=== PATIENT | female | born 1985 | race Caucasian/White ===

== ENCOUNTER 2016-07-12 15:51 | Emergency (ER) | payer OTHER ==
[~2016-07-12 15:51] MED LIST: CELE20TA PO; CLON1TAB PO; COMMODE 3-IN-11 MIS; DOCU1CAP39 PO; FOLI1TAB4 PO; GABA600T PO; GETGO ROLLING W1 MI1; HYDR-3583 PO; LEVO50TA4 PO; LISI-515 PO; PANT20 PO; THERTAB15 PO; VITA100T PO; VITA100T2 PO; WHEEMIS3
[2016-07-12 15:54] VITALS: BP 125/92; PULSE 112; RESP 12; TEMP 97.6; O2SAT 100
[2016-08-11] MEDS ORDERED: NUVAMIS VAGINAL (10:12)
[2016-08-11] MEDS ORDERED: HYDR-3583 PO (10:22)
[2016-10-02] MEDS ORDERED: CLON1TAB PO (06:47)
[2016-10-25] MEDS ORDERED: HYDR-3583 PO (15:23)
[2016-11-10] MEDS ORDERED: HYDR-3583 PO (11:13)
[2016-11-10] MEDS ORDERED: NUVAMIS VAGINAL (11:19)
[2016-11-15] MEDS ORDERED: PANT20 PO (12:11)
== END 2016-07-12 16:37 | disposition left against medical advice (07) ==
LOC: NED 15:51
DX: R68.89 Other general symptoms and signs (principal)
CPT/HCPCS: 99281

== ENCOUNTER 2017-04-16 15:19 | Inpatient (IN) | payer OTHER ==
[~2017-04-16] VITALS: Ht 162.6 cm; Wt 58.0 kg
[~2017-04-16 15:19] MED LIST changes: -COMMODE 3-IN-11 MIS; -FOLI1TAB4 PO; +FOLI1TAB6 PO; -GETGO ROLLING W1 MI1; -LISI-515 PO; +LISI10TA3 PO; +NUVAMIS VAGINAL; -WHEEMIS3
[2017-04-16] MEDS ORDERED: IOHEXOL 350 MG/ML 10 ML VIAL (for RAD DIAG) IVCONTRAST ONE (15:20)
[2017-04-16 15:21] VITALS: BP 127/92; PULSE 113; RESP 16; TEMP 98.9; O2SAT 100
[2017-04-16] MEDS ORDERED: B-12100T PO (16:04)
[2017-04-16] MEDS ORDERED: VITA100T54 PO (16:04)
[2017-04-16 16:19] LABS: AUTOMATED NEUTROPHIL # 4.1 TH/MM3 (1.8-7.7); BASOPHIL % 0.2 % (0.0-2.0); EOSINOPHIL % 0.7 % (0.0-4.0); HEMATOCRIT 36.6 % (35.0-46.0); HEMO FLAGS DIFF FINAL; LYMPH % 17.1 % (9.0-44.0); MEAN CELL VOLUME 115.1 FL (80.0-100.0); MEAN CORPUSCULAR HEMOGLOBIN 39.4 PG (27.0-34.0); MEAN CORPUSCULAR HGB CONC 34.3 % (32.0-36.0); MONO % 15.7 % (0.0-8.0); NEUT % 66.3 % (16.0-70.0); PLATELET COUNT 189 TH/MM3 (150-450); RED BLOOD COUNT 3.18 MIL/MM3 (4.00-5.30); RED CELL DISTRIBUTION WIDTH 14.3 % (11.6-17.2); WHITE BLOOD COUNT 6.1 TH/MM3 (4.0-11.0)
[2017-04-16 16:27] LABS: APTT (PATIENT) 30.6 SEC (24.3-30.1); INTERNATIONAL NORMALIZED RATIO 1.3 RATIO
--- NOTE | 2017-04-16 16:56 | PD ---
HPI Chief Complaint: Abnormal Results Time Seen by Provider: 16:03 Travel History International Travel<30 days: No Contact w/Intl Traveler<30days: No Traveled to known affect area: No History of Present Illness HPI Patient is a 32-year-old female presenting to the emergency department for evaluation of jaundice. 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 Her mother is at bedside and states that she noticed the discoloration her eyes over a week ago. Patient did not want to go to the doctor or Hospital initially. Patient states that for the last week her abdomen has become more distended and bloated feeling, she 's had increasing edema in her lower extremities. She does report head mva reactor operator stools, early feeling of fullness and mild nausea. She also reports shortness of breath that started today. Patient states that she had a liver mass with negative biopsies and reports a history of fatty liver disease. She denies any daily alcohol use. She states that she drinks occasionally. She denies any binge drinking or history of hepatitis. 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) Anxiety: Yes Depression: Yes Heart Rhythm Problems: No Cancer: No Cardiovascular Problems: No High Cholesterol: No Chemotherapy: No Chest Pain: No Congestive Heart Failure: No COPD: No Cerebrovascular Accident: No Diabetes: No Endocrine: No Gastrointestinal Disorders: Yes GERD: Yes Genitourinary: No Headaches: Yes (occasional headaches) Hiatal Hernia: No Hypertension: Yes Immune Disorder: No Kidney Stones: No Musculoskeletal: No Neurologic: Yes Reproductive: No Respiratory: No Migraines: No Radiation Therapy: No Renal Failure: No Seizures: No Sickle Cell Disease: No Sleep Apnea: No Thyroid Disease: Yes Ulcer: No Tetanus Vaccination: < 5 Years Influenza Vaccination: No ?: Not LMP: 04/02/17 Past Surgical History Abdominal Surgery: No AICD: No Arteriovenous Shunt: No Cardiac Surgery: No Ear Surgery: No Endocrine Surgery: No Eye Surgery: No Genitourinary Surgery: No Gynecologic Surgery: No Insulin Pump: No Joint Replacement: No Oral Surgery: No Pacemaker: No Thoracic Surgery: No Tonsillectomy: Yes Social History Alcohol Use: Yes (OCCAS) Tobacco Use: No Substance Use: No Allergies-Medications (Allergen,Severity, Reaction): Uncoded Allergies: QT prolonging drugs (Allergy, Severe, 04/16/17) 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 and needs to avoid these drugs for the near future Reported Meds & Prescriptions Reported Meds & Active Scripts Active Folic Acid 1 Mg Tablet 1 Mg PO DAILY Nuvaring Vaginal Insert (Etonogestrel-Ethinyl Estradiol Vaginal Insert) 0.120- 0.015 Mg/24 Hr Vagring 1 Applic VAGINAL DIRECTED Hydrocodone-Acetaminophen 10-325 mg Tab 1 Tab PO Q4H PRN Clonazepam 1 Mg Tab 1 Mg PO BID Celexa (Citalopram Hydrobromide) 20 Mg Tab 20 Mg PO DAILY Gabapentin 600 Mg Tab 1,200 Mg PO TID Thera/Beta-Carotene (Multiple Vitamin) 1 Tab Tab 1 Tab PO DAILY Levothyroxine (Levothyroxine Sodium) 50 Mcg Tab 50 Mcg PO DAILY Reported B-12 (Cyanocobalamin) 100 Mcg Tab 100 Mcg PO DAILY Vitamin B-1 (Thiamine HCl) 100 Mg Tab 100 Mg PO DAILY Review of Systems Except as stated in HPI: all other systems reviewed are Neg General / Constitutional: No: Fever, Chills Eyes: Positive: Other (yellowing) HENT: No: Headaches Cardiovascular: No: Chest Pain or Discomfort Respiratory: Positive: Shortness of Breath Gastrointestinal: Positive: Nausea, Abdominal Pain, Changes in Bowel Habits Musculoskeletal: Positive: Edema, No: Myalgias Skin: Positive Change in Pigmentation Neurologic: No: Weakness, Dizziness, Syncope Physical Exam Narrative GENERAL: Well-developed, well-nourished, alert female. Resting comfortably in no acute distress. SKIN: Warm and dry. Jaundiced HEAD: Atraumatic. Normocephalic. EYES: Pupils equal and round. Moderate scleral icterus. No injection or drainage. ENT: No nasal bleeding or discharge. Mucous membranes pink and moist. NECK: Trachea midline. No JVD. CARDIOVASCULAR: Tachycardic. RESPIRATORY: No accessory muscle use. Clear to auscultation. Breath sounds equal bilaterally. GASTROINTESTINAL: Abdomen firm, mildly tender diffusely, distended. Hepatic and splenic margins not palpable. Positive bowel sounds MUSCULOSKELETAL: Extremities without clubbing, cyanosis, or edema. No obvious deformities. NEUROLOGICAL: Awake and alert. No obvious cranial nerve deficits. Motor grossly within normal limits. Five out of 5 muscle strength in the arms and legs. Normal speech. PSYCHIATRIC: Appropriate mood and affect; insight and judgment normal. Data Data Last Documented VS Vital Signs Date Time Temp Pulse Resp B/P (MAP) Pulse Ox O2 Delivery O2 Flow Rate FiO2 04/16/17 19:41 95 16 100/73 (82) 99 Room Air 04/16/17 15:21 98.9 Orders Orders Complete Blood Count With Diff (04/16/17 15:42) Comprehensive Metabolic Panel (04/16/17 15:42) Prothrombin Time / Inr (Pt) (04/16/17 15:42) Act Partial Throm Time (Ptt) (04/16/17 15:42) Urinalysis - C+S If Indicated (04/16/17 15:42) Electrocardiogram (04/16/17 15:42) Ammonia (04/16/17 15:42) Direct Bilirubin (04/16/17 15:42) Chest, Pa & Lat (04/16/17 ) Ct Abd/Pel W Iv Contrast(Rout) (04/16/17 ) Ed Urine Pregnancytest Poc (04/16/17 16:14) Lipase (04/16/17 17:40) Iohexol 350 Inj (Omnipaque 350 Inj) (04/16/17 15:20) Us Abdomen Gallbladder (04/16/17 ) Admit Order (Ed Use Only) (04/16/17 20:52) Labs Laboratory Tests Test 04/16/17 16:10 04/16/17 19:00 White Blood Count 6.1 TH/MM3 Red Blood Count 3.18 MIL/MM3 Hemoglobin 12.6 GM/DL Hematocrit 36.6 % Mean Corpuscular Volume 115.1 FL Mean Corpuscular Hemoglobin 39.4 PG Mean Corpuscular Hemoglobin Concent 34.3 % Red Cell Distribution Width 14.3 % Platelet Count 189 TH/MM3 Mean Platelet Volume 7.5 FL Neutrophils (%) (Auto) 66.3 % Lymphocytes (%) (Auto) 17.1 % Monocytes (%) (Auto) 15.7 % Eosinophils (%) (Auto) 0.7 % Basophils (%) (Auto) 0.2 % Neutrophils # (Auto) 4.1 TH/MM3 Lymphocytes # (Auto) 1.0 TH/MM3 Monocytes # (Auto) 1.0 TH/MM3 Eosinophils # (Auto) 0.0 TH/MM3 Basophils # (Auto) 0.0 TH/MM3 CBC Comment DIFF FINAL Differential Comment Prothrombin Time 15.0 SEC Prothromb Time International Ratio 1.3 RATIO Activated Partial Thromboplast Time 30.6 SEC Blood Urea Nitrogen 4 MG/DL Creatinine 0.52 MG/DL Random Glucose 120 MG/DL Total Protein 5.3 GM/DL Albumin 2.1 GM/DL Calcium Level 8.4 MG/DL Alkaline Phosphatase 490 U/L Aspartate Amino Transf (AST/SGOT) 108 U/L Alanine Aminotransferase (ALT/SGPT) 34 U/L Total Bilirubin 24.5 MG/DL Direct Bilirubin 20.4 MG/DL Sodium Level 136 MEQ/L Potassium Level 3.1 MEQ/L Chloride Level 102 MEQ/L Carbon Dioxide Level 23.5 MEQ/L Anion Gap 11 MEQ/L Estimat Glomerular Filtration Rate 135 ML/MIN Ammonia 13 MCMOL/L Lipase 41 U/L Urine Color DARK-BROWN Urine Turbidity HAZY Urine pH 7.0 Urine Specific [place] GREATER THAN 1.050 Urine Protein 30 mg/dL Urine Glucose (UA) NEG mg/dL Urine Ketones NEG mg/dL Urine Occult Blood NEG Urine Nitrite NEG Urine Bilirubin LARGE Urine Urobilinogen 4.0 MG/DL Urine Leukocyte Esterase SMALL Urine RBC 5 /hpf Urine WBC 3 /hpf Urine Squamous Epithelial Cells 7 /hpf Urine Amorphous Sediment RARE Urine Bacteria OCC /hpf Urine Mucus FEW /lpf Microscopic Urinalysis Comment CULT NOT INDICATED MDM Medical Decision Making Medical Screen Exam Complete: Yes Emergency Medical Condition: Yes Medical Record Reviewed: Yes Interpretation(s) Last Impressions Gall Bladder Ultrasound 04/16/17 0000 Signed Impressions: Service Date/Time: Sunday, April 16, 2017 19:17 - CONCLUSION: 1. Hepatic steatosis and hepatomegaly. 2. Cholelithiasis with mild thickening of the gallbladder wall. This can be correlated with any clinical signs of cholecystitis. 3. Mildly dilated common bile duct. Felix Briones MD Chest X-Ray 04/16/17 0000 Signed Impressions: Service Date/Time: Sunday, April 16, 2017 16:42 - CONCLUSION: No acute disease. Francisco Javier Lopez MD FACR Abdomen/Pelvis CT 04/16/17 0000 Signed Impressions: Service Date/Time: Sunday, April 16, 2017 17:25 - CONCLUSION: 1. Hepatomegaly with hepatic steatosis and areas of focal fatty sparing. There is mild ascites seen in the peroneal cavity. 2. Gallstone with a thickened gallbladder wall. This is nonspecific. Thickening of the gallbladder wall can be seen with hepatic disease. Cholecystitis cannot be excluded. Significant fluid around gallbladder is not seen on the CT examination. 3. Mild splenomegaly. This is nonspecific. It may be from the hepatic disease. Felix Briones MD Laboratory Tests Test 04/16/17 16:10 04/16/17 19:00 White Blood Count 6.1 TH/MM3 Red Blood Count 3.18 MIL/MM3 Hemoglobin 12.6 GM/DL Hematocrit 36.6 % Mean Corpuscular Volume 115.1 FL Mean Corpuscular Hemoglobin 39.4 PG Mean Corpuscular Hemoglobin Concent 34.3 % Red Cell Distribution Width 14.3 % Platelet Count 189 TH/MM3 Mean Platelet Volume 7.5 FL Neutrophils (%) (Auto) 66.3 % Lymphocytes (%) (Auto) 17.1 % Monocytes (%) (Auto) 15.7 % Eosinophils (%) (Auto) 0.7 % Basophils (%) (Auto) 0.2 % Neutrophils # (Auto) 4.1 TH/MM3 Lymphocytes # (Auto) 1.0 TH/MM3 Monocytes # (Auto) 1.0 TH/MM3 Eosinophils # (Auto) 0.0 TH/MM3 Basophils # (Auto) 0.0 TH/MM3 CBC Comment DIFF FINAL Differential Comment Prothrombin Time 15.0 SEC Prothromb Time International Ratio 1.3 RATIO Activated Partial Thromboplast Time 30.6 SEC Blood Urea Nitrogen 4 MG/DL Creatinine 0.52 MG/DL Random Glucose 120 MG/DL Total Protein 5.3 GM/DL Albumin 2.1 GM/DL Calcium Level 8.4 MG/DL Alkaline Phosphatase 490 U/L Aspartate Amino Transf (AST/SGOT) 108 U/L Alanine Aminotransferase (ALT/SGPT) 34 U/L Total Bilirubin 24.5 MG/DL Direct Bilirubin 20.4 MG/DL Sodium Level 136 MEQ/L Potassium Level 3.1 MEQ/L Chloride Level 102 MEQ/L Carbon Dioxide Level 23.5 MEQ/L Anion Gap 11 MEQ/L Estimat Glomerular Filtration Rate 135 ML/MIN Ammonia 13 MCMOL/L Lipase 41 U/L Urine Color DARK-BROWN Urine Turbidity HAZY Urine pH 7.0 Urine Specific [place] GREATER THAN 1.050 Urine Protein 30 mg/dL Urine Glucose (UA) NEG mg/dL Urine Ketones NEG mg/dL Urine Occult Blood NEG Urine Nitrite NEG Urine Bilirubin LARGE Urine Urobilinogen 4.0 MG/DL Urine Leukocyte Esterase SMALL Urine RBC 5 /hpf Urine WBC 3 /hpf Urine Squamous Epithelial Cells 7 /hpf Urine Amorphous Sediment RARE Urine Bacteria OCC /hpf Urine Mucus FEW /lpf Microscopic Urinalysis Comment CULT NOT INDICATED Vital Signs Date Time Temp Pulse Resp B/P (MAP) Pulse Ox O2 Delivery O2 Flow Rate FiO2 04/16/17 15:55 110 18 97 Room Air 04/16/17 15:21 98.9 113 16 127/92 (104) 100 Differential Diagnosis Cholecystitis versus pancreatitis versus cirrhosis versus acute hepatitis versus Narrative Course Patient is a 32-year-old female presenting for evaluation of jaundice. She reports diffuse abdominal distention. Patient was mildly tachycardic on arrival , she is resting comfortably. Imaging ordered and pending. CBC with no acute findings Chemistry with elevated total bilirubin at 24.5, direct bilirubin at 20.4, alkaline phosphorus 490, lipase is 41, potassium 3.1. Oral replacement ordered. Urinalysis noted specific gravity, large bilirubin, 4.0 urobilinogen. Elevated PT and APTT CT scan of the abdomen and pelvis which was read by radiology shows hepatomegaly with hepatic steatosis and areas of focal fatty sparring. Mild ascites in the peritoneal cavity. There is gallstones with a thickened gallbladder wall, this can be seen with hepatic disease, cholecystitis cannot be excluded. Is no significant fluid around the gallbladder. Mild splenomegaly , which also may be from hepatic disease. Chest x-ray shows no acute disease Ultrasound of the gallbladder which was also read by the radiologist shows again hepatic state ptosis and hepatomegaly. Cholelithiasis with mild thickening of the gallbladder wall. This can be correlated with clinical signs of cholecystitis. There is a mildly dilated common bile duct. Due to the acute onset of jaundice as well as possible cholecystitis. Patient will be admitted for possible MRCP. Discussed with residents who accepted admission. Admit orders placed. Patient has been resting comfortably, she is agreeable to plan. Diagnosis Primary Impression: Jaundice Additional Impressions: Abnormal liver enzymes Abnormal gallbladder ultrasound Admitting Information Admitting Physician Requests: Admit Condition: Stable Ratna Torrez Apr 16, 2017 16:56
--- NOTE | 2017-04-16 16:56 | RADRPT ---
EXAM DATE/TIME: 04/16/2017 16:42 [facility] COMPARISON: No previous studies available for comparison. INDICATIONS : Short of breath, pain from abdomen to toes, no chest pain MEDICAL HISTORY : guillain barre disease SURGICAL HISTORY : None. ENCOUNTER: Initial ACUITY: 1 day PAIN SCORE: 10/10 LOCATION: Bilateral chest FINDINGS: PA and lateral views of the chest demonstrate the lungs to be symmetrically aerated without evidence of mass, infiltrate or effusion. The cardiomediastinal contours are unremarkable. Osseous structure s are intact. CONCLUSION: No acute disease. Francisco Javier Lopez MD FACR on April 16, 2017 at 16:54 Board Certified Radiologist. This report was verified electronically.
[2017-04-16 17:02] LABS: ALKALINE PHOSPHATASE 490 U/L (45-117); ALT (GPT) 34 U/L (10-53); ANION GAP 11 MEQ/L (5-15); AST (GOT) 108 U/L (15-37); BICARBONATE 23.5 MEQ/L (21.0-32.0); BLOOD UREA NITROGEN 4 MG/DL (7-18); CHLORIDE 102 MEQ/L (98-107); GLOMERULAR FILTRATION RATE 135 ML/MIN (>89); POTASSIUM 3.1 MEQ/L (3.5-5.1); SODIUM (NA) 136 MEQ/L (136-145); TOTAL BILIRUBIN ADULT 24.5 MG/DL (0.2-1.0)
[2017-04-16 17:54] VITALS: BP 110/75; PULSE 97; RESP 20; O2SAT 99
--- NOTE | 2017-04-16 18:28 | RADRPT ---
EXAM DATE/TIME: 04/16/2017 17:25 [facility] COMPARISON: CT ABDOMEN & PELVIS W CONTRAST, May 01, 2016, 14:43. INDICATIONS : Recent history of guillian barre,jundice,leg weakness. IV CONTRAST: 75 cc Omnipaque 350 (iohexol) IV ORAL CONTRAST: No oral contrast ingested. RADIATION DOSE: 6.78 CTDIvol (mGy) MEDICAL HISTORY : Guillian barre SURGICAL HISTORY : None. ENCOUNTER: Initial ACUITY: 3 weeks PAIN SCALE: 9/10 LOCATION: [facility] TECHNIQUE: Volumetric scanning of the abdomen and pelvis was performed. Using automated exposure control and ad justment of the mA and/or kV according to patient size, radiation dose was kept as low as reasonably achievable to obtain optimal diagnostic quality images. DICOM format image data is available electro nically for review and comparison. FINDINGS: LOWER LUNGS: The visualized lower lungs are clear. There is a minimal left pleural effusion. LIVER: There is hepatic steatosis with areas of focal fatty sparing. There are potential masslike area seen at the left lateral aspect of the lateral segment of the left lobe liver measuring 2.7 cm and in the posterior segment at the right lobe liver measuring 2.2 cm. These likely represent areas of focal fat ty sparing. They were present previously. They're unchanged from prior exam. The liver does appear en larged. There is a peripheral calcified gallstones in the gallbladder. Gallbladder wall is thickened. There is mild ascites seen around the inferior posterior right lateral aspect of the liver. Mild asc ites is also seen in the pelvis. SPLEEN: The spleen is mildly enlarged. No focal splenic lesion is seen. PANCREAS: Within normal limits. KIDNEYS: Normal in size and shape. There is no mass, stone or hydronephrosis. ADRENAL GLANDS: Within normal limits. VASCULAR: There is no aortic aneurysm. BOWEL/MESENTERY: The stomach, small bowel, and colon demonstrate no acute abnormality. There is no free intraperitone al air or fluid. ABDOMINAL WALL: Within normal limits. RETROPERITONEUM: There is no lymphadenopathy. BLADDER: No wall thickening or mass. REPRODUCTIVE: No pelvic masses are seen. There is a ringlike structure in the vagina. INGUINAL: There is no lymphadenopathy or hernia. MUSCULOSKELETAL: Within normal limits for patient age. CONCLUSION: 1. Hepatomegaly with hepatic steatosis and areas of focal fatty sparing. There is mild ascites seen i n the peroneal cavity. 2. Gallstone with a thickened gallbladder wall. This is nonspecific. Thickening of the gallbladder wa ll can be seen with hepatic disease. Cholecystitis cannot be excluded. Significant fluid around gallb ladder is not seen on the CT examination. 3. Mild splenomegaly. This is nonspecific. It may be from the hepatic disease. Felix Briones MD on April 16, 2017 at 18:19 Board Certified Radiologist. This report was verified electronically.
[2017-04-16 19:41] VITALS: BP 100/73; PULSE 95; RESP 16; O2SAT 99
[2017-04-16 20:09] LABS: BACTERIA, URINE OCC /hpf; BLOOD, URINE NEG (NEG); COMMENT (UR) CULT NOT INDICATED; CULTURE IF INDICATED CULT NOT INDICATED; GLUCOSE,URINE NEG (NEG); KETONE, URINE NEG (NEG); MUCUS URINE FEW /lpf (OCC); NITRITE,URINE NEG (NEG); SQUAMOUS EPITHELIAL CELL URINE 7 /hpf (0-5)
[2017-04-16 20:14] LABS: URINE COLOR DARK-BROWN (YELLW/STRAW)
--- NOTE | 2017-04-16 20:21 | RADRPT ---
EXAM DATE/TIME: 04/16/2017 19:17 [facility] COMPARISON: No previous studies available for comparison. INDICATIONS : Right upper quadrant pain. MEDICAL HISTORY : Gastroesophageal reflux disease. Liver disease. Depression. SURGICAL HISTORY : Tonsillectomy. ENCOUNTER: Initial ACUITY: 4-6 days PAIN SCORE: 5/10 LOCATION: Right upper quadrant MEASUREMENTS: LIVER: 23.3 cm length COMMON DUCT: 8 mm RIGHT KIDNEY: 9.7 x 4.0 x 3.6 cm FINDINGS: LIVER: The liver is enlarged and echogenic without focal lesion or ductal dilatation. COMMON DUCT: Common bile duct is mildly dilated at 8 mm. GALLBLADDER: Gallstones are seen the gallbladder. Gallbladder wall is thickened at 4 mm. The technologist reports a negative sonographic Bhardwaj's sign. PANCREAS: The visualized portions are within normal limits. RIGHT KIDNEY: No evidence of hydronephrosis, stone, or mass. CONCLUSION: 1. Hepatic steatosis and hepatomegaly. 2. Cholelithiasis with mild thickening of the gallbladder wall. This can be correlated with any clini sky signs of cholecystitis. 3. Mildly dilated common bile duct. Felix Briones MD on April 16, 2017 at 20:17 Board Certified Radiologist. This report was verified electronically.
[2017-04-16] MEDS ORDERED: POTASSIUM CHLORIDE 10 MEQ CONTROLLED RELEASE TAB PO ONE (21:00)
--- NOTE | 2017-04-16 21:32 | HHI.HP ---
[facility] Service Family Medicine Primary Care Physician Se Shannon , R3 MD Helen Admission Diagnosis JAUNDICE, R/O CHOLECYSTITIS Diagnoses: Chief Complaint: weakness International Travel<30 Days: No Contact w/Intl Traveler<30days: No History of Present Illness Patient is a 32 year old female with history of hepatic steatosis, cirrhosis, hypothyroidism, Guillain-Knight, hypertension who presents for weakness and jaundice. 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 She states that she started having pain in her feet about 2 weeks ago that was shooting up to her hips. She is having continued leg pain and weakness , however no pain while sitting down. She denies any numbness/tingling in her legs, however does note some on the bottom of her feet. 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 She was treated with IVIG. She sees neurologist Dr. Baig, saw her this last summer. Denies any symptoms since last episode. Denies any bladder/bowel incontinence. No upper extremity weakness. She states she didn't really notice her skin turning yellow, until her mother mentioned it. Started about a week ago. Also started having pain in her abdomen as well. Her urine is very dark. No fever/chills. No recent travel. Had a alcoholic drink 2 nights ago. Averages a mixed drink per week. States her stools are light green. No blood in her stools. No diarrhea. Does have a lot of back pain when she bends over. Endorses abdominal fullness and early satiety, which is been going on for 3 weeks. No specific right upper quadrant pain. Endorses overall malaise. Denies any history of jaundice previously. Does not see a GI doctor regularly. Denies any sick contacts. Denies any history of hepatitis. No, she has a history of hepatomegaly and liver masses, which have had negative biopsies. They did show steatohepatitis and cirrhosis. Review of Systems ROS Limitations: Poor Historian Constitutional: COMPLAINS OF: Change in appetite, DENIES: Fever, Weight gain, Weight loss, Chills, Night Sweats Eyes: DENIES: Vision loss Ears, nose, mouth, throat: DENIES: Hearing loss, Throat pain, Running Nose Respiratory: DENIES: Cough, Shortness of breath Cardiovascular: DENIES: Chest pain, Palpitations, Syncope Gastrointestinal: COMPLAINS OF: Abdominal pain, DENIES: Black stools, Bloody stools, Constipation, Diarrhea, Nausea, Vomiting Genitourinary: DENIES: Urgency, Dysuria Musculoskeletal: COMPLAINS OF: Muscle aches, Stiffness, Back pain Integumentary: DENIES: Abnormal pigmentation, Rash Hematologic/lymphatic: DENIES: Bruising, Lymphadenopathy Neurologic: DENIES: Headache, Paresthesias Psychiatric: DENIES: Confusion, Mood changes Past Family Social History Past Medical History Cirrhosis Hepatic steatosis B12 deficiency Guillian-Bairre Hypothyroidism Depression Anxiety HTN Past Surgical History Tonsilectomy Leep [place] Teeth extraction Reported Medications Reported Meds & Active Scripts Active Folic Acid 1 Mg Tablet 1 Mg PO DAILY Nuvaring Vaginal Insert (Etonogestrel-Ethinyl Estradiol Vaginal Insert) 0.120- 0.015 Mg/24 Hr Vagring 1 Applic VAGINAL DIRECTED Hydrocodone-Acetaminophen 10-325 mg Tab 1 Tab PO Q4H PRN Clonazepam 1 Mg Tab 1 Mg PO BID PRN Celexa (Citalopram Hydrobromide) 20 Mg Tab 20 Mg PO DAILY Gabapentin 600 Mg Tab 1,200 Mg PO BID Thera/Beta-Carotene (Multiple Vitamin) 1 Tab Tab 1 Tab PO DAILY Levothyroxine (Levothyroxine Sodium) 50 Mcg Tab 50 Mcg PO DAILY Reported B-12 (Cyanocobalamin) 100 Mcg Tab 100 Mcg PO DAILY Vitamin B-1 (Thiamine HCl) 100 Mg Tab 100 Mg PO DAILY Allergies: Uncoded Allergies: QT prolonging drugs (Allergy, Severe, 04/16/17) she has QT prolongation because of her Guillan Rav[place] and needs to avoid these drugs for the near future Active Ordered Medications Active Medications Iohexol (Omnipaque 350 Inj) 75 ml STK-MED ONCE IVCONTRAST Last administered on 04/16/17t 15:20; Admin Dose 75 ML; Start 04/16/17 at 15:20; Stop 04/16/17 at 18:08; Status DC Potassium Chloride (KCl) 60 meq ONCE ONCE PO; Start 04/16/17 at 21:00; Stop 04/16/17 at 21:01; Status DC Family History Skin cancer, prostate, History of abnormal cervical finding, HTN, Social History Lives with mother at home Alcohol: 1-2 drinks/week Tobacco: not currently; quit 5 years ago Illicit drug use: denies Physical Exam Vital Signs Vital Signs Date Time Temp Pulse Resp B/P (MAP) Pulse Ox O2 Delivery O2 Flow Rate FiO2 04/16/17 19:41 95 16 100/73 (82) 99 Room Air 04/16/17 17:54 97 20 110/75 (87) 99 Room Air 04/16/17 15:55 110 18 97 Room Air 04/16/17 15:21 98.9 113 16 127/92 (104) 100 Physical Exam GENERAL: This is a well-nourished, well-developed patient, in no apparent distress. SKIN: Cool and dry. Jaundiced. HEAD: Atraumatic. Normocephalic. EYES: Pupils equal round and reactive. Extraocular motions intact. Scleral icterus present. ENT: Throat without erythema, tonsillar hypertrophy or exudate. Uvula midline. Airway patent. NECK: Trachea midline. No JVD or lymphadenopathy. Supple, nontender. CARDIOVASCULAR: Regular rate and rhythm without murmurs, gallops, or rubs. RESPIRATORY: Clear to auscultation. Breath sounds equal bilaterally. No wheezes , rales, or rhonchi. GASTROINTESTINAL: Abdomen soft, mildly tender to palpation diffusely. Mildly distended. Hepatic margin palpable. Positive bowel sounds. Negative Bhardwaj's signs. No rebound tenderness. MUSCULOSKELETAL: Extremities without clubbing, cyanosis. 1+ edema bilaterally lower extremities. Tender to palpation. NEUROLOGICAL: Awake and alert. Cranial nerves II through XII intact. No focal neuro deficits. Patient with decreased strength in lower extremities bilaterally. Decreased sensation in lower extremities bilaterally. Normal speech. Laboratory Laboratory Tests Test 04/16/17 16:10 04/16/17 19:00 White Blood Count 6.1 Red Blood Count 3.18 Hemoglobin 12.6 Hematocrit 36.6 Mean Corpuscular Volume 115.1 Mean Corpuscular Hemoglobin 39.4 Mean Corpuscular Hemoglobin Concent 34.3 Red Cell Distribution Width 14.3 Platelet Count 189 Mean Platelet Volume 7.5 Neutrophils (%) (Auto) 66.3 Lymphocytes (%) (Auto) 17.1 Monocytes (%) (Auto) 15.7 Eosinophils (%) (Auto) 0.7 Basophils (%) (Auto) 0.2 Neutrophils # (Auto) 4.1 Lymphocytes # (Auto) 1.0 Monocytes # (Auto) 1.0 Eosinophils # (Auto) 0.0 Basophils # (Auto) 0.0 CBC Comment DIFF FINAL Differential Comment Prothrombin Time 15.0 Prothromb Time International Ratio 1.3 Activated Partial Thromboplast Time 30.6 Blood Urea Nitrogen 4 Creatinine 0.52 Random Glucose 120 Total Protein 5.3 Albumin 2.1 Calcium Level 8.4 Alkaline Phosphatase 490 Aspartate Amino Transf (AST/SGOT) 108 Alanine Aminotransferase (ALT/SGPT) 34 Total Bilirubin 24.5 Direct Bilirubin 20.4 Sodium Level 136 Potassium Level 3.1 Chloride Level 102 Carbon Dioxide Level 23.5 Anion Gap 11 Estimat Glomerular Filtration Rate 135 Ammonia 13 Lipase 41 Urine Color DARK-BROWN Urine Turbidity HAZY Urine pH 7.0 Urine Specific [place] GREATER THAN 1.050 Urine Protein 30 Urine Glucose (UA) NEG Urine Ketones NEG Urine Occult Blood NEG Urine Nitrite NEG Urine Bilirubin LARGE Urine Urobilinogen 4.0 Urine Leukocyte Esterase SMALL Urine RBC 5 Urine WBC 3 Urine Squamous Epithelial Cells 7 Urine Amorphous Sediment RARE Urine Bacteria OCC Urine Mucus FEW Microscopic Urinalysis Comment CULT NOT INDICATED Result Diagram: 04/16/17 1610 04/16/17 1610 Imaging Last Impressions Gall Bladder Ultrasound 04/16/17 0000 Signed Impressions: Service Date/Time: Sunday, April 16, 2017 19:17 - CONCLUSION: 1. Hepatic steatosis and hepatomegaly. 2. Cholelithiasis with mild thickening of the gallbladder wall. This can be correlated with any clinical signs of cholecystitis. 3. Mildly dilated common bile duct. Felix Brioens MD Chest X-Ray 04/16/17 0000 Signed Impressions: Service Date/Time: Sunday, April 16, 2017 16:42 - CONCLUSION: No acute disease. Francisco Javier Lopez MD FACR Abdomen/Pelvis CT 04/16/17 0000 Signed Impressions: Service Date/Time: Sunday, April 16, 2017 17:25 - CONCLUSION: 1. Hepatomegaly with hepatic steatosis and areas of focal fatty sparing. There is mild ascites seen in the peroneal cavity. 2. Gallstone with a thickened gallbladder wall. This is nonspecific. Thickening of the gallbladder wall can be seen with hepatic disease. Cholecystitis cannot be excluded. Significant fluid around gallbladder is not seen on the CT examination. 3. Mild splenomegaly. This is nonspecific. It may be from the hepatic disease. MD Reji Xavier VTE Risk Assessment Caprini VTE Risk Assessment: No/Low Risk (score <= 1) Caprini Risk Assessment Model Point Value = 1 Point Value = 2 Point Value = 3 Point Value = 5 Age 41-60 Minor surgery BMI > 25 kg/m2 Swollen legs Varicose veins or History of unexplained or recurrent spontaneous Oral contraceptives or hormone replacement Sepsis (< 1 month) Serious lung disease, including pneumonia (< 1 month) Abnormal pulmonary function Acute myocardial infarction Congestive heart failure (< 1 month) History of inflammatory bowel disease Medical patient at bed rest Age 61-74 Arthroscopic surgery Major open surgery (> 45 min) Laparoscopic surgery (> 45 min) Malignancy Confined to bed (> 72 hours) Immobilizing plaster cast Central venous access Age >= 75 History of VTE Family history of VTE Factor V Leiden Prothrombin [id number] Lupus anticoagulant Anticardiolipin antibodies Elevated serum homocysteine Heparin-induced thrombocytopenia Other congenital or acquired thrombophilia Stroke (< 1 month) Elective arthroplasty Hip, pelvis, or leg fracture Acute spinal cord injury (< 1 month) Prophylaxis Regimen Total Risk Factor Score Risk Level Prophylaxis Regimen 0-1 Low Early ambulation 2 Moderate Order ONE of the following: *Sequential Compression Device (SCD) *Heparin 5000 units SQ BID 3-4 Higher Order ONE of the following medications: *Heparin 5000 units SQ TID *Enoxaparin/Lovenox 40 mg SQ daily (WT < 150 kg, CrCl > 30 mL/min) *Enoxaparin/Lovenox 30 mg SQ daily (WT < 150 kg, CrCl > 10-29 mL/min) *Enoxaparin/Lovenox 30 mg SQ BID (WT < 150 kg, CrCl > 30 mL/min) AND/OR *Sequential Compression Device (SCD) 5 or more Highest Order ONE of the following medications: *Heparin 5000 units SQ TID (Preferred with Epidurals) *Enoxaparin/Lovenox 40 mg SQ daily (WT < 150 kg, CrCl > 30 mL/min) *Enoxaparin/Lovenox 30 mg SQ daily (WT < 150 kg, CrCl > 10-29 mL/min) *Enoxaparin/Lovenox 30 mg SQ BID (WT < 150 kg, CrCl > 30 mL/min) AND *Sequential Compression Device (SCD) Assessment and Plan Assessment and Plan 32-year-old female with history of Guillain-Knight, hepatic steatosis, cirrhosis, hypothyroidism, hypertension presents with lower extremity pain and weakness along with jaundice. We'll admit for workup of neurological symptoms as well as GI symptoms. Code Status Full Discussed Condition With Dr. Torrez Problem List: (1) Jaundice ICD Codes: R17 - Unspecified jaundice Status: Acute Plan: Patient presents with jaundiced clinically, as well as abdominal pain. DDx cirrhosis, hepatitis, cholecystitis, cholangitis, hepatic steatosis, liver malignancy, primary biliary cholangitis Patient with significant history of hepatic steatosis and cirrhosis. History of liver masses biopsied in the past, which were negative for malignancy. Abdomen/pelvis CT: hepatomegaly with hepatic steatosis. Mild ascites. Gallstones with a thickened gallbladder wall. Mild splenomegaly. Gallbladder ultrasound: hepatic steatosis and hepatomegaly. Cholelithiasis with thickening of the gallbladder wall. This can be correlated with any clinical signs of cholecystitis. Mildly dilated common bile duct. Patient with elevated total bilirubin 24.5. Direct bilirubin 20.4. ST 108, ALC 34. Alkaline phosphatase 490. Lipase not elevated. Urine shows large bilirubin. PT elevated to 15 and PTT slightly elevated. No signs of infection, WBC wnl. Vitals stable, afebrile -Consult GI-appreciate recs -CLD -May benefit from MRCP -Trend CMP and bili -Hepatitis profile -AFP (2) History of Guillain-Ravena syndrome ICD Codes: Z86.69 - Personal history of other diseases of the nervous system and sense organs Status: Acute Plan: Patient diagnosed last year with Guillain-Knight syndrome. Now presenting with similar symptoms. No focal neuro deficit, but patient with lower extremity weakness and changes in sensation. DDx: CIDP, relapsing GB syndrome, B12 deficiency -Neuro checks -Continue home [place] for pain -B12, history of deficiency -Continue to monitor, may benefit from neurology referral (3) Hypoactive thyroid ICD Codes: E03.9 - Hypoactive thyroid Status: Acute Plan: Continue home synthroid Check TSH (4) Anxiety and depression ICD Codes: F41.9 - Anxiety disorder, unspecified; F32.9 - Major depressive disorder, single episode, unspecified Status: Chronic Plan: Continue home Celexa (5) FEN Status: Acute Plan: Fluids: tolerating PO Electrolytes: wnl, continue to monitor Nutrition: regular diet DVT ppx: SCDs Physician Certification 2 Midnight Certification Type: Admission for Inpatient Services Order for Inpatient Services The services are ordered in accordance with Medicare regulations or non- Medicare payer requirements, as applicable. In the case of services not specified as inpatient-only, they are appropriately provided as inpatient services in accordance with the 2-midnight benchmark. Estimated LOS (days): 3 days is the estimated time the patient will need to remain in the hospital, assuming treatment plan goals are met and no additional complications. Post-Hospital Plan: Home Problem Qualifiers (1) Hypoactive thyroid: Qualified Codes: E03.9 - Hypothyroidism, unspecified Shailesh Cole MD, R2 Apr 16, 2017 21:32
[2017-04-16] MEDS ORDERED: SODIUM CHLORIDE 0.9% FLUSH 10 ML FLUSH IV FLUSH PRN (22:15)
[2017-04-16] MEDS ORDERED: ETHINYL ESTRADIOL OTHER PRN (22:15)
[2017-04-16] MEDS ORDERED: ETONOGESTREL OTHER PRN (22:15)
[2017-04-16] MEDS ORDERED: ONDANSETRON HCL 4 MG/2 ML VIAL IV PUSH PRN (22:15)
[2017-04-16] MEDS ORDERED: GABA600T PO (22:16)
[2017-04-16 23:49] VITALS: BP 117/79
[2017-04-17 00:02] LABS: TOTAL BILIRUBIN ADULT 23.9 MG/DL (0.2-1.0)
[2017-04-17] MEDS: ACETAMINOPHEN/HYDROcodone 325 MG/10 MG TAB PO PRN ×4 (00:05→20:16)
[2017-04-17] MEDS: LEVOTHYROXINE SODIUM 50 MCG TAB PO SCH (06:34)
[2017-04-17] MEDS: THIAMINE HCL 100 MG TAB PO SCH (07:46)
[2017-04-17] MEDS: MULTIVITAMIN TAB PO SCH (07:46)
[2017-04-17] MEDS: FOLIC ACID 1 MG TAB PO SCH (07:46)
[2017-04-17] MEDS: CITALOPRAM HYDROBROMIDE 20 MG TAB PO SCH (07:46)
[2017-04-17] MEDS: SODIUM CHLORIDE 0.9% FLUSH 10 ML FLUSH IV FLUSH SCH ×2 (07:46→20:17)
[2017-04-17 08:00] VITALS: BP 106/76; PULSE 89; RESP 16; TEMP 97.7; O2SAT 98
[2017-04-17 08:36] LABS: AUTOMATED NEUTROPHIL # 3.2 TH/MM3 (1.8-7.7); BASOPHIL % 0.7 % (0.0-2.0); EOSINOPHIL # 0.1 TH/MM3 (0-0.4); EOSINOPHIL % 1.9 % (0.0-4.0); HEMATOCRIT 32.4 % (35.0-46.0); HEMO FLAGS DIFF FINAL; LYMPHOCYTE # 1.5 TH/MM3 (1.0-4.8); MEAN CELL VOLUME 113.4 FL (80.0-100.0); MEAN CORPUSCULAR HGB CONC 34.4 % (32.0-36.0); MONO % 14.2 % (0.0-8.0); NEUT % 57.2 % (16.0-70.0); PLATELET COUNT 173 TH/MM3 (150-450); RED BLOOD COUNT 2.86 MIL/MM3 (4.00-5.30); RED CELL DISTRIBUTION WIDTH 14.2 % (11.6-17.2); WHITE BLOOD COUNT 5.6 TH/MM3 (4.0-11.0)
[2017-04-17] MEDS: clonazePAM 1 MG TAB PO PRN ×2 (08:43→23:13)
[2017-04-17] MEDS: CYANOCOBALAMIN 100 MCG TAB PO SCH (08:43)
[2017-04-17 09:03] LABS: ALT (GPT) 25 U/L (10-53)
[2017-04-17 09:20] LABS: ANION GAP 12 MEQ/L (5-15); AST (GOT) 82 U/L (15-37); BLOOD UREA NITROGEN 4 MG/DL (7-18); CHLORIDE 104 MEQ/L (98-107); GLOMERULAR FILTRATION RATE 213 ML/MIN (>89); POTASSIUM 3.5 MEQ/L (3.5-5.1); SODIUM (NA) 139 MEQ/L (136-145)
[2017-04-17 09:31] LABS: ALKALINE PHOSPHATASE 399 U/L (45-117); TOTAL BILIRUBIN ADULT 22.2 MG/DL (0.2-1.0)
[2017-04-17] MEDS: PIPERACIL-TAZO 3.375 GM PREMIX 50 ML IV SCH ×3 (09:50→20:07)
--- NOTE | 2017-04-17 10:17 | HHI.FPPN ---
Subjective Remarks Ms. Contreras was afebrile with stable vital signs overnight. Ms. Contreras's history of illness was reviewed with Dr. Ruiz and myself; she reports approximately one month of pain in her feet and weakness in her lower extremities which has extended proximally to her thighs/hips. Patient has fallen twice in the last month; this is not normal for her. Patient reiterated concern for possible recurrence of Guillain-Knight syndrome returning. Patient reiterates noticing yellowish hue to skin and eyes 1.5 weeks ago, but states that she has had early satiety and abdominal fullness as well as darker than usual urine for the past month; patient feels that her urine is currently lightening. No recent fevers. Patient reports normal respirations. Patient reports white bowel movements. Patient does not report recent sick contacts or vaccinations. Patient clarified her history of alcohol intake; patient had a large intake of elzbieta and tequila approximately 1 year ago but since then has only been drinking approximately 1 cocktail glass of tequila weekly. Patient reports seeing Dr. Ocampo for Guillain-Knight syndrome as outpatient but that she has plans to establish with a new neurologist. (Isac Ramos MD, R3) Objective Vitals Vital Signs Date Time Temp Pulse Resp B/P (MAP) Pulse Ox O2 Delivery O2 Flow Rate FiO2 04/16/17 23:49 92 16 117/79 (92) 100 04/16/17 19:41 95 16 100/73 (82) 99 Room Air 04/16/17 17:54 97 20 110/75 (87) 99 Room Air 04/16/17 15:55 110 18 97 Room Air 04/16/17 15:21 98.9 113 16 127/92 (104) 100 (Isac Ramos MD, R3) Result Diagram: 04/17/17 0738 04/17/17 0738 Imaging Last Impressions Gall Bladder Ultrasound 04/16/17 0000 Signed Impressions: Service Date/Time: Sunday, April 16, 2017 19:17 - CONCLUSION: 1. Hepatic steatosis and hepatomegaly. 2. Cholelithiasis with mild thickening of the gallbladder wall. This can be correlated with any clinical signs of cholecystitis. 3. Mildly dilated common bile duct. Felix Briones MD Chest X-Ray 04/16/17 0000 Signed Impressions: Service Date/Time: Sunday, April 16, 2017 16:42 - CONCLUSION: No acute disease. Francisco Javier Lopez MD FACR Abdomen/Pelvis CT 04/16/17 0000 Signed Impressions: Service Date/Time: Sunday, April 16, 2017 17:25 - CONCLUSION: 1. Hepatomegaly with hepatic steatosis and areas of focal fatty sparing. There is mild ascites seen in the peroneal cavity. 2. Gallstone with a thickened gallbladder wall. This is nonspecific. Thickening of the gallbladder wall can be seen with hepatic disease. Cholecystitis cannot be excluded. Significant fluid around gallbladder is not seen on the CT examination. 3. Mild splenomegaly. This is nonspecific. It may be from the hepatic disease. Felix Briones MD Objective Remarks GENERAL: This is a well-nourished, well-developed patient, in no apparent distress. SKIN: Cool and dry. Jaundiced. HEAD: Cushingoid facies EYES: Extraocular motions grossly intact. Scleral icterus present. CARDIOVASCULAR: Regular rate and rhythm without murmurs. Normal peripheral perfusion RESPIRATORY: Clear to auscultation. Breath sounds equal bilaterally. No wheezes to auscultation GASTROINTESTINAL: Abdomen soft, no tenderness appreciated. Bhardwaj's negative. Liver edge difficult to palpate due to abdominal tensing/musculature, but not obvious guarding. Abdomen enlarged relative to what would be expected for BMI; suggestive of weight loss vs ascites vs mild distension. MUSCULOSKELETAL/NEUROLOGICAL: Awake and alert. Cranial nerves grossly intact. Significantly decreased strength with flexion/dorsiflexion of feet, flexion at knee, and flexion at hip. Pain to light palpation of feet and distal LE's bilaterally. DTR's of knees were not elicited bilaterally 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, hepatic steatosis, cirrhosis, hypothyroidism, hypertension presents with lower extremity pain and weakness along with jaundice: (Isac Ramos MD, R3) Attending Attestation Medical rounds were conducted with Dr Paige Ramos this morning, EMR reviewed, Patient interviewed and examined with resident, Agree to contents of this note, See Orders (Vazquez Ruiz MD) Problem List: (1) Hyperbilirubinemia ICD Codes: E80.6 - Other disorders of bilirubin metabolism Status: Acute Plan: 04/17: Mild improvement in cholestasis suggested on labs: TBILI 23.9 -> 22.2, ALKP 490 -> 399 -GI consulted -CLD -Will start empiric Zosyn due to patient having imaging suggestive of cholecystitis -Will trend CMP - Hepatitis profile and AFP pending Impression: Patient presents with jaundiced clinically,with postprandial abdominal fullness. PMH of hepatic steatosis and cirrhosis. History of liver masses biopsied in the past, which were negative for malignancy. Abdomen/pelvis CT: hepatomegaly with hepatic steatosis. Mild ascites. Gallstones with a thickened gallbladder wall. Mild splenomegaly. Gallbladder ultrasound: hepatic steatosis and hepatomegaly. Cholelithiasis with thickening of the gallbladder wall. This can be correlated with any clinical signs of cholecystitis. Mildly dilated common bile duct. Labs on admission: Total bilirubin 24.5. Direct bilirubin 20.4. ST 108, ALC 34. Alkaline phosphatase 490. Lipase not elevated. Urine shows large bilirubin. PT elevated to 15 and PTT slightly elevated. No signs of infection, WBC wnl. Vitals stable, afebrile (2) History of Guillain-[place] syndrome ICD Codes: Z86.69 - Personal history of other diseases of the nervous system and sense organs Status: Acute Plan: -Will consult Neurology for assistance in management Impression: Patient diagnosed last year with Guillain-Knight syndrome now presenting with similar symptoms. Exam with bilateral muscular weakness, patellar DTR suppression, increased pain (3) Hypoactive thyroid ICD Codes: E03.9 - Hypoactive thyroid Status: Acute Plan: Continue home synthroid Check TSH (4) Anxiety and depression ICD Codes: F41.9 - Anxiety disorder, unspecified; F32.9 - Major depressive disorder, single episode, unspecified Status: Chronic Plan: Continue home Celexa (5) FEN Status: Acute Plan: Fluids: tolerating PO Electrolytes: wnl, continue to monitor Nutrition: regular diet DVT ppx: SCDs (Isac Ramos MD, R3) Problem Qualifiers (1) Hypoactive thyroid: Qualified Codes: E03.9 - Hypothyroidism, unspecified Isac Ramos MD, R3 Apr 17, 2017 10:17 Vazquez Ruiz MD Apr 20, 2017 13:50
[2017-04-17 12:00] VITALS: BP 99/70; PULSE 85; RESP 16; TEMP 97.4; O2SAT 95
--- NOTE | 2017-04-17 14:23 | EKG ---
Date Performed: 04/16/2017 Time Performed: 16:16:59 PTAGE: 32 years EKG: Sinus rhythm POSSIBLE LEFT ATRIAL ENLARGEMENT POSSIBLE ANTERIOR MYOCARDIAL INFARCTION ABNORMAL ECG PREVIOUS TRACING : 05/05/2016 12.11 Compared to prior tracing no significant change DOCTOR: Omar Townsend Interpretating Date/Time 04/17/2017 14:17:08
--- NOTE | 2017-04-17 15:48 | PD.CONS ---
History of Present Illness Service Neurology Consult Requested By medical Primary Care Physician Almas Mark MD History of Present Illness 32 year old female admitted for fatigue, weakness x >1 week. 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 mri brain/t/ lspine was normal. csf showed elevated protein in the 60's with nml wbc. she then went to rehab. she felt better after ivig. has felt an ascending weakness and some b/b incontinence. no dyspnea, no dysphagia. no ptosis, no diplopia. no hx of antecedent infection that she is aware of. Review of Systems as above and admit hp Past Family Social History Past Medical History Cirrhosis Hepatic steatosis B12 deficiency Guillian-Bairre Hypothyroidism Depression Anxiety HTN Past Surgical History Tonsilectomy Leep [place] Teeth extraction Reported Medications Reported Meds & Active Scripts Active Folic Acid 1 Mg Tablet 1 Mg PO DAILY Nuvaring Vaginal Insert (Etonogestrel-Ethinyl Estradiol Vaginal Insert) 0.120- 0.015 Mg/24 Hr Vagring 1 Applic VAGINAL DIRECTED Hydrocodone-Acetaminophen 10-325 mg Tab 1 Tab PO Q4H PRN Clonazepam 1 Mg Tab 1 Mg PO BID PRN Celexa (Citalopram Hydrobromide) 20 Mg Tab 20 Mg PO DAILY Gabapentin 600 Mg Tab 1,200 Mg PO BID Thera/Beta-Carotene (Multiple Vitamin) 1 Tab Tab 1 Tab PO DAILY Levothyroxine (Levothyroxine Sodium) 50 Mcg Tab 50 Mcg PO DAILY Reported B-12 (Cyanocobalamin) 100 Mcg Tab 100 Mcg PO DAILY Vitamin B-1 (Thiamine HCl) 100 Mg Tab 100 Mg PO DAILY Allergies: Uncoded Allergies: QT prolonging drugs (Allergy, Severe, 04/16/17) she has QT prolongation because of her Guillan [place] and needs to avoid these drugs for the near future Family History Skin cancer, prostate, HTN, Social History Lives with mother at home Alcohol: 1-2 drinks/week Tobacco: not currently; quit 5 years ago Illicit drug use: denies Review of Systems All other ROS: ROS reviewed as documented in chart Past Family Social History Allergies: Uncoded Allergies: QT prolonging drugs (Allergy, Severe, 04/16/17) she has QT prolongation because of her Guillan [place] and needs to avoid these drugs for the near future Active Ordered Medications Current Medications Medications (Trade) Dose Ordered Sig/Ulices Route Start Time Stop Time Status Last Admin (NS Flush) 2 ml UNSCH PRN IV FLUSH 04/16/17 22:15 (NS Flush) 2 ml BID IV FLUSH 04/17/17 09:00 04/17/17 07:46 (Zofran Inj) 4 mg Q6H PRN IV PUSH 04/16/17 22:15 (CeleXA) 20 mg DAILY PO 04/17/17 09:00 04/17/17 07:46 (Vitamin B12) 100 mcg DAILY PO 04/17/17 09:00 04/17/17 08:43 (Folate) 1 mg DAILY PO 04/17/17 09:00 04/17/17 07:46 ([place] 10-325 Mg) 1 tab Q4H PRN PO 04/16/17 22:15 04/17/17 15:29 (Synthroid) 50 mcg DAILY@0600 PO 04/17/17 06:00 04/17/17 06:34 (Vitamin B1) 100 mg DAILY PO 04/17/17 09:00 04/17/17 07:46 Patient Own Medication PT OWN MED: (Etonogestrel-Ethinyl... UNSCH X1 PRN OTHER 04/16/17 22:15 05/07/17 22:14 Future Hold (Theragran) 1 tab DAILY PO 04/17/17 09:00 04/17/17 07:46 (KlonoPIN) 1 mg Q12HR PRN PO 04/16/17 22:30 04/17/17 08:43 Piperacillin Sod/ Tazobactam Sod 50 ml @ 100 mls/hr Q6H IV 04/17/17 09:00 04/17/17 15:08 Exam I&O / VS 04/17/17 04/17/17 04/18/17 15:00 23:00 07:00 Intake Total 50 ml Balance 50 ml Intake IV Total 50 ml Vital Signs Date Time Temp Pulse Resp B/P (MAP) Pulse Ox O2 Delivery O2 Flow Rate FiO2 04/16/17 23:49 92 16 117/79 (92) 100 04/16/17 19:41 95 16 100/73 (82) 99 Room Air 04/16/17 17:54 97 20 110/75 (87) 99 Room Air 11/13/17 15:55 110 18 97 Room Air General: Alert and Oriented Eye: EOMI Respiratory: Lungs CTA, Non-labored respirations, Symmetrical expansion Cardiology: Normal rate, Normal peripheral perfusion, Regular Rhythm Musculoskeletal: ROM, Other Neurologic: Alert, Oriented, CN II-XII intact Psychiatric: Cooperative, Appropriate mood & affect Exam Comments ox 3, anxious, eomi, vff, ou 3-2mm, face sym, ue 5-/5, paraparesis 2-3/5 with limited foot movement; significant pain with passive rom of either ankle. msr 2+ , no apparent clonus, planter flexor. light touch reduced, pin/proprio normal Review/Management Diagnosis/Plan: (1) History of Guillain-[place] syndrome ICD Codes: Z86.69 - Personal history of other diseases of the nervous system and sense organs Status: Acute Plan: possible gbs relapse. may be associated with liver dz has preserved reflexes which is atypical for gbs. myelopathy another possibility but imaging negative before rpr/ramone/lyme/hiv negative in the past recs she would like to rertry ivig x 5 days. s/b d/w pt including but not limited to meningitis/renal failure/dvt/headache, etc.. emg/ncv with rehab md neuroaxis imaging p.t. may need inpt rehab again (2) Anxiety and depression ICD Codes: F41.9 - Anxiety disorder, unspecified; F32.9 - Major depressive disorder, single episode, unspecified Status: Chronic (3) HYPOTHYROIDISM, UNSPECIFIED ICD Codes: E03.9 - HYPOTHYROIDISM, UNSPECIFIED Status: Chronic (4) Elevated LFTs ICD Codes: R94.5 - Abnormal results of liver function studies Status: Chronic Edd Hdz MD Apr 17, 2017 15:48
[2017-04-17 15:50] VITALS: BP 102/63; PULSE 85; RESP 16; TEMP 97.5; O2SAT 98
[2017-04-17] MEDS ORDERED: LORazepam 2 MG/ML VIAL IV PUSH ONE (17:45)
[2017-04-17] MEDS ORDERED: IMMUNE GLOBULIN IV SCH (18:00)
[2017-04-17] MEDS ORDERED: EPINEPHrine HCL (1:1000) 1 MG/ML VIAL OTHER PRN (18:00)
[2017-04-17] MEDS: SODIUM CHLORID 0.9% 500 ML INJ 500 ML IV SCH (18:55)
[2017-04-17 20:00] VITALS: BP_SYST 97; BP_SYST 98; BP_DIAS 68; PULSE 86; RESP 17; TEMP 96.8; O2SAT 96
[2017-04-17] MEDS: DEXTROSE 5% IN WATE 500 ML INJ 500 ML OTHER SCH (20:35)
[2017-04-17] MEDS: IMMUNE GLOBULIN IV SCH (20:43)
[2017-04-18] VITALS: BP 99/65; PULSE 87; RESP 18; TEMP 96.2; O2SAT 98
[2017-04-18] MEDS: PIPERACIL-TAZO 3.375 GM PREMIX 50 ML IV SCH ×4 (02:51→21:16)
[2017-04-18] MEDS: ACETAMINOPHEN/HYDROcodone 325 MG/10 MG TAB PO PRN ×4 (02:56→21:13)
[2017-04-18 04:00] VITALS: BP 96/59; PULSE 104; RESP 18; TEMP 98.7; O2SAT 95
[2017-04-18] MEDS: LEVOTHYROXINE SODIUM 50 MCG TAB PO SCH (05:30)
[2017-04-18 08:00] VITALS: BP 105/64; PULSE 103; RESP 16; TEMP 98.4; O2SAT 95
[2017-04-18 08:08] LABS: AUTOMATED NEUTROPHIL # 4.2 TH/MM3 (1.8-7.7); BASOPHIL % 0.6 % (0.0-2.0); EOSINOPHIL # 0.1 TH/MM3 (0-0.4); EOSINOPHIL % 0.9 % (0.0-4.0); HEMATOCRIT 33.6 % (35.0-46.0); HEMO FLAGS DIFF FINAL; LYMPH % 13.8 % (9.0-44.0); LYMPHOCYTE # 0.8 TH/MM3 (1.0-4.8); MEAN CELL VOLUME 115.2 FL (80.0-100.0); MEAN CORPUSCULAR HEMOGLOBIN 39.2 PG (27.0-34.0); MONO % 14.5 % (0.0-8.0); NEUT % 70.2 % (16.0-70.0); PLATELET COUNT 167 TH/MM3 (150-450); RED BLOOD COUNT 2.92 MIL/MM3 (4.00-5.30); RED CELL DISTRIBUTION WIDTH 14.4 % (11.6-17.2)
[2017-04-18 08:40] LABS: BICARBONATE 19.9 MEQ/L (21.0-32.0); INDIRECT BILIRUBIN 5.1 MG/DL (0.0-0.8); POTASSIUM 3.5 MEQ/L (3.5-5.1); TOTAL BILIRUBIN ADULT 23.3 MG/DL (0.2-1.0)
[2017-04-18] MEDS: FOLIC ACID 1 MG TAB PO SCH (09:06)
[2017-04-18] MEDS: MULTIVITAMIN TAB PO SCH (09:06)
[2017-04-18] MEDS: CYANOCOBALAMIN 100 MCG TAB PO SCH (09:06)
[2017-04-18] MEDS: THIAMINE HCL 100 MG TAB PO SCH (09:06)
[2017-04-18] MEDS: CITALOPRAM HYDROBROMIDE 20 MG TAB PO SCH (09:06)
[2017-04-18] MEDS: SODIUM CHLORIDE 0.9% FLUSH 10 ML FLUSH IV FLUSH SCH ×2 (09:07→21:13)
[2017-04-18] MEDS: clonazePAM 1 MG TAB PO PRN ×2 (09:10→23:29)
[2017-04-18] MEDS: DEXTROSE 5% IN WATE 500 ML INJ 500 ML OTHER SCH (10:36)
--- NOTE | 2017-04-18 11:24 | HHI.FPPN ---
Subjective Remarks Mrs. Contreras was afebrile with tachycardia to ~103 BPM overnight. Patient reports continued bilateral lower extremity weakness and pain despite starting IVIG yesterday. Patient reports hunger; she does not report changes in sensation of abdominal fullness. No shortness of breath, urinary problems, or bowel concerns reported. Patient requests restarting her Gabapentin for lower extremity pain. (Isac Ramos MD, R3) Objective Vitals Vital Signs Date Time Temp Pulse Resp B/P (MAP) Pulse Ox O2 Delivery O2 Flow Rate FiO2 04/18/17 08:00 98.4 103 16 105/64 (78) 95 04/18/17 04:00 98.7 104 18 96/59 (71) 95 04/18/17 00:00 96.2 87 18 99/65 (76) 98 04/17/17 20:43 87 19 100/60 04/17/17 20:00 96.8 86 17 97/68 (78) 96 98/68 (78) 04/17/17 15:50 97.5 85 16 102/63 (76) 98 04/17/17 12:00 97.4 85 16 99/70 (80) 95 I/O 04/17/17 04/17/17 04/17/17 04/18/17 04/18/17 04/18/17 07:00 15:00 23:00 07:00 15:00 23:00 Intake Total 50 ml 1320 ml 301 ml Balance 50 ml 1320 ml 301 ml Intake Oral 720 ml IV Total 50 ml 600 ml 301 ml # Voids 0 3 3 # Bowel Movements 0 (Isac Ramos MD, R3) Result Diagram: 04/18/17 0701 04/18/17 0701 Imaging Last Impressions Gall Bladder Ultrasound 04/16/17 0000 Signed Impressions: Service Date/Time: Sunday, April 16, 2017 19:17 - CONCLUSION: 1. Hepatic steatosis and hepatomegaly. 2. Cholelithiasis with mild thickening of the gallbladder wall. This can be correlated with any clinical signs of cholecystitis. 3. Mildly dilated common bile duct. Felix Briones MD Chest X-Ray 04/16/17 0000 Signed Impressions: Service Date/Time: Sunday, April 16, 2017 16:42 - CONCLUSION: No acute disease. Francisco Javier Lopez MD FACR Abdomen/Pelvis CT 04/16/17 0000 Signed Impressions: Service Date/Time: Sunday, April 16, 2017 17:25 - CONCLUSION: 1. Hepatomegaly with hepatic steatosis and areas of focal fatty sparing. There is mild ascites seen in the peroneal cavity. 2. Gallstone with a thickened gallbladder wall. This is nonspecific. Thickening of the gallbladder wall can be seen with hepatic disease. Cholecystitis cannot be excluded. Significant fluid around gallbladder is not seen on the CT examination. 3. Mild splenomegaly. This is nonspecific. It may be from the hepatic disease. Felix Briones MD Objective Remarks GENERAL: This is a well-nourished, well-developed patient, in no apparent distress. SKIN: Jaundiced. HEAD: Possible cushingoid facies EYES: Extraocular motions grossly intact. Scleral icterus present. CARDIOVASCULAR: Regular rate and rhythm without murmurs. Normal peripheral perfusion RESPIRATORY: Clear to auscultation. Breath sounds equal bilaterally. No wheezes to auscultation GASTROINTESTINAL: Abdomen soft, no tenderness appreciated. No appreciated pain to palpation; not obviously guarding. Abdomen enlarged relative to what would be expected for BMI; suggestive of weight loss vs ascites vs mild distension. MUSCULOSKELETAL/NEUROLOGICAL: Awake and alert. Cranial nerves grossly intact. Significantly decreased strength with flexion/dorsiflexion of feet and flexion at hip. Pain to light palpation of feet and distal LE's bilaterally. 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, hepatic steatosis, cirrhosis, hypothyroidism, hypertension presents with lower extremity pain and weakness along with jaundice: (Isac Ramos MD, R3) Attending Attestation EMR reviewed Patients hospital course discussed in detail with Dr Ramos Patient seen and examined Agree with contents of this note See Orders (Vazquez Ruiz MD) Problem List: (1) Hyperbilirubinemia ICD Codes: E80.6 - Other disorders of bilirubin metabolism Status: Acute Plan: 04/17: Mild improvement in cholestasis suggested on labs: TBILI 23.9 -> 22.2, ALKP 490 -> 399 04/18: Persistent TBILI and ALKP elevations -GI consulted -CLD -Continue empiric Zosyn due to patient having imaging suggestive of cholecystitis -Will trend CMP Impression: Patient presents with jaundiced clinically,with postprandial abdominal fullness. PMH of hepatic steatosis and cirrhosis. History of liver masses biopsied in the past, which were negative for malignancy. Abdomen/pelvis CT: hepatomegaly with hepatic steatosis. Mild ascites. Gallstones with a thickened gallbladder wall. Mild splenomegaly. Gallbladder ultrasound: hepatic steatosis and hepatomegaly. Cholelithiasis with thickening of the gallbladder wall. This can be correlated with any clinical signs of cholecystitis. Mildly dilated common bile duct. Labs on admission: Total bilirubin 24.5. Direct bilirubin 20.4. ST 108, ALC 34. Alkaline phosphatase 490. Lipase not elevated. Urine shows large bilirubin. PT elevated to 15 and PTT slightly elevated. Hepatitis panel wnl; AFP wnl No signs of infection, WBC wnl. Vitals stable, afebrile (2) History of Guillain-[place] syndrome ICD Codes: Z86.69 - Personal history of other diseases of the nervous system and sense organs Status: Acute Plan: -Neurology consulted for assistance in management -Evaluation for possible GBS relapse vs liver disease. 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 Exam with bilateral muscular weakness, patellar DTR suppression, increased pain. Previously patient with negative RPR, RAJAT, Lyme, HIV B12 >2000 (3) Hypoactive thyroid ICD Codes: E03.9 - Hypoactive thyroid Status: Acute Plan: Impression: On chronic Synthroid for hypothyroidism Repeat TSH 5.45 -Continue home Synthroid 50 ug daily -Due to TSH >5, could consider 25ug dosage increase but could also defer due to possible transient elevation from acute illness; will discuss options with patient to decide on benefits/risks of dosage increase prior to discharge (4) Anxiety and depression ICD Codes: F41.9 - Anxiety disorder, unspecified; F32.9 - Major depressive disorder, single episode, unspecified Status: Chronic Plan: Continue home Celexa (5) FEN Status: Acute Plan: Fluids: Clear liquid diet Electrolytes: wnl, continue to monitor Nutrition: regular diet DVT ppx: SCDs (Isac Ramos MD, R3) Problem Qualifiers (1) Hypoactive thyroid: Qualified Codes: E03.9 - Hypothyroidism, unspecified Isac Ramos MD, R3 Apr 18, 2017 11:23 Vazquez Ruiz MD Apr 20, 2017 14:00
[2017-04-18 12:00] VITALS: BP 90/59; PULSE 97; RESP 16; TEMP 97.7; O2SAT 98
--- NOTE | 2017-04-18 12:02 | PD.CONS ---
HPI History of Present Illness This is a 32 year old female patient with a history of Guillian [place] over a year ago (S/P IVIG) who presented to the emergency room for evaluation of jaundice. She is a poor historian. She was treated for Guillain [place] about a year ago in April with IVIG. Since that time, she has not regained her full strength and has to use a walker to get around. A few weeks ago, she started having pain in her lower extremities with worsening weakness. She states that the pain was consistent with the weakness and discomfort she had with her prior episode of Guillain barre. 2 weeks ago, her mother noted that her sclera were yellow and she went to her PCP, where she was told to use eye drops. She states that she did not have any labs drawn. She has since had worsening abdominal bloating, nausea without vomiting, early satiety and some epigastric discomfort/pressure with food intake or movement, increasing abdominal distention, and generalized malaise. She denies fevers, but had some chills last night. She reports that she previously was a heavy drinker, but cut back significantly after a prior hospitalization for liver issues. She does continue to drink, but is very vague with the quantity. She does report that she had 2-3 alcoholic drinks Sunday night and states that she probably has these a few times a week. However, she becomes a little agitated when she is asked about her alcohol consumption. She denies any Tylenol use. She does take hydrocodone, but states she only takes this as prescribed- usually once or twice per day. She denies taking any OTC meds other than Pepcid for frequent heartburn. On admission she was noted to have a total bilirubin of 24.5, direct bilirubin 20.4, AST 108, ALT 34, alkaline phosphatase 490. Gallbladder ultrasound (04/16/17)---> hepatic steatosis and have hepatomegaly, cholelithiasis with mild thickening of the gallbladder wall. This can be correlated with any clinical signs of cholecystitis, mildly dilated common bile duct at 8mm. CT scan abdomen and pelvis with IV contrast (04/16/17) hepatomegaly with hepatic steatosis and areas of focal fatty sparing. There is mild ascites seen in the peroneal cavity. A constant with a thickened gallbladder wall. This is nonspecific. Thickening of the gallbladder wall can be seen with hepatic disease. Cholecystitis cannot be excluded. Significant fluid around gallbladder is not seen on the CT examination. Mild splenomegaly. This is nonspecific. It may be from the hepatic disease. She was evaluated in October for elevated LFTs and liver masses. At that time, she was drinking heavilty. Tumor markers at that time in October of 2015 were AFP 11.9, CEA 1.3, Ca 15-3 35.1, Ca19-9 9.4, Ca 125 18.0. She underwent liver workup Hepatitis profile negatie, RAJAT neg, AMA < 20.0, ASMA neg, Ceruloplasmin 18, Alpha 1 antitrypsin 118. Iron saturation was elevated at 91.9%. Hfe C282Y not detected , one copy of the H63D mutation was identified. Rpt Ferritin 2364, Iron saturation 70.2%. She also underwent liver biopsy (10/04/15) revealed benign liver tissue with marked steatosis. She then had a repeat liver biopsy (10/07/15) ----> revealed liver liver tissue with marked steatohepatitis and cirrhosis. She was then evaluated again in May of 2016 for elevated LFTs and liver masses and was noted to have 3 hypervascular mass lesions in the liver. It was thought that her elevated LFTs was most likely related to a combination of steatohepatitis and alcoholic hepatitis. (Araceli Lee) PFSH Past Medical History Liver Cirrhosis Steatohepatitis Alcoholic hepatitis B12 deficiency Guillain-[place] Hypothyroidism Depression Anxiety HTN Liver masses, thought to be fatty in nature Past Surgical History Tonsillectomy LEEP [place] teeth extraction Liver biopsy (Araceli Lee) Uncoded Allergies: QT prolonging drugs (Allergy, Severe, 04/16/17) she has QT prolongation because of her Guillan [place] and needs to avoid these drugs for the near future Medications Allergies Uncoded Allergies Type Severity Reaction Last Updated Verified QT prolonging drugs Allergy Severe 04/16/17 Active Scripts Medications Dose Route/Sig Max Daily Dose Days Date Category Gabapentin 600 Mg Tab 1,200 Mg PO BID 04/16/17 Rx B-12 (Cyanocobalamin) 100 Mcg Tab 100 Mcg PO DAILY 04/16/17 Reported Vitamin B-1 (Thiamine HCl) 100 Mg Tab 100 Mg PO DAILY 04/16/17 Reported Folic Acid 1 Mg Tablet 1 Mg PO DAILY 03/06/17 Rx Nuvaring Vaginal Insert (Etonogestrel-Ethinyl Estradiol Vaginal Insert) 0.120-0.015 Mg/24 Hr Vagring 1 Applic VAGINAL DIRECTED 03/06/17 Rx Hydrocodone-Acetaminophen 10-325 mg Tab 1 Tab PO Q4H PRN 03/06/17 Rx Clonazepam 1 Mg Tab 1 Mg PO BID 12/07/16 Rx Celexa (Citalopram Hydrobromide) 20 Mg Tab 20 Mg PO DAILY 06/23/16 Rx Thera/Beta-Carotene (Multiple Vitamin) 1 Tab Tab 1 Tab PO DAILY 06/07/16 Rx Levothyroxine (Levothyroxine Sodium) 50 Mcg Tab 50 Mcg PO DAILY 06/07/16 Rx Family History No family hx of liver disease MGF had prostate cancer MGM had multiple blood clots Social History Smokes 1/2 PPD Alcohol use unclear. Used to drink heavily. Had 2-3 drinks Sunday and reports that she drinks a few times a month. (Araceli Lee) Review of Systems Constitutional: COMPLAINS OF: Fatigue, Chills, Change in appetite, DENIES: Fever Respiratory: DENIES: Cough Cardiovascular: DENIES: Chest pain Gastrointestinal: COMPLAINS OF: Abdominal pain, Nausea, Anorexia, Swelling of Abdomen, Heartburn, DENIES: Black stools, Bloody stools, Constipation, Diarrhea , Vomiting Musculoskeletal: COMPLAINS OF: Joint pain, Muscle aches Neurologic: COMPLAINS OF: Headache Psychiatric: DENIES: Confusion (Araceli Lee) GI Exam Vitals I&O Vital Signs Date Time Temp Pulse Resp B/P (MAP) Pulse Ox O2 Delivery O2 Flow Rate FiO2 04/18/17 08:00 98.4 103 16 105/64 (78) 95 04/18/17 04:00 98.7 104 18 96/59 (71) 95 04/18/17 00:00 96.2 87 18 99/65 (76) 98 04/17/17 20:43 87 19 100/60 04/17/17 20:00 96.8 86 17 97/68 (78) 96 98/68 (78) 04/17/17 15:50 97.5 85 16 102/63 (76) 98 04/17/17 12:00 97.4 85 16 99/70 (80) 95 I/O 1104/17/17 04/17/17 04/18/17 04/18/17 04/18/17 07:00 15:00 23:00 07:00 15:00 23:00 Intake Total 50 ml 1320 ml 301 ml Balance 50 ml 1320 ml 301 ml Intake Oral 720 ml IV Total 50 ml 600 ml 301 ml # Voids 0 3 3 # Bowel Movements 0 Imaging Last Impressions Gall Bladder Ultrasound 04/16/17 0000 Signed Impressions: Service Date/Time: Sunday, April 16, 2017 19:17 - CONCLUSION: 1. Hepatic steatosis and hepatomegaly. 2. Cholelithiasis with mild thickening of the gallbladder wall. This can be correlated with any clinical signs of cholecystitis. 3. Mildly dilated common bile duct. Felix Briones MD Chest X-Ray 04/16/17 0000 Signed Impressions: Service Date/Time: Sunday, April 16, 2017 16:42 - CONCLUSION: No acute disease. Francisco Javier Lopez MD FACR Abdomen/Pelvis CT 04/16/17 0000 Signed Impressions: Service Date/Time: Sunday, April 16, 2017 17:25 - CONCLUSION: 1. Hepatomegaly with hepatic steatosis and areas of focal fatty sparing. There is mild ascites seen in the peroneal cavity. 2. Gallstone with a thickened gallbladder wall. This is nonspecific. Thickening of the gallbladder wall can be seen with hepatic disease. Cholecystitis cannot be excluded. Significant fluid around gallbladder is not seen on the CT examination. 3. Mild splenomegaly. This is nonspecific. It may be from the hepatic disease. Felix Briones MD Laboratory Test 04/18/17 07:01 White Blood Count 6.0 TH/MM3 Red Blood Count 2.92 MIL/MM3 Hemoglobin 11.5 GM/DL Hematocrit 33.6 % Mean Corpuscular Volume 115.2 FL Mean Corpuscular Hemoglobin 39.2 PG Mean Corpuscular Hemoglobin Concent 34.0 % Red Cell Distribution Width 14.4 % Platelet Count 167 TH/MM3 Mean Platelet Volume 8.3 FL Neutrophils (%) (Auto) 70.2 % Lymphocytes (%) (Auto) 13.8 % Monocytes (%) (Auto) 14.5 % Eosinophils (%) (Auto) 0.9 % Basophils (%) (Auto) 0.6 % Neutrophils # (Auto) 4.2 TH/MM3 Lymphocytes # (Auto) 0.8 TH/MM3 Monocytes # (Auto) 0.9 TH/MM3 Eosinophils # (Auto) 0.1 TH/MM3 Basophils # (Auto) 0.0 TH/MM3 CBC Comment DIFF FINAL Differential Comment Blood Urea Nitrogen 5 MG/DL Creatinine 0.46 MG/DL Random Glucose 75 MG/DL Total Protein 5.1 GM/DL Albumin 1.9 GM/DL Calcium Level 8.0 MG/DL Alkaline Phosphatase 396 U/L Aspartate Amino Transf (AST/SGOT) 99 U/L Alanine Aminotransferase (ALT/SGPT) 26 U/L Total Bilirubin 23.3 MG/DL Direct Bilirubin 18.2 MG/DL Sodium Level 140 MEQ/L Potassium Level 3.5 MEQ/L Chloride Level 106 MEQ/L Carbon Dioxide Level 19.9 MEQ/L Anion Gap 14 MEQ/L Estimat Glomerular Filtration Rate 156 ML/MIN Indirect Bilirubin 5.1 MG/DL Physical Examination HEENT: Normocephalic; atraumatic; + jaundice. CHEST: CTA CARDIAC: Mildly tachycardic, regular ABDOMEN: Soft, mildly distended with ascites, mild epigastric tenderness, no significant RUQ tenderness; hepatosplenomegaly; bowel sounds are present in all four quadrants. EXTREMITIES: BLE edema. SKIN: + jaundice. 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 (Araceli Lee) Assessment and Plan Plan ASSESSMENT: - Elevated LFTs, Jaundice in patient with liver cirrhosis, steatohepatitis, and ongoing ETOH use. Pt with extensive workup in past for elevated LFTs October/May of 2016. Previous Liver workup Hepatitis profile negative, RAJAT neg, AMA < 20.0, ASMA neg, Ceruloplasmin 18, Alpha 1 antitrypsin 118. Iron saturation was elevated at 91.9%. 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 Rpt Ferritin 2364, Iron saturation 70.2%. She also underwent liver biopsy (10/04/15) revealed benign liver tissue with marked steatosis. She then had a repeat liver biopsy (10/07/15)----> revealed liver liver tissue with marked steatohepatitis and cirrhosis. Gallbladder ultrasound (04/16/17)---> hepatic steatosis and have hepatomegaly , cholelithiasis with mild thickening of the gallbladder wall. This can be correlated with any clinical signs of cholecystitis, mildly dilated common bile duct at 8mm. CT scan abdomen and pelvis with IV contrast (04/16/17) hepatomegaly with hepatic steatosis and areas of focal fatty sparing. There is mild ascites seen in the peroneal cavity. A constant with a thickened gallbladder wall. This is nonspecific. Thickening of the gallbladder wall can be seen with hepatic disease. Cholecystitis cannot be excluded. Significant fluid around gallbladder is not seen on the CT examination. Mild splenomegaly. This is nonspecific. T. Bili 23.3, Direct 18.2, Indirect 5.1, AST 99, ALT 26, Alk Phosph 396. DF 37.100. Labs are consistent with alcoholic hepatitis and suspect that she is drinking more than she is admitting. LFT derangement most likely combination of alcoholic hepatitis and steatohepatitis. Will get MRCP. Start pentoxifylline. - Nausea, GERD, Early Satiety. Add PPI - Anemia, macrocytic. Hx B12 Deficiency, B12 > 2,000. - Coagulopathy. PT 15.0, INR 1.3. - BLE pain, progressively worsening weakness, possible Guillain Mesho[place]. Pt was treated for Guillain [place]ho[place] in April of 2016. States she still has not regained her strength and uses walker, but has been having worsening weakness/BLE pain for 2 weeks. Neurology following, MRI pending. Started IVIG last night. - Elevated TSH with hypothyroidism, anxiety, depression, per attending. PLAN: - Clear liquids - MRCP to rule out any obstructive process - Add PPI - Add Pentoxifylline - Tylenol level - CBC, CMP, PT/INR in am - Supportive care - Further recommendations to follow after seen and examined by Dr. Cruz (Araceli Lee) Physician Comments Patient seen and examined Agree with above Continue with current supportive care Monitor labs Poor prognosis overall Considering prednisolone if infection is ruled out (Frandy Cruz MD) Araceli Lee Apr 18, 2017 12:02 Frandy Cruz MD Apr 18, 2017 21:38
[2017-04-18] MEDS ORDERED: GADODIAMIDE PF 287 MG/ML 5 ML VIAL (for RAD MRI) IV PUSH ONE (12:06)
[2017-04-18] MEDS: GABAPENTIN 300 MG CAP PO SCH ×2 (12:31→16:29)
--- NOTE | 2017-04-18 12:36 | RADRPT ---
EXAM DATE/TIME: 04/18/2017 10:32 [facility] COMPARISON: MRI BRAIN W & W/O CONTRAST, May 01, 2016, 19:25. MRI CERVICAL SPINE W/O CONTRAST, May 04, 2016, 15:31. INDICATIONS : Weakness. CONTRAST: 12 cc Omniscan (gadodiamide) IV MEDICAL HISTORY : Hypertension. SURGICAL HISTORY : Tonsillectomy. ENCOUNTER: Initial ACUITY: 3 day PAIN SCORE: 0/10 LOCATION: head TECHNIQUE: Multiplanar, multisequence MRI of the brain was performed both prior to and following the administrat ion of paramagnetic contrast. FINDINGS: CEREBRUM: The ventricles are normal for age. No evidence of midline shift, mass lesion, hemorrhage or acute in farction. No extraaxial fluid collections are seen. The pituitary gland and suprasellar cistern are normal in configuration. WHITE MATTER: No significant signal abnormalities are seen in the white matter. POSTERIOR FOSSA: The cerebellum and brainstem are intact. The 4th ventricle is midline. The cerebellopontine angle is unremarkable. The cerebellar tonsils are normal in position. DIFFUSION IMAGING: No focal areas of restricted diffusion are seen. No evidence of acute infarction. EXTRACRANIAL: The visualized portions of the orbits and paranasal sinuses are unremarkable. POST-CONTRAST: No abnormal areas of parenchymal or dural enhancement. No evidence of blood-brain barrier breakdown. CONCLUSION: 1. No acute intracranial abnormality. Artemio Lopez MD on April 18, 2017 at 12:32 Board Certified Radiologist. This report was verified electronically.
[2017-04-18] MEDS: PENTOXIFYLLINE 400 MG CONTROLLED RELEASE TAB PO SCH ×2 (14:00→21:12)
--- NOTE | 2017-04-18 14:24 | RADRPT ---
EXAM DATE/TIME: 04/18/2017 10:32 [facility] COMPARISON: No previous studies available for comparison. INDICATIONS : Numbness bilateral extremities. CONTRAST: 12 cc Omniscan (gadodiamide) IV MEDICAL HISTORY : Hypertension. SURGICAL HISTORY : Tonsillectomy. ENCOUNTER: Initial ACUITY: 2 day PAIN SCORE: 0/10 LOCATION: c-spine. TECHNIQUE: Multiplanar, multisequence MRI examination of the cervical spine was performed. FINDINGS: VERTEBRAE: Normal vertebral body height. Homogeneous marrow signal. ALIGNMENT: No evidence of subluxation. CORD: Normal configuration and signal. POST FOSSA: The cerebellar tonsils are normal in position. POST-CONTRAST: No abnormal areas of enhancement are seen. C2-C3: The thecal sac has a normal configuration. There is no evidence of disc herniation or spinal canal stenosis. The neural foramina are patent bilaterally. C3-C4: The thecal sac has a normal configuration. There is no evidence of disc herniation or spinal canal s tenosis. The neural foramina are patent bilaterally. C4-C5: The thecal sac has a normal configuration. There is no evidence of disc herniation or spinal canal s tenosis. The neural foramina are patent bilaterally. C5-C6: The thecal sac has a normal configuration. There is no evidence of disc herniation or spinal canal s tenosis. The neural foramina are patent bilaterally. C6-C7: The thecal sac has a normal configuration. There is no evidence of disc herniation or spinal canal s tenosis. The neural foramina are patent bilaterally. C7-T1: The thecal sac has a normal configuration. There is no evidence of disc herniation or spinal canal s tenosis. The neural foramina are patent bilaterally. CONCLUSION: Normal examination. Osman Mathis Jr., MD on April 18, 2017 at 14:21 Board Certified Radiologist. This report was verified electronically.
--- NOTE | 2017-04-18 14:25 | RADRPT ---
EXAM DATE/TIME: 04/18/2017 10:32 [facility] COMPARISON: No previous studies available for comparison. INDICATIONS : Bilateral numbness in extremities. CONTRAST: 12 cc Omniscan (gadodiamide) IV MEDICAL HISTORY : Hypertension. SURGICAL HISTORY : Tonsillectomy. ENCOUNTER: Initial ACUITY: 3 day PAIN SCORE: 0/10 LOCATION: t-spine. TECHNIQUE: Multiplanar multisequence MRI of the thoracic spine was performed. FINDINGS: VERTEBRA: Normal vertebral body height. Homogeneous marrow signal. ALIGNMENT: Normal. CORD: Normal position and configuration. POST CONTRAST: No abnormal areas of contrast enhancement seen. T1-T2: Normal. T2-T3: The thecal sac has a normal diameter. No evidence of disc bulge or protrusion. T3-T4: The thecal sac has a normal diameter. No evidence of disc bulge or protrusion. T4-T5: The thecal sac has a normal diameter. No evidence of disc bulge or protrusion. T5-T6: The thecal sac has a normal diameter. No evidence of disc bulge or protrusion. T6-T7: The thecal sac has a normal diameter. No evidence of disc bulge or protrusion. T7-T8: The thecal sac has a normal diameter. No evidence of disc bulge or protrusion. T8-T9: The thecal sac has a normal diameter. No evidence of disc bulge or protrusion. T9-T10: The thecal sac has a normal diameter. No evidence of disc bulge or protrusion. T10-T11: The thecal sac has a normal diameter. No evidence of disc bulge or protrusion. T11-T12: The thecal sac has a normal diameter. No evidence of disc bulge or protrusion. T12-L1: The thecal sac has a normal diameter. No evidence of disc bulge or protrusion. CONCLUSION: Normal examination. Osman Mathis Jr., MD on April 18, 2017 at 14:22 Board Certified Radiologist. This report was verified electronically.
[2017-04-18 16:00] VITALS: BP 108/59; PULSE 93; RESP 17; TEMP 97.9; O2SAT 99
[2017-04-18] MEDS: PANTOPRAZOLE SODIUM 40 MG VIAL IV PUSH SCH (16:30)
[2017-04-18] MEDS: SODIUM CHLORID 0.9% 500 ML INJ 500 ML IV SCH (17:00)
[2017-04-18 20:00] VITALS: BP 103/78; PULSE 89; PULSE 99; RESP 18; TEMP 97.7; O2SAT 98
[2017-04-18] MEDS: IMMUNE GLOBULIN IV SCH (22:02)
[2017-04-19] VITALS (7 sets, daily range): BP systolic 92–104; BP diastolic 63–69; PULSE 84–98; RESP 17–18; TEMP 96.8–97.9; O2SAT 95–99
[2017-04-19] MEDS: PIPERACIL-TAZO 3.375 GM PREMIX 50 ML IV SCH ×4 (02:31→20:58)
[2017-04-19] MEDS: LEVOTHYROXINE SODIUM 50 MCG TAB PO SCH (05:22)
[2017-04-19] MEDS: PENTOXIFYLLINE 400 MG CONTROLLED RELEASE TAB PO SCH ×3 (05:22→20:57)
[2017-04-19] MEDS: ACETAMINOPHEN/HYDROcodone 325 MG/10 MG TAB PO PRN ×4 (05:24→21:00)
[2017-04-19 08:46] LABS: BASOPHIL % 0.4 % (0.0-2.0); EOSINOPHIL # 0.1 TH/MM3 (0-0.4); EOSINOPHIL % 1.6 % (0.0-4.0); HEMO FLAGS DIFF FINAL; LYMPH % 20.7 % (9.0-44.0); MEAN CELL VOLUME 114.8 FL (80.0-100.0); MEAN CORPUSCULAR HEMOGLOBIN 38.7 PG (27.0-34.0); MEAN CORPUSCULAR HGB CONC 33.7 % (32.0-36.0); MONO % 14.4 % (0.0-8.0); NEUT % 62.9 % (16.0-70.0); PLATELET COUNT 154 TH/MM3 (150-450); RED BLOOD COUNT 2.79 MIL/MM3 (4.00-5.30); RED CELL DISTRIBUTION WIDTH 14.4 % (11.6-17.2); WHITE BLOOD COUNT 4.8 TH/MM3 (4.0-11.0)
[2017-04-19 08:58] LABS: INTERNATIONAL NORMALIZED RATIO 1.5 RATIO; PROTHROMBIN TIME - PATIENT 16.7 SEC (9.8-11.6)
[2017-04-19 09:28] LABS: CHLORIDE 105 MEQ/L (98-107); SODIUM (NA) 137 MEQ/L (136-145)
[2017-04-19 10:08] LABS: POTASSIUM 3.3 MEQ/L (3.5-5.1)
[2017-04-19 10:09] LABS: ALKALINE PHOSPHATASE 318 U/L (45-117); ALT (GPT) 23 U/L (10-53); ANION GAP 14 MEQ/L (5-15); AST (GOT) 103 U/L (15-37); BICARBONATE 18.1 MEQ/L (21.0-32.0); BLOOD UREA NITROGEN 2 MG/DL (7-18); GLOMERULAR FILTRATION RATE 156 ML/MIN (>89); TOTAL BILIRUBIN ADULT 20.8 MG/DL (0.2-1.0)
--- NOTE | 2017-04-19 10:35 | HHI.GIFU ---
Subjective Remarks On way to MRCP. Pt c/o not feeling any better- nausea, but hungry and states she wants to eat. Continues to have weakness/pain in BLE- states no improvement. (Araceli Lee) Objective Vitals I&O Vital Signs Date Time Temp Pulse Resp B/P (MAP) Pulse Ox O2 Delivery O2 Flow Rate FiO2 04/19/17 08:00 97.3 91 17 99/63 (75) 99 04/19/17 06:24 20 04/19/17 04:00 97.9 84 18 96/66 (76) 97 04/19/17 00:00 97.1 98 18 100/67 (78) 95 04/18/17 22:02 88 20 108/76 04/18/17 20:00 89 04/18/17 20:00 97.7 99 18 103/78 (86) 98 04/18/17 16:00 97.9 93 17 108/59 (75) 99 04/18/17 12:00 97.7 97 16 90/59 (69) 98 I/O 04/18/17 04/18/17 04/18/17 04/19/17 04/19/17 04/19/17 07:00 15:00 23:00 07:00 15:00 23:00 Intake Total 301 ml 290 ml 510 ml Balance 301 ml 290 ml 510 ml Intake Oral 240 ml 320 ml IV Total 301 ml 50 ml 190 ml # Voids 3 4 3 # Bowel Movements 0 0 Laboratory Laboratory Tests Test 04/19/17 06:43 White Blood Count 4.8 Red Blood Count 2.79 Hemoglobin 10.8 Hematocrit 32.0 Mean Corpuscular Volume 114.8 Mean Corpuscular Hemoglobin 38.7 Mean Corpuscular Hemoglobin Concent 33.7 Red Cell Distribution Width 14.4 Platelet Count 154 Mean Platelet Volume 8.2 Neutrophils (%) (Auto) 62.9 Lymphocytes (%) (Auto) 20.7 Monocytes (%) (Auto) 14.4 Eosinophils (%) (Auto) 1.6 Basophils (%) (Auto) 0.4 Neutrophils # (Auto) 3.0 Lymphocytes # (Auto) 1.0 Monocytes # (Auto) 0.7 Eosinophils # (Auto) 0.1 Basophils # (Auto) 0.0 CBC Comment DIFF FINAL Differential Comment Prothrombin Time 16.7 Prothromb Time International Ratio 1.5 Blood Urea Nitrogen 2 Creatinine 0.46 Random Glucose 68 Total Protein 5.2 Albumin 1.7 Calcium Level 7.9 Alkaline Phosphatase 318 Aspartate Amino Transf (AST/SGOT) 103 Alanine Aminotransferase (ALT/SGPT) 23 Total Bilirubin 20.8 Sodium Level 137 Potassium Level 3.3 Chloride Level 105 Carbon Dioxide Level 18.1 Anion Gap 14 Estimat Glomerular Filtration Rate 156 Imaging Last Impressions Thoracic Spine MRI 04/18/17 0000 Signed Impressions: Service Date/Time: Tuesday, April 18, 2017 10:32 - CONCLUSION: Normal examination. Osman Mathis Jr., MD Cervical Spine MRI 04/18/17 0000 Signed Impressions: Service Date/Time: Tuesday, April 18, 2017 10:32 - CONCLUSION: Normal examination. Osman Mathis Jr., MD Brain MRI 04/18/17 0000 Signed Impressions: Service Date/Time: Tuesday, April 18, 2017 10:32 - CONCLUSION: 1. No acute intracranial abnormality. Artemio Lopez MD Gall Bladder Ultrasound 04/16/17 0000 Signed Impressions: Service Date/Time: Sunday, April 16, 2017 19:17 - CONCLUSION: 1. Hepatic steatosis and hepatomegaly. 2. Cholelithiasis with mild thickening of the gallbladder wall. This can be correlated with any clinical signs of cholecystitis. 3. Mildly dilated common bile duct. Felix Briones MD Chest X-Ray 04/16/17 0000 Signed Impressions: Service Date/Time: Sunday, April 16, 2017 16:42 - CONCLUSION: No acute disease. Francisco Javier Lopez MD FACR Abdomen/Pelvis CT 04/16/17 0000 Signed Impressions: Service Date/Time: Sunday, April 16, 2017 17:25 - CONCLUSION: 1. Hepatomegaly with hepatic steatosis and areas of focal fatty sparing. There is mild ascites seen in the peroneal cavity. 2. Gallstone with a thickened gallbladder wall. This is nonspecific. Thickening of the gallbladder wall can be seen with hepatic disease. Cholecystitis cannot be excluded. Significant fluid around gallbladder is not seen on the CT examination. 3. Mild splenomegaly. This is nonspecific. It may be from the hepatic disease. Felix Briones MD Physical Exam HEENT: Normocephalic; atraumatic; + jaundice. CHEST: Resp. even/unlabored. CTA, diminished CARDIAC: RRR ABDOMEN: Soft, mildly distended with ascites, mild diffuse tenderness; hepatosplenomegaly; bowel sounds are present in all four quadrants. EXTREMITIES: BLE edema. SKIN: + jaundice. TRANSPORTATION DESIGN ENGINEER: No focal deficits; Lethargic and oriented times three. (Araceli Lee) Assessment and Plan Plan ASSESSMENT: - Elevated LFTs, Jaundice in patient with liver cirrhosis, steatohepatitis, and ongoing ETOH use. Pt with extensive workup in past for elevated LFTs 2015. Previous Liver workup Hepatitis profile negative, RAJAT neg, AMA < 20.0, ASMA neg, Ceruloplasmin 18, Alpha 1 antitrypsin 118. Iron saturation was elevated at 91.9%. 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 Rpt Ferritin 2364, Iron saturation 70.2%. She also underwent liver biopsy (10/04/15) revealed benign liver tissue with marked steatosis. She then had a repeat liver biopsy (10/07/15)----> revealed liver liver tissue with marked steatohepatitis and cirrhosis. Gallbladder ultrasound (04/16/17)---> hepatic steatosis and have hepatomegaly , cholelithiasis with mild thickening of the gallbladder wall. This can be correlated with any clinical signs of cholecystitis, mildly dilated common bile duct at 8mm. CT scan abdomen and pelvis with IV contrast (04/16/17) hepatomegaly with hepatic steatosis and areas of focal fatty sparing. There is mild ascites seen in the peroneal cavity. A constant with a thickened gallbladder wall. This is nonspecific. Thickening of the gallbladder wall can be seen with hepatic disease. Cholecystitis cannot be excluded. Significant fluid around gallbladder is not seen on the CT examination. Mild splenomegaly. DF 37.100. Labs are consistent with alcoholic hepatitis and suspect that she is drinking more than she is admitting. LFT derangement most likely combination of alcoholic hepatitis and steatohepatitis. MRCP pending. T. Bili 20.8, 103, 23, 318. On pentoxifylline, will add prednisone (D/W attending). - Nausea, GERD, Early Satiety. PPI - Anemia, macrocytic. Hx B12 Deficiency, B12 > 2,000. HH stable. - Coagulopathy. PT 16.7, INR 1.5. 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 States she still has not regained her strength and uses walker, but has been having worsening weakness/BLE pain for 2 weeks. Neurology following, On IVIG - Elevated TSH with hypothyroidism, anxiety, depression, per attending. PLAN: - 2 gram Sodium Diet - Await results MRCP to rule out any obstructive process - PPI - Pentoxifylline - Add Prednisone 40mg po daily - Monitor CBC, CMP, PT/INR in am - Supportive care - Further recommendations to follow after seen and examined by Dr. Cruz (Araceli Lee) Physician Comments Patient seen and examined Agree with above Continue with current supportive care Monitor labs (Frandy Cruz MD) Araceli Lee Apr 19, 2017 10:35 Frandy Cruz MD Apr 19, 2017 23:53
[2017-04-19] MEDS: CITALOPRAM HYDROBROMIDE 20 MG TAB PO SCH (11:08)
[2017-04-19] MEDS: predniSONE 20 MG TAB PO SCH ×3 (11:08→12:51)
[2017-04-19] MEDS: MULTIVITAMIN TAB PO SCH (11:08)
[2017-04-19] MEDS: GABAPENTIN 300 MG CAP PO SCH ×3 (11:09→18:00)
[2017-04-19] MEDS: FOLIC ACID 1 MG TAB PO SCH (11:09)
[2017-04-19] MEDS: CYANOCOBALAMIN 100 MCG TAB PO SCH (11:09)
[2017-04-19] MEDS: THIAMINE HCL 100 MG TAB PO SCH (11:09)
--- NOTE | 2017-04-19 11:21 | RADRPT ---
EXAM DATE/TIME: 04/19/2017 09:45 [facility] COMPARISON: No previous studies available for comparison. INDICATIONS : Jaundice. MEDICAL HISTORY : Hypertension. SURGICAL HISTORY : Tonsillectomy. [place] teeth removed. ENCOUNTER: Subsequent ACUITY: 3 day PAIN SCORE: 0/10 LOCATION: abdomen. TECHNIQUE: Multiplanar, multisequence magnetic resonance imaging of the abdomen was performed. High-resolution 3D dataset was utilized to reconstruct maximum-intensity projection (MIP) images. FINDINGS: INTRAHEPATIC BILE DUCTS: Within normal limits. No significant anatomical variant is present. EXTRAHEPATIC BILE DUCTS: The common bile duct measures 6.4 mm per No stone or filling defect is identified. GALLBLADDER: 1.6 cm stone in the gallbladder no. There is small amount of pericholecystic fluid. LIVER: Liver is enlarged measuring almost 25 cm in greatest SI dimension. Small amount of ascites around the hepatic convexity. Signal intensity is heterogeneous, especially on the T2 fat-sat haste images ming acteristic of scattered hepatic fatty infiltration. Focal area of increased T2 signal intensity in th e left hepatic lobe measured 1.1 cm probably a cyst. There is a somewhat ill-defined area measuring 1 .7 cm which is increased in T2 and decreased T1 signal intensity in the right hepatic lobe which may represent hemangioma. PANCREAS: The main pancreatic duct is normal in size. There is no significant anatomical variant. Signal inte nsity is within normal limits. No mass is visualized on this non-contrast exam. OTHER: The remaining visualized structures demonstrate no acute abnormality on this non-contrast exam. CONCLUSION: 1. Hepatomegaly with scattered fatty infiltration. 2. Probable 1 cm cyst in the left hepatic lobe with a possible hemangioma in the right hepatic lobe. Ultrasound was post contrasted multiphase MR of the liver could be performed for further evaluation o f these 2 lesions. 3. Small amount of ascites around the hepatic convexity and adjacent to the gallbladder. 4. 1.6 cm gallstone in the gallbladder neck. 5. No choledocholithiasis. CBD is upper limits of normal. Marcus Rios MD on April 19, 2017 at 10:57 Board Certified Radiologist. This report was verified electronically.
--- NOTE | 2017-04-19 12:30 | HHI.FPPN ---
Subjective Remarks Mrs. Contreras was afebrile with stable VS overnight. Patient reports that she is doing well overall; she has continued abdominal bloating. Patient also has continued weakness and pain in lower extremities. Patient reports some concern about taking steroids but that she is ultimately agreeable. (Isac Ramos MD, R3) Objective Vitals Vital Signs Date Time Temp Pulse Resp B/P (MAP) Pulse Ox O2 Delivery O2 Flow Rate FiO2 04/19/17 08:00 97.3 91 17 99/63 (75) 99 04/19/17 06:24 20 04/19/17 04:00 97.9 84 18 96/66 (76) 97 04/19/17 00:00 97.1 98 18 100/67 (78) 95 04/18/17 22:02 88 20 108/76 04/18/17 20:00 89 04/18/17 20:00 97.7 99 18 103/78 (86) 98 04/18/17 16:00 97.9 93 17 108/59 (75) 99 I/O 04/18/17 04/18/17 04/18/17 04/19/17 04/19/17 04/19/17 07:00 15:00 23:00 07:00 15:00 23:00 Intake Total 301 ml 290 ml 510 ml Balance 301 ml 290 ml 510 ml Intake Oral 240 ml 320 ml IV Total 301 ml 50 ml 190 ml # Voids 3 4 3 # Bowel Movements 0 0 (Isac Ramos MD, R3) Result Diagram: 04/19/17 0643 04/19/17 0643 Imaging Last Impressions Cholangiopancreatography MRI 04/19/17 0000 Signed Impressions: Service Date/Time: April 09:45 - CONCLUSION: 1. Hepatomegaly with scattered fatty infiltration. 2. Probable 1 cm cyst in the left hepatic lobe with a possible hemangioma in the right hepatic lobe. Ultrasound was post contrasted multiphase MR of the liver could be performed for further evaluation of these 2 lesions. 3. Small amount of ascites around the hepatic convexity and adjacent to the gallbladder. 4. 1.6 cm gallstone in the gallbladder neck. 5. No choledocholithiasis. CBD is upper limits of normal. Marcus Rios MD Thoracic Spine MRI 04/18/17 0000 Signed Impressions: Service Date/Time: Tuesday, April 18, 2017 10:32 - CONCLUSION: Normal examination. Osman Mathis Jr., MD Cervical Spine MRI 04/18/17 0000 Signed Impressions: Service Date/Time: Tuesday, April 18, 2017 10:32 - CONCLUSION: Normal examination. Osman Mathis Jr., MD Brain MRI 04/18/17 0000 Signed Impressions: Service Date/Time: Tuesday, April 18, 2017 10:32 - CONCLUSION: 1. No acute intracranial abnormality. Artemio Lopez MD Gall Bladder Ultrasound 04/16/17 0000 Signed Impressions: Service Date/Time: Sunday, April 16, 2017 19:17 - CONCLUSION: 1. Hepatic steatosis and hepatomegaly. 2. Cholelithiasis with mild thickening of the gallbladder wall. This can be correlated with any clinical signs of cholecystitis. 3. Mildly dilated common bile duct. Felix Briones MD Chest X-Ray 04/16/17 0000 Signed Impressions: Service Date/Time: Sunday, April 16, 2017 16:42 - CONCLUSION: No acute disease. Francisco Javier Lopez MD FACR Abdomen/Pelvis CT 04/16/17 0000 Signed Impressions: Service Date/Time: Sunday, April 16, 2017 17:25 - CONCLUSION: 1. Hepatomegaly with hepatic steatosis and areas of focal fatty sparing. There is mild ascites seen in the peroneal cavity. 2. Gallstone with a thickened gallbladder wall. This is nonspecific. Thickening of the gallbladder wall can be seen with hepatic disease. Cholecystitis cannot be excluded. Significant fluid around gallbladder is not seen on the CT examination. 3. Mild splenomegaly. This is nonspecific. It may be from the hepatic disease. Felix Briones MD Objective Remarks GENERAL: This is a well-nourished, well-developed patient, in no apparent distress. SKIN: Jaundiced. HEAD: Possible cushingoid facies EYES: Extraocular motions grossly intact. Scleral icterus present. CARDIOVASCULAR: Regular rate and rhythm without murmurs. Normal peripheral perfusion RESPIRATORY: Clear to auscultation. Breath sounds equal bilaterally. No wheezes to auscultation GASTROINTESTINAL: Abdomen soft, no tenderness appreciated. No appreciated pain to palpation; not obviously guarding. Abdomen enlarged relative to what would be expected for BMI; suggestive of weight loss vs ascites vs mild distension. MUSCULOSKELETAL/NEUROLOGICAL: Awake and alert. Cranial nerves grossly intact. Significantly decreased strength with flexion/dorsiflexion of feet and flexion at hip. Pain to light palpation of feet and distal LE's bilaterally. 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 Case reviewed and discussed with the resident team( DR Ramos). Agree with plan of care as discussed with me and documented in the resident note. (Vazquez Ruiz MD) Problem List: (1) Hyperbilirubinemia ICD Codes: E80.6 - Other disorders of bilirubin metabolism Status: Acute Plan: 04/17: Mild improvement in cholestasis suggested on labs: TBILI 23.9 -> 22.2, ALKP 490 -> 399 04/18: Persistent TBILI and ALKP elevations 04/19: Decreasing TBILI ( 20.8 <- 23.3 (04/18)) and ALKP (318 <- 396 (04/18)) -GI consulted -Continue treatment for presumed alcoholic hepatitis -Start Prednisone 40mg daily -Continue Pentoxifylline -Continue 2 gm sodium diet -Will trend CMP Impression: Patient presents with jaundiced clinically,with postprandial abdominal fullness. PMH of hepatic steatosis and cirrhosis. History of liver masses biopsied in the past, which were negative for malignancy. Abdomen/pelvis CT: hepatomegaly with hepatic steatosis. Mild ascites. Gallstones with a thickened gallbladder wall. Mild splenomegaly. Gallbladder ultrasound: hepatic steatosis and hepatomegaly. Cholelithiasis with thickening of the gallbladder wall. This can be correlated with any clinical signs of cholecystitis. Mildly dilated common bile duct. MRCP- Hepatomegaly with fatty infiltration, probable 1cm cyst in L hepatic lobe with possible hemangioma in R hepatic lobe. Small ascites around hepatic convexity/adjacent to gallbladder. 1.6cm gallstone in gallbladder neck. No choledocholithiasis; CBD near upper limits of normal Labs on admission: Total bilirubin 24.5. Direct bilirubin 20.4. ST 108, ALC 34. Alkaline phosphatase 490. Lipase not elevated. Urine shows large bilirubin. PT elevated to 15 and PTT slightly elevated. Hepatitis panel wnl; AFP wnl No signs of infection, WBC wnl. Vitals stable, afebrile (2) History of Guillain-[place] syndrome ICD Codes: Z86.69 - Personal history of other diseases of the nervous system and sense organs Status: Acute Plan: -Neurology consulted for assistance in management -Evaluation for possible GBS relapse vs liver disease. 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 Exam with bilateral muscular weakness, patellar DTR suppression, increased pain. Previously patient with negative RPR, RAJAT, Lyme, HIV B12 >2000 MRI Brain, C spine, T spine wnl (3) Hypoactive thyroid ICD Codes: E03.9 - Hypoactive thyroid Status: Acute Plan: Impression: On chronic Synthroid for hypothyroidism Repeat TSH 5.45 -Continue home Synthroid 50 ug daily -Due to TSH >5, could consider 25ug dosage increase but could also defer due to possible transient elevation from acute illness; will discuss options with patient to decide on benefits/risks of dosage increase prior to discharge (4) Anxiety and depression ICD Codes: F41.9 - Anxiety disorder, unspecified; F32.9 - Major depressive disorder, single episode, unspecified Status: Chronic Plan: Continue home Celexa (5) FEN Status: Acute Plan: Fluids: Regular diet with 2 gm sodium restriction Electrolytes: wnl, continue to monitor Nutrition: regular diet DVT ppx: SCDs; will start Enoxaparin 40mg daily (Isac Ramos MD, R3) Problem Qualifiers (1) Hypoactive thyroid: Qualified Codes: E03.9 - Hypothyroidism, unspecified Isac Ramos MD, R3 Apr 19, 2017 12:30 Vazquez Ruiz MD Apr 20, 2017 14:09
[2017-04-19] MEDS ORDERED: POTASSIUM CHLORIDE 10 MEQ CONTROLLED RELEASE TAB PO ONE (12:45)
[2017-04-19] MEDS: clonazePAM 1 MG TAB PO PRN (12:51)
[2017-04-19] MEDS: PANTOPRAZOLE SODIUM 40 MG VIAL IV PUSH SCH (12:52)
[2017-04-19] MEDS: SODIUM CHLORIDE 0.9% FLUSH 10 ML FLUSH IV FLUSH SCH ×2 (12:53→20:58)
[2017-04-19] MEDS: SODIUM CHLORID 0.9% 500 ML INJ 500 ML IV SCH (15:34)
[2017-04-19] MEDS: IMMUNE GLOBULIN IV SCH (18:24)
[2017-04-20] VITALS (8 sets, daily range): BP systolic 96–107; BP diastolic 64–78; PULSE 80–95; RESP 16–20; TEMP 96.3–97.3; O2SAT 96–98
[2017-04-20] MEDS: LEVOTHYROXINE SODIUM 50 MCG TAB PO SCH (05:34)
[2017-04-20] MEDS: ACETAMINOPHEN/HYDROcodone 325 MG/10 MG TAB PO PRN ×3 (05:35→18:01)
[2017-04-20] MEDS: PENTOXIFYLLINE 400 MG CONTROLLED RELEASE TAB PO SCH ×3 (05:35→20:31)
--- NOTE | 2017-04-20 07:51 | HHI.PR ---
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 may be associated with liver dz has preserved reflexes which is atypical for gbs. myelopathy another possibility but imaging negative before rpr/ramone/lyme/hiv negative in the past recs complete 5 days of ivig has not been seen by rehab md yet; reconsult probable 3rd spacing with albumin 1.7 p.t. may need inpt rehab again (2) Anxiety and depression ICD Codes: F41.9 - Anxiety disorder, unspecified; F32.9 - Major depressive disorder, single episode, unspecified Status: Chronic (3) HYPOTHYROIDISM, UNSPECIFIED ICD Codes: E03.9 - HYPOTHYROIDISM, UNSPECIFIED Status: Chronic (4) Elevated LFTs ICD Codes: R94.5 - Abnormal results of liver function studies Status: Chronic Subjective Subjective Comments No acute events reported legs stronger but edematous; were this way before ivig she states No headache No chest pain No dyspnea Active Medications Current Medications Medications (Trade) Dose Ordered Sig/Ulices Route Start Time Stop Time Status Last Admin (NS Flush) 2 ml UNSCH PRN IV FLUSH 04/16/17 22:15 (NS Flush) 2 ml BID IV FLUSH 04/17/17 09:00 04/19/17 20:58 (Zofran Inj) 4 mg Q6H PRN IV PUSH 04/16/17 22:15 (CeleXA) 20 mg DAILY PO 04/17/17 09:00 04/19/17 11:08 (Vitamin B12) 100 mcg DAILY PO 04/17/17 09:00 04/19/17 11:09 (Folate) 1 mg DAILY PO 04/17/17 09:00 04/19/17 11:09 (Poteet 10-325 Mg) 1 tab Q4H PRN PO 04/16/17 22:15 04/20/17 05:35 (Synthroid) 50 mcg DAILY@0600 PO 04/17/17 06:00 04/20/17 05:34 (Vitamin B1) 100 mg DAILY PO 04/17/17 09:00 04/19/17 11:09 Patient Own Medication PT OWN MED: (Etonogestrel-Ethinyl... UNSCH X1 PRN OTHER 04/16/17 22:15 05/07/17 22:14 Future Hold (Theragran) 1 tab DAILY PO 04/17/17 09:00 04/19/17 11:08 (KlonoPIN) 1 mg Q12HR PRN PO 04/16/17 22:30 04/19/17 12:51 Sodium Chloride 500 ml @ 500 mls/hr Q24H IV 04/17/17 17:00 04/21/17 17:59 04/19/17 15:34 Dextrose 500 ml @ 30 mls/hr [id number] OTHER 04/17/17 17:56 04/21/17 05:15 04/17/17 20:35 (Adrenalin (1:1000) Inj) 0.3 mg Q10M PRN OTHER 04/17/17 18:00 04/23/17 17:59 Immune Globulin 25 gm/Syringe / Bag 250 ml @ 17.4 mls/hr Q24H IV 04/17/17 18:00 04/22/17 08:23 04/19/17 18:24 (Protonix Inj) 40 mg Q24H IV PUSH 04/18/17 13:00 04/19/17 12:52 (TRENtal SR) 400 mg Q8HR PO 04/18/17 14:00 04/20/17 05:35 (Deltasone) 40 mg DAILY PO 04/19/17 09:00 04/19/17 12:51 (Neurontin) 1,200 mg TID PO 04/19/17 13:00 04/19/17 15:32 (Lovenox Inj) 40 mg Q24H SQ 04/20/17 08:00 Allergies Allergies Uncoded Allergies QT prolonging drugs ( Allergy, Severe, 04/16/17) Review of Systems All other ROS: ROS reviewed as documented in chart Exam I&O / VS Vital Signs Date Time Temp Pulse Resp B/P (MAP) Pulse Ox O2 Delivery O2 Flow Rate FiO2 04/20/17 04:00 96.9 95 18 97/67 (77) 96 04/20/17 00:00 96.8 86 18 96/64 (75) 96 04/19/17 23:09 84 04/19/17 20:00 97.7 85 18 92/67 (75) 96 04/19/17 18:24 87 18 104/65 04/19/17 16:00 96.8 87 18 104/69 (81) 95 04/19/17 12:00 97.1 92 18 95/67 (76) 99 04/19/17 08:00 97.3 91 17 99/63 (75) 99 General: Alert and Oriented Eye: EOMI Respiratory: Lungs CTA, Non-labored respirations, Symmetrical expansion Cardiology: Normal rate, Normal peripheral perfusion, Regular Rhythm Musculoskeletal: ROM, Other Neurologic: Alert, Oriented, CN II-XII intact Psychiatric: Cooperative, Appropriate mood & affect Exam Comments ox 3,eomi, vff, ou 3-2mm, face sym, ue 5-/5, paraparesis 3-4-/5 with better foot movement; msr 2+, no apparent clonus, planter flexor. light touch reduced , pin normal, corey le and rt ue edema Edd Hdz MD Apr 20, 2017 07:51
[2017-04-20 09:09] LABS: INTERNATIONAL NORMALIZED RATIO 1.5 RATIO; PROTHROMBIN TIME - PATIENT 16.9 SEC (9.8-11.6)
[2017-04-20 09:13] LABS: AUTOMATED NEUTROPHIL # 4.2 TH/MM3 (1.8-7.7); BASOPHIL % 0.2 % (0.0-2.0); HEMATOCRIT 31.1 % (35.0-46.0); HEMO FLAGS DIFF FINAL; LYMPH % 16.1 % (9.0-44.0); LYMPHOCYTE # 0.9 TH/MM3 (1.0-4.8); MEAN CELL VOLUME 113.8 FL (80.0-100.0); MEAN CORPUSCULAR HEMOGLOBIN 39.4 PG (27.0-34.0); MEAN CORPUSCULAR HGB CONC 34.6 % (32.0-36.0); NEUT % 71.7 % (16.0-70.0); PLATELET COUNT 171 TH/MM3 (150-450); RED BLOOD COUNT 2.74 MIL/MM3 (4.00-5.30); RED CELL DISTRIBUTION WIDTH 14.1 % (11.6-17.2); WHITE BLOOD COUNT 5.8 TH/MM3 (4.0-11.0)
[2017-04-20 09:22] LABS: ALT (GPT) 23 U/L (10-53); ANION GAP 11 MEQ/L (5-15); AST (GOT) 70 U/L (15-37); BICARBONATE 20.1 MEQ/L (21.0-32.0); BLOOD UREA NITROGEN 5 MG/DL (7-18); CHLORIDE 106 MEQ/L (98-107); POTASSIUM 3.5 MEQ/L (3.5-5.1); SODIUM (NA) 137 MEQ/L (136-145)
[2017-04-20] MEDS: GABAPENTIN 300 MG CAP PO SCH ×3 (09:29→18:00)
[2017-04-20] MEDS: THIAMINE HCL 100 MG TAB PO SCH (09:29)
[2017-04-20] MEDS: CITALOPRAM HYDROBROMIDE 20 MG TAB PO SCH (09:29)
[2017-04-20] MEDS: CYANOCOBALAMIN 100 MCG TAB PO SCH (09:29)
[2017-04-20] MEDS: FOLIC ACID 1 MG TAB PO SCH (09:30)
[2017-04-20] MEDS: clonazePAM 1 MG TAB PO PRN (09:30)
[2017-04-20] MEDS: MULTIVITAMIN TAB PO SCH (09:30)
[2017-04-20] MEDS: predniSONE 20 MG TAB PO SCH (09:30)
[2017-04-20] MEDS: ENOXAPARIN SODIUM 40 MG/0.4 ML SYRINGE SQ SCH (09:31)
[2017-04-20] MEDS: SODIUM CHLORIDE 0.9% FLUSH 10 ML FLUSH IV FLUSH SCH ×2 (09:31→20:33)
[2017-04-20 09:33] LABS: ALKALINE PHOSPHATASE 311 U/L (45-117); GLOMERULAR FILTRATION RATE 141 ML/MIN (>89)
--- NOTE | 2017-04-20 10:01 | HHI.GIFU ---
Subjective Remarks Pt resting in bed comfortably. She has been on low sodium diet and clinically is tolerating diet. Does report early satiety. She denies nausea, vomiting, abdominal pain. Had a BM today, reports it was loose but this is normal for her. Denies blood in stool or black, tarry stool. Complaining of continued leg swelling and thinks her continued weakness is partially due to the heaviness of her legs. (Araceli Lee) Objective Vitals I&O Vital Signs Date Time Temp Pulse Resp B/P (MAP) Pulse Ox O2 Delivery O2 Flow Rate FiO2 04/20/17 04:00 96.9 95 18 97/67 (77) 96 04/20/17 00:00 96.8 86 18 96/64 (75) 96 04/19/17 23:09 84 04/19/17 20:00 97.7 85 18 92/67 (75) 96 04/19/17 18:24 87 18 104/65 04/19/17 16:00 96.8 87 18 104/69 (81) 95 04/19/17 12:00 97.1 92 18 95/67 (76) 99 I/O 04/19/17 04/19/17 04/19/17 04/20/17 04/20/17 04/20/17 07:00 15:00 23:00 07:00 15:00 23:00 Intake Total 510 ml 50 ml 770 ml 780 ml Balance 510 ml 50 ml 770 ml 780 ml Intake Oral 320 ml 720 ml 480 ml IV Total 190 ml 50 ml 50 ml 300 ml # Voids 3 4 2 # Bowel Movements 0 0 Laboratory Laboratory Tests Test 04/20/17 07:20 White Blood Count 5.8 Red Blood Count 2.74 Hemoglobin 10.8 Hematocrit 31.1 Mean Corpuscular Volume 113.8 Mean Corpuscular Hemoglobin 39.4 Mean Corpuscular Hemoglobin Concent 34.6 Red Cell Distribution Width 14.1 Platelet Count 171 Mean Platelet Volume 8.1 Neutrophils (%) (Auto) 71.7 Lymphocytes (%) (Auto) 16.1 Monocytes (%) (Auto) 12.0 Eosinophils (%) (Auto) 0.0 Basophils (%) (Auto) 0.2 Neutrophils # (Auto) 4.2 Lymphocytes # (Auto) 0.9 Monocytes # (Auto) 0.7 Eosinophils # (Auto) 0.0 Basophils # (Auto) 0.0 CBC Comment DIFF FINAL Differential Comment Prothrombin Time 16.9 Prothromb Time International Ratio 1.5 Blood Urea Nitrogen 5 Creatinine 0.50 Random Glucose 104 Total Protein 6.3 Albumin 1.7 Calcium Level 7.9 Alkaline Phosphatase 311 Aspartate Amino Transf (AST/SGOT) 70 Alanine Aminotransferase (ALT/SGPT) 23 Total Bilirubin 19.0 Sodium Level 137 Potassium Level 3.5 Chloride Level 106 Carbon Dioxide Level 20.1 Anion Gap 11 Estimat Glomerular Filtration Rate 141 Imaging Last Impressions Cholangiopancreatography MRI 04/19/17 0000 Signed Impressions: Service Date/Time: April 09:45 - CONCLUSION: 1. Hepatomegaly with scattered fatty infiltration. 2. Probable 1 cm cyst in the left hepatic lobe with a possible hemangioma in the right hepatic lobe. Ultrasound was post contrasted multiphase MR of the liver could be performed for further evaluation of these 2 lesions. 3. Small amount of ascites around the hepatic convexity and adjacent to the gallbladder. 4. 1.6 cm gallstone in the gallbladder neck. 5. No choledocholithiasis. CBD is upper limits of normal. Marcus Rios MD Thoracic Spine MRI 04/18/17 0000 Signed Impressions: Service Date/Time: Tuesday, April 18, 2017 10:32 - CONCLUSION: Normal examination. Osman Mathis Jr., MD Cervical Spine MRI 04/18/17 0000 Signed Impressions: Service Date/Time: Tuesday, April 18, 2017 10:32 - CONCLUSION: Normal examination. Osman Mathis Jr., MD Brain MRI 04/18/17 0000 Signed Impressions: Service Date/Time: Tuesday, April 18, 2017 10:32 - CONCLUSION: 1. No acute intracranial abnormality. Artemio oLpez MD Gall Bladder Ultrasound 04/16/17 0000 Signed Impressions: Service Date/Time: Sunday, April 16, 2017 19:17 - CONCLUSION: 1. Hepatic steatosis and hepatomegaly. 2. Cholelithiasis with mild thickening of the gallbladder wall. This can be correlated with any clinical signs of cholecystitis. 3. Mildly dilated common bile duct. Felix Briones MD Chest X-Ray 04/16/17 0000 Signed Impressions: Service Date/Time: Sunday, April 16, 2017 16:42 - CONCLUSION: No acute disease. Francisco Javier Lopez MD FACR Abdomen/Pelvis CT 04/16/17 0000 Signed Impressions: Service Date/Time: Sunday, April 16, 2017 17:25 - CONCLUSION: 1. Hepatomegaly with hepatic steatosis and areas of focal fatty sparing. There is mild ascites seen in the peroneal cavity. 2. Gallstone with a thickened gallbladder wall. This is nonspecific. Thickening of the gallbladder wall can be seen with hepatic disease. Cholecystitis cannot be excluded. Significant fluid around gallbladder is not seen on the CT examination. 3. Mild splenomegaly. This is nonspecific. It may be from the hepatic disease. Felix Briones MD Physical Exam HEENT: Normocephalic; atraumatic; + jaundice with some improvement. CHEST: Resp. even/unlabored. CTA, diminished CARDIAC: RRR ABDOMEN: Soft, mildly distended with ascites, nontender; hepatosplenomegaly; bowel sounds are present in all four quadrants. EXTREMITIES: BLE edema. SKIN: + jaundice, some improvement. PONDMAN: No focal deficits; Lethargic and oriented times three. (Araceli LeeP) Assessment and Plan Plan ASSESSMENT: - Elevated LFTs, Jaundice in patient with liver cirrhosis, steatohepatitis, and ongoing ETOH use. Pt with extensive workup in past for elevated LFTs October/May of 2016. Previous Liver workup Hepatitis profile negative, RAJAT neg, AMA < 20.0, ASMA neg, Ceruloplasmin 18, Alpha 1 antitrypsin 118. Iron saturation was elevated at 91.9%. 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 Rpt Ferritin 2364, Iron saturation 70.2%. She also underwent liver biopsy (10/04/15) revealed benign liver tissue with marked steatosis. She then had a repeat liver biopsy (10/07/15)----> revealed liver liver tissue with marked steatohepatitis and cirrhosis. Gallbladder ultrasound (04/16/17)---> hepatic steatosis and have hepatomegaly , cholelithiasis with mild thickening of the gallbladder wall. This can be correlated with any clinical signs of cholecystitis, mildly dilated common bile duct at 8mm. CT scan abdomen and pelvis with IV contrast (04/16/17) hepatomegaly with hepatic steatosis and areas of focal fatty sparing. There is mild ascites seen in the peroneal cavity. A constant with a thickened gallbladder wall. This is nonspecific. Thickening of the gallbladder wall can be seen with hepatic disease. Cholecystitis cannot be excluded. Significant fluid around gallbladder is not seen on the CT examination. Mild splenomegaly. DF 37.100. Labs are consistent with alcoholic hepatitis and suspect that she is drinking more than she is admitting. LFT derangement most likely combination of alcoholic hepatitis and steatohepatitis. MRCP (04/19/17) --> Hepatomegaly with scattered fatty infiltration. Probable 1 cm cyst in the left hepatic lobe with a possible hemangioma in the right hepatic lobe. US was post contrasted multi-phase MR of the liver could be performed for further evaluation of these 2 lesions. Small amount of ascites around the hepatic convexity and adjacent to the gallbladder. 1.6 cm gallstone in the gallbladder neck. No choledocholithiasis. CBD is upper limits of normal. Pts labs are improving since being started on steroids yesterday, currently T. Bili 19.0. AST-70 ALT- 23 Alk phos 311. On pentoxifylline, Prednisone added yesterday. Clinically pt seems to be improving, she denies nausea, vomiting, abdominal pain. Tolerating low fat diet. Jaundice still very apparent, but improving. - Nausea, GERD, Early Satiety. PPI - Anemia, macrocytic. Hx B12 Deficiency, B12 > 2,000. HH stable. .8.1 - Coagulopathy. PT 16.9, INR 1.5. - BLE pain, progressively worsening weakness, possible Guillain [place]. Pt was treated for Guillain [place] in April of 2016. States she still has not regained her strength and uses walker, but has been having worsening weakness/BLE pain for 2 weeks. Neurology following, Today will be her fourth treatment of IVIG. She has noticed some improvement , she thinks some continued weakness may be due to heaviness of her legs from increased swelling. - Elevated TSH with hypothyroidism, anxiety, depression, per attending. PLAN: - 2 gram Sodium Diet - Continue PPI - Continue Pentoxifylline - Continue Prednisone 40mg po daily - Advised pt to avoid any alcohol - Monitor CBC, CMP, PT/INR in am - Supportive care - Further recommendations to follow after results of above - Pt seen and examined by Dr. Cruz and myself and this note is written on his behalf (Araceli Lee) Physician Comments Patient seen and examined Agree with above Continue with current supportive care Monitor labs (Frandy Cruz MD) Araceli Lee Apr 20, 2017 10:01 Frandy Cruz MD Apr 20, 2017 22:22
[2017-04-20] MEDS: PANTOPRAZOLE SODIUM 40 MG VIAL IV PUSH SCH (13:42)
[2017-04-20] MEDS: SODIUM CHLORID 0.9% 500 ML INJ 500 ML IV SCH (16:33)
--- NOTE | 2017-04-20 17:19 | HHI.FPPN ---
Subjective Remarks Mrs. Contreras was afebrile with stable vital signs overnight; patient reports some frustration with her diet having sodium restriction restarted. Patient does not report shortness of breath, chest pain, abnormal urination, or abnormal bowel movements. Patient reports continued lower extremity weakness and pain; she attributes some of her weakness to LE edema. Objective Vitals Vital Signs Date Time Temp Pulse Resp B/P (MAP) Pulse Ox O2 Delivery O2 Flow Rate FiO2 04/20/17 16:00 97.3 80 16 107/78 (88) 98 04/20/17 15:27 90 04/20/17 12:00 96.3 87 16 103/69 (80) 97 04/20/17 08:00 96.9 88 16 97/66 (76) 97 04/20/17 04:00 96.9 95 18 97/67 (77) 96 04/20/17 00:00 96.8 86 18 96/64 (75) 96 04/19/17 23:09 84 04/19/17 20:00 97.7 85 18 92/67 (75) 96 04/19/17 18:24 87 18 104/65 I/O 04/19/17 04/19/17 04/19/17 04/20/17 04/20/17 04/20/17 07:00 15:00 23:00 07:00 15:00 23:00 Intake Total 510 ml 50 ml 770 ml 780 ml Balance 510 ml 50 ml 770 ml 780 ml Intake Oral 320 ml 720 ml 480 ml IV Total 190 ml 50 ml 50 ml 300 ml # Voids 3 4 2 # Bowel Movements 0 0 Result Diagram: 04/20/17 0720 04/20/17 0720 Imaging Last Impressions Cholangiopancreatography MRI 04/19/17 0000 Signed Impressions: Service Date/Time: April 09:45 - CONCLUSION: 1. Hepatomegaly with scattered fatty infiltration. 2. Probable 1 cm cyst in the left hepatic lobe with a possible hemangioma in the right hepatic lobe. Ultrasound was post contrasted multiphase MR of the liver could be performed for further evaluation of these 2 lesions. 3. Small amount of ascites around the hepatic convexity and adjacent to the gallbladder. 4. 1.6 cm gallstone in the gallbladder neck. 5. No choledocholithiasis. CBD is upper limits of normal. Marcus Rios MD Thoracic Spine MRI 04/18/17 0000 Signed Impressions: Service Date/Time: Tuesday, April 18, 2017 10:32 - CONCLUSION: Normal examination. Osman Mathis Jr., MD Cervical Spine MRI 04/18/17 0000 Signed Impressions: Service Date/Time: Tuesday, April 18, 2017 10:32 - CONCLUSION: Normal examination. Osman Mathis Jr., MD Brain MRI 04/18/17 0000 Signed Impressions: Service Date/Time: Tuesday, April 18, 2017 10:32 - CONCLUSION: 1. No acute intracranial abnormality. Artemio Lopez MD Gall Bladder Ultrasound 04/16/17 0000 Signed Impressions: Service Date/Time: Sunday, April 16, 2017 19:17 - CONCLUSION: 1. Hepatic steatosis and hepatomegaly. 2. Cholelithiasis with mild thickening of the gallbladder wall. This can be correlated with any clinical signs of cholecystitis. 3. Mildly dilated common bile duct. Felix Briones MD Chest X-Ray 04/16/17 0000 Signed Impressions: Service Date/Time: Sunday, April 16, 2017 16:42 - CONCLUSION: No acute disease. Francisco Javier Lopez MD FACR Abdomen/Pelvis CT 04/16/17 0000 Signed Impressions: Service Date/Time: Sunday, April 16, 2017 17:25 - CONCLUSION: 1. Hepatomegaly with hepatic steatosis and areas of focal fatty sparing. There is mild ascites seen in the peroneal cavity. 2. Gallstone with a thickened gallbladder wall. This is nonspecific. Thickening of the gallbladder wall can be seen with hepatic disease. Cholecystitis cannot be excluded. Significant fluid around gallbladder is not seen on the CT examination. 3. Mild splenomegaly. This is nonspecific. It may be from the hepatic disease. Felix Briones MD Objective Remarks GENERAL: This is a well-nourished, well-developed patient, in no apparent distress. SKIN: Jaundiced. HEAD: Possible cushingoid facies EYES: Extraocular motions grossly intact. Scleral icterus present. CARDIOVASCULAR: Regular rate and rhythm without murmurs. Normal peripheral perfusion RESPIRATORY: Clear to auscultation. Breath sounds equal bilaterally. No wheezes to auscultation GASTROINTESTINAL: Abdomen soft, no tenderness appreciated. No appreciated pain to palpation; not obviously guarding. Abdomen enlarged relative to what would be expected for BMI; suggestive of weight loss vs ascites vs mild distension. MUSCULOSKELETAL/NEUROLOGICAL: Awake and alert. Cranial nerves grossly intact. Significantly decreased strength with flexion/dorsiflexion of feet and flexion at hip. Pain to light palpation of feet and distal LE's bilaterally. Significant bilateral LE pitting edema A/P Assessment and Plan 32-year-old female with history of Guillain-[place], hepatic steatosis, cirrhosis, hypothyroidism, hypertension presents with lower extremity pain and weakness along with jaundice: Problem List: (1) Hyperbilirubinemia ICD Codes: E80.6 - Other disorders of bilirubin metabolism Status: Acute Plan: 04/17: Mild improvement in cholestasis suggested on labs: TBILI 23.9 -> 22.2, ALKP 490 -> 399 04/18: Persistent TBILI and ALKP elevations 04/19: Decreasing TBILI ( 20.8 <- 23.3 (04/18)) and ALKP (318 <- 396 (04/18)) 04/20: TBILI 19, ALK P 311 -GI consulted -Continue treatment for presumed alcoholic hepatitis -Start Prednisone 40mg daily -Continue Pentoxifylline -Continue 2 gm sodium diet -Will trend CMP Impression: Patient presents with jaundiced clinically,with postprandial abdominal fullness. PMH of hepatic steatosis and cirrhosis. History of liver masses biopsied in the past, which were negative for malignancy. Abdomen/pelvis CT: hepatomegaly with hepatic steatosis. Mild ascites. Gallstones with a thickened gallbladder wall. Mild splenomegaly. Gallbladder ultrasound: hepatic steatosis and hepatomegaly. Cholelithiasis with thickening of the gallbladder wall. This can be correlated with any clinical signs of cholecystitis. Mildly dilated common bile duct. MRCP- Hepatomegaly with fatty infiltration, probable 1cm cyst in L hepatic lobe with possible hemangioma in R hepatic lobe. Small ascites around hepatic convexity/adjacent to gallbladder. 1.6cm gallstone in gallbladder neck. No choledocholithiasis; CBD near upper limits of normal Labs on admission: Total bilirubin 24.5. Direct bilirubin 20.4. ST 108, ALC 34. Alkaline phosphatase 490. Lipase not elevated. Urine shows large bilirubin. PT elevated to 15 and PTT slightly elevated. Hepatitis panel wnl; AFP wnl No signs of infection, WBC wnl. Vitals stable, afebrile (2) History of Guillain-[place] syndrome ICD Codes: Z86.69 - Personal history of other diseases of the nervous system and sense organs Status: Acute Plan: -Neurology consulted for assistance in management -Evaluation for possible GBS relapse vs liver disease. Preserved reflexes atypical -Continue IVIG x5 days -Consult rehabilitative medicine for EMG/NCV -PT consult Impression: Patient diagnosed last year with Guillain-[place] syndrome now presenting with similar symptoms. Exam with bilateral muscular weakness, patellar DTR suppression, increased pain. Previously patient with negative RPR, RAJAT, Lyme, HIV B12 >2000 MRI Brain, C spine, T spine wnl (3) Hypoactive thyroid ICD Codes: E03.9 - Hypoactive thyroid Status: Acute Plan: Impression: On chronic Synthroid for hypothyroidism Repeat TSH 5.45 -Continue home Synthroid 50 ug daily -Due to TSH >5, could consider 25ug dosage increase but could also defer due to possible transient elevation from acute illness; will discuss options with patient to decide on benefits/risks of dosage increase prior to discharge (4) Anxiety and depression ICD Codes: F41.9 - Anxiety disorder, unspecified; F32.9 - Major depressive disorder, single episode, unspecified Status: Chronic Plan: Continue home Celexa (5) FEN Status: Acute Plan: Fluids: Regular diet with 2 gm sodium restriction Electrolytes: wnl, continue to monitor Nutrition: regular diet DVT ppx: SCDs; will start Enoxaparin 40mg daily Problem Qualifiers (1) Hypoactive thyroid: Qualified Codes: E03.9 - Hypothyroidism, unspecified Isac Ramos MD, R3 Apr 20, 2017 17:19
[2017-04-20] MEDS: IMMUNE GLOBULIN IV SCH (17:59)
[2017-04-21] VITALS: BP 98/74; PULSE 76; RESP 20; TEMP 96.9; O2SAT 98
[2017-04-21] MEDS: ACETAMINOPHEN/HYDROcodone 325 MG/10 MG TAB PO PRN ×5 (01:03→22:43)
[2017-04-21 04:00] VITALS: BP 95/68; PULSE 82; RESP 20; TEMP 97.2; O2SAT 97
[2017-04-21] MEDS: PENTOXIFYLLINE 400 MG CONTROLLED RELEASE TAB PO SCH ×3 (05:07→20:50)
[2017-04-21] MEDS: LEVOTHYROXINE SODIUM 50 MCG TAB PO SCH (05:07)
[2017-04-21 06:56] LABS: AUTOMATED NEUTROPHIL # 3.2 TH/MM3 (1.8-7.7); BASOPHIL % 0.3 % (0.0-2.0); EOSINOPHIL % 0.1 % (0.0-4.0); HEMATOCRIT 32.1 % (35.0-46.0); HEMO FLAGS DIFF FINAL; LYMPH % 25.5 % (9.0-44.0); LYMPHOCYTE # 1.3 TH/MM3 (1.0-4.8); MEAN CELL VOLUME 114.4 FL (80.0-100.0); MEAN CORPUSCULAR HEMOGLOBIN 38.6 PG (27.0-34.0); MEAN CORPUSCULAR HGB CONC 33.7 % (32.0-36.0); MONO % 11.5 % (0.0-8.0); NEUT % 62.6 % (16.0-70.0); PLATELET COUNT 174 TH/MM3 (150-450); RED BLOOD COUNT 2.81 MIL/MM3 (4.00-5.30); RED CELL DISTRIBUTION WIDTH 14.5 % (11.6-17.2); WHITE BLOOD COUNT 5.2 TH/MM3 (4.0-11.0)
[2017-04-21 07:15] LABS: INTERNATIONAL NORMALIZED RATIO 1.3 RATIO; PROTHROMBIN TIME - PATIENT 14.1 SEC (9.8-11.6)
[2017-04-21 07:33] LABS: ALT (GPT) 24 U/L (10-53); ANION GAP 8 MEQ/L (5-15); AST (GOT) 58 U/L (15-37); BICARBONATE 25.2 MEQ/L (21.0-32.0); BLOOD UREA NITROGEN 7 MG/DL (7-18); CHLORIDE 106 MEQ/L (98-107); GLOMERULAR FILTRATION RATE 117 ML/MIN (>89); POTASSIUM 3.5 MEQ/L (3.5-5.1); SODIUM (NA) 139 MEQ/L (136-145)
[2017-04-21 07:35] LABS: ALKALINE PHOSPHATASE 296 U/L (45-117); TOTAL BILIRUBIN ADULT 17.4 MG/DL (0.2-1.0)
[2017-04-21 08:00] VITALS: BP 99/64; PULSE 115; PULSE 88; RESP 17; TEMP 96; O2SAT 97
[2017-04-21] MEDS: GABAPENTIN 300 MG CAP PO SCH ×3 (09:55→17:11)
[2017-04-21] MEDS: CYANOCOBALAMIN 100 MCG TAB PO SCH (09:55)
[2017-04-21] MEDS: ENOXAPARIN SODIUM 40 MG/0.4 ML SYRINGE SQ SCH (09:55)
[2017-04-21] MEDS: clonazePAM 1 MG TAB PO PRN (09:55)
[2017-04-21] MEDS: CITALOPRAM HYDROBROMIDE 20 MG TAB PO SCH (09:56)
[2017-04-21] MEDS: MULTIVITAMIN TAB PO SCH (09:57)
[2017-04-21] MEDS: FOLIC ACID 1 MG TAB PO SCH (09:57)
[2017-04-21] MEDS: THIAMINE HCL 100 MG TAB PO SCH (09:57)
[2017-04-21] MEDS: SODIUM CHLORIDE 0.9% FLUSH 10 ML FLUSH IV FLUSH SCH ×2 (09:58→20:51)
--- NOTE | 2017-04-21 11:41 | HHI.FPPN ---
Subjective Remarks Mrs. Contreras was afebrile with stable vital signs overnight. Per EMR, 4 voids and 1 BM overnight. Patient reports continued frustration with lower extremity swelling and restricted diet. Patient has some improvement in moving legs and decreased lower extremity pain. No chest pain, shortness of breath, or urinary symptoms. Patient reports agreement with alcohol cessation on discharge. Objective Vitals Vital Signs Date Time Temp Pulse Resp B/P (MAP) Pulse Ox O2 Delivery O2 Flow Rate FiO2 04/21/17 08:00 96.0 88 17 99/64 (76) 97 04/21/17 04:00 97.2 82 20 95/68 (77) 97 04/21/17 00:00 96.9 76 20 98/74 (82) 98 04/20/17 22:32 82 04/20/17 20:59 96.5 85 20 98/74 (82) 97 04/20/17 17:59 80 16 04/20/17 16:00 97.3 80 16 107/78 (88) 98 04/20/17 15:27 90 04/20/17 12:00 96.3 87 16 103/69 (80) 97 I/O 04/20/17 04/20/17 04/20/17 04/21/17 04/21/17 04/21/17 07:00 15:00 23:00 07:00 15:00 23:00 Intake Total 780 ml 1120 ml 250 ml Balance 780 ml 1120 ml 250 ml Intake Oral 480 ml 620 ml IV Total 300 ml 500 ml 250 ml # Voids 2 3 1 # Bowel Movements 0 1 Result Diagram: 04/21/17 0630 04/21/17 0630 Imaging Last Impressions Cholangiopancreatography MRI 04/19/17 0000 Signed Impressions: Service Date/Time: April 09:45 - CONCLUSION: 1. Hepatomegaly with scattered fatty infiltration. 2. Probable 1 cm cyst in the left hepatic lobe with a possible hemangioma in the right hepatic lobe. Ultrasound was post contrasted multiphase MR of the liver could be performed for further evaluation of these 2 lesions. 3. Small amount of ascites around the hepatic convexity and adjacent to the gallbladder. 4. 1.6 cm gallstone in the gallbladder neck. 5. No choledocholithiasis. CBD is upper limits of normal. Marcus Rios MD Thoracic Spine MRI 04/18/17 0000 Signed Impressions: Service Date/Time: Tuesday, April 18, 2017 10:32 - CONCLUSION: Normal examination. Osman Mathis Jr., MD Cervical Spine MRI 04/18/17 0000 Signed Impressions: Service Date/Time: Tuesday, April 18, 2017 10:32 - CONCLUSION: Normal examination. Osman Mathis Jr., MD Brain MRI 04/18/17 0000 Signed Impressions: Service Date/Time: Tuesday, April 18, 2017 10:32 - CONCLUSION: 1. No acute intracranial abnormality. Artemio Lopez MD Gall Bladder Ultrasound 04/16/17 0000 Signed Impressions: Service Date/Time: Sunday, April 16, 2017 19:17 - CONCLUSION: 1. Hepatic steatosis and hepatomegaly. 2. Cholelithiasis with mild thickening of the gallbladder wall. This can be correlated with any clinical signs of cholecystitis. 3. Mildly dilated common bile duct. Feilx Briones MD Chest X-Ray 04/16/17 0000 Signed Impressions: Service Date/Time: Sunday, April 16, 2017 16:42 - CONCLUSION: No acute disease. Francisco Javier Lopez MD FACR Abdomen/Pelvis CT 04/16/17 0000 Signed Impressions: Service Date/Time: Sunday, April 16, 2017 17:25 - CONCLUSION: 1. Hepatomegaly with hepatic steatosis and areas of focal fatty sparing. There is mild ascites seen in the peroneal cavity. 2. Gallstone with a thickened gallbladder wall. This is nonspecific. Thickening of the gallbladder wall can be seen with hepatic disease. Cholecystitis cannot be excluded. Significant fluid around gallbladder is not seen on the CT examination. 3. Mild splenomegaly. This is nonspecific. It may be from the hepatic disease. Felix Briones MD Objective Remarks GENERAL: This is a well-nourished, well-developed patient, in no apparent distress. SKIN: Jaundiced. EYES: Extraocular motions grossly intact. Scleral icterus present. CARDIOVASCULAR: Regular rate and rhythm without murmurs. Normal peripheral perfusion RESPIRATORY: Clear to auscultation. Breath sounds equal bilaterally. No wheezes to auscultation GASTROINTESTINAL: Abdomen soft, no tenderness appreciated. No appreciated pain to palpation. Abdomen enlarged relative to what would be expected for BMI; no obvious ascites NEUROLOGICAL: Awake and alert. Cranial nerves grossly intact. Sensation intact but heightened pain to palpation. Decreased strength in bilateral lower extremities; seemingly improved from last exam MUSCULOSKELETAL: Pain to palpation of feet and distal LE's bilaterally, but decreased relative to prior exam. Significant bilateral LE pitting edema A/P Assessment and Plan 32-year-old female with history of Guillain-Knight, hepatic steatosis, cirrhosis, hypothyroidism, hypertension presents with lower extremity pain and weakness along with jaundice: Problem List: (1) Hyperbilirubinemia ICD Codes: E80.6 - Other disorders of bilirubin metabolism Status: Acute Plan: 04/21: TBILI 17.4; ALK P296. Decreasing AST from 108 on admission to 56 today -GI consulted -Continue treatment for presumed alcoholic hepatitis -Continue Prednisone 40mg daily -Continue Pentoxifylline -Continue 2 gm sodium diet -Will trend CMP Impression: Patient presents with jaundiced clinically,with postprandial abdominal fullness. PMH of hepatic steatosis and cirrhosis. History of liver masses biopsied in the past, which were negative for malignancy. Abdomen/pelvis CT: hepatomegaly with hepatic steatosis. Mild ascites. Gallstones with a thickened gallbladder wall. Mild splenomegaly. Gallbladder ultrasound: hepatic steatosis and hepatomegaly. Cholelithiasis with thickening of the gallbladder wall. This can be correlated with any clinical signs of cholecystitis. Mildly dilated common bile duct. MRCP- Hepatomegaly with fatty infiltration, probable 1cm cyst in L hepatic lobe with possible hemangioma in R hepatic lobe. Small ascites around hepatic convexity/adjacent to gallbladder. 1.6cm gallstone in gallbladder neck. No choledocholithiasis; CBD near upper limits of normal Labs on admission: Total bilirubin 24.5. Direct bilirubin 20.4. ST 108, ALC 34. Alkaline phosphatase 490. Lipase not elevated. Urine shows large bilirubin. PT elevated to 15 and PTT slightly elevated. Hepatitis panel wnl; AFP wnl No signs of infection, WBC wnl. 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 Exam with bilateral muscular weakness, increased pain. Per neurology, possible GBS relapse vs liver disease associated. Previously patient with negative RPR, RAJAT, Lyme, HIV B12 >2000 MRI Brain, C spine, T spine wnl (3) Swelling of lower extremity ICD Codes: M79.89 - Other specified soft tissue disorders Status: Acute Plan: -Continue treatment for suspected alcoholic liver disease -Will plan for compression stockings on discharge -Will check lipid profile -Continue sodium restriction Impression: Bilateral pitting edema; go calf asymmetry. Albumin 1.7. Cr wnl. Mild proteinuria (30+ on admission UA) (4) Hypoactive thyroid ICD Codes: E03.9 - Hypoactive thyroid Status: Acute Plan: Impression: On chronic Synthroid for hypothyroidism Repeat TSH 5.45 -Continue home Synthroid 50 ug daily -Due to TSH >5, could consider 25ug dosage increase but could also defer due to possible transient elevation from acute illness; will discuss options with patient to decide on benefits/risks of dosage increase prior to discharge (5) Anxiety and depression ICD Codes: F41.9 - Anxiety disorder, unspecified; F32.9 - Major depressive disorder, single episode, unspecified Status: Chronic Plan: Continue home Celexa (6) FEN Status: Acute Plan: Fluids: Regular diet with 2 gm sodium restriction Electrolytes: wnl, continue to monitor Nutrition: regular diet DVT ppx: SCDs; will start Enoxaparin 40mg daily Problem Qualifiers (1) Hypoactive thyroid: Qualified Codes: E03.9 - Hypothyroidism, unspecified Isac Ramos MD, R3 Apr 21, 2017 11:41
[2017-04-21 12:00] VITALS: BP 104/70; PULSE 86; RESP 17; TEMP 95.4; O2SAT 95
[2017-04-21] MEDS: PANTOPRAZOLE SODIUM 40 MG VIAL IV PUSH SCH (13:33)
--- NOTE | 2017-04-21 14:15 | HHI.GIFU ---
Subjective Remarks Pt resting in bed. c/o lower extremity edema no better. No abd pain. (Elza Patterson) Objective Vitals I&O Vital Signs Date Time Temp Pulse Resp B/P (MAP) Pulse Ox O2 Delivery O2 Flow Rate FiO2 04/21/17 12:00 95.4 86 17 104/70 (81) 95 04/21/17 08:00 96.0 88 17 99/64 (76) 97 04/21/17 04:00 97.2 82 20 95/68 (77) 97 04/21/17 00:00 96.9 76 20 98/74 (82) 98 04/20/17 22:32 82 04/20/17 20:59 96.5 85 20 98/74 (82) 97 04/20/17 17:59 80 16 04/20/17 16:00 97.3 80 16 107/78 (88) 98 04/20/17 15:27 90 I/O 04/20/17 04/20/17 04/20/17 04/21/17 04/21/17 04/21/17 07:00 15:00 23:00 07:00 15:00 23:00 Intake Total 780 ml 1120 ml 250 ml Balance 780 ml 1120 ml 250 ml Intake Oral 480 ml 620 ml IV Total 300 ml 500 ml 250 ml # Voids 2 3 1 # Bowel Movements 0 1 Laboratory Laboratory Tests Test 04/21/17 06:30 White Blood Count 5.2 Red Blood Count 2.81 Hemoglobin 10.8 Hematocrit 32.1 Mean Corpuscular Volume 114.4 Mean Corpuscular Hemoglobin 38.6 Mean Corpuscular Hemoglobin Concent 33.7 Red Cell Distribution Width 14.5 Platelet Count 174 Mean Platelet Volume 7.7 Neutrophils (%) (Auto) 62.6 Lymphocytes (%) (Auto) 25.5 Monocytes (%) (Auto) 11.5 Eosinophils (%) (Auto) 0.1 Basophils (%) (Auto) 0.3 Neutrophils # (Auto) 3.2 Lymphocytes # (Auto) 1.3 Monocytes # (Auto) 0.6 Eosinophils # (Auto) 0.0 Basophils # (Auto) 0.0 CBC Comment DIFF FINAL Differential Comment Prothrombin Time 14.1 Prothromb Time International Ratio 1.3 Blood Urea Nitrogen 7 Creatinine 0.59 Random Glucose 102 Total Protein 6.7 Albumin 1.7 Calcium Level 7.9 Alkaline Phosphatase 296 Aspartate Amino Transf (AST/SGOT) 58 Alanine Aminotransferase (ALT/SGPT) 24 Total Bilirubin 17.4 Sodium Level 139 Potassium Level 3.5 Chloride Level 106 Carbon Dioxide Level 25.2 Anion Gap 8 Estimat Glomerular Filtration Rate 117 Imaging Last Impressions Cholangiopancreatography MRI 04/19/17 0000 Signed Impressions: Service Date/Time: April 09:45 - CONCLUSION: 1. Hepatomegaly with scattered fatty infiltration. 2. Probable 1 cm cyst in the left hepatic lobe with a possible hemangioma in the right hepatic lobe. Ultrasound was post contrasted multiphase MR of the liver could be performed for further evaluation of these 2 lesions. 3. Small amount of ascites around the hepatic convexity and adjacent to the gallbladder. 4. 1.6 cm gallstone in the gallbladder neck. 5. No choledocholithiasis. CBD is upper limits of normal. Marcus Rios MD Thoracic Spine MRI 04/18/17 0000 Signed Impressions: Service Date/Time: Tuesday, April 18, 2017 10:32 - CONCLUSION: Normal examination. Osman Mathis Jr., MD Cervical Spine MRI 04/18/17 0000 Signed Impressions: Service Date/Time: Tuesday, April 18, 2017 10:32 - CONCLUSION: Normal examination. Osman Mathis Jr., MD Brain MRI 04/18/17 0000 Signed Impressions: Service Date/Time: Tuesday, April 18, 2017 10:32 - CONCLUSION: 1. No acute intracranial abnormality. Artemio Lopez MD Gall Bladder Ultrasound 04/16/17 0000 Signed Impressions: Service Date/Time: Sunday, April 16, 2017 19:17 - CONCLUSION: 1. Hepatic steatosis and hepatomegaly. 2. Cholelithiasis with mild thickening of the gallbladder wall. This can be correlated with any clinical signs of cholecystitis. 3. Mildly dilated common bile duct. Felix Briones MD Chest X-Ray 04/16/17 0000 Signed Impressions: Service Date/Time: Sunday, April 16, 2017 16:42 - CONCLUSION: No acute disease. Francisco Javier Lopez MD FACR Abdomen/Pelvis CT 04/16/17 0000 Signed Impressions: Service Date/Time: Sunday, April 16, 2017 17:25 - CONCLUSION: 1. Hepatomegaly with hepatic steatosis and areas of focal fatty sparing. There is mild ascites seen in the peroneal cavity. 2. Gallstone with a thickened gallbladder wall. This is nonspecific. Thickening of the gallbladder wall can be seen with hepatic disease. Cholecystitis cannot be excluded. Significant fluid around gallbladder is not seen on the CT examination. 3. Mild splenomegaly. This is nonspecific. It may be from the hepatic disease. Felix Briones MD Physical Exam HEENT: Normocephalic; atraumatic; + jaundice CHEST: Resp. even/unlabored. CTA, diminished CARDIAC: RRR ABDOMEN: Soft, mildly distended, nontender; hepatomegaly; bowel sounds are present in all four quadrants. EXTREMITIES: BLE edema. SKIN: + jaundice EMERGENCY DOCTOR: No focal deficits; mild lethargy. oriented. (Elza PattersonP) Assessment and Plan Plan ASSESSMENT: - Elevated LFTs, Jaundice in patient with liver cirrhosis, steatohepatitis, and ongoing ETOH use. Pt with extensive workup in past for elevated LFTs October/May of 2016. Previous Liver workup Hepatitis profile negative, RAJAT neg, AMA < 20.0, ASMA neg, Ceruloplasmin 18, Alpha 1 antitrypsin 118. Iron saturation was elevated at 91.9%. 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 Rpt Ferritin 2364, Iron saturation 70.2%. She also underwent liver biopsy (10/04/15) revealed benign liver tissue with marked steatosis. She then had a repeat liver biopsy (10/07/15)----> revealed liver liver tissue with marked steatohepatitis and cirrhosis. Gallbladder ultrasound (04/16/17)---> hepatic steatosis and have hepatomegaly , cholelithiasis with mild thickening of the gallbladder wall. This can be correlated with any clinical signs of cholecystitis, mildly dilated common bile duct at 8mm. CT scan abdomen and pelvis with IV contrast (04/16/17) hepatomegaly with hepatic steatosis and areas of focal fatty sparing. There is mild ascites seen in the peroneal cavity. A constant with a thickened gallbladder wall. This is nonspecific. Thickening of the gallbladder wall can be seen with hepatic disease. Cholecystitis cannot be excluded. Significant fluid around gallbladder is not seen on the CT examination. Mild splenomegaly. DF 37.100. Labs are consistent with alcoholic hepatitis and suspect that she is drinking more than she is admitting. LFT derangement most likely combination of alcoholic hepatitis and steatohepatitis. MRCP (04/19/17) --> Hepatomegaly with scattered fatty infiltration. Probable 1 cm cyst in the left hepatic lobe with a possible hemangioma in the right hepatic lobe. US was post contrasted multi-phase MR of the liver could be performed for further evaluation of these 2 lesions. Small amount of ascites around the hepatic convexity and adjacent to the gallbladder. 1.6 cm gallstone in the gallbladder neck. No choledocholithiasis. CBD is upper limits of normal. Pts labs are improving since being started on steroids yesterday, currently T. Bili 19.0. AST-70 ALT- 23 Alk phos 311. On pentoxifylline, Prednisone. Clinically pt seems to be improving, she denies nausea, vomiting, abdominal pain. Tolerating low fat diet. Jaundice still very apparent, but improving. - Nausea, GERD, Early Satiety. PPI - Anemia, macrocytic. Hx B12 Deficiency, B12 > 2,000. HH stable. - Coagulopathy. PT 14.1, INR 1.3 - BLE pain, progressively worsening weakness, possible Guillain [place]. Pt was treated for Guillain [place] in April of 2016. States she still has not regained her strength and uses walker, but has been having worsening weakness/BLE pain for 2 weeks. Neurology following, Today will be her 5th (?last) treatment of IVIG. - Elevated TSH with hypothyroidism, anxiety, depression, per attending. 04/21/17 persistent lower extremity edema. LFTs trending down. HH stable. PLAN: - 2 gram Na diet - Continue PPI - Continue Pentoxifylline - Continue Prednisone 40mg po daily - pt will need ETOH cessation - monitor labs - Supportive care - Pt seen and examined by Dr. Cruz and myself and this note is written on his behalf (Elza Patterson) Physician Comments Patient seen and examined Agree with above Continue with current supportive care Monitor labs (Frandy Cruz MD) Elza Patterson Apr 21, 2017 14:15 Frandy Cruz MD Apr 21, 2017 23:31
[2017-04-21 16:00] VITALS: BP 102/69; PULSE 87; RESP 16; TEMP 96.2; O2SAT 95
[2017-04-21] MEDS: SODIUM CHLORID 0.9% 500 ML INJ 500 ML IV SCH (17:00)
[2017-04-21] MEDS: IMMUNE GLOBULIN IV SCH (18:30)
[2017-04-21 20:00] VITALS: BP 100/70; PULSE 83; PULSE 88; RESP 20; TEMP 96.3; O2SAT 96
[2017-04-22] VITALS: BP 115/80; PULSE 69; RESP 20; TEMP 99.2; O2SAT 93
[2017-04-22 04:00] VITALS: BP 111/71; PULSE 92; RESP 20; TEMP 96.4; O2SAT 96
[2017-04-22] MEDS: PENTOXIFYLLINE 400 MG CONTROLLED RELEASE TAB PO SCH ×3 (05:18→20:27)
[2017-04-22] MEDS: ACETAMINOPHEN/HYDROcodone 325 MG/10 MG TAB PO PRN ×2 (05:18→09:11)
[2017-04-22] MEDS: LEVOTHYROXINE SODIUM 50 MCG TAB PO SCH (05:19)
[2017-04-22 07:01] LABS: AUTOMATED NEUTROPHIL # 1.9 TH/MM3 (1.8-7.7); BASOPHIL % 0.8 % (0.0-2.0); EOSINOPHIL % 0.8 % (0.0-4.0); HEMATOCRIT 31.6 % (35.0-46.0); HEMO FLAGS DIFF FINAL; LYMPH % 30.5 % (9.0-44.0); LYMPHOCYTE # 1.1 TH/MM3 (1.0-4.8); MEAN CELL VOLUME 115.7 FL (80.0-100.0); MEAN CORPUSCULAR HEMOGLOBIN 38.9 PG (27.0-34.0); MEAN CORPUSCULAR HGB CONC 33.6 % (32.0-36.0); MONO % 15.8 % (0.0-8.0); NEUT % 52.1 % (16.0-70.0); PLATELET COUNT 147 TH/MM3 (150-450); RED BLOOD COUNT 2.73 MIL/MM3 (4.00-5.30); RED CELL DISTRIBUTION WIDTH 14.2 % (11.6-17.2); WHITE BLOOD COUNT 3.6 TH/MM3 (4.0-11.0)
[2017-04-22 07:25] LABS: ALKALINE PHOSPHATASE 264 U/L (45-117); ALT (GPT) 20 U/L (10-53); ANION GAP 9 MEQ/L (5-15); AST (GOT) 76 U/L (15-37); BICARBONATE 21.2 MEQ/L (21.0-32.0); BLOOD UREA NITROGEN 9 MG/DL (7-18); CHLORIDE 108 MEQ/L (98-107); GLOMERULAR FILTRATION RATE 119 ML/MIN (>89); HDL CHOLESTEROL 9.1 MG/DL (40.0-60.0); POTASSIUM 3.3 MEQ/L (3.5-5.1); SODIUM (NA) 138 MEQ/L (136-145); TOTAL BILIRUBIN ADULT 14.4 MG/DL (0.2-1.0)
[2017-04-22 08:00] VITALS: BP 102/72; PULSE 89; RESP 19; TEMP 96; O2SAT 96
[2017-04-22] MEDS: predniSONE 20 MG TAB PO SCH (08:54)
[2017-04-22] MEDS: CITALOPRAM HYDROBROMIDE 20 MG TAB PO SCH (08:54)
[2017-04-22] MEDS: MULTIVITAMIN TAB PO SCH (08:54)
[2017-04-22] MEDS: THIAMINE HCL 100 MG TAB PO SCH (08:54)
[2017-04-22] MEDS: GABAPENTIN 300 MG CAP PO SCH ×3 (08:54→17:42)
[2017-04-22] MEDS: CYANOCOBALAMIN 100 MCG TAB PO SCH (08:54)
[2017-04-22] MEDS: ENOXAPARIN SODIUM 40 MG/0.4 ML SYRINGE SQ SCH (08:54)
[2017-04-22] MEDS: FOLIC ACID 1 MG TAB PO SCH (08:54)
[2017-04-22] MEDS ORDERED: POTASSIUM CHLORIDE 20 MEQ CONTROLLED RELEASE TAB PO ONE (11:15)
[2017-04-22] MEDS: clonazePAM 1 MG TAB PO PRN (11:25)
[2017-04-22] MEDS: PANTOPRAZOLE SOD 40 MG DELAYED RELEASE TAB PO SCH (11:28)
[2017-04-22 12:00] VITALS: BP 112/83; PULSE 81; RESP 19; TEMP 97.2; O2SAT 97
--- NOTE | 2017-04-22 12:07 | HHI.FPPN ---
Subjective Remarks Mrs. Contreras was afebrile with stable vital signs overnight. 3 voids and 4 BM overnight. Patient reports having continued frustration regarding lower extremity swelling. Patient does not report abdominal pain at this time. Patient reports that she is breathing well. Patient has been able to ambulate to the bathroom. Patient reports frustration regarding low sodium diet. (Isac Ramos MD, R3) Objective Vitals Vital Signs Date Time Temp Pulse Resp B/P (MAP) Pulse Ox O2 Delivery O2 Flow Rate FiO2 04/22/17 08:00 96.0 89 19 102/72 (82) 96 04/22/17 06:21 82 21 112/70 04/22/17 04:00 96.4 92 20 111/71 (84) 96 04/22/17 00:00 99.2 69 20 115/80 (92) 93 04/22/17 00:00 20 04/21/17 20:00 88 04/21/17 20:00 96.3 83 20 100/70 (80) 96 04/21/17 18:30 77 17 141/77 04/21/17 16:00 96.2 87 16 102/69 (80) 95 I/O 04/21/17 04/21/17 04/21/17 04/22/17 04/22/17 04/22/17 07:00 15:00 23:00 07:00 15:00 23:00 Intake Total 250 ml 1000 ml 250 ml Balance 250 ml 1000 ml 250 ml Intake Oral 500 ml IV Total 250 ml 500 ml 250 ml # Voids 1 4 # Bowel Movements 3 (Isac Ramos MD, R3) Result Diagram: 04/22/17 0450 04/22/17 0450 Imaging Last Impressions Cholangiopancreatography MRI 04/19/17 0000 Signed Impressions: Service Date/Time: April 09:45 - CONCLUSION: 1. Hepatomegaly with scattered fatty infiltration. 2. Probable 1 cm cyst in the left hepatic lobe with a possible hemangioma in the right hepatic lobe. Ultrasound was post contrasted multiphase MR of the liver could be performed for further evaluation of these 2 lesions. 3. Small amount of ascites around the hepatic convexity and adjacent to the gallbladder. 4. 1.6 cm gallstone in the gallbladder neck. 5. No choledocholithiasis. CBD is upper limits of normal. Marcus Rios MD Thoracic Spine MRI 04/18/17 0000 Signed Impressions: Service Date/Time: Tuesday, April 18, 2017 10:32 - CONCLUSION: Normal examination. Osman Mathis Jr., MD Cervical Spine MRI 04/18/17 0000 Signed Impressions: Service Date/Time: Tuesday, April 18, 2017 10:32 - CONCLUSION: Normal examination. Osman Mathis Jr., MD Brain MRI 04/18/17 Signed Impressions: Service Date/Time: Tuesday, April 18, 2017 10:32 - CONCLUSION: 1. No acute intracranial abnormality. Artemio Lopez MD Gall Bladder Ultrasound 04/16/17 Signed Impressions: Service Date/Time: Sunday, April 16, 2017 19:17 - CONCLUSION: 1. Hepatic steatosis and hepatomegaly. 2. Cholelithiasis with mild thickening of the gallbladder wall. This can be correlated with any clinical signs of cholecystitis. 3. Mildly dilated common bile duct. Felix Briones MD Chest X-Ray 04/16/17 Signed Impressions: Service Date/Time: Sunday, April 16, 2017 16:42 - CONCLUSION: No acute disease. Francisco Javier Lopez MD FACR Abdomen/Pelvis CT 04/16/17 Signed Impressions: Service Date/Time: Sunday, April 16, 2017 17:25 - CONCLUSION: 1. Hepatomegaly with hepatic steatosis and areas of focal fatty sparing. There is mild ascites seen in the peroneal cavity. 2. Gallstone with a thickened gallbladder wall. This is nonspecific. Thickening of the gallbladder wall can be seen with hepatic disease. Cholecystitis cannot be excluded. Significant fluid around gallbladder is not seen on the CT examination. 3. Mild splenomegaly. This is nonspecific. It may be from the hepatic disease. Felix Briones MD Objective Remarks GENERAL: This is a well-nourished, well-developed patient, in no apparent distress. SKIN: Jaundiced; mild improvement EYES: Extraocular motions grossly intact. Scleral icterus present. CARDIOVASCULAR: Regular rate and rhythm without murmurs. Normal peripheral perfusion RESPIRATORY: Clear to auscultation. Breath sounds equal bilaterally. No wheezes to auscultation GASTROINTESTINAL: Abdomen soft, no tenderness appreciated. No appreciated pain to palpation. Abdomen enlarged relative to what would be expected for BMI. Hepatomegaly present; liver appears somewhat more firm than expected NEUROLOGICAL: Awake and alert. Cranial nerves grossly intact. Sensation intact in lower extremities grossly. Decreased strength in bilateral lower extremities at hip flexion; stable relative to last exam MUSCULOSKELETAL: Pain to palpation of distal LE's bilaterally, but decreased relative to prior exam. 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 Cota (Isac Ramos MD, R3) Attending Attestation Medical rounds were conducted with Dr. Ramos this morning. EMR reviewed. Patient interviewed and examined with resident, orders and disposition discussed. Agree to content of this note, Shala Cota M.D. (Shala Cota MD) Problem List: (1) Hyperbilirubinemia ICD Codes: E80.6 - Other disorders of bilirubin metabolism Status: Acute Plan: 04/22: TBILI 14.4 <- 17.4 (04/21). ALKP 264 <- 296. AST increased to 76 < - 58 (04/21) -GI consulted -Continue treatment for presumed alcoholic hepatitis -Continue Prednisone 40mg daily -Continue Pentoxifylline -Continue 2 gm sodium diet -Will trend CMP Impression: Patient presents with jaundiced clinically,with postprandial abdominal fullness. PMH of hepatic steatosis and cirrhosis. History of liver masses biopsied in the past, which were negative for malignancy. Abdomen/pelvis CT: hepatomegaly with hepatic steatosis. Mild ascites. Gallstones with a thickened gallbladder wall. Mild splenomegaly. Gallbladder ultrasound: hepatic steatosis and hepatomegaly. Cholelithiasis with thickening of the gallbladder wall. This can be correlated with any clinical signs of cholecystitis. Mildly dilated common bile duct. MRCP- Hepatomegaly with fatty infiltration, probable 1cm cyst in L hepatic lobe with possible hemangioma in R hepatic lobe. Small ascites around hepatic convexity/adjacent to gallbladder. 1.6cm gallstone in gallbladder neck. No choledocholithiasis; CBD near upper limits of normal Labs on admission (04/16): Total bilirubin 24.5. Direct bilirubin 20.4. ST 108, ALC 34. Alkaline phosphatase 490. Lipase not elevated. Urine shows large bilirubin. PT elevated to 15 and PTT slightly elevated. Hepatitis panel wnl; AFP wnl No signs of infection, WBC wnl. 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 Exam with bilateral muscular weakness, increased pain. Per neurology, possible GBS relapse vs liver disease associated. Previously patient with negative RPR, RAJAT, Lyme, HIV B12 >2000 Folate >20 MRI Brain, C spine, T spine wnl (3) Swelling of lower extremity ICD Codes: M79.89 - Other specified soft tissue disorders Status: Acute Plan: -Continue treatment for suspected alcoholic liver disease -Will plan for compression stockings on discharge -Continue sodium restriction Impression: Bilateral pitting edema; go calf asymmetry. Albumin 1.7. Cr wnl. Mild proteinuria (30+ on admission UA). Lipid profile- TG 456, Total cholesterol 178, HDL 9.1 (4) Hypoactive thyroid ICD Codes: E03.9 - Hypoactive thyroid Status: Acute Plan: Impression: On chronic Synthroid for hypothyroidism Repeat TSH 5.45 -Continue home Synthroid 50 ug daily -Due to TSH >5, could consider 25ug dosage increase but could also defer due to possible transient elevation from acute illness; will discuss options with patient to decide on benefits/risks of dosage increase prior to discharge (5) Anxiety and depression ICD Codes: F41.9 - Anxiety disorder, unspecified; F32.9 - Major depressive disorder, single episode, unspecified Status: Chronic Plan: Continue home Celexa (6) Hypophosphatemia ICD Codes: E83.39 - Other disorders of phosphorus metabolism Status: Acute Plan: Impression: Phosphate 1.1 -Will start Potassium phosphate 500mg BID (7) DVT Prophylaxis Status: Acute Plan: SCDs Will reduce Enoxaparin to 30mg daily (8) FEN Status: Acute Plan: Fluids: Regular diet with 2 gm sodium restriction Electrolytes: wnl, continue to monitor Nutrition: regular diet (Isac Ramos MD, R3) Problem Qualifiers (1) Hypoactive thyroid: Qualified Codes: E03.9 - Hypothyroidism, unspecified Isac Ramos MD, R3 Apr 22, 2017 12:07 Shala Cota MD Apr 22, 2017 12:40
--- NOTE | 2017-04-22 15:04 | HHI.GIFU ---
Subjective Remarks Patient is resting in bed, inquiring about going home, her main issue is legs edema, doing good as far as GI symptoms, no abd pain, no nausea, no vomiting, no melena or hematochezia, she is having some loose stools (Felipe Mustafa) Objective Vitals I&O Vital Signs Date Time Temp Pulse Resp B/P (MAP) Pulse Ox O2 Delivery O2 Flow Rate FiO2 04/22/17 12:00 97.2 81 19 112/83 (93) 97 04/22/17 08:00 96.0 89 19 102/72 (82) 96 04/22/17 06:21 82 21 112/70 04/22/17 04:00 96.4 92 20 111/71 (84) 96 04/22/17 00:00 99.2 69 20 115/80 (92) 93 04/22/17 00:00 20 04/21/17 20:00 88 04/21/17 20:00 96.3 83 20 100/70 (80) 96 04/21/17 18:30 77 17 141/77 04/21/17 16:00 96.2 87 16 102/69 (80) 95 I/O 04/21/17 04/21/17 04/21/17 04/22/17 04/22/17 04/22/17 07:00 15:00 23:00 07:00 15:00 23:00 Intake Total 250 ml 1000 ml 250 ml Balance 250 ml 1000 ml 250 ml Intake Oral 500 ml IV Total 250 ml 500 ml 250 ml # Voids 1 4 # Bowel Movements 3 Laboratory Laboratory Tests Test 04/22/17 04:50 White Blood Count 3.6 Red Blood Count 2.73 Hemoglobin 10.6 Hematocrit 31.6 Mean Corpuscular Volume 115.7 Mean Corpuscular Hemoglobin 38.9 Mean Corpuscular Hemoglobin Concent 33.6 Red Cell Distribution Width 14.2 Platelet Count 147 Mean Platelet Volume 8.2 Neutrophils (%) (Auto) 52.1 Lymphocytes (%) (Auto) 30.5 Monocytes (%) (Auto) 15.8 Eosinophils (%) (Auto) 0.8 Basophils (%) (Auto) 0.8 Neutrophils # (Auto) 1.9 Lymphocytes # (Auto) 1.1 Monocytes # (Auto) 0.6 Eosinophils # (Auto) 0.0 Basophils # (Auto) 0.0 CBC Comment DIFF FINAL Differential Comment Blood Urea Nitrogen 9 Creatinine 0.58 Random Glucose 88 Total Protein 6.7 Albumin 1.6 Calcium Level 7.7 Alkaline Phosphatase 264 Aspartate Amino Transf (AST/SGOT) 76 Alanine Aminotransferase (ALT/SGPT) 20 Total Bilirubin 14.4 Sodium Level 138 Potassium Level 3.3 Chloride Level 108 Carbon Dioxide Level 21.2 Anion Gap 9 Estimat Glomerular Filtration Rate 119 Phosphorus Level 1.1 Magnesium Level 2.0 Triglycerides Level 456 Cholesterol Level 178 LDL Cholesterol HDL Cholesterol 9.1 Cholesterol/HDL Ratio 19.56 Folate GREATER THAN 20.0 Imaging Last Impressions Cholangiopancreatography MRI 04/19/17 0000 Signed Impressions: Service Date/Time: April 09:45 - CONCLUSION: 1. Hepatomegaly with scattered fatty infiltration. 2. Probable 1 cm cyst in the left hepatic lobe with a possible hemangioma in the right hepatic lobe. Ultrasound was post contrasted multiphase MR of the liver could be performed for further evaluation of these 2 lesions. 3. Small amount of ascites around the hepatic convexity and adjacent to the gallbladder. 4. 1.6 cm gallstone in the gallbladder neck. 5. No choledocholithiasis. CBD is upper limits of normal. Marcus Rios MD Thoracic Spine MRI 04/18/17 0000 Signed Impressions: Service Date/Time: Tuesday, April 18, 2017 10:32 - CONCLUSION: Normal examination. Osman Mathis Jr., MD Cervical Spine MRI 04/18/17 0000 Signed Impressions: Service Date/Time: Tuesday, April 18, 2017 10:32 - CONCLUSION: Normal examination. Osman Mathis Jr., MD Brain MRI 04/18/17 0000 Signed Impressions: Service Date/Time: Tuesday, April 18, 2017 10:32 - CONCLUSION: 1. No acute intracranial abnormality. Artemio Lopez MD Gall Bladder Ultrasound 04/16/17 0000 Signed Impressions: Service Date/Time: Sunday, April 16, 2017 19:17 - CONCLUSION: 1. Hepatic steatosis and hepatomegaly. 2. Cholelithiasis with mild thickening of the gallbladder wall. This can be correlated with any clinical signs of cholecystitis. 3. Mildly dilated common bile duct. Felix Briones MD Chest X-Ray 04/16/17 0000 Signed Impressions: Service Date/Time: Sunday, April 16, 2017 16:42 - CONCLUSION: No acute disease. Francisco Javier Lopez MD FACR Abdomen/Pelvis CT 04/16/17 0000 Signed Impressions: Service Date/Time: Sunday, April 16, 2017 17:25 - CONCLUSION: 1. Hepatomegaly with hepatic steatosis and areas of focal fatty sparing. There is mild ascites seen in the peroneal cavity. 2. Gallstone with a thickened gallbladder wall. This is nonspecific. Thickening of the gallbladder wall can be seen with hepatic disease. Cholecystitis cannot be excluded. Significant fluid around gallbladder is not seen on the CT examination. 3. Mild splenomegaly. This is nonspecific. It may be from the hepatic disease. Felix Briones MD Physical Exam HEENT: Normocephalic; atraumatic; + jaundice CHEST: Resp. even/unlabored. CTA, diminished CARDIAC: RRR ABDOMEN: Soft, mildly distended, nontender; hepatomegaly; bowel sounds are present in all four quadrants. EXTREMITIES: BLE edema. SKIN: + jaundice HEARING STENOGRAPHER: No focal deficits; mild lethargy. oriented. (Ramsey,Felipe [facility]) Assessment and Plan Plan ASSESSMENT: - Elevated LFTs, Jaundice in patient with liver cirrhosis, steatohepatitis, and ongoing ETOH use. Pt with extensive workup in past for elevated LFTs October/May of 2016. Previous Liver workup Hepatitis profile negative, RAJAT neg, AMA < 20.0, ASMA neg, Ceruloplasmin 18, Alpha 1 antitrypsin 118. Iron saturation was elevated at 91.9%. 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 Rpt Ferritin 2364, Iron saturation 70.2%. She also underwent liver biopsy (10/04/15) revealed benign liver tissue with marked steatosis. She then had a repeat liver biopsy (10/07/15)----> revealed liver liver tissue with marked steatohepatitis and cirrhosis. Gallbladder ultrasound (04/16/17)---> hepatic steatosis and have hepatomegaly , cholelithiasis with mild thickening of the gallbladder wall. This can be correlated with any clinical signs of cholecystitis, mildly dilated common bile duct at 8mm. CT scan abdomen and pelvis with IV contrast (04/16/17) hepatomegaly with hepatic steatosis and areas of focal fatty sparing. There is mild ascites seen in the peroneal cavity. A constant with a thickened gallbladder wall. This is nonspecific. Thickening of the gallbladder wall can be seen with hepatic disease. Cholecystitis cannot be excluded. Significant fluid around gallbladder is not seen on the CT examination. Mild splenomegaly. DF 37.100. Labs are consistent with alcoholic hepatitis and suspect that she is drinking more than she is admitting. LFT derangement most likely combination of alcoholic hepatitis and steatohepatitis. MRCP (04/19/17) --> Hepatomegaly with scattered fatty infiltration. Probable 1 cm cyst in the left hepatic lobe with a possible hemangioma in the right hepatic lobe. US was post contrasted multi-phase MR of the liver could be performed for further evaluation of these 2 lesions. Small amount of ascites around the hepatic convexity and adjacent to the gallbladder. 1.6 cm gallstone in the gallbladder neck. No choledocholithiasis. CBD is upper limits of normal. Pts labs are improving since being started on steroids yesterday, currently T. Bili 19.0. AST-70 ALT- 23 Alk phos 311. On pentoxifylline, Prednisone. Clinically pt seems to be improving, she denies nausea, vomiting, abdominal pain. Tolerating low fat diet. Jaundice still very apparent, but improving. - Nausea, GERD, Early Satiety. PPI - Anemia, macrocytic. Hx B12 Deficiency, B12 > 2,000. HH stable. - Coagulopathy. PT 14.1, INR 1.3 - BLE pain, progressively worsening weakness, possible Guillain [place]. Pt was treated for Guillain [place] in April of 2016. States she still has not regained her strength and uses walker, but has been having worsening weakness/BLE pain for 2 weeks. Neurology following, Today will be her 5th (?last) treatment of IVIG. - Elevated TSH with hypothyroidism, anxiety, depression, per attending. 04/21/17 persistent lower extremity edema. LFTs trending down. HH stable. 04/22/17 still with lower extremity edema. HH stable, bili berman trending down , rest of LFTs stable PLAN: - 2 gram Na diet - Continue PPI - Continue Pentoxifylline - Continue Prednisone 40mg po daily - pt will need ETOH cessation, this was reinforced with patient - monitor labs - Supportive care - Pt seen and examined by Dr. Cruz and myself and this note is written on his behalf (Felipe Mustafa) Physician Comments Patient seen and examined Agree with above Continue with current supportive care Monitor labs Acute alcoholic hepatitis seems to be resolving Need to emphasize nutrition at this point patient needs to be on a low-salt diet with protein sources such as fish chicken and beans Patient to follow up with GI post discharge Okay for discharge from a GI standpoint Patient needs to be on a slow tapering prednisone over the next 3 weeks (Frandy Cruz MD) Felipe Mustafa Apr 22, 2017 15:04 Frandy Cruz MD Apr 22, 2017 16:48
[2017-04-22 16:00] VITALS: BP 119/86; PULSE 84; RESP 18; TEMP 96.9; O2SAT 97
[2017-04-22] MEDS: SODIUM CHLORIDE 0.9% FLUSH 10 ML FLUSH IV FLUSH SCH ×2 (17:43→20:27)
[2017-04-22 20:00] VITALS: BP 112/78; PULSE 83; RESP 18; TEMP 97.6; O2SAT 96
[2017-04-22] MEDS: POTASSIUM PHOSPHATE MONOBASIC 500 MG TAB PO SCH (20:27)
[2017-04-23] MEDS: LEVOTHYROXINE SODIUM 50 MCG TAB PO SCH (05:53)
[2017-04-23] MEDS: PENTOXIFYLLINE 400 MG CONTROLLED RELEASE TAB PO SCH ×3 (05:53→21:33)
[2017-04-23 07:10] LABS: AUTOMATED NEUTROPHIL # 2.1 TH/MM3 (1.8-7.7); BASOPHIL % 0.5 % (0.0-2.0); EOSINOPHIL % 0.1 % (0.0-4.0); HEMATOCRIT 34.8 % (35.0-46.0); HEMO FLAGS DIFF FINAL; LYMPH % 32.4 % (9.0-44.0); LYMPHOCYTE # 1.3 TH/MM3 (1.0-4.8); MEAN CELL VOLUME 115.3 FL (80.0-100.0); MEAN CORPUSCULAR HEMOGLOBIN 39.1 PG (27.0-34.0); MEAN CORPUSCULAR HGB CONC 33.9 % (32.0-36.0); MONO % 13.6 % (0.0-8.0); NEUT % 53.4 % (16.0-70.0); PLATELET COUNT 150 TH/MM3 (150-450); RED BLOOD COUNT 3.02 MIL/MM3 (4.00-5.30); RED CELL DISTRIBUTION WIDTH 14.4 % (11.6-17.2); WHITE BLOOD COUNT 3.9 TH/MM3 (4.0-11.0)
[2017-04-23 07:33] LABS: ALT (GPT) 24 U/L (10-53); ANION GAP 7 MEQ/L (5-15); AST (GOT) 89 U/L (15-37); BICARBONATE 23.6 MEQ/L (21.0-32.0); CHLORIDE 107 MEQ/L (98-107); GLOMERULAR FILTRATION RATE 124 ML/MIN (>89); POTASSIUM 3.9 MEQ/L (3.5-5.1); SODIUM (NA) 138 MEQ/L (136-145)
[2017-04-23 07:35] LABS: ALKALINE PHOSPHATASE 295 U/L (45-117); TOTAL BILIRUBIN ADULT 15.6 MG/DL (0.2-1.0)
[2017-04-23 07:38] LABS: BLOOD UREA NITROGEN 9 MG/DL (7-18)
[2017-04-23 08:00] VITALS: BP 116/83; PULSE 79; RESP 17; TEMP 97.6; O2SAT 99
[2017-04-23] MEDS: ENOXAPARIN SODIUM 30 MG/0.3 ML SYRINGE SQ SCH (08:07)
[2017-04-23] MEDS: POTASSIUM PHOSPHATE MONOBASIC 500 MG TAB PO SCH ×2 (08:07→20:14)
[2017-04-23] MEDS: PANTOPRAZOLE SOD 40 MG DELAYED RELEASE TAB PO SCH (08:07)
[2017-04-23] MEDS: MULTIVITAMIN TAB PO SCH (08:07)
[2017-04-23] MEDS: clonazePAM 1 MG TAB PO PRN (08:08)
[2017-04-23] MEDS: GABAPENTIN 300 MG CAP PO SCH ×3 (08:08→17:34)
[2017-04-23] MEDS: THIAMINE HCL 100 MG TAB PO SCH (08:08)
[2017-04-23] MEDS: predniSONE 20 MG TAB PO SCH (08:08)
[2017-04-23] MEDS: CITALOPRAM HYDROBROMIDE 20 MG TAB PO SCH (08:08)
[2017-04-23] MEDS: FOLIC ACID 1 MG TAB PO SCH (08:08)
[2017-04-23] MEDS: SODIUM CHLORIDE 0.9% FLUSH 10 ML FLUSH IV FLUSH SCH ×2 (08:14→20:14)
--- NOTE | 2017-04-23 09:02 | HHI.FF ---
Face to Face Verification Diagnosis: (1) History of Guillain-[place] syndrome Physical Therapy Order: Evaluate and Treat, Improve ambulation, Strength and gait training I have seen patient Kallie Contreras on 04/23/17. My clinical findings support the need for the requested home health care services because: Ltd mobility - disease progression I certify that my clinical findings support that this patient is homebound because: Unsteady gait/balance Isac Ramos MD, R3 Apr 23, 2017 09:02
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
--- NOTE | 2017-04-23 10:44 | HHI.GIFU ---
Subjective Remarks Resting in bed. States she is feeling better, but having significant swelling in lower extremities and states it is hard to move because her legs are heavy. Tolerating diet. No n/v. (Araceli Lee) Objective Vitals I&O Vital Signs Date Time Temp Pulse Resp B/P (MAP) Pulse Ox O2 Delivery O2 Flow Rate FiO2 04/23/17 08:00 97.6 79 17 116/83 (94) 99 04/22/17 20:00 97.6 83 18 112/78 (89) 96 04/22/17 16:00 96.9 84 18 119/86 (97) 97 04/22/17 12:00 97.2 81 19 112/83 (93) 97 I/O 04/22/17 04/22/17 04/22/17 04/23/17 04/23/17 04/23/17 06:59 14:59 22:59 06:59 14:59 22:59 Intake Total 250 ml 480 ml 240 ml Balance 250 ml 480 ml 240 ml Intake Oral 480 ml 240 ml IV Total 250 ml # Voids 5 # Bowel Movements 3 Laboratory Laboratory Tests Test 04/23/17 06:45 04/23/17 06:47 White Blood Count 3.9 Red Blood Count 3.02 Hemoglobin 11.8 Hematocrit 34.8 Mean Corpuscular Volume 115.3 Mean Corpuscular Hemoglobin 39.1 Mean Corpuscular Hemoglobin Concent 33.9 Red Cell Distribution Width 14.4 Platelet Count 150 Mean Platelet Volume 8.6 Neutrophils (%) (Auto) 53.4 Lymphocytes (%) (Auto) 32.4 Monocytes (%) (Auto) 13.6 Eosinophils (%) (Auto) 0.1 Basophils (%) (Auto) 0.5 Neutrophils # (Auto) 2.1 Lymphocytes # (Auto) 1.3 Monocytes # (Auto) 0.5 Eosinophils # (Auto) 0.0 Basophils # (Auto) 0.0 CBC Comment DIFF FINAL Differential Comment Blood Urea Nitrogen 9 Creatinine 0.56 Random Glucose 99 Total Protein 7.0 Albumin 1.9 Calcium Level 7.9 Alkaline Phosphatase 295 Aspartate Amino Transf (AST/SGOT) 89 Alanine Aminotransferase (ALT/SGPT) 24 Total Bilirubin 15.6 Sodium Level 138 Potassium Level 3.9 Chloride Level 107 Carbon Dioxide Level 23.6 Anion Gap 7 Estimat Glomerular Filtration Rate 124 Imaging Last Impressions Cholangiopancreatography MRI 04/19/17 0000 Signed Impressions: Service Date/Time: April 09:45 - CONCLUSION: 1. Hepatomegaly with scattered fatty infiltration. 2. Probable 1 cm cyst in the left hepatic lobe with a possible hemangioma in the right hepatic lobe. Ultrasound was post contrasted multiphase MR of the liver could be performed for further evaluation of these 2 lesions. 3. Small amount of ascites around the hepatic convexity and adjacent to the gallbladder. 4. 1.6 cm gallstone in the gallbladder neck. 5. No choledocholithiasis. CBD is upper limits of normal. Marcus Rios MD Thoracic Spine MRI 04/18/17 0000 Signed Impressions: Service Date/Time: Tuesday, April 18, 2017 10:32 - CONCLUSION: Normal examination. Osman Mathis Jr., MD Cervical Spine MRI 04/18/17 0000 Signed Impressions: Service Date/Time: Tuesday, April 18, 2017 10:32 - CONCLUSION: Normal examination. Osman Mathis Jr., MD Brain MRI 04/18/17 0000 Signed Impressions: Service Date/Time: Tuesday, April 18, 2017 10:32 - CONCLUSION: 1. No acute intracranial abnormality. Artemio Lopez MD Gall Bladder Ultrasound 04/16/17 0000 Signed Impressions: Service Date/Time: Sunday, April 16, 2017 19:17 - CONCLUSION: 1. Hepatic steatosis and hepatomegaly. 2. Cholelithiasis with mild thickening of the gallbladder wall. This can be correlated with any clinical signs of cholecystitis. 3. Mildly dilated common bile duct. Felix Briones MD Chest X-Ray 04/16/17 0000 Signed Impressions: Service Date/Time: Sunday, April 16, 2017 16:42 - CONCLUSION: No acute disease. Francisco Javier Lopez MD FACR Abdomen/Pelvis CT 04/16/17 0000 Signed Impressions: Service Date/Time: Sunday, April 16, 2017 17:25 - CONCLUSION: 1. Hepatomegaly with hepatic steatosis and areas of focal fatty sparing. There is mild ascites seen in the peroneal cavity. 2. Gallstone with a thickened gallbladder wall. This is nonspecific. Thickening of the gallbladder wall can be seen with hepatic disease. Cholecystitis cannot be excluded. Significant fluid around gallbladder is not seen on the CT examination. 3. Mild splenomegaly. This is nonspecific. It may be from the hepatic disease. Felix Briones MD Physical Exam HEENT: Normocephalic; atraumatic; + jaundice (improved) CHEST: Resp. even/unlabored. clear with bases diminished CARDIAC: RRR ABDOMEN: Soft, mildly distended, nontender; hepatomegaly; bowel sounds are present in all four quadrants. EXTREMITIES: BLE edema. 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 (Araceli Lee) Assessment and Plan Plan ASSESSMENT: - Elevated LFTs, Jaundice in patient with liver cirrhosis, steatohepatitis, and ongoing ETOH use. Pt with extensive workup in past for elevated LFTs October/May of 2016. Previous Liver workup Hepatitis profile negative, RAJAT neg, AMA < 20.0, ASMA neg, Ceruloplasmin 18, Alpha 1 antitrypsin 118. Iron saturation was elevated at 91.9%. 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 Rpt Ferritin 2364, Iron saturation 70.2%. She also underwent liver biopsy (10/04/15) revealed benign liver tissue with marked steatosis. She then had a repeat liver biopsy (10/07/15)----> revealed liver liver tissue with marked steatohepatitis and cirrhosis. Gallbladder ultrasound (04/16/17)---> hepatic steatosis and have hepatomegaly , cholelithiasis with mild thickening of the gallbladder wall. This can be correlated with any clinical signs of cholecystitis, mildly dilated common bile duct at 8mm. CT scan abdomen and pelvis with IV contrast (04/16/17) hepatomegaly with hepatic steatosis and areas of focal fatty sparing. There is mild ascites seen in the peroneal cavity. A constant with a thickened gallbladder wall. This is nonspecific. Thickening of the gallbladder wall can be seen with hepatic disease. Cholecystitis cannot be excluded. Significant fluid around gallbladder is not seen on the CT examination. Mild splenomegaly. DF 37.100. Labs are consistent with alcoholic hepatitis and suspect that she is drinking more than she is admitting. LFT derangement most likely combination of alcoholic hepatitis and steatohepatitis. MRCP (04/19/17) --> Hepatomegaly with scattered fatty infiltration. Probable 1 cm cyst in the left hepatic lobe with a possible hemangioma in the right hepatic lobe. US was post contrasted multi-phase MR of the liver could be performed for further evaluation of these 2 lesions. Small amount of ascites around the hepatic convexity and adjacent to the gallbladder. prednisone. Tolerating low fat diet. Jaundice improving. T. Bili 15.6, AST 89, ALT 24, Alk Phosph 295. - Nausea, GERD, Early Satiety. PPI - Anemia, macrocytic. Hx B12 Deficiency, B12 > 2,000. HH stable. - Coagulopathy. Stable. - BLE pain, progressively worsening weakness, possible Guillain [place]. Pt was treated for Guillain [place] in April of 2016. States she still has not regained her strength and uses walker, but has been having worsening weakness/BLE pain for 2 weeks. Neurology following, Today will be her 5th (?last) treatment of IVIG. - Elevated TSH with hypothyroidism, anxiety, depression, per attending. PLAN: - 2 gram Na diet - Continue PPI - Continue Pentoxifylline - Continue Prednisone 40mg po daily - Lasix 20mg po daily - Spironolactone 25mg po daily - BMP in am - ETOH cessation - Supportive care - Pt seen and examined by Dr. Cabral and myself and this note is written on his behalf (Araceli Lee) Physician Comments Seen and examined with ida DUNLAP in progress for cirrhosis. Continue diuretics. (Galen Cabral MD) Araceli Lee Apr 23, 2017 10:44 Galen Cabral MD Apr 23, 2017 16:03
[2017-04-23] MEDS: FUROSEMIDE 20 MG TAB PO SCH (11:54)
[2017-04-23] MEDS: SPIRONOLACTONE 25 MG TAB PO SCH (11:54)
[2017-04-23 12:00] VITALS: BP 110/78; PULSE 78; RESP 17; TEMP 98.2; O2SAT 99
[2017-04-23 16:00] VITALS: BP 114/79; PULSE 65; RESP 17; TEMP 98.2; O2SAT 99
[2017-04-23 20:00] VITALS: BP 127/83; PULSE 65; RESP 19; TEMP 96.7; O2SAT 100
[2017-04-24] VITALS: BP 102/73; PULSE 71; RESP 18; TEMP 96.9; O2SAT 99
[2017-04-24] MEDS: LEVOTHYROXINE SODIUM 50 MCG TAB PO SCH (05:22)
[2017-04-24] MEDS: PENTOXIFYLLINE 400 MG CONTROLLED RELEASE TAB PO SCH ×2 (05:22→13:42)
[2017-04-24 05:58] LABS: AUTOMATED NEUTROPHIL # 2.3 TH/MM3 (1.8-7.7); BASOPHIL % 0.4 % (0.0-2.0); EOSINOPHIL % 0.2 % (0.0-4.0); HEMATOCRIT 31.4 % (35.0-46.0); HEMO FLAGS DIFF FINAL; LYMPH % 36.2 % (9.0-44.0); LYMPHOCYTE # 1.6 TH/MM3 (1.0-4.8); MEAN CELL VOLUME 112.8 FL (80.0-100.0); MEAN CORPUSCULAR HEMOGLOBIN 39.1 PG (27.0-34.0); MEAN CORPUSCULAR HGB CONC 34.7 % (32.0-36.0); MONO % 11.8 % (0.0-8.0); NEUT % 51.4 % (16.0-70.0); PLATELET COUNT 171 TH/MM3 (150-450); RED BLOOD COUNT 2.79 MIL/MM3 (4.00-5.30); RED CELL DISTRIBUTION WIDTH 14.3 % (11.6-17.2); WHITE BLOOD COUNT 4.4 TH/MM3 (4.0-11.0)
[2017-04-24 06:23] LABS: ALKALINE PHOSPHATASE 249 U/L (45-117); ALT (GPT) 23 U/L (10-53); ANION GAP 10 MEQ/L (5-15); AST (GOT) 90 U/L (15-37); BICARBONATE 24.1 MEQ/L (21.0-32.0); BLOOD UREA NITROGEN 11 MG/DL (7-18); CHLORIDE 105 MEQ/L (98-107); GLOMERULAR FILTRATION RATE 124 ML/MIN (>89); POTASSIUM 3.3 MEQ/L (3.5-5.1); SODIUM (NA) 139 MEQ/L (136-145)
[2017-04-24 06:26] LABS: TOTAL BILIRUBIN ADULT 12.9 MG/DL (0.2-1.0)
[2017-04-24 08:00] VITALS: BP 114/79; PULSE 72; RESP 16; TEMP 96.6; O2SAT 100
[2017-04-24] MEDS: ENOXAPARIN SODIUM 30 MG/0.3 ML SYRINGE SQ SCH (09:38)
[2017-04-24] MEDS: GABAPENTIN 300 MG CAP PO SCH ×2 (09:39→13:00)
[2017-04-24] MEDS: MULTIVITAMIN TAB PO SCH (09:39)
[2017-04-24] MEDS: POTASSIUM PHOSPHATE MONOBASIC 500 MG TAB PO SCH (09:39)
[2017-04-24] MEDS: THIAMINE HCL 100 MG TAB PO SCH (09:40)
[2017-04-24] MEDS: PANTOPRAZOLE SOD 40 MG DELAYED RELEASE TAB PO SCH (09:40)
[2017-04-24] MEDS: predniSONE 20 MG TAB PO SCH (09:40)
[2017-04-24] MEDS: FOLIC ACID 1 MG TAB PO SCH (09:40)
[2017-04-24] MEDS: CITALOPRAM HYDROBROMIDE 20 MG TAB PO SCH (09:40)
[2017-04-24] MEDS: SPIRONOLACTONE 25 MG TAB PO SCH (09:41)
[2017-04-24] MEDS: FUROSEMIDE 20 MG TAB PO SCH (09:41)
[2017-04-24] MEDS ORDERED: POTASSIUM CHLORIDE 20 MEQ CONTROLLED RELEASE TAB PO ONE (11:00)
--- NOTE | 2017-04-24 11:00 | HHI.FPPN ---
Subjective Remarks Mrs. Contreras was afebrile with stable vital signs overnight. [Patient had 19 voids overnight after starting diuresis per EMR; 2 BM overnight.] Patient reports poor sleep overnight due to her pain but states that she is doing well overall. Patient does not report any concerns such as shortness of breath, chest pain, or abdominal pain. Patient reports agreement in seeking outpatient PT, Neurology, and Gastroenterology follow-up; she will also pursue outpatient rehabilitative medicine and pain management. (Isac Ramos MD, R3) Objective Vitals Vital Signs Date Time Temp Pulse Resp B/P (MAP) Pulse Ox O2 Delivery O2 Flow Rate FiO2 04/24/17 08:00 96.6 72 16 114/79 (91) 100 04/24/17 00:00 96.9 71 18 102/73 (83) 99 04/23/17 20:00 96.7 65 19 127/83 (98) 100 04/23/17 16:00 98.2 65 17 114/79 (91) 99 04/23/17 12:00 98.2 78 17 110/78 (89) 99 I/O 04/23/17 04/23/17 04/23/17 04/24/17 04/24/17 04/24/17 07:00 15:00 23:00 07:00 15:00 23:00 Intake Total 240 ml 720 ml 240 ml Balance 240 ml 720 ml 240 ml Intake Oral 240 ml 720 ml 240 ml # Voids 13 6 # Bowel Movements 2 (Isac Ramos MD, R3) Result Diagram: 04/24/1741904/24/17 042 Imaging Last Impressions Cholangiopancreatography MRI 04/19/17 0000 Signed Impressions: Service Date/Time: April 09:45 - CONCLUSION: 1. Hepatomegaly with scattered fatty infiltration. 2. Probable 1 cm cyst in the left hepatic lobe with a possible hemangioma in the right hepatic lobe. Ultrasound was post contrasted multiphase MR of the liver could be performed for further evaluation of these 2 lesions. 3. Small amount of ascites around the hepatic convexity and adjacent to the gallbladder. 4. 1.6 cm gallstone in the gallbladder neck. 5. No choledocholithiasis. CBD is upper limits of normal. Marcus Rios MD Thoracic Spine MRI 04/18/17 0000 Signed Impressions: Service Date/Time: Tuesday, April 18, 2017 10:32 - CONCLUSION: Normal examination. Osman Mathis Jr., MD Cervical Spine MRI 04/18/17 0000 Signed Impressions: Service Date/Time: Tuesday, April 18, 2017 10:32 - CONCLUSION: Normal examination. Osman Mathis Jr., MD Brain MRI 04/18/17 0000 Signed Impressions: Service Date/Time: Tuesday, April 18, 2017 10:32 - CONCLUSION: 1. No acute intracranial abnormality. Artemio Lopez MD Gall Bladder Ultrasound 04/16/17 0000 Signed Impressions: Service Date/Time: Sunday, April 16, 2017 19:17 - CONCLUSION: 1. Hepatic steatosis and hepatomegaly. 2. Cholelithiasis with mild thickening of the gallbladder wall. This can be correlated with any clinical signs of cholecystitis. 3. Mildly dilated common bile duct. Felix Briones MD Chest X-Ray 04/16/17 0000 Signed Impressions: Service Date/Time: Sunday, April 16, 2017 16:42 - CONCLUSION: No acute disease. Francisco Javier Lopez MD FACR Abdomen/Pelvis CT 04/16/17 0000 Signed Impressions: Service Date/Time: Sunday, April 16, 2017 17:25 - CONCLUSION: 1. Hepatomegaly with hepatic steatosis and areas of focal fatty sparing. There is mild ascites seen in the peroneal cavity. 2. Gallstone with a thickened gallbladder wall. This is nonspecific. Thickening of the gallbladder wall can be seen with hepatic disease. Cholecystitis cannot be excluded. Significant fluid around gallbladder is not seen on the CT examination. 3. Mild splenomegaly. This is nonspecific. It may be from the hepatic disease. Felix Briones MD Objective Remarks GENERAL: no apparent distress. SKIN: Jaundiced EYES: Extraocular motions grossly intact. Scleral icterus present. CARDIOVASCULAR: Regular rate and rhythm without murmurs. Normal peripheral perfusion RESPIRATORY: Clear to auscultation; no wheezes to auscultation. Normal rate GASTROINTESTINAL: Abdomen nontender. Abdomen enlarged relative to what would be expected for BMI. Hepatomegaly present NEUROLOGICAL: Awake and alert. Cranial nerves grossly intact. Sensation grossly intact in lower extremities. MUSCULOSKELETAL: Pain to palpation of distal LE's bilaterally. 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 Cota Discharge Planning Anticipate discharge home 04/24 with home health (Isac Ramos MD, R3) Attending Attestation Patient seen and examined. Case reviewed and discussed with Dr Ramos. Agree with plan of care as discussed with me and documented in the resident note. (Shala Cota MD) Problem List: (1) Hyperbilirubinemia ICD Codes: E80.6 - Other disorders of bilirubin metabolism Status: Acute Plan: 04/24: TBILI 12.9 <- 15.6 (04/23) <- 14.4 (04/22) <- 17.4 (04/21). ALKP 264 <- 296. AST increased to 89 <- 76 (04/22) -GI consulted -Continue treatment for presumed alcoholic hepatitis -Continue Prednisone - will plan to taper over 3 weeks at discharge per GI recommendation -Continue Pentoxifylline -Will treat for total of 4 weeks -Continue 2 gm sodium diet -Continue Spironolactone 25mg daily and Lasix 20mg daily to aid with lower extremity edema -Will start KCl 10 mg daily with Lasix diuresis and recheck metabolic panel in several days -Will repeat CMP as outpatient Impression: Patient presents with jaundiced clinically,with postprandial abdominal fullness. PMH of hepatic steatosis and cirrhosis. History of liver masses biopsied in the past, which were negative for malignancy. Abdomen/pelvis CT: hepatomegaly with hepatic steatosis. Mild ascites. Gallstones with a thickened gallbladder wall. Mild splenomegaly. Gallbladder ultrasound: hepatic steatosis and hepatomegaly. Cholelithiasis with thickening of the gallbladder wall. This can be correlated with any clinical signs of cholecystitis. Mildly dilated common bile duct. MRCP- Hepatomegaly with fatty infiltration, probable 1cm cyst in L hepatic lobe with possible hemangioma in R hepatic lobe. Small ascites around hepatic convexity/adjacent to gallbladder. 1.6cm gallstone in gallbladder neck. No choledocholithiasis; CBD near upper limits of normal Labs on admission (04/16): Total bilirubin 24.5. Direct bilirubin 20.4. ST 108, ALC 34. Alkaline phosphatase 490. Lipase not elevated. Urine shows large bilirubin. PT elevated to 15 and PTT slightly elevated. Hepatitis panel wnl; AFP wnl No signs of infection, WBC wnl. 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 Exam with bilateral muscular weakness, increased pain. Per neurology, possible GBS relapse vs liver disease associated. Previously patient with negative RPR, RAJAT, Lyme, HIV B12 >2000 Folate >20 MRI Brain, C spine, T spine wnl (3) Swelling of lower extremity ICD Codes: M79.89 - Other specified soft tissue disorders Status: Acute Plan: -Continue treatment for suspected alcoholic liver disease -Continue sodium restriction -Diuresis per GI -Continue Spironolactone 25mg at discharge -Continue Lasix 20mg daily at discharge -Will start 10mEq daily KCl -Will check outpatient metabolic profile Impression: Bilateral pitting edema; go calf asymmetry. Albumin 1.7. Cr wnl. Mild proteinuria (30+ on admission UA). Lipid profile- TG 456, Total cholesterol 178, HDL 9.1 (4) Hypoactive thyroid ICD Codes: E03.9 - Hypoactive thyroid Status: Acute Plan: Impression: On chronic Synthroid for hypothyroidism Repeat TSH 5.45 -Continue home Synthroid 50 ug daily -Due to TSH >5, could consider 25ug dosage increase but could also defer due to possible transient elevation from acute illness -Will plan to order f/u TSH at discharge so PCP can determine if additional TSH needed (5) Anxiety and depression ICD Codes: F41.9 - Anxiety disorder, unspecified; F32.9 - Major depressive disorder, single episode, unspecified Status: Chronic Plan: Continue home Celexa (6) Hypophosphatemia ICD Codes: E83.39 - Other disorders of phosphorus metabolism Status: Acute Plan: Impression: Phosphate 1.1 -Continue Potassium phosphate 500mg BID (7) DVT Prophylaxis Status: Acute Plan: SCDs Continue Enoxaparin to 30mg daily (8) FEN Status: Acute Plan: Fluids: Regular diet with 2 gm sodium restriction Electrolytes: wnl, continue to monitor Nutrition: regular diet (Isac Ramos MD, R3) Problem Qualifiers (1) Hypoactive thyroid: Qualified Codes: E03.9 - Hypothyroidism, unspecified Isac Ramos MD, R3 Apr 24, 2017 11:00 Shala Cota MD Apr 24, 2017 17:07
[2017-04-24] MEDS ORDERED: POTA10CA PO (11:09)
[2017-04-24] MEDS ORDERED: PENT400T PO (11:09)
[2017-04-24] MEDS ORDERED: NEUR300C PO (11:09)
[2017-04-24] MEDS ORDERED: SPIR25 PO (11:09)
[2017-04-24] MEDS ORDERED: K-PHTAB PO ×2 (11:09→14:56)
[2017-04-24] MEDS ORDERED: PANT40TA3 PO (11:09)
[2017-04-24] MEDS ORDERED: FURO20TA PO (11:09)
[2017-04-24] MEDS ORDERED: PRED20 PO (11:16)
[2017-04-24] MEDS ORDERED: PRED5TAB PO (11:16)
[2017-04-24] MEDS ORDERED: PRED10 PO (11:16)
[2017-04-24 12:00] VITALS: BP 105/70; PULSE 76; RESP 16; TEMP 97.2; O2SAT 96
--- NOTE | 2017-04-24 13:18 | HHI.GIFU ---
Subjective Remarks Pt resting in bed comfortably. Does not some nausea today. Denies vomiting, abdominal pain. Good appetite, had scrambled eggs and half an albanian muffin for breakfast. Notes improvement in abdominal swelling after starting the diuretics, reports urinating multiple times yesterday but has not urinated as frequently today. Complaining of continued leg swelling and heaviness. (Prudence Kovacs) Objective Vitals I&O Vital Signs Date Time Temp Pulse Resp B/P (MAP) Pulse Ox O2 Delivery O2 Flow Rate FiO2 04/24/17 12:00 97.2 76 16 105/70 (82) 96 04/24/17 08:00 96.6 72 16 114/79 (91) 100 04/24/17 00:00 96.9 71 18 102/73 (83) 99 04/23/17 20:00 96.7 65 19 127/83 (98) 100 04/23/17 16:00 98.2 65 17 114/79 (91) 99 I/O 04/23/17 04/23/17 04/23/17 04/24/17 04/24/17 04/24/17 07:00 15:00 23:00 07:00 15:00 23:00 Intake Total 240 ml 720 ml 240 ml Balance 240 ml 720 ml 240 ml Intake Oral 240 ml 720 ml 240 ml # Voids 13 6 # Bowel Movements 2 Laboratory Laboratory Tests Test 04/24/17 04:20 White Blood Count 4.4 Red Blood Count 2.79 Hemoglobin 10.9 Hematocrit 31.4 Mean Corpuscular Volume 112.8 Mean Corpuscular Hemoglobin 39.1 Mean Corpuscular Hemoglobin Concent 34.7 Red Cell Distribution Width 14.3 Platelet Count 171 Mean Platelet Volume 8.6 Neutrophils (%) (Auto) 51.4 Lymphocytes (%) (Auto) 36.2 Monocytes (%) (Auto) 11.8 Eosinophils (%) (Auto) 0.2 Basophils (%) (Auto) 0.4 Neutrophils # (Auto) 2.3 Lymphocytes # (Auto) 1.6 Monocytes # (Auto) 0.5 Eosinophils # (Auto) 0.0 Basophils # (Auto) 0.0 CBC Comment DIFF FINAL Differential Comment Blood Urea Nitrogen 11 Creatinine 0.56 Random Glucose 103 Total Protein 6.5 Albumin 1.7 Calcium Level 8.0 Alkaline Phosphatase 249 Aspartate Amino Transf (AST/SGOT) 90 Alanine Aminotransferase (ALT/SGPT) 23 Total Bilirubin 12.9 Sodium Level 139 Potassium Level 3.3 Chloride Level 105 Carbon Dioxide Level 24.1 Anion Gap 10 Estimat Glomerular Filtration Rate 124 Imaging Last Impressions Cholangiopancreatography MRI 04/19/17 0000 Signed Impressions: Service Date/Time: April 09:45 - CONCLUSION: 1. Hepatomegaly with scattered fatty infiltration. 2. Probable 1 cm cyst in the left hepatic lobe with a possible hemangioma in the right hepatic lobe. Ultrasound was post contrasted multiphase MR of the liver could be performed for further evaluation of these 2 lesions. 3. Small amount of ascites around the hepatic convexity and adjacent to the gallbladder. 4. 1.6 cm gallstone in the gallbladder neck. 5. No choledocholithiasis. CBD is upper limits of normal. Marcus Rios MD Thoracic Spine MRI 04/18/17 0000 Signed Impressions: Service Date/Time: Tuesday, April 18, 2017 10:32 - CONCLUSION: Normal examination. Osman Mathis Jr., MD Cervical Spine MRI 04/18/17 0000 Signed Impressions: Service Date/Time: Tuesday, April 18, 2017 10:32 - CONCLUSION: Normal examination. Osman Mathis Jr., MD Brain MRI 04/18/17 0000 Signed Impressions: Service Date/Time: Tuesday, April 18, 2017 10:32 - CONCLUSION: 1. No acute intracranial abnormality. Artemio Lopez MD Gall Bladder Ultrasound 04/16/17 0000 Signed Impressions: Service Date/Time: Sunday, April 16, 2017 19:17 - CONCLUSION: 1. Hepatic steatosis and hepatomegaly. 2. Cholelithiasis with mild thickening of the gallbladder wall. This can be correlated with any clinical signs of cholecystitis. 3. Mildly dilated common bile duct. Felix Briones MD Chest X-Ray 04/16/17 0000 Signed Impressions: Service Date/Time: Sunday, April 16, 2017 16:42 - CONCLUSION: No acute disease. Francisco Javier Lopez MD FACR Abdomen/Pelvis CT 04/16/17 0000 Signed Impressions: Service Date/Time: Sunday, April 16, 2017 17:25 - CONCLUSION: 1. Hepatomegaly with hepatic steatosis and areas of focal fatty sparing. There is mild ascites seen in the peroneal cavity. 2. Gallstone with a thickened gallbladder wall. This is nonspecific. Thickening of the gallbladder wall can be seen with hepatic disease. Cholecystitis cannot be excluded. Significant fluid around gallbladder is not seen on the CT examination. 3. Mild splenomegaly. This is nonspecific. It may be from the hepatic disease. Felix Briones MD Physical Exam HEENT: Normocephalic; atraumatic; + jaundice (improved) CHEST: Resp. even/unlabored. clear with bases diminished CARDIAC: RRR ABDOMEN: Soft, mildly distended, nontender; hepatomegaly; bowel sounds are present in all four quadrants. EXTREMITIES: BLE edema. SKIN: + jaundice PAROLE AGENT: Alert and oriented. (Prudence Kovacs) Assessment and Plan Plan ASSESSMENT: - Elevated LFTs, Jaundice in patient with liver cirrhosis, steatohepatitis, and ongoing ETOH use. Pt with extensive workup in past for elevated LFTs October/May of 2016. Previous Liver workup Hepatitis profile negative, RAJAT neg, AMA < 20.0, ASMA neg, Ceruloplasmin 18, Alpha 1 antitrypsin 118. Iron saturation was elevated at 91.9%. 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 Rpt Ferritin 2364, Iron saturation 70.2%. She also underwent liver biopsy (10/04/15) revealed benign liver tissue with marked steatosis. She then had a repeat liver biopsy (10/07/15)----> revealed liver liver tissue with marked steatohepatitis and cirrhosis. Gallbladder ultrasound (04/16/17)---> hepatic steatosis and have hepatomegaly , cholelithiasis with mild thickening of the gallbladder wall. This can be correlated with any clinical signs of cholecystitis, mildly dilated common bile duct at 8mm. CT scan abdomen and pelvis with IV contrast (04/16/17) hepatomegaly with hepatic steatosis and areas of focal fatty sparing. There is mild ascites seen in the peroneal cavity. A constant with a thickened gallbladder wall. This is nonspecific. Thickening of the gallbladder wall can be seen with hepatic disease. Cholecystitis cannot be excluded. Significant fluid around gallbladder is not seen on the CT examination. Mild splenomegaly. DF 37.100. Labs are consistent with alcoholic hepatitis and suspect that she is drinking more than she is admitting. LFT derangement most likely combination of alcoholic hepatitis and steatohepatitis. MRCP (04/19/17) --> Hepatomegaly with scattered fatty infiltration. Probable 1 cm cyst in the left hepatic lobe with a possible hemangioma in the right hepatic lobe. US was post contrasted multi-phase MR of the liver could be performed for further evaluation of these 2 lesions. Small amount of ascites around the hepatic convexity and adjacent to the gallbladder. prednisone. Tolerating low fat diet. Jaundice improving. T. Bili 12.9, AST 90, ALT 23, Alk Phosph 249. - Ascites- Pt started on Furosemide and Spironolactone yesterday, she reports improvement in abdominal swelling, continued leg swelling and heaviness in her legs - Nausea, GERD, Early Satiety. PPI - Anemia, macrocytic. Hx B12 Deficiency, B12 > 2,000. HH stable. - Coagulopathy. Stable. - BLE pain, progressively worsening weakness, possible Guillain [place]. Pt was treated for Guillain [place] in April of 2016. States she still has not regained her strength and uses walker, but has been having worsening weakness/BLE pain for 2 weeks. Neurology following, She has finished the IVIG treatment. She reports the plan after dc is for her to follow up outpt at [facility] - Elevated TSH with hypothyroidism, anxiety, depression, per attending. PLAN: - 2 gram Na diet - Continue PPI - Continue Pentoxifylline - Continue Prednisone 40mg po daily - Continue Lasix 20mg po daily - Continue Spironolactone 25mg po daily - ETOH cessation - Supportive care - Follow up with GI in office in 1-2 weeks - Pt seen and examined by Dr. Cabral and myself and this note is written on his behalf (Prudence Kovacs) Physician Comments Seen and examined with GERMÁN, no active bleeding reported. Slow progress with liver cirrhosis. Being transferred to Rehab facility. Gi will sign off, outpatient fu with Gi recommended. Thankyou (Galen Cabral MD) Prudence Kovacs Apr 24, 2017 13:18 Galen Cabral MD Apr 24, 2017 15:59
[2017-04-25] MEDS ORDERED: FURO20TA PO (17:17)
[2017-04-25] MEDS ORDERED: NEUR300C PO (17:17)
[2017-04-25] MEDS ORDERED: CLON1TAB PO (17:17)
[2017-04-25] MEDS ORDERED: SPIR25 PO (17:17)
[2017-04-25] MEDS ORDERED: THERTAB15 PO (17:17)
[2017-04-25] MEDS ORDERED: VITA100T54 PO (17:17)
[2017-04-25] MEDS ORDERED: PANT40TA3 PO (17:17)
[2017-04-25] MEDS ORDERED: PENT400T PO (17:17)
[2017-04-25] MEDS ORDERED: FOLI1TAB6 PO (17:17)
[2017-04-25] MEDS ORDERED: PRED5TAB PO (17:17)
[2017-04-25] MEDS ORDERED: B-12100T PO (17:17)
[2017-04-25] MEDS ORDERED: POTA10CA PO (17:17)
[2017-04-25] MEDS ORDERED: LEVO50TA4 PO (17:17)
[2017-04-25] MEDS ORDERED: CELE20TA PO (17:17)
[2017-04-25] MEDS ORDERED: HYDR-3583 PO (17:18)
[2017-04-25] MEDS ORDERED: NUVAMIS VAGINAL (17:18)
[2017-04-25] MEDS ORDERED: PRED20 PO (17:18)
[2017-04-25] MEDS ORDERED: K-PHTAB PO (17:18)
[2017-04-25] MEDS ORDERED: PRED10 PO (17:18)
[2017-04-25] MEDS ORDERED: GABA600T PO (17:18)
== END 2017-04-24 16:03 | disposition home or self-care (01) | DRG 433 ==
LOC: NEPE 15:19 → NEDA 20:54 → N07B 23:27
PROVIDERS: ADMIT Family Medicine; ATTEND Family Medicine
PROC: 30243S1 Transfusion of Nonautologous Globulin into Central Vein, Percutaneous Approach (ICD-10-PCS; principal; 2017-04-17)
DX: K70.11 Alcoholic hepatitis with ascites (principal); K80.10 Calculus of gallbladder with chronic cholecystitis without obstruction; K70.31 Alcoholic cirrhosis of liver with ascites; G61.0 Guillain-Barre syndrome; D68.9 Coagulation defect, unspecified; R16.1 Splenomegaly, not elsewhere classified; E83.39 Other disorders of phosphorus metabolism; R00.0 Tachycardia, unspecified; K21.9 Gastro-esophageal reflux disease without esophagitis; E03.9 Hypothyroidism, unspecified; F17.210 Nicotine dependence, cigarettes, uncomplicated; I10 Essential (primary) hypertension; F32.9 Major depressive disorder, single episode, unspecified; F41.9 Anxiety disorder, unspecified; M79.606 Pain in leg, unspecified; E53.8 Deficiency of other specified B group vitamins; R32 Unspecified urinary incontinence; G89.29 Other chronic pain; E80.7 Disorder of bilirubin metabolism, unspecified; D53.9 Nutritional anemia, unspecified; Z80.42 Family history of malignant neoplasm of prostate; M62.81 Muscle weakness (generalized); K76.89 Other specified diseases of liver; M79.89 Other specified soft tissue disorders; Z72.89 Other problems related to lifestyle
CPT/HCPCS: 70553; 71020; 72156; 72157; 74177; 74181; 76377; 76705; 80048; 80053; 80061; 80074; 80076; 81001; 82105; 82140; 82247; 82248; 82607; 82746; 83690; 83735; 84100; 84425; 84443; 84703; 85025; 85610; 85730; 93005; A9579; C9113; J1459; J1650; J2543; J7040; J7060; J7512; Q9967

== ENCOUNTER 2018-02-25 14:55 | Inpatient (IN) ==
[2018-02-25] MEDS ORDERED: Morphine Inj 4 MG/ML Vial IV.PUSH ONE (18:56)
--- NOTE | 2018-02-25 19:10 | ED ---
HPI General Chief Complaint: Abdominal Pain Stated Complaint: Right Abd pain Time Seen by Provider: 02/25/18 18:43 Source: patient, RN notes reviewed and old records reviewed Limitations: no limitations History of Present Illness HPI narrative: 32-year-old female presents to the emergency department for evaluation of abdominal pain, abdominal distention, jaundice. Patient states that she recently spent a month at her sister's house. She left there 2 weeks ago. She states that she drank heavily while she was there. She drank pretty much all day every day. Since returning home 2 weeks ago, she reports drinking alcohol 3 times. The last time was last night. Patient states that when she left her sister's house approximately 2 weeks ago, she noticed some yellowing of her eyes which has worsened since then. Patient was here April 2017 for jaundice, possible cholecystitis. She never had her gallbladder removed and was discharged. She has past medical history of hepatic steatosis, cirrhosis, hypothyroidism, Guillain-Knight, hypertension. Patient denies any chance of stating that she is not sexually active. Current pain is 9/10. Moderate severity. Patient also reports that 2 weeks ago, she tripped and fell , hitting her head. She reports positive loss of consciousness at that time. She also complains of headache since then as well as left-sided rib pain since the fall. MD complaint: abdominal pain Onset (ago): week(s) (2) Pain Consistency: constant Location: RUQ Severity: moderate Severity scale (1-10): 9 Quality: aching Radiation: other (diffuse) Relieving factors: nothing Exacerbating factors: nothing Related Data Home Medications Medication Instructions Recorded Confirmed clonazepam 1 mg PO BID 02/25/18 02/25/18 folic acid 20 mg PO DAILY 02/25/18 02/25/18 furosemide 20 mg PO DAILY 02/25/18 02/25/18 gabapentin 1,200 mg PO BID 02/25/18 02/25/18 levothyroxine 50 mcg PO DAILY 02/25/18 02/25/18 multivitamin with folic acid 1 tab PO DAILY 02/25/18 02/25/18 [Thera] thiamine HCl (vitamin B1) [Vitamin 100 mg PO DAILY 02/25/18 02/25/18 B-1] vitamin T83-edvrm acid 1 tab PO DAILY 02/25/18 02/25/18 Allergies Allergy/AdvReac Type Severity Reaction Status Date / Time QT prolonging drugs Allergy Severe Uncoded 04/16/17 16:01 Review of Systems ROS: all other systems reviewed are negative PMFSH Surgical History Surgical History History of liver biopsy (Acute) Hx of tonsillectomy (Acute) Social History Social History Substance History: No History of Abuse Second Hand Smoke Exposure: No Smoking Status: Never smoker How Often Do You Have a Drink Containing Alcohol: 2 to 4 times a month Recent Travel in [place] within the Last 8 Weeks: No Recent Out of Country Travel within the Last 8 Weeks: No Immunization History Tetanus Immunization: <5 Years Hx Influenza Vaccine This Season: No Exam Narrative Exam Narrative: GENERAL: Well-nourished, well-developed female patient, afebrile. Patient is jaundiced. SKIN: Focused skin assessment warm/dry. HEAD: Normocephalic. Atraumatic. EYES: No injection or drainage. NECK: Supple, trachea midline. No JVD or lymphadenopathy. CARDIOVASCULAR: Regular rate and rhythm without murmurs, gallops, or rubs. RESPIRATORY: Breath sounds equal bilaterally. No accessory muscle use. Lung sounds are clear to auscultation. GASTROINTESTINAL: Abdomen distended, diffuse tenderness to palpation. MUSCULOSKELETAL: No cyanosis, or edema. BACK: Nontender without obvious deformity. No CVA tenderness. Course Consultations Consultation #1: The patient's case including history, pertinent physical examination findings, and laboratory studies were discussed with the FP residents. It was agreed that the patient would be admitted to the family practice service. Time: 23:13 Initial Documented Vital Signs Temperature 97.7 F 02/25/18 15:00 Pulse Rate 100 H 02/25/18 15:00 Respiratory Rate 15 02/25/18 15:00 Blood Pressure 119/73 02/25/18 15:00 Pulse Oximetry 100 02/25/18 15:00 Last Documented Vital Signs Temperature 97.7 F 02/25/18 15:00 Pulse Rate 81 02/25/18 19:50 Respiratory Rate 16 02/25/18 19:50 Blood Pressure 125/67 02/25/18 19:50 Pulse Oximetry 98 02/25/18 19:50 Medical Decision Making DANN Attestation DANN supervised visit: Yes Attestation: I, Dr. Jordan, have reviewed the advance practice practitioner's documentation and am in agreement, met with the patient face to face, made the diagnosis, and the medical decision making was done by me. The patient was initially evaluated by Gabriella, the SOFTWARE SUPPORT SPECIALIST. Please see their complete history and physical. *My assessment and Findings: The patient presents with a reported history of recurrent jaundice over the last 2 weeks. The patient reports that she first developed jaundice in April 2017. She is unsure of the exact reason for the jaundice at that time. She reports that this began while she was in [place] visiting her sister and drinking alcohol heavily. She reports that she was drinking a half a pint of tequila daily. She reports that since returning back home she has been drinking less frequently. She reports that last night she drank 1 glass of wine and prior to that she drank 5 days ago. She denies any prior history of viral hepatitis. She denies taking cnbf-mph-buzymyk Tylenol or acetaminophen on a regular basis. The patient reports having associated generalized abdominal pain worse in the right upper quadrant of the abdomen. She also reports having abdominal distention. During the course of the patient's emergency department visit, the patient's history, examination, and differential diagnosis were reviewed with the patient. The patient was placed on a cardiac cath tech with oximetry and frequent blood pressure monitoring. The patient had IV access obtained and blood work sent for analysis. The patient was initially provided morphine for pain, Zofran for nausea The patient's laboratory studies were reviewed and remarkable for a white count of 10.9, hemoglobin 13.2, MCV is elevated at 108.9, Platelets are 184 with a monocytosis at 12.6, PT 13, INR 1.3, PTT 28.2. Chemistries remarkable for sodium of 133, potassium 2.1 which was supplemented, chloride 93, creatinine 1.38, GFR 44, glucose 112, total bilirubin is 43.9 with an AST of 103, alk phos 385 Radiology studies were reviewed and remarkable for Chest x-ray shows no acute cardiopulmonary disease. CT scan of the brain shows no acute abnormality, CT scan of the abdomen and pelvis reveals severe hepatomegaly similar in severity compared to prior study but with a lesser degree of steatosis than on prior examination. No intrahepatic ductal dilatation. 1.5 cm peripheral calcified gallstone. Common hepatic duct measures 9 mm and is more prominent than on prior exam. The patient's results were discussed with the patient, including the plan of care. I explained that further testing and/ or monitoring is indicated based on the patient's history, examination, and/ or laboratory findings. Therefore, I recommended admission for additional evaluation. The patient expressed understanding and was agreeable with this plan. The patient was admitted to the hospital in guarded condition and sent to a bed under the care of the FP resident's service. MDM Narrative Medical decision making narrative: 32-year-old female presents to the emergency department for evaluation of abdominal pain, abdominal distention, jaundice. She also reports a fall with head injury and left-sided rib pain. IV access obtained. CBC, CMP, lipase, ammonia level, alcohol level, PTT, PT/INR, UA, urine test ordered and pending. Chest x-ray is ordered and pending. CT the brain and CT abdomen/pelvis with IV contrast are ordered and pending. Patient is given morphine 4 mg IV, Zofran 4 mg IV for pain. CBC shows no acute abnormality. CMP shows hyponatremia 133, hypokalemia 2.1, creatinine 1.38, bilirubin is 43.9. Lipase is 168. Ammonia is 55. Alcohol level is less than 3. PTT is 28.2. PT/INR is 13.0/1.3. UA shows moderate bilirubin, 6WBC, few bacteria. UPT is negative. Chest x-ray shows the lungs are clear. CT of the brain shows No acute findings in the brain. CT of the abdomen/pelvis [-]. Medical Screen Exam Complete: Yes Emergency Medical Condition: Yes Differential Diagnosis Differential Diagnosis: cholecystitis vs. acute liver failure vs. electrolyte abnormality vs. pancreatitis vs. closed head injury vs. intracranial abnormality vs. rib contusion vs. rib fracture Medical Records Medical records reviewed: Yes I reviewed the patient's medical records. Lab Data Result diagrams: 02/25/18 18:59 02/25/18 18:59 POC Results POC Urine Results Negative Lab Results 02/25/18 02/25/18 02/25/18 Range/Units 18:59 18:59 18:59 WBC 10.9 (4.0-11.0) th/mm3 RBC 3.30 L (4.00-5.30) mil/mm3 Hgb 13.2 (11.6-15.3) gm/dL Hct 36.0 (35.0-46.0) % MCV 108.9 H (80.0-100.0) fL MCH 40.1 H (27.0-34.0) pg MCHC 36.8 H (32.0-36.0) % RDW 17.7 H (11.6-17.2) % Plt Count 184 (150-450) th/mm3 MPV 8.4 (7.0-11.0) fL Prelim Diff (Auto) Slide review pending Neut % (Auto) 69.5 (16.0-70.0) % Lymph % (Auto) 17.4 (9.0-44.0) % [place] % (Auto) 12.6 H (0.0-8.0) % Eos % (Auto) 0.4 (0.0-4.0) % Baso % (Auto) 0.1 (0.0-2.0) % Neut # (Auto) 7.5 (1.8-7.7) th/mm3 Lymph # (Auto) 1.9 (1.0-4.8) th/mm3 [place] # (Auto) 1.4 H (0.0-0.9) th/mm3 Eos # (Auto) 0.0 (0.0-0.4) th/mm3 Baso # (Auto) 0.0 (0.0-0.2) th/mm3 WBC Differential . Diff Scan Auto diff confirmed Differential Comment . Platelet Estimate Normal (Normal) Platelet Morphology Normal (Normal) PT 13.0 H (9.8-11.6) sec INR 1.3 Ratio APTT 28.2 (24.3-30.1) sec Sodium 133 L (136-145) meq/L Potassium 2.1 L* (3.5-5.1) meq/L Chloride 93 L (98-107) meq/L Carbon Dioxide 27.3 (21.0-32.0) meq/L Anion Gap 13 (5-15) meq/L BUN 12 (7-18) mg/dL Creatinine 1.38 H (0.50-1.00) mg/dL Estimated GFR 44 L (>89) mL/min Random Glucose 112 H (74-106) mg/dL Calcium 8.7 (8.5-10.1) mg/dL Total Bilirubin 43.9 H (0.2-1.0) mg/dL AST 103 H (15-37) U/L ALT 17 (10-53) U/L Alkaline Phosphatase 385 H (45-117) U/L Ammonia (11-32) mcmol/L Total Protein 6.4 (6.4-8.2) g/dL Albumin 2.5 L (3.4-5.0) g/dL Lipase 168 (73-393) U/L Urine Color (Yellw/Straw) Urine Clarity (Clear) Urine pH (5.0-8.5) Ur Specific [place] (1.002-1.035) Urine Protein (Neg-Trace) mg/dL Urine Glucose (UA) (Negative) mg/dL Urine Ketones (Negative) mg/dL Urine Occult Blood (Negative) Urine Nitrate (Negative) Urine Bilirubin (Negative) Urine Ictotest (Negative) Urine Urobilinogen (Less than 2) mg/dL Ur Leukocyte Esterase (Negative) Urine RBC (0-3) /hpf Urine WBC (0-5) /hpf Ur Squamous Epith Cells (0-5) /hpf Amorphous Sediment (None) /hpf Urine Bacteria (None) /hpf Urine Mucus (Occasional) /lpf Micro UA Comment Ur Microscopic Review Urine Culture Comments Serum Alcohol Less than 3 (0-5) mg/dL 02/25/18 02/25/18 Range/Units 18:59 19:13 WBC (4.0-11.0) th/mm3 RBC (4.00-5.30) mil/mm3 Hgb (11.6-15.3) gm/dL Hct (35.0-46.0) % MCV (80.0-100.0) fL MCH (27.0-34.0) pg MCHC (32.0-36.0) % RDW (11.6-17.2) % Plt Count (150-450) th/mm3 MPV (7.0-11.0) fL Prelim Diff (Auto) Neut % (Auto) (16.0-70.0) % Lymph % (Auto) (9.0-44.0) % [place] % (Auto) (0.0-8.0) % Eos % (Auto) (0.0-4.0) % Baso % (Auto) (0.0-2.0) % Neut # (Auto) (1.8-7.7) th/mm3 Lymph # (Auto) (1.0-4.8) th/mm3 [place] # (Auto) (0.0-0.9) th/mm3 Eos # (Auto) (0.0-0.4) th/mm3 Baso # (Auto) (0.0-0.2) th/mm3 WBC Differential Diff Scan Differential Comment Platelet Estimate (Normal) Platelet Morphology (Normal) PT (9.8-11.6) sec INR Ratio APTT (24.3-30.1) sec Sodium (136-145) meq/L Potassium (3.5-5.1) meq/L Chloride (98-107) meq/L Carbon Dioxide (21.0-32.0) meq/L Anion Gap (5-15) meq/L BUN (7-18) mg/dL Creatinine (0.50-1.00) mg/dL Estimated GFR (>89) mL/min Random Glucose (74-106) mg/dL Calcium (8.5-10.1) mg/dL Total Bilirubin (0.2-1.0) mg/dL AST (15-37) U/L ALT (10-53) U/L Alkaline Phosphatase (45-117) U/L Ammonia 55 H (11-32) mcmol/L Total Protein (6.4-8.2) g/dL Albumin (3.4-5.0) g/dL Lipase (73-393) U/L Urine Color Aysha (Yellw/Straw) Urine Clarity Hazy H (Clear) Urine pH 7.0 (5.0-8.5) Ur Specific [place] 1.008 (1.002-1.035) Urine Protein Negative (Neg-Trace) mg/dL Urine Glucose (UA) Negative (Negative) mg/dL Urine Ketones Negative (Negative) mg/dL Urine Occult Blood Negative (Negative) Urine Nitrate Negative (Negative) Urine Bilirubin Moderate H (Negative) Urine Ictotest Positive H (Negative) Urine Urobilinogen 4 or greater (Less than 2) mg/dL Ur Leukocyte Esterase Negative (Negative) Urine RBC Less than 1 (0-3) /hpf Urine WBC 6 H (0-5) /hpf Ur Squamous Epith Cells 4 (0-5) /hpf Amorphous Sediment Rare H (None) /hpf Urine Bacteria Few H (None) /hpf Urine Mucus Few H (Occasional) /lpf Micro UA Comment Culture not ind Ur Microscopic Review Not Reportable Urine Culture Comments Culture not ind Serum Alcohol (0-5) mg/dL Imaging Data Radiologist's impression: Abdomen/Pelvis CT 02/25/18 18:56 CONCLUSION: 1. Severe hepatomegaly, similar in severity, but with a lesser degree of steatosis than on prior examination. No intrahepatic ductal dilatation. 2. 1.7 cm peripherally calcified gallstone. Common hepatic duct measures 9 mm and is more prominent than on the prior examination. Chest X-Ray 02/25/18 18:56 CONCLUSION: The lungs are clear. Head CT 02/25/18 18:56 CONCLUSION: 1. No acute findings in the brain. . Discharge Plan Discharge Disposition Patient Disposition: 30 Still Patient Discharge Details Diagnosis: Jaundice, Gallstone Physicians Team ED Provider: Nenita Jordan ED Midlevel Provider: Gabriella Mccarthy Primary Care Provider: Se Cervantes Attending Provider: Di Beard Rxs /Orders / Referrals /Forms Prescriptions: No Action gabapentin 600 mg Tablet 1,200 mg PO BID RF: 0 clonazepam 1 mg Tablet 1 mg PO BID RF: 0 folic acid 20 mg Capsule 20 mg PO DAILY RF: 0 thiamine HCl (vitamin B1) [Vitamin B-1] 100 mg Tablet 100 mg PO DAILY RF: 0 furosemide 20 mg Tablet 20 mg PO DAILY RF: 0 vitamin H17-bdqrh acid 0.5-1 mg Tablet 1 tab PO DAILY RF: 0 levothyroxine 50 mcg Capsule 50 mcg PO DAILY RF: 0 multivitamin with folic acid [Thera] 400 mcg Tablet 1 tab PO DAILY RF: 0 Discharge Interventions Interventions: Vital Signs Last Done: 02/25/18 19:50 Status ED Status: With Doctor
--- NOTE | 2018-02-25 19:16 | XR ---
EXAM DATE: 02/25/2018 7:10 PM EDT AGE/SEX: 32 years / Female INDICATIONS: Left anterior chest pain, fell CLINICAL DATA: This is the patient's initial encounter. Patient reports that signs and symptoms have been present for 2 weeks and indicates a pain score of 5/10. MEDICAL/SURGICAL HISTORY: Hypertension. None. COMPARISON: [facility] – [place], CHEST PA & LAT, 04/16/2017. . FINDINGS: A single AP view of the chest demonstrates the lungs to be symmetrically aerated without evidence of mass, infiltrate or effusion. No evidence of pneumothorax. The cardiomediastinal contours are unrema rkable. Osseous structures are intact. CONCLUSION: The lungs are clear. Electronically signed by: Osman Levy MD 02/25/2018 7:15 PM EDT
[2018-02-25 19:27] LABS: Amorphous Sediment,Urine Rare /hpf; Bacteria,Urine Few /hpf; Bilirubin,Urine Moderate (Negative); Clarity,Urine Hazy (Clear); Color,Urine Amber (Yellw/Straw); Glucose,Urine (UA) Negative (Negative); Leukocyte Esterase,Urine Negative (Negative); Mucus,Urine Few /lpf (Occasional); Nitrite,Urine Negative (Negative); Specific Gravity,Urine 1.008 (1.002-1.035); Squamous Epithelial Cell,Urine 4 /hpf (0-5); Urobilinogen,Urine 4 or Greater mg/dL (Less than 2)
[2018-02-25 19:33] LABS: Ictotest,Urine Positive (Negative)
[2018-02-25 19:53] LABS: Baso % (Auto) 0.1 % (0.0-2.0); Eos % (Auto) 0.4 % (0.0-4.0); Hemoglobin 13.2 gm/dL (11.6-15.3); Lymph # (Auto) 1.9 th/mm3 (1.0-4.8); Lymph % (Auto) 17.4 % (9.0-44.0); Mean Corpuscular Hemoglobin 40.1 pg (27.0-34.0); Mean Corpuscular Volume 108.9 fL (80.0-100.0); Mean Platelet Volume 8.4 fL (7.0-11.0); Mono # (Auto) 1.4 th/mm3 (0.0-0.9); Mono % (Auto) 12.6 % (0.0-8.0); Neut # (Auto) 7.5 th/mm3 (1.8-7.7); Neut % (Auto) 69.5 % (16.0-70.0); Platelet Count 184 th/mm3 (150-450); Red Cell Distribution Width 17.7 % (11.6-17.2); White Blood Count 10.9 th/mm3 (4.0-11.0)
[2018-02-25 19:57] LABS: Mean Corpuscular HGB Conc 36.8 % (32.0-36.0)
[2018-02-25 20:02] LABS: Activated Partial Thrombo Time 28.2 sec (24.3-30.1); INR 1.3 Ratio
[2018-02-25 20:31] LABS: Alanine Aminotransferase 17 U/L (10-53); Albumin 2.5 g/dL (3.4-5.0); Alkaline Phosphatase 385 U/L (45-117); Anion Gap 13 meq/L (5-15); Aspartate Aminotransferase 103 U/L (15-37); Blood Urea Nitrogen 12 mg/dL (7-18); Calcium 8.7 mg/dL (8.5-10.1); Carbon Dioxide 27.3 meq/L (21.0-32.0); Chloride 93 meq/L (98-107); Glomerular Filtration Rate 44 mL/min (>89); Glucose,Random 112 mg/dL (74-106); Lipase 168 U/L (73-393); Sodium 133 meq/L (136-145)
[2018-02-25 20:37] LABS: Potassium 2.1 meq/L (3.5-5.1)
[2018-02-25 21:30] LABS: Total Protein 6.4 g/dL (6.4-8.2)
[2018-02-25] MEDS: Potassium Chlor 20 mEq Premix 20 MEQ/100 ML PIGGYBACK IV.SIG SCH ×2 (21:32→23:19)
[2018-02-25 21:39] LABS: Platelet Estimate Normal (Normal); Platelet Morphology Normal (Normal)
--- NOTE | 2018-02-25 22:18 | CT ---
EXAM DATE: 02/25/2018 10:13 PM EDT AGE/SEX: 32 years / Female INDICATIONS: Trauma. Fell hit forehead. CLINICAL DATA: This is the patient's initial encounter. Patient reports that signs and symptoms have been present for 1 day and indicates a pain score of 7/10. MEDICAL/SURGICAL HISTORY: None. None. RADIATION DOSE: 46.51 CTDI (mGy) [place] [facility] [place]18/2017. . TECHNIQUE: CT of the head without contrast. Using automated exposure control and adjustment of the mA and/or kV according to patient size, radiation dose was kept as low as reasonably achievable to ob tain optimal diagnostic quality images. DICOM format image data is available electronically for revi ew and comparison. FINDINGS: Cerebrum: The ventricles are normal for age. No evidence of midline shift, mass lesion, hemorrhage or acute infarction. No extraaxial fluid collections are seen. Posterior Fossa: The cerebellum and brainstem are intact. The 4th ventricle is midline. The cerebe llopontine angle is unremarkable. Extracranial: The visualized portion of the orbits is intact. Skull: The calvaria is intact. No evidence of skull fracture. CONCLUSION: 1. No acute findings in the brain. . Electronically signed by: Osman Levy MD 02/25/2018 10:17 PM EDT
--- NOTE | 2018-02-25 23:10 | CT ---
EXAM DATE: 02/25/2018 10:21 PM EDT AGE/SEX: 32 years / Female INDICATIONS: Right upper quadrant pain month. Jaundice this past 2 weeks. CLINICAL DATA: This is the patient's initial encounter. Patient reports that signs and symptoms have been present for 1 month and indicates a pain score of 8/10. MEDICAL/SURGICAL HISTORY: Cirrhosis. Hepatic steatosis None. ORAL CONTRAST: No oral contrast ingested. RADIATION DOSE: 9.68 CTDI (mGy) COMPARISON: [facility] [place]EL[place] W [place]AST, 04/16/2017. . TECHNIQUE: Multiple contiguous axial images were obtained through the abdomen and pelvis following b olus infusion of 90 ml Omnipaque 350 (iohexol) nonionic water-soluble contrast as a single exam dos e. No oral contrast ingested. Using automated exposure control and adjustment of the mA and/or kV ac cording to patient size, radiation dose was kept as low as reasonably achievable to obtain optimal di agnostic quality images. DICOM format image data is available electronically for review and comparis on. FINDINGS: Lower Lungs: The visualized lower lungs are clear. Liver: Hepatomegaly with craniocaudal dimension 25 cm, similar to prior. The quadrate lobe of the shaun er has a lesser density than the remainder of the liver suggesting focal fatty change. As a focal hyp odense lesion in the lateral segment left lobe measuring 1.2 cm. The appearance of the liver is signi ficantly different than prior examination of April 2017 which had demonstrated severe steatosis wi th focal areas of fatty sparing. There is no biliary ductal dilatation. A large peripherally calcifie d gallstone is present near the gallbladder neck measuring 1.7 cm. The common bile duct is dilated 9 mm. Spleen: Homogeneous density without enlargement. Pancreas: Unremarkable without mass or calcification. Kidneys: Normal in size and shape. No evidence of mass or hydronephrosis. Adrenal Glands: Unremarkable. Aorta: The aorta and proximal iliac vessels are grossly unremarkable without aneurysmal dilation. Bowel/Mesentery: No dilated loops of small or large bowel. No evidence of free fluid. Abdominal Wall: Intact. Retroperitoneum: No evidence of adenopathy in the retrocrural, para-aortic, or deep pelvic regions. Bladder: Contours are smooth. Reproductive Organs: No abnormal masses or calcifications seen. Inguinal: The inguinal region is unremarkable without evidence of adenopathy. Bony Structures: Unremarkable. CONCLUSION: 1. Severe hepatomegaly, similar in severity, but with a lesser degree of steatosis than on prior exa mination. No intrahepatic ductal dilatation. 2. 1.7 cm peripherally calcified gallstone. Common hepatic duct measures 9 mm and is more prominent than on the prior examination. Electronically signed by: Osman Levy MD 02/25/2018 11:09 PM EDT
[2018-02-25] MEDS ORDERED: LORazepam 1 MG Tablet PO PRN (23:37)
[2018-02-25] MEDS ORDERED: Haloperidol Inj 5 MG/ML Ampul IV.PUSH PRN (23:37)
--- NOTE | 2018-02-26 00:14 | P.HPFP ---
History of Present Illness Primary Care Physician: Se Cervantes MD <Kristopher Wooten - 02/26/18 18:43> Se Cervantes MD <Mandeep Byrd - 02/26/18 00:14> Chief Complaint: RUQ abdominal pain <SafiaMandeep jo - 02/26/18 00:14> History of Present Illness: The patient is a 32 year old female with h/o hepatic steatosis, per chart review cirrhosis, hypothyroidism, multiple episodes of Guillain-Lovelock syndrome, hypertension, anxiety and depression, B12 deficiency, and etoh abuse who presented to the ED with complaints of RUQ abdominal pain, abdominal distension, and jaundice. The patient reports she was at her sister's house visiting for the past month and a half and was drinking alcohol heavily. She reports drinking primarily Tequila but states she was drinking pretty much anything and everything. She arrived back to [facility] to live with her mother about two weeks ago and reports drinking less since getting back. She continued to drink intermittently. Reports her last drink was last night. She reports RUQ 8-9/10 abdominal pain, nonradiating, no significant alleviating or aggrevating factors. Denies abnormal bowel habits. Does endorse some constipation, stating she sometimes passes small, hard stools. Denies pale stools. Reports stools are usually brown, but sometimes green. Endorses one episode of emesis about two days ago appearing color of food. Denies hematemesis. No bilious vomiting. Denies abdominal pain worsening or improved with meals or with bowel movements. <ShoaibMandeep chin - 02/26/18 00:14> - Diagnosis (1) RUQ abdominal pain (2) Cirrhosis (3) ETOH abuse (4) Hypokalemia (5) Acute kidney injury (6) Hypothyroidism (7) Nutrition, metabolism, and development symptoms <Mandeep Byrd - 02/26/18 00:14> (1) Cirrhosis (2) Ascites (3) ETOH abuse (4) Hypokalemia (5) Acute kidney injury (6) Hypothyroidism (7) Nutrition, metabolism, and development symptoms <JeKristopher Kory - 02/26/18 18:43> Inpatient Certification: I certify that the inpatient services were ordered in accordance with Medicare regulations governing the order. This includes certification that hospital inpatient services are reasonable and necessary and in the case of services not specified as inpatient-only under 42 CFR 419.22(n), that they are appropriately provided as inpatient services in accordance to with the 2-midnight benchmark under 43 CFR 412.3(e) <Kristopher Wooten - 02/26/18 18:43> I certify that the inpatient services were ordered in accordance with Medicare regulations governing the order. This includes certification that hospital inpatient services are reasonable and necessary and in the case of services not specified as inpatient-only under 42 CFR 419.22(n), that they are appropriately provided as inpatient services in accordance to with the 2-midnight benchmark under 43 CFR 412.3(e) <Kinsey Byrdsh 02/26/18 00:14> Estimated Total Length of Stay (Days): 3 <RochelleMandeep 02/26/18 00:14> Plans for Post Hospital Care: Home <RochelleMandeep 02/26/18 00:14> Review of Systems Constitutional: Reports fatigue, Denies fever(s) <RochelleMandeep 01:03> Eyes: Denies blurry vision <RochelleMandeep 02/26/18 01:03> Cardiovascular: Denies chest pain, Denies lightheadedness, Denies shortness of breath <RochelleMandeep 02/26/18 01:03> Respiratory: Denies shortness of breath, Denies wheezing <RochelleMandeep 02/26/18 01:03> Gastrointestinal: Reports abdominal pain, Reports constipation, Denies black, tarry stools, Denies change in bowel habits <RochelleMandeep 02/26/18 01: 03> [facility] - History History Provided By: Patient <Kinsey Byrdsh 02/26/18 00:14> - Medical History Medical History: Medical History (Last Reviewed 02/25/18 @ 22:39 by Fariha Omer) 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[place] teeth extracted <Kristopher Wooten - 02/26/18 18:43> Medical History (Last Reviewed 02/25/18 @ 22:39 by Fariha Omer) 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[place] teeth extracted <Mandeep Byrd 02/26/18 00:14> - Surgical History Surgical History: Surgical History (Last Updated 02/25/18 @ 18:25 by Meli Lai) History of liver biopsy Hx of tonsillectomy <Kristopher Wooten - 02/26/18 18:43> Surgical History (Last Updated 02/25/18 @ 18:25 by Meli Lai) History of liver biopsy Hx of tonsillectomy <Mandeep Byrd 02/26/18 00:14> - Tobacco History Second Hand Smoke Exposure: No <Mandeep Byrd 02/26/18 00:14> Smoking Status: Never smoker <Mandeep Byrd 02/26/18 00:14> - Alcohol History How Often Do You Have a Drink Containing Alcohol: 2 to 4 times a month < Mandeep Byrd 02/26/18 00:14> - Substance Use History Substance History: No History of Abuse <Mandeep Byrd 02/26/18 00:14> - Travel History Recent Travel in the [facility] Within the Last 8 Weeks: No <Mandeep Byrd 00:14> Recent Travel Out of the Country Within the Last 8 Weeks: No <Mandeep Byrd 02/26/18 00:14> - Immunization History Tetanus Immunization: <5 Years <Mandeep Byrd 02/26/18 00:14> Hx Influenza Vaccine This Season: No <Mandeep Byrd 02/26/18 00:14> Medications and Allergies Allergies Allergy/AdvReac Type Severity Reaction Status Date / Time QT prolonging drugs Allergy Severe Uncoded 04/16/17 16:01 <Kristopher Wooten - 02/26/18 18:43> Home Medications Medication Instructions Recorded Confirmed Type clonazepam 1 mg PO BID 02/25/18 02/25/18 History folic acid 20 mg PO DAILY 02/25/18 02/25/18 History furosemide 20 mg PO DAILY 02/25/18 02/25/18 History gabapentin 1,200 mg PO BID 02/25/18 02/25/18 History levothyroxine 50 mcg PO DAILY 02/25/18 02/25/18 History multivitamin with folic acid 1 tab PO DAILY 02/25/18 02/25/18 History [Thera] thiamine HCl (vitamin B1) [Vitamin 100 mg PO DAILY 02/25/18 02/25/18 History B-1] vitamin [id number] acid 1 tab PO DAILY 02/25/18 02/25/18 History <Kristopher Wooten - 02/26/18 18:43> Active Medications: Active Medications Al Hydroxide/Mg Hydroxide (Milk Of Magnesia Liq) 30 ml PO Q12H PRN PRN Reason: Mild Constipation Clonazepam (Klonopin) 1 mg PO BID [facility] Last Admin: 02/26/18 09:42 Dose: Not Given Cyanocobalamin (Vitamin B12) 100 mcg PO DAILY [facility] Last Admin: 02/26/18 09:42 Dose: 100 mcg Flumazenil (Romazecon Inj) 0.2 mg IV.PUSH Q1M PRN PRN Reason: OVERSEDATION Furosemide (Lasix) 20 mg PO DAILY [facility] Last Admin: 02/26/18 09:42 Dose: 20 mg Gabapentin (Neurontin) 1,200 mg PO BID [facility] Last Admin: 02/26/18 09:41 Dose: 1,200 mg Haloperidol Lactate (Haldol Inj) 1 mg IV.PUSH Q15M PRN PRN Reason: for severe agitation Lactulose (Lactulose Liq) 30 ml PO BID [facility] Last Admin: 02/26/18 12:25 Dose: 30 ml Levothyroxine Sodium (Synthroid) 50 mcg PO DAILY@0700 [facility] Last Admin: 02/26/18 07:35 Dose: 50 mcg Lorazepam (Ativan) 1 mg PO Q4H PRN PRN Reason: for CIWA 8-10 Lorazepam (Ativan Inj) 2 mg IV.PUSH Q2H PRN PRN Reason: for CIWA 11-14 Lorazepam (Ativan Inj) 2 mg IV.PUSH Q1H PRN PRN Reason: for CIWA 15-20 Lorazepam (Ativan Inj) 2 mg IV.PUSH Q15M PRN PRN Reason: for CIWA > 20 Lorazepam (Ativan Inj) 1 mg IV.PUSH Q4H PRN PRN Reason: for CIWA 8-10 Lorazepam (Ativan) 2 mg PO Q2H PRN PRN Reason: for CIWA 11-14 Morphine Sulfate (Morphine Inj) 2 mg IV.PUSH Q4H PRN PRN Reason: PAIN SCALE 6 TO 10 Last Admin: 02/26/18 09:42 Dose: 2 mg Multivitamins (Theragran) 1 tab PO DAILY [facility] Last Admin: 02/26/18 09:42 Dose: 1 tab Senna/Docusate Sodium (Denice-Colace) 1 tab PO BID [facility] Last Admin: 02/26/18 09:42 Dose: 1 tab Sennosides (Senokot) 17.2 mg PO Q12H PRN PRN Reason: Moderate Constipation Last Admin: 02/26/18 09:42 Dose: 17.2 mg Sodium Chloride (Ns Flush) 2 ml IV.FLUSH BID [facility] Last Admin: 02/26/18 09:45 Dose: 2 ml Sodium Chloride (Ns Flush) 2 ml IV.FLUSH PRN PRN PRN Reason: FLUSH AFTER USING IV ACCESS Thiamine HCl (Vitamin B1) 100 mg PO DAILY [facility] Last Admin: 02/26/18 09:41 Dose: 100 mg <Kristopher Wooten L - 02/26/18 18:43> Active Medications Al Hydroxide/Mg Hydroxide (Milk Of In [place] Liq) 30 ml PO Q12H PRN PRN Reason: Mild Constipation Flumazenil (Romazecon Inj) 0.2 mg IV.PUSH Q1M PRN PRN Reason: OVERSEDATION Haloperidol Lactate (Haldol Inj) 1 mg IV.PUSH Q15M PRN PRN Reason: for severe agitation Potassium Chloride (Kcl 20 Meq Premix Inj) 20 meq in 100 mls @ 50 mls/hr IV.SIG Q2H [facility] Stop: 02/26/18 00:44 Last Admin: 02/25/18 23:19 Dose: 50 mls/hr Lorazepam (Ativan) 1 mg PO Q4H PRN PRN Reason: for CIWA 8-10 Lorazepam (Ativan Inj) 2 mg IV.PUSH Q2H PRN PRN Reason: for CIWA 11-14 Lorazepam (Ativan Inj) 2 mg IV.PUSH Q1H PRN PRN Reason: for CIWA 15-20 Lorazepam (Ativan Inj) 2 mg IV.PUSH Q15M PRN PRN Reason: for CIWA > 20 Lorazepam (Ativan Inj) 1 mg IV.PUSH Q4H PRN PRN Reason: for CIWA 8-10 Lorazepam (Ativan) 2 mg PO Q2H PRN PRN Reason: for 14 Senna/Docusate Sodium (Denice-Colace) 1 tab PO BID [facility] Sennosides (Senokot) 17.2 mg PO Q12H PRN PRN Reason: Moderate Constipation Sodium Chloride (Ns Flush) 2 ml IV.FLUSH PRN PRN PRN Reason: FLUSH AFTER USING IV ACCESS <RochelleMandeep - 02/26/18 00:14> Exam Vital signs: Vital Signs 02/25/18 18:46 02/25/18 19:50 02/26/18 00:00 Temperature 97.5 F L Pulse Rate 95 H 81 87 Respiratory Rate 15 16 17 Blood Pressure 119/80 125/67 103/74 Pulse Oximetry 99 98 95 02/26/18 04:00 02/26/18 08:00 02/26/18 12:00 Temperature 97.8 F 97.8 F 97.5 F L Pulse Rate 97 H 97 H 86 Respiratory Rate 16 18 18 Blood Pressure 102/67 103/73 97/61 L Pulse Oximetry 93 L 96 95 02/26/18 16:00 Temperature 97.7 F Pulse Rate 86 Respiratory Rate 16 Blood Pressure 101/66 Pulse Oximetry Intake & Output 02/25/18 02/26/18 02/26/18 18:59 06:59 18:59 Intake Total 200 / 200 240 / 240 Balance 200 / 200 240 / 240 Weight 68.946 kg 69.7 kg Intake: IV 200 / 200 KCl 20 mEq Premix Inj 20 meq In 200 / 200 100 ml @ 50 mls/hr IV.SIG Q2H [facility] Rx#:[id number] Oral 240 / 240 Other: # Voids 2 Date of Last Bowel Movement 02/25/18 02/25/18 02/26/18 Weight On Admission 68.946 kg <Kristopher Wooten - 02/26/18 18:43> Vital Signs 02/25/18 15:00 02/25/18 18:46 02/25/18 19:50 Temperature 97.7 F Pulse Rate 100 H 95 H 81 Respiratory Rate 15 15 16 Blood Pressure 119/73 119/80 125/67 Pulse Oximetry 100 99 98 Intake & Output 02/25/18 02/25/18 02/26/18 06:59 18:59 06:59 Intake Total 100 / 100 Balance 100 / 100 Weight 68.946 kg Intake: IV 100 / 100 KCl 20 mEq Premix Inj 20 meq In 100 / 100 100 ml @ 50 mls/hr IV.SIG Q2H [facility] Rx#:[id number] Other: Date of Last Bowel Movement 02/25/18 <Mandeep Byrd - 02/26/18 00:14> Narrative: GENERAL: NAD, lying comfortably in bed NEURO: Alert. Normal speech. cardiac care unit nurse grossly intact. Motor grossly normal. SKIN: Significantly jaundiced. Multiple spider angiomas along chest and left distal upper extremity. HEAD: Normocephalic. Atraumatic. EYES: PERRL. EOMI. Marked scleral icterus present. No injection or drainage. ENT: No nasal drainage. Moist mucous membranes. NECK: Supple, trachea midline. No JVD or lymphadenopathy. CARDIOVASCULAR: Regular rate and rhythm without murmurs, rubs, or gallops. Peripheral pulses 2+. Capillary refill < 2 seconds. RESPIRATORY: Breath sounds clear to auscultation and equal bilaterally, without wheezes, rales, or rhonchi. No accessory muscle use. GASTROINTESTINAL: Abdomen soft, moderate tenderness with palpation of RUQ and LUQ, nontender along other quadrants, moderate distension of abdomen, normal BS. Marked hepatomegaly. No rebound tenderness. No guarding. Tympanitic to percussion. + fluid wave. MUSCULOSKELETAL: Trace pre-tibial left lower extremity edema up to mid tibia. Normal range of motion. BACK: Nontender without obvious deformity. <Mandeep Byrd - 02/26/18 01:03> Results - Labs Result diagrams: 02/26/18 03:38 02/26/18 03:35 <Kristopher Wooten - 02/26/18 18:43> Abnormal lab results 02/25/18 02/25/18 02/25/18 Range/Units 18:59 18:59 18:59 RBC 3.30 L (4.00-5.30) mil/mm3 Hct (35.0-46.0) % MCV 108.9 H (80.0-100.0) fL MCH 40.1 H (27.0-34.0) pg MCHC 36.8 H (32.0-36.0) % RDW 17.7 H (11.6-17.2) % Neut % (Auto) (16.0-70.0) % Craven % (Auto) 12.6 H (0.0-8.0) % Craven # (Auto) 1.4 H (0.0-0.9) th/mm3 PT 13.0 H (9.8-11.6) sec Sodium 133 L (136-145) meq/L Potassium 2.1 L* (3.5-5.1) meq/L Chloride 93 L (98-107) meq/L Creatinine 1.38 H (0.50-1.00) mg/dL Estimated GFR 44 L (>89) mL/min Random Glucose 112 H (74-106) mg/dL Calcium (8.5-10.1) mg/dL Total Bilirubin 43.9 H (0.2-1.0) mg/dL AST 103 H (15-37) U/L Alkaline Phosphatase 385 H (45-117) U/L Ammonia (11-32) mcmol/L Total Protein (6.4-8.2) g/dL Albumin 2.5 L (3.4-5.0) g/dL Urine Clarity (Clear) Urine Bilirubin (Negative) Urine Ictotest (Negative) Urine WBC (0-5) /hpf Amorphous Sediment (None) /hpf Urine Bacteria (None) /hpf Urine Mucus (Occasional) /lpf 02/25/18 02/25/18 02/26/18 Range/Units 18:59 19:13 03:35 RBC (4.00-5.30) mil/mm3 Hct (35.0-46.0) % MCV (80.0-100.0) fL MCH (27.0-34.0) pg MCHC (32.0-36.0) % RDW (11.6-17.2) % Neut % (Auto) (16.0-70.0) % Craven % (Auto) (0.0-8.0) % [place]ven # (Auto) (0.0-0.9) th/mm3 PT (9.8-11.6) sec Sodium 135 L (136-145) meq/L Potassium 3.1 L D (3.5-5.1) meq/L Chloride 97 L (98-107) meq/L Creatinine 1.29 H (0.50-1.00) mg/dL Estimated GFR 47 L (>89) mL/min Random Glucose (74-106) mg/dL Calcium 8.1 L (8.5-10.1) mg/dL Total Bilirubin 36.1 H (0.2-1.0) mg/dL AST 80 H (15-37) U/L Alkaline Phosphatase 314 H (45-117) U/L Ammonia 55 H (11-32) mcmol/L Total Protein 5.4 L D (6.4-8.2) g/dL Albumin 2.2 L (3.4-5.0) g/dL Urine Clarity Hazy H (Clear) Urine Bilirubin Moderate H (Negative) Urine Ictotest Positive H (Negative) Urine WBC 6 H (0-5) /hpf Amorphous Sediment Rare H (None) /hpf Urine Bacteria Few H (None) /hpf Urine Mucus Few H (Occasional) /lpf 02/26/18 Range/Units 03:38 RBC 3.05 L (4.00-5.30) mil/mm3 Hct 33.8 L (35.0-46.0) % MCV 110.6 H (80.0-100.0) fL MCH 38.2 H (27.0-34.0) pg MCHC (32.0-36.0) % RDW 18.0 H (11.6-17.2) % Neut % (Auto) 72.2 H (16.0-70.0) % Craven % (Auto) 13.4 H (0.0-8.0) % Craven # (Auto) 1.4 H (0.0-0.9) th/mm3 PT (9.8-11.6) sec Sodium (136-145) meq/L Potassium (3.5-5.1) meq/L Chloride (98-107) meq/L Creatinine (0.50-1.00) mg/dL Estimated GFR (>89) mL/min Random Glucose (74-106) mg/dL Calcium (8.5-10.1) mg/dL Total Bilirubin (0.2-1.0) mg/dL AST (15-37) U/L Alkaline Phosphatase (45-117) U/L Ammonia (11-32) mcmol/L Total Protein (6.4-8.2) g/dL Albumin (3.4-5.0) g/dL Urine Clarity (Clear) Urine Bilirubin (Negative) Urine Ictotest (Negative) Urine WBC (0-5) /hpf Amorphous Sediment (None) /hpf Urine Bacteria (None) /hpf Urine Mucus (Occasional) /lpf Short CBC 02/25/18 02/26/18 Range/Units 18:59 03:38 WBC 10.9 10.6 (4.0-11.0) th/mm3 Hgb 13.2 11.7 (11.6-15.3) gm/dL Hct 36.0 33.8 L (35.0-46.0) % Plt Count 184 176 (150-450) th/mm3 BMP 02/25/18 02/26/18 18:59 03:35 Sodium 133 L 135 L Potassium 2.1 L* 3.1 L D Chloride 93 L 97 L Carbon Dioxide 27.3 27.7 BUN 12 12 Creatinine 1.38 H 1.29 H Calcium 8.7 8.1 L Liver Function 02/25/18 02/26/18 Range/Units 18:59 03:35 Total Bilirubin 43.9 H 36.1 H (0.2-1.0) mg/dL AST 103 H 80 H (15-37) U/L ALT 17 14 (10-53) U/L Alkaline Phosphatase 385 H 314 H (45-117) U/L Albumin 2.5 L 2.2 L (3.4-5.0) g/dL Urine 02/25/18 Range/Units 19:13 Urine Color Aysha (Yellw/Straw) Urine Clarity Hazy H (Clear) Urine pH 7.0 (5.0-8.5) Ur Specific [place] 1.008 (1.002-1.035) Urine Protein Negative (Neg-Trace) mg/dL Urine Glucose (UA) Negative (Negative) mg/dL <Young,Kristopher L - 02/26/18 18:43> Abnormal lab results 02/25/18 02/25/18 02/25/18 Range/Units 18:59 18:59 18:59 RBC 3.30 L (4.00-5.30) mil/mm3 MCV 108.9 H (80.0-100.0) fL MCH 40.1 H (27.0-34.0) pg MCHC 36.8 H (32.0-36.0) % RDW 17.7 H (11.6-17.2) % Craven % (Auto) 12.6 H (0.0-8.0) % [place] # (Auto) 1.4 H (0.0-0.9) th/mm3 PT 13.0 H (9.8-11.6) sec Sodium 133 L (136-145) meq/L Potassium 2.1 L* (3.5-5.1) meq/L Chloride 93 L (98-107) meq/L Creatinine 1.38 H (0.50-1.00) mg/dL Estimated GFR 44 L (>89) mL/min Random Glucose 112 H (74-106) mg/dL Total Bilirubin 43.9 H (0.2-1.0) mg/dL AST 103 H (15-37) U/L Alkaline Phosphatase 385 H (45-117) U/L Ammonia (11-32) mcmol/L Albumin 2.5 L (3.4-5.0) g/dL Urine Clarity (Clear) Urine Bilirubin (Negative) Urine Ictotest (Negative) Urine WBC (0-5) /hpf Amorphous Sediment (None) /hpf Urine Bacteria (None) /hpf Urine Mucus (Occasional) /lpf 02/25/18 02/25/18 Range/Units 18:59 19:13 RBC (4.00-5.30) mil/mm3 MCV (80.0-100.0) fL MCH (27.0-34.0) pg MCHC (32.0-36.0) % RDW (11.6-17.2) % Craven % (Auto) (0.0-8.0) % [place] # (Auto) (0.0-0.9) th/mm3 PT (9.8-11.6) sec Sodium (136-145) meq/L Potassium (3.5-5.1) meq/L Chloride (98-107) meq/L Creatinine (0.50-1.00) mg/dL Estimated GFR (>89) mL/min Random Glucose (74-106) mg/dL Total Bilirubin (0.2-1.0) mg/dL AST (15-37) U/L Alkaline Phosphatase (45-117) U/L Ammonia 55 H (11-32) mcmol/L Albumin (3.4-5.0) g/dL Urine Clarity Hazy H (Clear) Urine Bilirubin Moderate H (Negative) Urine Ictotest Positive H (Negative) Urine WBC 6 H (0-5) /hpf Amorphous Sediment Rare H (None) /hpf Urine Bacteria Few H (None) /hpf Urine Mucus Few H (Occasional) /lpf Short CBC 02/25/18 Range/Units 18:59 WBC 10.9 (4.0-11.0) th/mm3 Hgb 13.2 (11.6-15.3) gm/dL Hct 36.0 (35.0-46.0) % Plt Count 184 (150-450) th/mm3 BMP 02/25/18 18:59 Sodium 133 L Potassium 2.1 L* Chloride 93 L Carbon Dioxide 27.3 BUN 12 Creatinine 1.38 H Calcium 8.7 Liver Function 02/25/18 Range/Units 18:59 Total Bilirubin 43.9 H (0.2-1.0) mg/dL AST 103 H (15-37) U/L ALT 17 (10-53) U/L Alkaline Phosphatase 385 H (45-117) U/L Albumin 2.5 L (3.4-5.0) g/dL Urine 02/25/18 Range/Units 19:13 Urine Color Aysha (Yellw/Straw) Urine Clarity Hazy H (Clear) Urine pH 7.0 (5.0-8.5) Ur Specific [place] 1.008 (1.002-1.035) Urine Protein Negative (Neg-Trace) mg/dL Urine Glucose (UA) Negative (Negative) mg/dL <Mandeep Byrd - 02/26/18 00:14> - Imaging Impressions Abdomen/Pelvis CT 02/25/18 18:56 CONCLUSION: 1. Severe hepatomegaly, similar in severity, but with a lesser degree of steatosis than on prior examination. No intrahepatic ductal dilatation. 2. 1.7 cm peripherally calcified gallstone. Common hepatic duct measures 9 mm and is more prominent than on the prior examination. Chest X-Ray 02/25/18 18:56 CONCLUSION: The lungs are clear. Head CT 02/25/18 18:56 CONCLUSION: 1. No acute findings in the brain. . <Kristopher Wooten - 02/26/18 18:43> Impressions Abdomen/Pelvis CT 02/25/18 18:56 CONCLUSION: 1. Severe hepatomegaly, similar in severity, but with a lesser degree of steatosis than on prior examination. No intrahepatic ductal dilatation. 2. 1.7 cm peripherally calcified gallstone. Common hepatic duct measures 9 mm and is more prominent than on the prior examination. Chest X-Ray 02/25/18 18:56 CONCLUSION: The lungs are clear. Head CT 02/25/18 18:56 CONCLUSION: 1. No acute findings in the brain. . <Mandeep Byrd - 02/26/18 00:14> Caprini VTE Risk Assessment Caprini VTE Risk Assessment: No/Low Risk (score <= 1) <Mandeep Byrd - 01:03> Reji Risk Assessment Model: Point Value = 1 Point Value = 2 Point Value = 3 Point Value = 5 Age 41-60 Minor surgery BMI > 25 kg/m2 Swollen legs Varicose veins or History of unexplained or recurrent spontaneous Oral contraceptives or hormone replacement Sepsis (< 1 month) Serious lung disease, including pneumonia (< 1 month) Abnormal pulmonary function Acute myocardial infarction Congestive heart failure (< 1 month) History of inflammatory bowel disease Medical patient at bed rest Age 61-74 Arthroscopic surgery Major open surgery (> 45 min) Laparoscopic surgery (> 45 min) Malignancy Confined to bed (> 72 hours) Immobilizing plaster cast Central venous access Age >= 75 History of VTE Family history of VTE Factor V Leiden Prothrombin [id number] Lupus anticoagulant Anticardiolipin antibodies Elevated serum homocysteine Heparin-induced thrombocytopenia Other congenital or acquired thrombophilia Stroke (< 1 month) Elective arthroplasty Hip, pelvis, or leg fracture Acute spinal cord injury (< 1 month) <Kristopher Wooten - 02/26/18 18:43> Point Value = 1 Point Value = 2 Point Value = 3 Point Value = 5 Age 41-60 Minor surgery BMI > 25 kg/m2 Swollen legs Varicose veins or History of unexplained or recurrent spontaneous Oral contraceptives or hormone replacement Sepsis (< 1 month) Serious lung disease, including pneumonia (< 1 month) Abnormal pulmonary function Acute myocardial infarction Congestive heart failure (< 1 month) History of inflammatory bowel disease Medical patient at bed rest Age 61-74 Arthroscopic surgery Major open surgery (> 45 min) Laparoscopic surgery (> 45 min) Malignancy Confined to bed (> 72 hours) Immobilizing plaster cast Central venous access Age >= 75 History of VTE Family history of VTE Factor V Leiden Prothrombin [id number] Lupus anticoagulant Anticardiolipin antibodies Elevated serum homocysteine Heparin-induced thrombocytopenia Other congenital or acquired thrombophilia Stroke (< 1 month) Elective arthroplasty Hip, pelvis, or leg fracture Acute spinal cord injury (< 1 month) <Mandeep Byrd - 02/26/18 01:03> Prophylaxis Regimen: Total Risk Factor Score Risk Level Prophylaxis Regimen 0-1 Low Early ambulation 2 Moderate Order ONE of the following: *Sequential Compression Device (SCD) *Heparin 5000 units SQ BID 3-4 Higher Order ONE of the following medications: *Heparin 5000 units SQ TID *Enoxaparin/Lovenox 40 mg SQ daily (WT < 150 kg, CrCl > 30 mL/min) *Enoxaparin/Lovenox 30 mg SQ daily (WT < 150 kg, CrCl > 10-29 mL/min) *Enoxaparin/Lovenox 30 mg SQ BID (WT < 150 kg, CrCl > 30 mL/min) AND/OR *Sequential Compression Device (SCD) 5 or more Highest Order ONE of the following medications: *Heparin 5000 units SQ TID (Preferred with Epidurals) *Enoxaparin/Lovenox 40 mg SQ daily (WT < 150 kg, CrCl > 30 mL/min) *Enoxaparin/Lovenox 30 mg SQ daily (WT < 150 kg, CrCl > 10-29 mL/min) *Enoxaparin/Lovenox 30 mg SQ BID (WT < 150 kg, CrCl > 30 mL/min) AND *Sequential Compression Device (SCD) <Kristopher Wooten - 02/26/18 18:43> Total Risk Factor Score Risk Level Prophylaxis Regimen 0-1 Low Early ambulation 2 Moderate Order ONE of the following: *Sequential Compression Device (SCD) *Heparin 5000 units SQ BID 3-4 Higher Order ONE of the following medications: *Heparin 5000 units SQ TID *Enoxaparin/Lovenox 40 mg SQ daily (WT < 150 kg, CrCl > 30 mL/min) *Enoxaparin/Lovenox 30 mg SQ daily (WT < 150 kg, CrCl > 10-29 mL/min) *Enoxaparin/Lovenox 30 mg SQ BID (WT < 150 kg, CrCl > 30 mL/min) AND/OR *Sequential Compression Device (SCD) 5 or more Highest Order ONE of the following medications: *Heparin 5000 units SQ TID (Preferred with Epidurals) *Enoxaparin/Lovenox 40 mg SQ daily (WT < 150 kg, CrCl > 30 mL/min) *Enoxaparin/Lovenox 30 mg SQ daily (WT < 150 kg, CrCl > 10-29 mL/min) *Enoxaparin/Lovenox 30 mg SQ BID (WT < 150 kg, CrCl > 30 mL/min) AND *Sequential Compression Device (SCD) <Mandeep Byrd - 02/26/18 00:14> Assessment and Plan - Assessment (1) RUQ abdominal pain Code(s): R10.11 - Right upper quadrant pain Status: Acute Plan: Patient has longstanding history of etoh abuse and h/o cirrhosis Consider pain due to acute hepatic failure, cholecystitis, choledocholithiasis, liver abscess or mass Abdomen/pelvis CT showing severe hepatomegaly; no intrahepatic ductal dilatation. 1.7 cm peripherally calcified gallstone. Common hepatic duct measures 9 mm noted to be more prominent than prior examination Lipase wnl 168 INR 1.3 Consult gastroenterology, appreciate recommendations Morphine 2 mg IV q4h prn pain Prior work-up: MRCP 04/2017 showing hepatomegaly with scattered fatty infiltration; probable 1 cm cyst left hepatic lobe, possible hemangioma right hepatic lobe. 1.6 cm gallstone in the gallbladder neck. No choledocholithiasis. CBD upper limits of normal. Hepatitis profile negative, RAJAT neg, AMA < 20.0, ASMA neg, Liver biopsy (10/04/15): benign liver tissue with marked steatosis Repeat liver biopsy (10/07/15): marked steatohepatitis and cirrhosis Gallbladder ultrasound (04/16/17): hepatic steatosis, hepatomegaly, cholelithiasis with mild thickening of the gallbladder wall; mildly dilated common bile duct at 8mm. (2) Cirrhosis Code(s): K74.60 - Unspecified cirrhosis of liver Status: Acute Plan: Patient severely jaundiced secondary to cirrhosis with t-bili of 43.9 on admission MELD-Na score of 29 Continue to monitor LFTs, renal function, INR Plan as above (3) ETOH abuse Code(s): F10.10 - Alcohol abuse, uncomplicated Status: Acute Plan: [facility] protocol Rally pack Consult CM-etoh abuse dc plan prior to discharge (4) Hypokalemia Code(s): E87.6 - Hypokalemia Status: Acute Plan: K+ 2.1 on admission Unclear cause, consider due to diuretic use, GI losses, hypomagnesemia Will replete orally, continue to monitor (5) Acute kidney injury Code(s): N17.9 - Acute kidney failure, unspecified Status: Acute Plan: Cr 1.38 on admission Likely due to low renal perfusion pressure due to liver disease Overall hypervolemic state Continue to monitor Avoid nephrotoxic agents (6) Hypothyroidism Code(s): E03.9 - Hypothyroidism, unspecified Status: Acute Plan: Continue home levothyroxine (7) Nutrition, metabolism, and development symptoms Code(s): R63.8 - Other symptoms and signs concerning food and fluid intake Status: Acute Plan: Fluids: per PO Electrolytes: replete K+, continue to monitor Nutrition: regular diet <Kinsey Byrdsh - 02/26/18 00:14> (1) Cirrhosis Code(s): K74.60 - Unspecified cirrhosis of liver Status: Acute (2) Ascites Code(s): R18.8 - Other ascites Status: Acute (3) ETOH abuse Code(s): F10.10 - Alcohol abuse, uncomplicated Status: Chronic (4) Hypokalemia Code(s): E87.6 - Hypokalemia Status: Acute (5) Acute kidney injury Code(s): N17.9 - Acute kidney failure, unspecified Status: Acute (6) Hypothyroidism Code(s): E03.9 - Hypothyroidism, unspecified Status: Acute (7) Nutrition, metabolism, and development symptoms Code(s): R63.8 - Other symptoms and signs concerning food and fluid intake Status: Acute <Kristopher Wooten Kory - 02/26/18 18:43> - Attending Attestation The exam, history, and the medical decision-making described in the above note were completed with the assistance of the resident physician. I reviewed and agree with the findings presented. I did not see patient on admission day but did see her the next day (02/26/18) and documented my findings in the chart. <Kristopher Wooten Kory - 02/26/18 18:43> <Kristopher Wooten - Last Filed: 02/26/18 18:43> (1) Cirrhosis Qualifiers: Hepatic cirrhosis type: alcoholic cirrhosis (2) Ascites Qualifiers: Ascites type: due to alcoholic cirrhosis Qualified Code(s): K70.31 - Alcoholic cirrhosis of liver with ascites (6) Hypothyroidism Qualifiers: Hypothyroidism type: acquired Qualified Code(s): E03.9 - Hypothyroidism, unspecified <Kristopher Wooten - Last Filed: 02/26/18 18:43> (1) Cirrhosis Qualifiers: Hepatic cirrhosis type: alcoholic cirrhosis (2) Ascites Qualifiers: Ascites type: due to alcoholic cirrhosis Qualified Code(s): K70.31 - Alcoholic cirrhosis of liver with ascites (6) Hypothyroidism Qualifiers: Hypothyroidism type: acquired Qualified Code(s): E03.9 - Hypothyroidism, unspecified
[2018-02-26] MEDS ORDERED: Sodium Chloride 0.9% 2 ML Flush PRN IV.FLUSH (00:31)
[2018-02-26] MEDS: Morphine Sulfate Inj 2 MG/ML Vial IV.PUSH PRN ×2 (01:40→09:42)
[2018-02-26 04:48] LABS: Baso % (Auto) 0.2 % (0.0-2.0); Eos # (Auto) 0.1 th/mm3 (0.0-0.4); Eos % (Auto) 0.7 % (0.0-4.0); Hematocrit 33.8 % (35.0-46.0); Hemoglobin 11.7 gm/dL (11.6-15.3); Lymph # (Auto) 1.4 th/mm3 (1.0-4.8); Lymph % (Auto) 13.5 % (9.0-44.0); Mean Corpuscular HGB Conc 34.6 % (32.0-36.0); Mean Corpuscular Hemoglobin 38.2 pg (27.0-34.0); Mean Corpuscular Volume 110.6 fL (80.0-100.0); Mean Platelet Volume 8.3 fL (7.0-11.0); Mono # (Auto) 1.4 th/mm3 (0.0-0.9); Mono % (Auto) 13.4 % (0.0-8.0); Neut # (Auto) 7.7 th/mm3 (1.8-7.7); Neut % (Auto) 72.2 % (16.0-70.0); Platelet Count 176 th/mm3 (150-450); Red Blood Count 3.05 mil/mm3 (4.00-5.30); White Blood Count 10.6 th/mm3 (4.0-11.0)
[2018-02-26 05:27] LABS: Alanine Aminotransferase 14 U/L (10-53); Albumin 2.2 g/dL (3.4-5.0); Alkaline Phosphatase 314 U/L (45-117); Anion Gap 10 meq/L (5-15); Aspartate Aminotransferase 80 U/L (15-37); Blood Urea Nitrogen 12 mg/dL (7-18); Calcium 8.1 mg/dL (8.5-10.1); Carbon Dioxide 27.7 meq/L (21.0-32.0); Chloride 97 meq/L (98-107); Glomerular Filtration Rate 47 mL/min (>89); Glucose,Random 102 mg/dL (74-106); Magnesium 2.1 mg/dL (1.5-2.5); Potassium 3.1 meq/L (3.5-5.1); Sodium 135 meq/L (136-145)
[2018-02-26 05:42] LABS: Total Protein 5.4 g/dL (6.4-8.2)
[2018-02-26] MEDS: Levothyroxine 50 MCG Tablet PO SCH (07:35)
[2018-02-26] MEDS: Gabapentin 400 MG Capsule PO SCH ×2 (09:41→20:13)
[2018-02-26] MEDS: Senna/Docusate Sodium 8.6/50 MG Tablet PO SCH ×2 (09:42→23:36)
[2018-02-26] MEDS: clonazePAM 1 MG Tablet PO SCH ×2 (09:42→20:14)
[2018-02-26] MEDS: Furosemide 20 MG Tablet PO SCH (09:42)
[2018-02-26] MEDS: Sodium Chloride 0.9% 2 ML Flush BID IV.FLUSH SCH ×2 (09:45→20:14)
--- NOTE | 2018-02-26 10:22 | P.PNFP ---
Subjective Interval history: Patient seen with resident team this morning. She is sitting up in bed, no distress. She is alert, but somewhat sluggish with answers,which may or may not be her baseline. She reports feeling at her baseline mentation. She reports diffuse, especially mid and lower abdominal pain this morning, with occasional "shooting pains" in the right upper quadrant. She also reports significant jaundice, stating that she is "never this yellow" at home. Also reports significant ascites, stating that her abdomen was flat just a few days ago. No chest pain or shortness of breath. Had bowel movement yesterday but suggests she may be somewhat constipated, stating "it was not much of a bowel movement." Results - Labs Result diagrams: 02/26/18 03:38 02/26/18 03:35 Abnormal lab results 02/25/18 02/25/18 02/25/18 Range/Units 18:59 18:59 18:59 RBC 3.30 L (4.00-5.30) mil/mm3 Hct (35.0-46.0) % MCV 108.9 H (80.0-100.0) fL MCH 40.1 H (27.0-34.0) pg MCHC 36.8 H (32.0-36.0) % RDW 17.7 H (11.6-17.2) % Neut % (Auto) (16.0-70.0) % Dolores % (Auto) 12.6 H (0.0-8.0) % Dolores # (Auto) 1.4 H (0.0-0.9) th/mm3 PT 13.0 H (9.8-11.6) sec Sodium 133 L (136-145) meq/L Potassium 2.1 L* (3.5-5.1) meq/L Chloride 93 L (98-107) meq/L Creatinine 1.38 H (0.50-1.00) mg/dL Estimated GFR 44 L (>89) mL/min Random Glucose 112 H (74-106) mg/dL Calcium (8.5-10.1) mg/dL Total Bilirubin 43.9 H (0.2-1.0) mg/dL AST 103 H (15-37) U/L Alkaline Phosphatase 385 H (45-117) U/L Ammonia (11-32) mcmol/L Total Protein (6.4-8.2) g/dL Albumin 2.5 L (3.4-5.0) g/dL Urine Clarity (Clear) Urine Bilirubin (Negative) Urine Ictotest (Negative) Urine WBC (0-5) /hpf Amorphous Sediment (None) /hpf Urine Bacteria (None) /hpf Urine Mucus (Occasional) /lpf 02/25/18 02/25/18 02/26/18 Range/Units 18:59 19:13 03:35 RBC (4.00-5.30) mil/mm3 Hct (35.0-46.0) % MCV (80.0-100.0) fL MCH (27.0-34.0) pg MCHC (32.0-36.0) % RDW (11.6-17.2) % Neut % (Auto) (16.0-70.0) % Dolores % (Auto) (0.0-8.0) % Dolores # (Auto) (0.0-0.9) th/mm3 PT (9.8-11.6) sec Sodium 135 L (136-145) meq/L Potassium 3.1 L D (3.5-5.1) meq/L Chloride 97 L (98-107) meq/L Creatinine 1.29 H (0.50-1.00) mg/dL Estimated GFR 47 L (>89) mL/min Random Glucose (74-106) mg/dL Calcium 8.1 L (8.5-10.1) mg/dL Total Bilirubin 36.1 H (0.2-1.0) mg/dL AST 80 H (15-37) U/L Alkaline Phosphatase 314 H (45-117) U/L Ammonia 55 H (11-32) mcmol/L Total Protein 5.4 L D (6.4-8.2) g/dL Albumin 2.2 L (3.4-5.0) g/dL Urine Clarity Hazy H (Clear) Urine Bilirubin Moderate H (Negative) Urine Ictotest Positive H (Negative) Urine WBC 6 H (0-5) /hpf Amorphous Sediment Rare H (None) /hpf Urine Bacteria Few H (None) /hpf Urine Mucus Few H (Occasional) /lpf 02/26/18 Range/Units 03:38 RBC 3.05 L (4.00-5.30) mil/mm3 Hct 33.8 L (35.0-46.0) % MCV 110.6 H (80.0-100.0) fL MCH 38.2 H (27.0-34.0) pg MCHC (32.0-36.0) % RDW 18.0 H (11.6-17.2) % Neut % (Auto) 72.2 H (16.0-70.0) % Dolores % (Auto) 13.4 H (0.0-8.0) % Dolores # (Auto) 1.4 H (0.0-0.9) th/mm3 PT (9.8-11.6) sec Sodium (136-145) meq/L Potassium (3.5-5.1) meq/L Chloride (98-107) meq/L Creatinine (0.50-1.00) mg/dL Estimated GFR (>89) mL/min Random Glucose (74-106) mg/dL Calcium (8.5-10.1) mg/dL Total Bilirubin (0.2-1.0) mg/dL AST (15-37) U/L Alkaline Phosphatase (45-117) U/L Ammonia (11-32) mcmol/L Total Protein (6.4-8.2) g/dL Albumin (3.4-5.0) g/dL Urine Clarity (Clear) Urine Bilirubin (Negative) Urine Ictotest (Negative) Urine WBC (0-5) /hpf Amorphous Sediment (None) /hpf Urine Bacteria (None) /hpf Urine Mucus (Occasional) /lpf Short CBC 02/25/18 02/26/18 Range/Units 18:59 03:38 WBC 10.9 10.6 (4.0-11.0) th/mm3 Hgb 13.2 11.7 (11.6-15.3) gm/dL Hct 36.0 33.8 L (35.0-46.0) % Plt Count 184 176 (150-450) th/mm3 BMP 02/25/18 02/26/18 18:59 03:35 Sodium 133 L 135 L Potassium 2.1 L* 3.1 L D Chloride 93 L 97 L Carbon Dioxide 27.3 27.7 BUN 12 12 Creatinine 1.38 H 1.29 H Calcium 8.7 8.1 L Liver Function 02/25/18 02/26/18 Range/Units 18:59 03:35 Total Bilirubin 43.9 H 36.1 H (0.2-1.0) mg/dL AST 103 H 80 H (15-37) U/L ALT 17 14 (10-53) U/L Alkaline Phosphatase 385 H 314 H (45-117) U/L Albumin 2.5 L 2.2 L (3.4-5.0) g/dL Urine 02/25/18 Range/Units 19:13 Urine Color Aysha (Yellw/Straw) Urine Clarity Hazy H (Clear) Urine pH 7.0 (5.0-8.5) Ur Specific [place] 1.008 (1.002-1.035) Urine Protein Negative (Neg-Trace) mg/dL Urine Glucose (UA) Negative (Negative) mg/dL - Imaging Impressions Abdomen/Pelvis CT 02/25/18 18:56 CONCLUSION: 1. Severe hepatomegaly, similar in severity, but with a lesser degree of steatosis than on prior examination. No intrahepatic ductal dilatation. 2. 1.7 cm peripherally calcified gallstone. Common hepatic duct measures 9 mm and is more prominent than on the prior examination. Chest X-Ray 02/25/18 18:56 CONCLUSION: The lungs are clear. Head CT 02/25/18 18:56 CONCLUSION: 1. No acute findings in the brain. . Physical Exam Vital signs: Vital Signs 02/25/18 15:00 02/25/18 18:46 02/25/18 19:50 Temperature 97.7 F Pulse Rate 100 H 95 H 81 Respiratory Rate 15 15 16 Blood Pressure 119/73 119/80 125/67 Pulse Oximetry 100 99 98 02/26/18 00:00 02/26/18 04:00 Temperature 97.5 F L 97.8 F Pulse Rate 87 97 H Respiratory Rate 17 16 Blood Pressure 103/74 102/67 Pulse Oximetry 95 93 L Intake & Output 02/25/18 02/26/18 02/26/18 18:59 06:59 18:59 Intake Total 200 / 200 240 / 240 Balance 200 / 200 240 / 240 Weight 68.946 kg 69.7 kg Intake: IV 200 / 200 KCl 20 mEq Premix Inj 20 meq In 200 / 200 100 ml @ 50 mls/hr IV.SIG Q2H ZONIA Rx#:[id number] Oral 240 / 240 Other: # Voids 2 Date of Last Bowel Movement 02/25/18 02/25/18 02/24/18 Weight On Admission 68.946 kg Narrative: General: sitting up in bed, no distress Skin: significant spider angiomata located across the anterior chest, significantly jaundiced down to the lower abdomen HEENT: Normocephalic, no nasal congestion, significant scleral icterus Neck: Normal range of motion, no JVD, no lymphadenopathy CV: RRR, no murmurs, rubs, or gallops, normal peripheral pulses Lungs: CTAB Abdomen: Moderate ascites with positive fluid wave, significant hepatomegaly with liver edge felt half way down abdomen, cannot feel spleen. Tender to palpation in mid and lower abdomen but without guarding or rebound tenderness, negative Bhardwaj sign, no significant tenderness in right upper quadrant. MSK: Fair range of motion Neuro: Awake, alert, somewhat sluggish with answers but answers clearly finally , no asterixis repeat hepatitis panel HIDA scan lactulose after HIDA scan replace potassium consult surgery for stones but probably alcohol related Assessment and Plan - Assessment (1) Cirrhosis Code(s): K74.60 - Unspecified cirrhosis of liver Status: Acute Plan: 32 year old female with history of severe steatosis presenting with diffuse abdominal pain without peritonitis. No fevers since admission. Coag panel INR 1.3, PT 13, APTT 28.2. Liver enzymes AST 103, ALT 17 decreased to 80/14 today. Total bili is 43.9 yesterday, 36.1 today. ALP is 385 to 314 today. Ammonia is 55. Albumin low at 2.2 today. Lipase normal. Potassium initially 2.1, now 3.1. MELD-Na score 29. Has history of intermittent binge drinking, recently went on a drinking binge. CT scan shows severe hepatomegaly, steatosis present. No intrahepatic ductal dilation. 1.7 cm peripherally calcified gallstone. Common hepatic duct 9 mm and more prominent than before. Prior work-up: MRCP 04/2017 showing hepatomegaly with scattered fatty infiltration; probable 1 cm cyst left hepatic lobe, possible hemangioma right hepatic lobe. 1.6 cm gallstone in the gallbladder neck. No choledocholithiasis. CBD upper limits of normal. Hepatitis profile negative, RAJAT neg, AMA < 20.0, ASMA neg, Liver biopsy (10/04/15): benign liver tissue with marked steatosis Repeat liver biopsy (10/07/15): marked steatohepatitis and cirrhosis Gallbladder ultrasound (04/16/17): hepatic steatosis, hepatomegaly, cholelithiasis with mild thickening of the gallbladder wall; mildly dilated common bile duct at 8mm. - GI on board, appreciate recommendations - HIDA scan ordered - Lactulose after HIDA scan - Morphine 2 mg IV q4h prn pain - Repeat hepatitis profile - Avoid hepatotoxic agents - Continue to discuss seriousness of illness and need for alcohol cessation, refer for counseling/rehab after discharge (2) Ascites Code(s): R18.8 - Other ascites Status: Acute Plan: Significant ascites on exam - Consider spironolactone for low potassium and ascites, defer to gastroenterology - Consider beta elpidio for portal hypertension, defer to gastroenterology - Low threshold for paracentesis and coverage for SBP if pain worsening, fevers , etc. (3) ETOH abuse Code(s): F10.10 - Alcohol abuse, uncomplicated Status: Chronic Plan: [facility] protocol thiamine, folic acid, multivitamin Consult CM-etoh abuse dc plan prior to discharge Continue open discussions about alcohol abuse (4) Hypokalemia Code(s): E87.6 - Hypokalemia Status: Acute Plan: K+ 2.1 on admission, now 3.1 - Consider spironolactone for ascites and hypokalemia (5) Acute kidney injury Code(s): N17.9 - Acute kidney failure, unspecified Status: Acute Plan: Cr 1.38 on admission, baseline 0.56 Likely due to low renal perfusion pressure due to liver disease Overall hypervolemic state Continue to monitor Avoid nephrotoxic agents (6) Hypothyroidism Code(s): E03.9 - Hypothyroidism, unspecified Status: Acute Plan: Continue home levothyroxine (7) Nutrition, metabolism, and development symptoms Code(s): R63.8 - Other symptoms and signs concerning food and fluid intake Status: Acute Plan: Fluids: per PO Electrolytes: replete K+, continue to monitor Nutrition: regular diet - Assessment and Plan Discussed Condition With: Seen and discussed with resident team (1) Cirrhosis Qualifiers: Hepatic cirrhosis type: alcoholic cirrhosis (2) Ascites Qualifiers: Ascites type: due to alcoholic cirrhosis Qualified Code(s): K70.31 - Alcoholic cirrhosis of liver with ascites (6) Hypothyroidism Qualifiers: Hypothyroidism type: acquired Qualified Code(s): E03.9 - Hypothyroidism, unspecified
--- NOTE | 2018-02-26 11:28 | P.CONGI ---
History of Present Illness Consult date: 02/26/18 Consult reason: Positive for jaundice, cirrhosis, fatty liver Chief complaint: Jaundice, Gallstones History of Present Illness: This is a 32-year-old female who came to the hospital for further evaluation on 02/25/2018 patient had onset of abdominal pain symptoms which appear to be generalized as well as lower abdomen and mid upper abdomen approximately 1 month ago abdominal pain has waxed and waned as well as some nausea and vomiting x1 but worsened over the past 2 weeks. Patient also noted jaundice color to her skin and her sclera. According to the record and the patient she has been living between her sister house and her mother's house and has drank liquor alcohol since the age of 24 on a regular basis. Patient notes she was drinking more approximately a month ago than she has over the past few weeks. Patient denies any IV or illegal drugs and no smoking. Patient also notes extreme fatigue without any obvious fainting patient states that she was in the hospital back in April 2017 in which liver workup was initiated but she never had any follow-up with GI. Current labs show hemoglobin 11.7, PT/INR 1.3 , initial bilirubin 43.9, now decreased to 36.1, AST 103 nail 80, ALT 17 now 14 , alkaline phosphatase 314 and ammonia level 55. Patient is attempting to answer simple questions but does appear to have some altered mental status and very forgetful which is probably related to her hyper ammoniemia she also notes some constipation over the past week and states that she had not had any issues with that before then. Patient notes she was placed on lactulose at some point in time but has not been taking any medicines for her liver patient her dad had colon cancer in his 60s and states she had a colonoscopy approximately 3 years ago but unknown findings and no EGD in the past. Gastroenterology was consulted to assist with her symptoms and plan of care. <Di Mcdonald - Last Filed: 02/26/18 11:30> Review of Systems All other systems reviewed negative except as stated in HPI <Di Mcdonald - Last Filed: 02/26/18 11:30> PMFSH - History History Provided By: Patient - Medical History Medical History: Medical History (Last Reviewed 02/25/18 @ 22:39 by Fariha Omer) 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[place] teeth extracted - Surgical History Surgical History: Surgical History (Last Updated 02/25/18 @ 18:25 by Meli Lai) History of liver biopsy Hx of tonsillectomy - Tobacco History Second Hand Smoke Exposure: No Tobacco Use In Past 30 Days: No Smoking Status: Former smoker Tobacco Type: Cigarettes - Alcohol History How Often Do You Have a Drink Containing Alcohol: 2 to 4 times a month - Substance Use History Substance History: No History of Abuse - Travel History Recent Travel in the [place] Within the Last 8 Weeks: No Recent Travel Out of the Country Within the Last 8 Weeks: No - Immunization History Tetanus Immunization: <5 Years Hx Influenza Vaccine This Season: No <Di Mcdonald - Last Filed: 02/26/18 11:30> - Medical History Medical History: Medical History (Last Reviewed 02/25/18 @ 22:39 by Fariha Omer) 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[place] teeth extracted - Surgical History Surgical History: Surgical History (Last Updated 02/25/18 @ 18:25 by Meli Lai) History of liver biopsy Hx of tonsillectomy <Galen Cabral - Last Filed: 02/26/18 16:04> Medications and Allergies Active Medications: Active Medications Al Hydroxide/Mg Hydroxide (Milk Of Gaby Liq) 30 ml PO Q12H PRN PRN Reason: Mild Constipation Clonazepam (Klonopin) 1 mg PO BID [facility] Last Admin: 02/26/18 09:42 Dose: Not Given Cyanocobalamin (Vitamin B12) 100 mcg PO DAILY [facility] Last Admin: 02/26/18 09:42 Dose: 100 mcg Flumazenil (Romazecon Inj) 0.2 mg IV.PUSH Q1M PRN PRN Reason: OVERSEDATION Furosemide (Lasix) 20 mg PO DAILY [facility] Last Admin: 02/26/18 09:42 Dose: 20 mg Gabapentin (Neurontin) 1,200 mg PO BID [facility] Last Admin: 02/26/18 09:41 Dose: 1,200 mg Haloperidol Lactate (Haldol Inj) 1 mg IV.PUSH Q15M PRN PRN Reason: for severe agitation Levothyroxine Sodium (Synthroid) 50 mcg PO DAILY@0700 [facility] Last Admin: 02/26/18 07:35 Dose: 50 mcg Lorazepam (Ativan) 1 mg PO Q4H PRN PRN Reason: for CIWA 8-10 Lorazepam (Ativan Inj) 2 mg IV.PUSH Q2H PRN PRN Reason: for CIWA 11-14 Lorazepam (Ativan Inj) 2 mg IV.PUSH Q1H PRN PRN Reason: for CIWA 15-20 Lorazepam (Ativan Inj) 2 mg IV.PUSH Q15M PRN PRN Reason: for CIWA > 20 Lorazepam (Ativan Inj) 1 mg IV.PUSH Q4H PRN PRN Reason: for CIWA 8-10 Lorazepam (Ativan) 2 mg PO Q2H PRN PRN Reason: for CIWA 11-14 Morphine Sulfate (Morphine Inj) 2 mg IV.PUSH Q4H PRN PRN Reason: PAIN SCALE 6 TO 10 Last Admin: 02/26/18 09:42 Dose: 2 mg Multivitamins (Theragran) 1 tab PO DAILY [facility] Last Admin: 02/26/18 09:42 Dose: 1 tab Senna/Docusate Sodium (Denice-Colace) 1 tab PO BID [facility] Last Admin: 02/26/18 09:42 Dose: 1 tab Sennosides (Senokot) 17.2 mg PO Q12H PRN PRN Reason: Moderate Constipation Last Admin: 02/26/18 09:42 Dose: 17.2 mg Sodium Chloride (Ns Flush) 2 ml IV.FLUSH BID [facility] Last Admin: 02/26/18 09:45 Dose: 2 ml Sodium Chloride (Ns Flush) 2 ml IV.FLUSH PRN PRN PRN Reason: FLUSH AFTER USING IV ACCESS Thiamine HCl (Vitamin B1) 100 mg PO DAILY [facility] Last Admin: 02/26/18 09:41 Dose: 100 mg <Di Mcdonald M - Last Filed: 02/26/18 11:30> Active Medications: Active Medications Al Hydroxide/Mg Hydroxide (Milk Of Magnesia Liq) 30 ml PO Q12H PRN PRN Reason: Mild Constipation Clonazepam (Klonopin) 1 mg PO BID [facility] Last Admin: 02/26/18 09:42 Dose: Not Given Cyanocobalamin (Vitamin B12) 100 mcg PO DAILY [facility] Last Admin: 02/26/18 09:42 Dose: 100 mcg Flumazenil (Romazecon Inj) 0.2 mg IV.PUSH Q1M PRN PRN Reason: OVERSEDATION Furosemide (Lasix) 20 mg PO DAILY [facility] Last Admin: 02/26/18 09:42 Dose: 20 mg Gabapentin (Neurontin) 1,200 mg PO BID [facility] Last Admin: 02/26/18 09:41 Dose: 1,200 mg Haloperidol Lactate (Haldol Inj) 1 mg IV.PUSH Q15M PRN PRN Reason: for severe agitation Lactulose (Lactulose Liq) 30 ml PO BID [facility] Last Admin: 02/26/18 12:25 Dose: 30 ml Levothyroxine Sodium (Synthroid) 50 mcg PO DAILY@0700 [facility] Last Admin: 02/26/18 07:35 Dose: 50 mcg Lorazepam (Ativan) 1 mg PO Q4H PRN PRN Reason: for CIWA 8-10 Lorazepam (Ativan Inj) 2 mg IV.PUSH Q2H PRN PRN Reason: for CIWA 11-14 Lorazepam (Ativan Inj) 2 mg IV.PUSH Q1H PRN PRN Reason: for CIWA 15-20 Lorazepam (Ativan Inj) 2 mg IV.PUSH Q15M PRN PRN Reason: for CIWA > 20 Lorazepam (Ativan Inj) 1 mg IV.PUSH Q4H PRN PRN Reason: for CIWA 8-10 Lorazepam (Ativan) 2 mg PO Q2H PRN PRN Reason: for CIWA 11-14 Morphine Sulfate (Morphine Inj) 2 mg IV.PUSH Q4H PRN PRN Reason: PAIN SCALE 6 TO 10 Last Admin: 02/26/18 09:42 Dose: 2 mg Multivitamins (Theragran) 1 tab PO DAILY [facility] Last Admin: 02/26/18 09:42 Dose: 1 tab Senna/Docusate Sodium (Denice-Colace) 1 tab PO BID [facility] Last Admin: 02/26/18 09:42 Dose: 1 tab Sennosides (Senokot) 17.2 mg PO Q12H PRN PRN Reason: Moderate Constipation Last Admin: 02/26/18 09:42 Dose: 17.2 mg Sodium Chloride (Ns Flush) 2 ml IV.FLUSH BID [facility] Last Admin: 02/26/18 09:45 Dose: 2 ml Sodium Chloride (Ns Flush) 2 ml IV.FLUSH PRN PRN PRN Reason: FLUSH AFTER USING IV ACCESS Thiamine HCl (Vitamin B1) 100 mg PO DAILY [facility] Last Admin: 02/26/18 09:41 Dose: 100 mg <Galen Cabral - Last Filed: 02/26/18 16:04> Allergies Allergy/AdvReac Type Severity Reaction Status Date / Time QT prolonging drugs Allergy Severe Uncoded 04/16/17 16:01 Home Medications Medication Instructions Recorded Confirmed Type clonazepam 1 mg PO BID 02/25/18 02/25/18 History folic acid 20 mg PO DAILY 02/25/18 02/25/18 History furosemide 20 mg PO DAILY 02/25/18 02/25/18 History gabapentin 1,200 mg PO BID 02/25/18 02/25/18 History levothyroxine 50 mcg PO DAILY 02/25/18 02/25/18 History multivitamin with folic acid 1 tab PO DAILY 02/25/18 02/25/18 History [Thera] thiamine HCl (vitamin B1) [Vitamin 100 mg PO DAILY 02/25/18 02/25/18 History B-1] vitamin D99-sngwn acid 1 tab PO DAILY 02/25/18 02/25/18 History Exam Vital signs: Vital Signs 02/25/18 15:00 02/25/18 18:46 02/25/18 19:50 Temperature 97.7 F Pulse Rate 100 H 95 H 81 Respiratory Rate 15 15 16 Blood Pressure 119/73 119/80 125/67 Pulse Oximetry 100 99 98 02/26/18 00:00 02/26/18 04:00 02/26/18 08:00 Temperature 97.5 F L 97.8 F 97.8 F Pulse Rate 87 97 H 97 H Respiratory Rate 17 16 18 Blood Pressure 103/74 102/67 103/73 Pulse Oximetry 95 93 L 96 Intake & Output 02/25/18 02/26/18 02/26/18 18:59 06:59 18:59 Intake Total 200 / 200 240 / 240 Balance 200 / 200 240 / 240 Weight 68.946 kg 69.7 kg Intake: IV 200 / 200 KCl 20 mEq Premix Inj 20 meq In 200 / 200 100 ml @ 50 mls/hr IV.SIG Q2H [facility] Rx#:[id number] Oral 240 / 240 Other: # Voids 2 Date of Last Bowel Movement 02/25/18 02/25/18 02/24/18 Weight On Admission 68.946 kg - Constitutional moderate distress, average body habitus, chronically ill appearing, disheveled - Routine HEENT Exam Head: Present: normocephalic ENT: Present: mucous membranes dry - Routine Respiratory Exam Present: accessory muscle use (No obvious shortness of breath) - Routine Cardiovascular Exam Present: S1, S2 - Routine Abdominal Exam Present: tenderness (Generalized, with some lower abdominal pain as well as mid and upper and right upper quadrant), distended - Routine Skin Exam Present: jaundice (Along with icteric sclera) <Di Mcdonald - Last Filed: 02/26/18 11:30> Vital signs: Vital Signs 02/25/18 18:46 02/25/18 19:50 02/26/18 00:00 Temperature 97.5 F L Pulse Rate 95 H 81 87 Respiratory Rate 15 16 17 Blood Pressure 119/80 125/67 103/74 Pulse Oximetry 99 98 95 02/26/18 04:00 02/26/18 08:00 02/26/18 12:00 Temperature 97.8 F 97.8 F 97.5 F L Pulse Rate 97 H 97 H 86 Respiratory Rate 16 18 18 Blood Pressure 102/67 103/73 97/61 L Pulse Oximetry 93 L 96 95 Intake & Output 02/25/18 02/26/18 02/26/18 18:59 06:59 18:59 Intake Total 200 / 200 240 / 240 Balance 200 / 200 240 / 240 Weight 68.946 kg 69.7 kg Intake: IV 200 / 200 KCl 20 mEq Premix Inj 20 meq In 200 / 200 100 ml @ 50 mls/hr IV.SIG Q2H [facility] Rx#:[id number] Oral 240 / 240 Other: # Voids 2 Date of Last Bowel Movement 02/25/18 02/25/18 02/24/18 Weight On Admission 68.946 kg <Galen Cabral - Last Filed: 02/26/18 16:04> Results - Labs CBC & Chem 7: 02/26/18 03:38 02/26/18 03:35 Labs: Laboratory Results - last 24 hr 02/25/18 02/25/18 02/25/18 18:59 18:59 18:59 WBC 10.9 RBC 3.30 L Hgb 13.2 Hct 36.0 MCV 108.9 H MCH 40.1 H MCHC 36.8 H RDW 17.7 H Plt Count 184 MPV 8.4 Prelim Diff (Auto) Slide review pending Neut % (Auto) 69.5 Lymph % (Auto) 17.4 [place] % (Auto) 12.6 H Eos % (Auto) 0.4 Baso % (Auto) 0.1 Neut # (Auto) 7.5 Lymph # (Auto) 1.9 [place] # (Auto) 1.4 H Eos # (Auto) 0.0 Baso # (Auto) 0.0 WBC Differential . Diff Scan Auto diff confirmed Differential Comment . Platelet Estimate Normal Platelet Morphology Normal PT 13.0 H INR 1.3 APTT 28.2 Sodium 133 L Potassium 2.1 L* Chloride 93 L Carbon Dioxide 27.3 Anion Gap 13 BUN 12 Creatinine 1.38 H Estimated GFR 44 L Random Glucose 112 H Calcium 8.7 Magnesium Total Bilirubin 43.9 H AST 103 H ALT 17 Alkaline Phosphatase 385 H Ammonia Total Protein 6.4 Albumin 2.5 L Lipase 168 Urine Color Urine Clarity Urine pH Ur Specific [place] Urine Protein Urine Glucose (UA) Urine Ketones Urine Occult Blood Urine Nitrate Urine Bilirubin Urine Ictotest Urine Urobilinogen Ur Leukocyte Esterase Urine RBC Urine WBC Ur Squamous Epith Cells Amorphous Sediment Urine Bacteria Urine Mucus Micro UA Comment Ur Microscopic Review Urine Culture Comments Serum Alcohol Less than 3 02/25/18 02/25/18 02/26/18 18:59 19:13 03:35 WBC RBC Hgb Hct MCV MCH MCHC RDW Plt Count MPV Prelim Diff (Auto) Neut % (Auto) Lymph % (Auto) [place] % (Auto) Eos % (Auto) Baso % (Auto) Neut # (Auto) Lymph # (Auto) [place] # (Auto) Eos # (Auto) Baso # (Auto) WBC Differential Diff Scan Differential Comment Platelet Estimate Platelet Morphology PT INR APTT Sodium 135 L Potassium 3.1 L D Chloride 97 L Carbon Dioxide 27.7 Anion Gap 10 BUN 12 Creatinine 1.29 H Estimated GFR 47 L Random Glucose 102 Calcium 8.1 L Magnesium 2.1 Total Bilirubin 36.1 H AST 80 H ALT 14 Alkaline Phosphatase 314 H Ammonia 55 H Total Protein 5.4 L D Albumin 2.2 L Lipase Urine Color Aysha Urine Clarity Hazy H Urine pH 7.0 Ur Specific [place] 1.008 Urine Protein Negative Urine Glucose (UA) Negative Urine Ketones Negative Urine Occult Blood Negative Urine Nitrate Negative Urine Bilirubin Moderate H Urine Ictotest Positive H Urine Urobilinogen 4 or greater Ur Leukocyte Esterase Negative Urine RBC Less than 1 Urine WBC 6 H Ur Squamous Epith Cells 4 Amorphous Sediment Rare H Urine Bacteria Few H Urine Mucus Few H Micro UA Comment Culture not ind Ur Microscopic Review Not Reportable Urine Culture Comments Culture not ind Serum Alcohol 02/26/18 03:38 WBC 10.6 RBC 3.05 L Hgb 11.7 Hct 33.8 L MCV 110.6 H MCH 38.2 H MCHC 34.6 RDW 18.0 H Plt Count 176 MPV 8.3 Prelim Diff (Auto) Neut % (Auto) 72.2 H Lymph % (Auto) 13.5 [place] % (Auto) 13.4 H Eos % (Auto) 0.7 Baso % (Auto) 0.2 Neut # (Auto) 7.7 Lymph # (Auto) 1.4 [place] # (Auto) 1.4 H Eos # (Auto) 0.1 Baso # (Auto) 0.0 WBC Differential . Diff Scan Differential Comment Auto diff final Platelet Estimate Platelet Morphology PT INR APTT Sodium Potassium Chloride Carbon Dioxide Anion Gap BUN Creatinine Estimated GFR Random Glucose Calcium Magnesium Total Bilirubin AST ALT Alkaline Phosphatase Ammonia Total Protein Albumin Lipase Urine Color Urine Clarity Urine pH Ur Specific [place] Urine Protein Urine Glucose (UA) Urine Ketones Urine Occult Blood Urine Nitrate Urine Bilirubin Urine Ictotest Urine Urobilinogen Ur Leukocyte Esterase Urine RBC Urine WBC Ur Squamous Epith Cells Amorphous Sediment Urine Bacteria Urine Mucus Micro UA Comment Ur Microscopic Review Urine Culture Comments Serum Alcohol - Imaging Impressions Abdomen/Pelvis CT 02/25/18 18:56 CONCLUSION: 1. Severe hepatomegaly, similar in severity, but with a lesser degree of steatosis than on prior examination. No intrahepatic ductal dilatation. 2. 1.7 cm peripherally calcified gallstone. Common hepatic duct measures 9 mm and is more prominent than on the prior examination. Chest X-Ray 02/25/18 18:56 CONCLUSION: The lungs are clear. Head CT 02/25/18 18:56 CONCLUSION: 1. No acute findings in the brain. . <Di Mcdonald - Last Filed: 02/26/18 11:30> - Labs CBC & Chem 7: 02/26/18 03:38 02/26/18 03:35 Labs: Laboratory Results - last 24 hr 02/25/18 02/25/18 02/25/18 18:59 18:59 18:59 WBC 10.9 RBC 3.30 L Hgb 13.2 Hct 36.0 MCV 108.9 H MCH 40.1 H MCHC 36.8 H RDW 17.7 H Plt Count 184 MPV 8.4 Prelim Diff (Auto) Slide review pending Neut % (Auto) 69.5 Lymph % (Auto) 17.4 [place] % (Auto) 12.6 H Eos % (Auto) 0.4 Baso % (Auto) 0.1 Neut # (Auto) 7.5 Lymph # (Auto) 1.9 [place] # (Auto) 1.4 H Eos # (Auto) 0.0 Baso # (Auto) 0.0 WBC Differential . Diff Scan Auto diff confirmed Differential Comment . Platelet Estimate Normal Platelet Morphology Normal PT 13.0 H INR 1.3 APTT 28.2 Sodium 133 L Potassium 2.1 L* Chloride 93 L Carbon Dioxide 27.3 Anion Gap 13 BUN 12 Creatinine 1.38 H Estimated GFR 44 L Random Glucose 112 H Calcium 8.7 Magnesium Total Bilirubin 43.9 H AST 103 H ALT 17 Alkaline Phosphatase 385 H Ammonia Total Protein 6.4 Albumin 2.5 L Lipase 168 Urine Color Urine Clarity Urine pH Ur Specific [place] Urine Protein Urine Glucose (UA) Urine Ketones Urine Occult Blood Urine Nitrate Urine Bilirubin Urine Ictotest Urine Urobilinogen Ur Leukocyte Esterase Urine RBC Urine WBC Ur Squamous Epith Cells Amorphous Sediment Urine Bacteria Urine Mucus Micro UA Comment Ur Microscopic Review Urine Culture Comments Serum Alcohol Less than 3 Hep Bs Antigen 02/25/18 02/25/18 02/26/18 18:59 19:13 03:35 WBC RBC Hgb Hct MCV MCH MCHC RDW Plt Count MPV Prelim Diff (Auto) Neut % (Auto) Lymph % (Auto) [place] % (Auto) Eos % (Auto) Baso % (Auto) Neut # (Auto) Lymph # (Auto) [place] # (Auto) Eos # (Auto) Baso # (Auto) WBC Differential Diff Scan Differential Comment Platelet Estimate Platelet Morphology PT INR APTT Sodium 135 L Potassium 3.1 L D Chloride 97 L Carbon Dioxide 27.7 Anion Gap 10 BUN 12 Creatinine 1.29 H Estimated GFR 47 L Random Glucose 102 Calcium 8.1 L Magnesium 2.1 Total Bilirubin 36.1 H AST 80 H ALT 14 Alkaline Phosphatase 314 H Ammonia 55 H Total Protein 5.4 L D Albumin 2.2 L Lipase Urine Color Aysha Urine Clarity Hazy H Urine pH 7.0 Ur Specific [place] 1.008 Urine Protein Negative Urine Glucose (UA) Negative Urine Ketones Negative Urine Occult Blood Negative Urine Nitrate Negative Urine Bilirubin Moderate H Urine Ictotest Positive H Urine Urobilinogen 4 or greater Ur Leukocyte Esterase Negative Urine RBC Less than 1 Urine WBC 6 H Ur Squamous Epith Cells 4 Amorphous Sediment Rare H Urine Bacteria Few H Urine Mucus Few H Micro UA Comment Culture not ind Ur Microscopic Review Not Reportable Urine Culture Comments Culture not ind Serum Alcohol Hep Bs Antigen 02/26/18 02/26/18 03:38 11:47 WBC 10.6 RBC 3.05 L Hgb 11.7 Hct 33.8 L MCV 110.6 H MCH 38.2 H MCHC 34.6 RDW 18.0 H Plt Count 176 MPV 8.3 Prelim Diff (Auto) Neut % (Auto) 72.2 H Lymph % (Auto) 13.5 [place] % (Auto) 13.4 H Eos % (Auto) 0.7 Baso % (Auto) 0.2 Neut # (Auto) 7.7 Lymph # (Auto) 1.4 [place] # (Auto) 1.4 H Eos # (Auto) 0.1 Baso # (Auto) 0.0 WBC Differential . Diff Scan Differential Comment Auto diff final Platelet Estimate Platelet Morphology PT INR APTT Sodium Potassium Chloride Carbon Dioxide Anion Gap BUN Creatinine Estimated GFR Random Glucose Calcium Magnesium Total Bilirubin AST ALT Alkaline Phosphatase Ammonia Total Protein Albumin Lipase Urine Color Urine Clarity Urine pH Ur Specific [place] Urine Protein Urine Glucose (UA) Urine Ketones Urine Occult Blood Urine Nitrate Urine Bilirubin Urine Ictotest Urine Urobilinogen Ur Leukocyte Esterase Urine RBC Urine WBC Ur Squamous Epith Cells Amorphous Sediment Urine Bacteria Urine Mucus Micro UA Comment Ur Microscopic Review Urine Culture Comments Serum Alcohol Hep Bs Antigen Nonreactive - Imaging Impressions Abdomen/Pelvis CT 02/25/18 18:56 CONCLUSION: 1. Severe hepatomegaly, similar in severity, but with a lesser degree of steatosis than on prior examination. No intrahepatic ductal dilatation. 2. 1.7 cm peripherally calcified gallstone. Common hepatic duct measures 9 mm and is more prominent than on the prior examination. Chest X-Ray 02/25/18 18:56 CONCLUSION: The lungs are clear. Head CT 02/25/18 18:56 CONCLUSION: 1. No acute findings in the brain. . <Galen Cabral - Last Filed: 02/26/18 16:04> Assessment and Plan - Plan 32-year-old female who came to the hospital for further evaluation on 02/25/2018 patient had onset of abdominal pain symptoms which appear to be generalized as well as lower abdomen and mid upper abdomen approximately 1 month ago abdominal pain has waxed and waned as well as some nausea and vomiting x1 but worsened over the past 2 weeks. Patient also noted jaundice color to her skin and her sclera. According to the record and the patient she has been living between her sister house and her mother's house and has drank liquor alcohol since the age of 24 on a regular basis. Patient notes she was drinking more approximately a month ago than she has over the past few weeks. Patient denies any IV or illegal drugs and no smoking. Patient also notes extreme fatigue without any obvious fainting patient states that she was in the hospital back in April 2017 in which liver workup was initiated but she never had any follow-up with GI. Current labs show hemoglobin 11.7, PT/INR 1.3, initial bilirubin 43.9, now decreased to 36.1, AST 103 nail 80, ALT 17 now 14, alkaline phosphatase 314 and ammonia level 55. Patient is attempting to answer simple questions but does appear to have some altered mental status and very forgetful which is probably related to her hyper ammoniemia she also notes some constipation over the past week and states that she had not had any issues with that before then. Patient notes she was placed on lactulose at some point in time but has not been taking any medicines for her liver patient her dad had colon cancer in his 60s and states she had a colonoscopy approximately 3 years ago but unknown findings and no EGD in the past. Gastroenterology was consulted to assist with her symptoms and plan of care. CT scan performed on 02/25/2018 shows severe hepatomegaly, similar in severity with a lesser degree of steatosis than prior x-rays no intrahepatic ductal dilatation. 1.7 cm calcified gallstone. Common hepatic duct measures 9 mm and is more prominent than in the prior exam. Plan N.p.o. for now General surgery consult for their expert opinion HIDA scan Vitamins, thiamine daily Lactulose 30 mL 2 times daily Ativan per attending for any alcohol withdrawal Lasix Further recommendations to follow Patient was seen per myself and Dr. 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 Check MRCP due to ductal dilation seen on CT. Absteinence from etoh strongly recommended. Discussed with pt. and family. The exam, history, and the medical decision-making described in the above note were completed with the assistance of the mid-level provider. I reviewed and agree with the findings presented. I attest that I had a [id number] encounter with the patient on the same day, and personally performed and documented my assessment and findings in the medical record. <Galen Cabral - Last Filed: 02/26/18 16:04>
--- NOTE | 2018-02-26 15:00 | P.CONGS ---
[facility] Gen Surgery Consult Note Consult date: 02/26/18 Reason for consult: abdominal pain Requesting physician: Di Mcdonald Narrative: This a 32 year old female with a significant past history of ETOH use and Guillain Racco[place] who presented to the ED with yesterday for evaluation of generalized abdominal pain, distention and yellowing of the skin and eyes. She is slow to answer but does answer appropriately. Her reports that she has had this abdominal pain off and on for about 1 month. She does report that she drank tequila yesterday at her sister's house. She denies any IVDA. On admission, her WBC is normal; hemoglobin and hematocrit 11.7/33.8 respectfully. Her platelets are 176K. She is hypokalemic. Her total bilirubin was 43.9 on admission and today it is 36.1. Her alkaline phosphatase is elevated. Her lipase is 168. A hepatitis panel is pending. A CT abdomen/pelvis was obtained which shows severe hepatomegaly and a 1.7 cm gallstone. A General Surgery consultation has been requested. Review of Systems All other systems reviewed negative except as stated in [facility] - History History Provided By: Patient - Medical History Medical History: Medical History (Last Reviewed 02/26/18 @ 14:51 by GERMÁN Ramirez) 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[place] teeth extracted - Surgical History Surgical History: Surgical History (Last Reviewed 02/26/18 @ 14:51 by GERMÁN Ramirez) History of liver biopsy Hx of tonsillectomy - Tobacco History Second Hand Smoke Exposure: No Tobacco Use In Past 30 Days: No Smoking Status: Former smoker Tobacco Type: Cigarettes - Alcohol History How Often Do You Have a Drink Containing Alcohol: 2 to 4 times a month - Substance Use History Substance History: No History of Abuse - Travel History Recent Travel in the [place] Within the Last 8 Weeks: No Recent Travel Out of the Country Within the Last 8 Weeks: No - Immunization History Tetanus Immunization: <5 Years Hx Influenza Vaccine This Season: No Medications and Allergies Allergies Allergy/AdvReac Type Severity Reaction Status Date / Time QT prolonging drugs Allergy Severe Uncoded 04/16/17 16:01 Home Medications Medication Instructions Recorded Confirmed Type clonazepam 1 mg PO BID 02/25/18 02/25/18 History folic acid 20 mg PO DAILY 02/25/18 02/25/18 History furosemide 20 mg PO DAILY 02/25/18 02/25/18 History gabapentin 1,200 mg PO BID 02/25/18 02/25/18 History levothyroxine 50 mcg PO DAILY 02/25/18 02/25/18 History multivitamin with folic acid 1 tab PO DAILY 02/25/18 02/25/18 History [Thera] thiamine HCl (vitamin B1) [Vitamin 100 mg PO DAILY 02/25/18 02/25/18 History B-1] vitamin [id number] acid 1 tab PO DAILY 02/25/18 02/25/18 History Active Medications: Active Medications Al Hydroxide/Mg Hydroxide (Milk Of Magnesia Liq) 30 ml PO Q12H PRN PRN Reason: Mild Constipation Clonazepam (Klonopin) 1 mg PO BID [facility] Last Admin: 02/26/18 09:42 Dose: Not Given Cyanocobalamin (Vitamin B12) 100 mcg PO DAILY [facility] Last Admin: 02/26/18 09:42 Dose: 100 mcg Flumazenil (Romazecon Inj) 0.2 mg IV.PUSH Q1M PRN PRN Reason: OVERSEDATION Furosemide (Lasix) 20 mg PO DAILY [facility] Last Admin: 02/26/18 09:42 Dose: 20 mg Gabapentin (Neurontin) 1,200 mg PO BID [facility] Last Admin: 02/26/18 09:41 Dose: 1,200 mg Haloperidol Lactate (Haldol Inj) 1 mg IV.PUSH Q15M PRN PRN Reason: for severe agitation Lactulose (Lactulose Liq) 30 ml PO BID [facility] Last Admin: 02/26/18 12:25 Dose: 30 ml Levothyroxine Sodium (Synthroid) 50 mcg PO DAILY@0700 [facility] Last Admin: 02/26/18 07:35 Dose: 50 mcg Lorazepam (Ativan) 1 mg PO Q4H PRN PRN Reason: for CIWA 8-10 Lorazepam (Ativan Inj) 2 mg IV.PUSH Q2H PRN PRN Reason: for CIWA 11-14 Lorazepam (Ativan Inj) 2 mg IV.PUSH Q1H PRN PRN Reason: for CIWA 15-20 Lorazepam (Ativan Inj) 2 mg IV.PUSH Q15M PRN PRN Reason: for CIWA > 20 Lorazepam (Ativan Inj) 1 mg IV.PUSH Q4H PRN PRN Reason: for CIWA 8-10 Lorazepam (Ativan) 2 mg PO Q2H PRN PRN Reason: for CIWA 11-14 Morphine Sulfate (Morphine Inj) 2 mg IV.PUSH Q4H PRN PRN Reason: PAIN SCALE 6 TO 10 Last Admin: 02/26/18 09:42 Dose: 2 mg Multivitamins (Theragran) 1 tab PO DAILY [facility] Last Admin: 02/26/18 09:42 Dose: 1 tab Senna/Docusate Sodium (Denice-Colace) 1 tab PO BID [facility] Last Admin: 02/26/18 09:42 Dose: 1 tab Sennosides (Senokot) 17.2 mg PO Q12H PRN PRN Reason: Moderate Constipation Last Admin: 02/26/18 09:42 Dose: 17.2 mg Sodium Chloride (Ns Flush) 2 ml IV.FLUSH BID [facility] Last Admin: 02/26/18 09:45 Dose: 2 ml Sodium Chloride (Ns Flush) 2 ml IV.FLUSH PRN PRN PRN Reason: FLUSH AFTER USING IV ACCESS Thiamine HCl (Vitamin B1) 100 mg PO DAILY [facility] Last Admin: 02/26/18 09:41 Dose: 100 mg Exam Vital signs: Vital Signs 02/25/18 15:00 02/25/18 18:46 02/25/18 19:50 Temperature 97.7 F Pulse Rate 100 H 95 H 81 Respiratory Rate 15 15 16 Blood Pressure 119/73 119/80 125/67 Pulse Oximetry 100 99 98 02/26/18 00:00 02/26/18 04:00 02/26/18 08:00 Temperature 97.5 F L 97.8 F 97.8 F Pulse Rate 87 97 H 97 H Respiratory Rate 17 16 18 Blood Pressure 103/74 102/67 103/73 Pulse Oximetry 95 93 L 96 Intake & Output 02/25/18 02/26/18 02/26/18 18:59 06:59 18:59 Intake Total 200 / 200 240 / 240 Balance 200 / 200 240 / 240 Weight 68.946 kg 69.7 kg Intake: IV 200 / 200 KCl 20 mEq Premix Inj 20 meq In 200 / 200 100 ml @ 50 mls/hr IV.SIG Q2H [facility] Rx#:[id number] Oral 240 / 240 Other: # Voids 2 Date of Last Bowel Movement 02/25/18 02/25/18 02/24/18 Weight On Admission 68.946 kg Narrative: GENERAL: 32 year old female resting in bed in no acute distress. SKIN: Severe jaundice of skin. HEAD: Atraumatic. Normocephalic. EYES: Pupils equal and round. Sclera yellow. ENT: No nasal bleeding or discharge. Mucous membranes pink and moist. NECK: Trachea midline. CARDIOVASCULAR: Regular rate and rhythm. RESPIRATORY: No accessory muscle use. Clear to auscultation. Breath sounds equal bilaterally. GASTROINTESTINAL: Abdomen soft, mildly tender to palpation. No visible scars or hernias. No distention. MUSCULOSKELETAL: Extremities without clubbing, cyanosis, or edema. No obvious deformities. NEUROLOGICAL: Awake and alert. No obvious cranial nerve deficits. Motor grossly within normal limits. Five out of 5 muscle strength in the arms and legs. Slow to answer but appropriate. PSYCHIATRIC: Appropriate mood and affect; insight and judgment normal. - Routine HEENT Exam Head: Present: normocephalic ENT: Present: mucous membranes moist - Routine Respiratory Exam Present: CTA bilaterally - Routine Abdominal Exam Present: soft, tenderness (minimal in epigastrium and RUQ) - Routine Skin Exam Present: jaundice Results - Labs 03/02/18 04:27 03/02/18 04:27 Laboratory Results WBC 10.6 th/mm3 (4.0-11.0) 02/26/18 03:38 RBC 3.05 mil/mm3 (4.00-5.30) L 02/26/18 03:38 Hgb 11.7 gm/dL (11.6-15.3) 02/26/18 03:38 Hct 33.8 % (35.0-46.0) L 02/26/18 03:38 MCV 110.6 fL (80.0-100.0) H 02/26/18 03:38 MCH 38.2 pg (27.0-34.0) H 02/26/18 03:38 MCHC 34.6 % (32.0-36.0) 02/26/18 03:38 RDW 18.0 % (11.6-17.2) H 02/26/18 03:38 Plt Count 176 th/mm3 (150-450) 02/26/18 03:38 MPV 8.3 fL (7.0-11.0) 02/26/18 03:38 Prelim Diff (Auto) Slide review pending 02/25/18 18:59 Neut % (Auto) 72.2 % (16.0-70.0) H 02/26/18 03:38 Lymph % (Auto) 13.5 % (9.0-44.0) 02/26/18 03:38 [place] % (Auto) 13.4 % (0.0-8.0) H 02/26/18 03:38 Eos % (Auto) 0.7 % (0.0-4.0) 02/26/18 03:38 Baso % (Auto) 0.2 % (0.0-2.0) 02/26/18 03:38 Neut # (Auto) 7.7 th/mm3 (1.8-7.7) 02/26/18 03:38 Lymph # (Auto) 1.4 th/mm3 (1.0-4.8) 02/26/18 03:38 [place] # (Auto) 1.4 th/mm3 (0.0-0.9) H 02/26/18 03:38 Eos # (Auto) 0.1 th/mm3 (0.0-0.4) 02/26/18 03:38 Baso # (Auto) 0.0 th/mm3 (0.0-0.2) 02/26/18 03:38 WBC Differential . 02/26/18 03:38 Diff Scan Auto diff confirmed 02/25/18 18:59 Differential Comment Auto diff final 02/26/18 03:38 Platelet Estimate Normal (Normal) 02/25/18 18:59 Platelet Morphology Normal (Normal) 02/25/18 18:59 PT 13.0 sec (9.8-11.6) H 02/25/18 18:59 INR 1.3 Ratio 02/25/18 18:59 APTT 28.2 sec (24.3-30.1) 02/25/18 18:59 Sodium 135 meq/L (136-145) L 02/26/18 03:35 Potassium 3.1 meq/L (3.5-5.1) L D 02/26/18 03:35 Chloride 97 meq/L (98-107) L 02/26/18 03:35 Carbon Dioxide 27.7 meq/L (21.0-32.0) 02/26/18 03:35 Anion Gap 10 meq/L (5-15) 02/26/18 03:35 BUN 12 mg/dL (7-18) 02/26/18 03:35 Creatinine 1.29 mg/dL (0.50-1.00) H 02/26/18 03:35 Estimated GFR 47 mL/min (>89) L 02/26/18 03:35 Random Glucose 102 mg/dL (74-106) 02/26/18 03:35 Calcium 8.1 mg/dL (8.5-10.1) L 02/26/18 03:35 Magnesium 2.1 mg/dL (1.5-2.5) 02/26/18 03:35 Total Bilirubin 36.1 mg/dL (0.2-1.0) H 02/26/18 03:35 AST 80 U/L (15-37) H 02/26/18 03:35 ALT 14 U/L (10-53) 02/26/18 03:35 Alkaline Phosphatase 314 U/L (45-117) H 02/26/18 03:35 Ammonia 55 mcmol/L (11-32) H 02/25/18 18:59 Total Protein 5.4 g/dL (6.4-8.2) L D 02/26/18 03:35 Albumin 2.2 g/dL (3.4-5.0) L 02/26/18 03:35 Lipase 168 U/L (73-393) 02/25/18 18:59 Urine Color Aysha (Yellw/Straw) 02/25/18 19:13 Urine Clarity Hazy (Clear) H 02/25/18 19:13 Urine pH 7.0 (5.0-8.5) 02/25/18 19:13 Ur Specific [place] 1.008 (1.002-1.035) 02/25/18 19:13 Urine Protein Negative mg/dL (Neg-Trace) 02/25/18 19:13 Urine Glucose (UA) Negative mg/dL (Negative) 02/25/18 19:13 Urine Ketones Negative mg/dL (Negative) 02/25/18 19:13 Urine Occult Blood Negative (Negative) 02/25/18 19:13 Urine Nitrate Negative (Negative) 02/25/18 19:13 Urine Bilirubin Moderate (Negative) H 02/25/18 19:13 Urine Ictotest Positive (Negative) H 02/25/18 19:13 Urine Urobilinogen 4 or greater mg/dL (Less than 2) 02/25/18 19:13 Ur Leukocyte Esterase Negative (Negative) 02/25/18 19:13 Urine RBC Less than 1 /hpf (0-3) 02/25/18 19:13 Urine WBC 6 /hpf (0-5) H 02/25/18 19:13 Ur Squamous Epith Cells 4 /hpf (0-5) 02/25/18 19:13 Amorphous Sediment Rare /hpf (None) H 02/25/18 19:13 Urine Bacteria Few /hpf (None) H 02/25/18 19:13 Urine Mucus Few /lpf (Occasional) H 02/25/18 19:13 Micro UA Comment Culture not ind 02/25/18 19:13 Ur Microscopic Review Not Reportable 02/25/18 19:13 Urine Culture Comments Culture not ind 02/25/18 19:13 Serum Alcohol Less than 3 mg/dL (0-5) 02/25/18 18:59 Impressions Abdomen/Pelvis CT 02/25/18 18:56 CONCLUSION: 1. Severe hepatomegaly, similar in severity, but with a lesser degree of steatosis than on prior examination. No intrahepatic ductal dilatation. 2. 1.7 cm peripherally calcified gallstone. Common hepatic duct measures 9 mm and is more prominent than on the prior examination. Chest X-Ray 02/25/18 18:56 CONCLUSION: The lungs are clear. Head CT 02/25/18 18:56 CONCLUSION: 1. No acute findings in the brain. . - Imaging Imaging: ITS Impressions Abdomen/Pelvis CT 02/25/18 18:56 CONCLUSION: 1. Severe hepatomegaly, similar in severity, but with a lesser degree of steatosis than on prior examination. No intrahepatic ductal dilatation. 2. 1.7 cm peripherally calcified gallstone. Common hepatic duct measures 9 mm and is more prominent than on the prior examination. Chest X-Ray 02/25/18 18:56 CONCLUSION: The lungs are clear. Head CT 02/25/18 18:56 CONCLUSION: 1. No acute findings in the brain. . CT scan - abdomen: report reviewed, image reviewed Assessment and Plan - Assessment (1) Liver failure Code(s): K72.90 - Hepatic failure, unspecified without coma Status: Acute Plan: 32 year old female with abdominal pain; T bilirubin 43.9 -DC Hida scan---due to elevated total bilirubin -Regular diet -Await hepatitis panel -Recheck CMP tomorrow -Avoid hepatotoxic medications -Avoid ETOH -GI following -Patient not a candidate for cholecystectomy at this due to liver failure -Thank you for this consult HIDA scan will not be reliable due to severe liver dysfunction Needs medical management of liver failure first, as she does not have significant pain or signs of cholangitis requiring emergent surgery. Surgery not indicated at this time. The exam, history, and the medical decision-making described in the above note were completed with the assistance of the mid-level provider. I reviewed and agree with the findings presented. I attest that I had a [id number] encounter with the patient on the same day, and personally performed and documented my assessment and findings in the medical record. - Plan Discussed Condition With: Dr. Keshawn Walter MS3 Aysha Contreras
[2018-02-26 15:38] LABS: Hepatitits B Surface Antigen Nonreactive (Nonreactive)
[2018-02-26 16:07] LABS: Hepatitis A IgM Antibody Nonreactive (Nonreactive)
[2018-02-26] MEDS ORDERED: Gadobutrol PF 7.5 MMOL/7.5 ML Vial (for RAD) IV.SIG ONE (18:25)
--- NOTE | 2018-02-26 19:01 | MR ---
EXAM DATE: 02/26/2018 5:48 PM EDT AGE/SEX: 32 years / Female INDICATIONS: Obstruction. Jaundice for the last weeks. CLINICAL DATA: This is the patient's initial encounter. Patient reports that signs and symptoms have been present for 2 weeks and indicates a pain score of 7/10. MEDICAL/SURGICAL HISTORY: . Liver tumor, G[place] Tonsillectomy. COMPARISON: No prior exams available for comparison. TECHNIQUE: Multisequence, multiplanar MRI examination was performed without contrast and after the in travenous administration of 7 ml Gadavist (gadobutrol) contrast as a single exam dose. FINDINGS: Liver: Hepatomegaly with craniocaudal dimension 25.5 cm. There is heterogeneous density in the liver characteristic of fatty change with multiple focal areas of sparing. In the left lobe lateral segmen t, there is a 1.3 cm simple cyst. Intrahepatic Bile Ducts: There is no intrahepatic biliary ductal dilatation. Common Bile Duct: The common bile duct is normal in caliber No filling defects or obstructing lesio ns are identified. Gallbladder: Solitary filling defect in the gallbladder lumen correlates with the peripherally calci fied stone seen on CT and measures 1.7 cm. Pancreas: The pancreas appears normal in signal with no focal parenchymal abnormalities. The pancrea tic duct is normal in caliber with no filling defects, or obstructing lesions identified. CONCLUSION: 1. 1.7 cm gallstone. 2. No filling defects in the common bile duct and no dilation of the intra or extrahepatic biliary s ystem. 3. Severe hepatomegaly and scattered areas of fatty change Electronically signed by: Osman Levy MD 02/26/2018 7:00 PM EDT
[2018-02-27 04:15] LABS: Hematocrit 32.5 % (35.0-46.0); Hemoglobin 11.5 gm/dL (11.6-15.3); Mean Corpuscular HGB Conc 35.4 % (32.0-36.0); Mean Corpuscular Hemoglobin 38.9 pg (27.0-34.0); Mean Corpuscular Volume 109.9 fL (80.0-100.0); Mean Platelet Volume 8.1 fL (7.0-11.0); Platelet Count 176 th/mm3 (150-450); Red Blood Count 2.95 mil/mm3 (4.00-5.30); Red Cell Distribution Width 16.8 % (11.6-17.2); White Blood Count 10.2 th/mm3 (4.0-11.0)
[2018-02-27 04:47] LABS: Alanine Aminotransferase 14 U/L (10-53); Albumin 2.1 g/dL (3.4-5.0); Alkaline Phosphatase 314 U/L (45-117); Anion Gap 14 meq/L (5-15); Aspartate Aminotransferase 85 U/L (15-37); Blood Urea Nitrogen 14 mg/dL (7-18); Calcium 8.5 mg/dL (8.5-10.1); Carbon Dioxide 26.3 meq/L (21.0-32.0); Chloride 99 meq/L (98-107); Glomerular Filtration Rate 43 mL/min (>89); Glucose,Random 109 mg/dL (74-106); Sodium 139 meq/L (136-145); Total Protein 5.3 g/dL (6.4-8.2)
[2018-02-27 04:50] LABS: Potassium 2.7 meq/L (3.5-5.1)
[2018-02-27] MEDS: Levothyroxine 50 MCG Tablet PO SCH (05:59)
[2018-02-27] MEDS: Morphine Sulfate Inj 2 MG/ML Vial IV.PUSH PRN ×2 (05:59→14:09)
[2018-02-27] MEDS: Furosemide 20 MG Tablet PO SCH (08:21)
[2018-02-27] MEDS: clonazePAM 1 MG Tablet PO SCH ×2 (08:21→21:27)
[2018-02-27] MEDS: Sodium Chloride 0.9% 2 ML Flush BID IV.FLUSH SCH ×2 (08:21→21:27)
[2018-02-27] MEDS: Gabapentin 400 MG Capsule PO SCH ×2 (08:21→21:27)
[2018-02-27] MEDS: Senna/Docusate Sodium 8.6/50 MG Tablet PO SCH ×2 (08:21→21:28)
--- NOTE | 2018-02-27 08:59 | P.PNGI ---
Subjective Interval history: Patient sitting up in bed. Eating breakfast meal and taking morning Meds. Reports good appetite and denies nausea or vomiting. Denies any noted bleeding. States generalized abdominal soreness more specifically right upper quadrant. <Dulce Santos - Last Filed: 02/27/18 10:53> Physical Exam Vital signs: Vital Signs 02/26/18 12:00 02/26/18 16:00 02/26/18 20:22 Temperature 97.5 F L 97.7 F 97.5 F L Pulse Rate 86 86 94 H Respiratory Rate 18 16 17 Blood Pressure 97/61 L 101/66 115/71 Pulse Oximetry 95 99 02/26/18 23:00 02/27/18 08:00 Temperature 97.7 F 98.2 F Pulse Rate 86 95 H Respiratory Rate 17 18 Blood Pressure 102/64 94/55 L Pulse Oximetry 92 L 93 L Intake & Output 02/26/18 02/27/18 02/27/18 18:59 06:59 18:59 Intake Total 240 / 240 360 / 360 Balance 240 / 240 360 / 360 Weight 69.7 kg Intake: Oral 240 / 240 360 / 360 Other: # Voids 3 2 Date of Last Bowel Movement 02/26/18 02/26/18 02/26/18 # Bowel Movements 0 - Constitutional no acute distress - Routine HEENT Exam Head: Present: normocephalic Eye: Present: conjunctival icterus - Routine Neck Exam Present: supple - Routine Respiratory Exam Present: CTA bilaterally. Absent: accessory muscle use - Routine Cardiovascular Exam Present: RRR - Routine Abdominal Exam Present: soft, normoactive bowel sounds, tenderness, distended. Absent: guarding, firm, rigid - Routine Extremities Exam Present: pulses intact. Absent: cyanosis, clubbing, edema - Routine Skin Exam Present: dry, warm, jaundice - Routine Neurological Exam Present: alert, oriented X3 - Detailed Neurological Exam: Coma Scale Eye Opening: Spontaneous Verbal Response: Oriented Motor Response: Obey commands Jaison Coma Scale Total: 15 - Routine Psychiatric Exam Present: normal affect, cooperative <Dulce Santos - Last Filed: 02/27/18 10:53> Vital signs: Vital Signs 02/26/18 16:00 02/26/18 20:22 02/26/18 23:00 Temperature 97.7 F 97.5 F L 97.7 F Pulse Rate 86 94 H 86 Respiratory Rate 16 17 17 Blood Pressure 101/66 115/71 102/64 Pulse Oximetry 99 92 L 02/27/18 08:00 02/27/18 11:59 Temperature 98.2 F 98.3 F Pulse Rate 95 H 100 H Respiratory Rate 18 18 Blood Pressure 94/55 L 93/54 L Pulse Oximetry 93 L 92 L Intake & Output 02/26/18 02/27/18 02/27/18 18:59 06:59 18:59 Intake Total 240 / 240 360 / 360 Balance 240 / 240 360 / 360 Weight 69.7 kg Intake: Oral 240 / 240 360 / 360 Other: # Voids 3 2 Date of Last Bowel Movement 02/26/18 02/26/18 02/26/18 # Bowel Movements 0 <Galen Cabral - Last Filed: 02/27/18 15:43> Results - Labs CBC & Chem 7: 02/27/18 03:55 02/27/18 03:55 Laboratory Results - last 24 hr 02/26/18 02/27/18 02/27/18 11:47 03:55 03:55 WBC 10.2 RBC 2.95 L Hgb 11.5 L Hct 32.5 L MCV 109.9 H MCH 38.9 H MCHC 35.4 RDW 16.8 Plt Count 176 MPV 8.1 Sodium 139 Potassium 2.7 L* Chloride 99 Carbon Dioxide 26.3 Anion Gap 14 BUN 14 Creatinine 1.39 H Estimated GFR 43 L Random Glucose 109 H Calcium 8.5 Total Bilirubin 36.5 H AST 85 H ALT 14 Alkaline Phosphatase 314 H Total Protein 5.3 L Albumin 2.1 L Hepatitis A IgM Ab Nonreactive Hep Bs Antigen Nonreactive Hep B Core IgM Ab Nonreactive Hep C IgG Ab Nonreactive - Imaging Impressions Cholangiopancreatography MRI 02/26/18 00:00 CONCLUSION: 1. 1.7 cm gallstone. 2. No filling defects in the common bile duct and no dilation of the intra or extrahepatic biliary system. 3. Severe hepatomegaly and scattered areas of fatty change <Dulce Santos - Last Filed: 02/27/18 10:53> - Labs CBC & Chem 7: 02/27/18 03:55 02/27/18 12:30 Laboratory Results - last 24 hr 02/26/18 02/27/18 02/27/18 11:47 03:55 03:55 WBC 10.2 RBC 2.95 L Hgb 11.5 L Hct 32.5 L MCV 109.9 H MCH 38.9 H MCHC 35.4 RDW 16.8 Plt Count 176 MPV 8.1 Sodium 139 Potassium 2.7 L* Chloride 99 Carbon Dioxide 26.3 Anion Gap 14 BUN 14 Creatinine 1.39 H Estimated GFR 43 L Random Glucose 109 H Calcium 8.5 Total Bilirubin 36.5 H AST 85 H ALT 14 Alkaline Phosphatase 314 H Total Protein 5.3 L Albumin 2.1 L Hepatitis A IgM Ab Nonreactive Hep B Core IgM Ab Nonreactive Hep C IgG Ab Nonreactive 02/27/18 12:30 WBC RBC Hgb Hct MCV MCH MCHC RDW Plt Count MPV Sodium Potassium 3.4 L Chloride Carbon Dioxide Anion Gap BUN Creatinine Estimated GFR Random Glucose Calcium Total Bilirubin AST ALT Alkaline Phosphatase Total Protein Albumin Hepatitis A IgM Ab Hep B Core IgM Ab Hep C IgG Ab - Imaging Impressions Cholangiopancreatography MRI 02/26/18 00:00 CONCLUSION: 1. 1.7 cm gallstone. 2. No filling defects in the common bile duct and no dilation of the intra or extrahepatic biliary system. 3. 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 Check MRCP due to ductal dilation seen on CT. Absteinence from etoh strongly recommended. Discussed with pt. and family. The exam, history, and the medical decision-making described in the above note were completed with the assistance of the mid-level provider. I reviewed and agree with the findings presented. I attest that I had a [id number] encounter with the patient on the same day, and personally performed and documented my assessment and findings in the medical record. 02/27/18- Patient sitting up in bed eating breakfast meal.Awake alert and oriented x 3. Denies nausea or vomiting. Denies diarrhea or constipation and any noted bleeding. Abstinence from ETOH discussed with patient who agrees to attempt such and verbalizes understanding of the health effects. General surgery consult noted. Stating patient not a candidate for cholecystectomy at this time due to liver failure. Spoke with Dr. Castañeda regarding adding Spironolactone as patient is hypokalemic. MRCP done 02/26/18 revealed--> Liver: Hepatomegaly with craniocaudal dimension 25.5 cm. There is heterogeneous density in the liver characteristic of fatty change with multiple focal areas of sparing. In the left lobe lateral segment, there is a 1.3 cm simple cyst. Intrahepatic Bile Ducts: There is no intrahepatic biliary ductal dilatation. Common Bile Duct: The common bile duct is normal in caliber No filling defects or obstructing lesions are identified. Gallbladder: Solitary filling defect in the gallbladder lumen correlates with the peripherally calcified stone seen on CT and measures 1.7 cm. Pancreas:The pancreas appears normal in signal with no focal parenchymal abnormalities. The pancreatic duct is normal in caliber with no filling defects , or obstructing lesions identified. CONCLUSION: 1.7 cm gallstone. No filling defects in the common bile duct and no dilation of the intra or extrahepatic biliary system.Severe hepatomegaly and scattered areas of fatty change 02/27/18 am labs WBC 10.2 hemoglobin 11.5 hematocrit 32.5 platelet count 176 most recent INR 1.3, GFR 43 total bilirubin 36.5 AST 85 ALT 14 alk phos 314 ammonia level on 02/25/2018- 55. MELD SCORE-26 Plan: -Regular diet as tolerated -Continue lactulose -Continue Lasix -Add spironolactone -Bowel regimen -Pain medications as per attending physician -Continue to monitor labs -Check CMP CBC and ammonia level in a.m. -Monitor for bleeding -Supportive care -Further recommendations to follow This patient has been seen by myself and Dr. Cabral and this note is written on his behalf <Dulce Santos - Last Filed: 02/27/18 10:53> - Plan Acute ETOH hepatitis. Discriminant score 41. Start on prednisone 20 mg daily. Monitor LFTs. <Galen Cabral - Last Filed: 02/27/18 15:43>
[2018-02-27] MEDS: Citalopram 20 MG Tablet PO SCH (09:58)
--- NOTE | 2018-02-27 16:50 | P.PNGS ---
Subjective Interval history: Resting in bed No issues Physical Exam Vital signs: Vital Signs 02/26/18 20:22 02/26/18 23:00 02/27/18 08:00 Temperature 97.5 F L 97.7 F 98.2 F Pulse Rate 94 H 86 95 H Respiratory Rate 17 17 18 Blood Pressure 115/71 102/64 94/55 L Pulse Oximetry 99 92 L 93 L 02/27/18 11:59 Temperature 98.3 F Pulse Rate 100 H Respiratory Rate 18 Blood Pressure 93/54 L Pulse Oximetry 92 L Intake & Output 02/26/18 02/27/18 02/27/18 18:59 06:59 18:59 Intake Total 240 / 240 360 / 360 Balance 240 / 240 360 / 360 Weight 69.7 kg Intake: Oral 240 / 240 360 / 360 Other: # Voids 3 2 Date of Last Bowel Movement 02/26/18 02/26/18 02/26/18 # Bowel Movements 0 Narrative: Alert and awake Jaundice skin and sclera Abd:-- mild generalized abdominal tenderness with palpation Results - Labs 03/02/18 04:27 03/02/18 04:27 Laboratory Results - last 24 hr 02/27/18 02/27/18 02/27/18 03:55 03:55 12:30 WBC 10.2 RBC 2.95 L Hgb 11.5 L Hct 32.5 L MCV 109.9 H MCH 38.9 H MCHC 35.4 RDW 16.8 Plt Count 176 MPV 8.1 Sodium 139 Potassium 2.7 L* 3.4 L Chloride 99 Carbon Dioxide 26.3 Anion Gap 14 BUN 14 Creatinine 1.39 H Estimated GFR 43 L Random Glucose 109 H Calcium 8.5 Total Bilirubin 36.5 H AST 85 H ALT 14 Alkaline Phosphatase 314 H Total Protein 5.3 L Albumin 2.1 L - Imaging Imaging: ITS Impressions Abdomen/Pelvis CT 02/25/18 18:56 CONCLUSION: 1. Severe hepatomegaly, similar in severity, but with a lesser degree of steatosis than on prior examination. No intrahepatic ductal dilatation. 2. 1.7 cm peripherally calcified gallstone. Common hepatic duct measures 9 mm and is more prominent than on the prior examination. Chest X-Ray 02/25/18 18:56 CONCLUSION: The lungs are clear. Head CT 02/25/18 18:56 CONCLUSION: 1. No acute findings in the brain. . Cholangiopancreatography MRI 02/26/18 00:00 CONCLUSION: 1. 1.7 cm gallstone. 2. No filling defects in the common bile duct and no dilation of the intra or extrahepatic biliary system. 3. Severe hepatomegaly and scattered areas of fatty change Assessment and Plan - Assessment (1) Liver failure Code(s): K72.90 - Hepatic failure, unspecified without coma Status: Acute Plan: 32 year old female with abdominal pain; T bilirubin 43.9 -Regular diet as tolerated -Hepatitis panel nonreactive -Recheck CMP tomorrow -Avoid hepatotoxic medications -Avoid ETOH -GI following -Patient not a candidate for cholecystectomy at this time due to liver failure; not likely cause for her pain (more likely due to liver capsule pain) As above; no surgery The exam, history, and the medical decision-making described in the above note were completed with the assistance of the mid-level provider. I reviewed and agree with the findings presented. I attest that I had a [id number] encounter with the patient on the same day, and personally performed and documented my assessment and findings in the medical record.
[2018-02-27] MEDS ORDERED: Morphine Inj 4 MG/ML Vial IV.PUSH PRN (16:59)
--- NOTE | 2018-02-27 17:12 | P.PNFP ---
Subjective Interval history: Pt doing well this morning. She is eating well and her abdominal pain is improved. She complaints of some abdominal cramping after taking lactulose. We discusses the importance of taking this medication and to continue to have BMs. She denies any vomiting. She is having BMs. She denies chest pain, shortness of breath, fevers, or chills. <Siva CostaRosalie barba V - 02/27/18 17:39> Results - Labs Result diagrams: 02/28/18 03:51 02/28/18 14:00 <YancyAna R - 02/28/18 15:13> Abnormal lab results 02/28/18 02/28/18 02/28/18 Range/Units 03:51 03:51 03:51 RBC 2.82 L (4.00-5.30) mil/mm3 Hgb 11.0 L (11.6-15.3) gm/dL Hct 31.4 L (35.0-46.0) % MCV 111.4 H (80.0-100.0) fL MCH 38.8 H (27.0-34.0) pg RDW 17.5 H (11.6-17.2) % Potassium 2.8 L* (3.5-5.1) meq/L Creatinine 1.39 H (0.50-1.00) mg/dL Estimated GFR 43 L (>89) mL/min Random Glucose (74-106) mg/dL Total Bilirubin 36.4 H (0.2-1.0) mg/dL AST 80 H (15-37) U/L Alkaline Phosphatase 309 H (45-117) U/L Ammonia 64 H (11-32) mcmol/L Total Protein 5.2 L (6.4-8.2) g/dL Albumin 2.1 L (3.4-5.0) g/dL 02/28/18 Range/Units 14:00 RBC (4.00-5.30) mil/mm3 Hgb (11.6-15.3) gm/dL Hct (35.0-46.0) % MCV (80.0-100.0) fL MCH (27.0-34.0) pg RDW (11.6-17.2) % Potassium 2.9 L* (3.5-5.1) meq/L Creatinine 1.58 H (0.50-1.00) mg/dL Estimated GFR 37 L (>89) mL/min Random Glucose 166 H (74-106) mg/dL Total Bilirubin (0.2-1.0) mg/dL AST (15-37) U/L Alkaline Phosphatase (45-117) U/L Ammonia (11-32) mcmol/L Total Protein (6.4-8.2) g/dL Albumin (3.4-5.0) g/dL Short CBC 02/28/18 Range/Units 03:51 WBC 9.0 (4.0-11.0) th/mm3 Hgb 11.0 L (11.6-15.3) gm/dL Hct 31.4 L (35.0-46.0) % Plt Count 167 (150-450) th/mm3 BMP 02/28/18 02/28/18 03:51 14:00 Sodium 139 138 Potassium 2.8 L* 2.9 L* Chloride 102 100 Carbon Dioxide 25.9 26.1 BUN 14 14 Creatinine 1.39 H 1.58 H Calcium 8.6 9.1 Liver Function 02/28/18 Range/Units 03:51 Total Bilirubin 36.4 H (0.2-1.0) mg/dL AST 80 H (15-37) U/L ALT 14 (10-53) U/L Alkaline Phosphatase 309 H (45-117) U/L Albumin 2.1 L (3.4-5.0) g/dL <Ana Haines R - 02/28/18 15:13> Abnormal lab results 02/27/18 02/27/18 02/27/18 Range/Units 03:55 03:55 12:30 RBC 2.95 L (4.00-5.30) mil/mm3 Hgb 11.5 L (11.6-15.3) gm/dL Hct 32.5 L (35.0-46.0) % MCV 109.9 H (80.0-100.0) fL MCH 38.9 H (27.0-34.0) pg Potassium 2.7 L* 3.4 L (3.5-5.1) meq/L Creatinine 1.39 H (0.50-1.00) mg/dL Estimated GFR 43 L (>89) mL/min Random Glucose 109 H (74-106) mg/dL Total Bilirubin 36.5 H (0.2-1.0) mg/dL AST 85 H (15-37) U/L Alkaline Phosphatase 314 H (45-117) U/L Total Protein 5.3 L (6.4-8.2) g/dL Albumin 2.1 L (3.4-5.0) g/dL Short CBC 02/27/18 Range/Units 03:55 WBC 10.2 (4.0-11.0) th/mm3 Hgb 11.5 L (11.6-15.3) gm/dL Hct 32.5 L (35.0-46.0) % Plt Count 176 (150-450) th/mm3 BMP 02/27/18 02/27/18 03:55 12:30 Sodium 139 Potassium 2.7 L* 3.4 L Chloride 99 Carbon Dioxide 26.3 BUN 14 Creatinine 1.39 H Calcium 8.5 Liver Function 02/27/18 Range/Units 03:55 Total Bilirubin 36.5 H (0.2-1.0) mg/dL AST 85 H (15-37) U/L ALT 14 (10-53) U/L Alkaline Phosphatase 314 H (45-117) U/L Albumin 2.1 L (3.4-5.0) g/dL <Rosalie Murphy V - 02/27/18 17:12> - Imaging Impressions Cholangiopancreatography MRI 02/26/18 00:00 CONCLUSION: 1. 1.7 cm gallstone. 2. No filling defects in the common bile duct and no dilation of the intra or extrahepatic biliary system. 3. Severe hepatomegaly and scattered areas of fatty change <Rosalie Murphy V - 02/27/18 17:12> Physical Exam Vital signs: Vital Signs 02/27/18 16:00 02/27/18 19:10 02/27/18 20:00 Temperature 98.1 F 96.8 F L Pulse Rate 94 H 91 H Respiratory Rate 16 18 18 Blood Pressure 99/62 L 94/52 L Pulse Oximetry 95 96 02/28/18 00:00 02/28/18 03:16 02/28/18 08:00 Temperature 98.2 F 98.6 F Pulse Rate 96 H 93 H Respiratory Rate 18 18 18 Blood Pressure 96/60 L 99/60 L Pulse Oximetry 95 97 02/28/18 12:00 Temperature 98.1 F Pulse Rate 90 Respiratory Rate 16 Blood Pressure 107/66 Pulse Oximetry 92 L Intake & Output 02/27/18 02/28/18 02/28/18 18:59 06:59 18:59 Intake Total 480 / 480 360 / 360 Output Total 2 / 2 Balance 478 / 478 360 / 360 Weight 69.7 kg Intake: Oral 480 / 480 360 / 360 Output: Urine 2 / 2 Other: # Voids 1 Date of Last Bowel Movement 02/26/18 02/26/18 02/27/18 # Bowel Movements 2 0 <YancyAna R - 02/28/18 15:13> Vital Signs 02/26/18 20:22 02/26/18 23:00 02/27/18 08:00 Temperature 97.5 F L 97.7 F 98.2 F Pulse Rate 94 H 86 95 H Respiratory Rate 17 17 18 Blood Pressure 115/71 102/64 94/55 L Pulse Oximetry 99 92 L 93 L 02/27/18 11:59 Temperature 98.3 F Pulse Rate 100 H Respiratory Rate 18 Blood Pressure 93/54 L Pulse Oximetry 92 L Intake & Output 02/26/18 02/27/18 02/27/18 18:59 06:59 18:59 Intake Total 240 / 240 360 / 360 Balance 240 / 240 360 / 360 Weight 69.7 kg Intake: Oral 240 / 240 360 / 360 Other: # Voids 3 2 Date of Last Bowel Movement 02/26/18 02/26/18 02/26/18 # Bowel Movements 0 <Rosalie Murphy V - 02/27/18 17:12> Narrative: GENERAL: severely jaundiced pt, eating breakfast, in NAD. SKIN: Warm and dry. Jaundiced noted down to abdomen. Spider angiomata noted on chest. HEAD: Normocephalic and atraumatic. EYES: Severe scleral icterus. No injection or drainage. CARDIOVASCULAR: Regular rate and rhythm without murmurs, gallops, or rubs. RESPIRATORY: Breath sounds equal bilaterally. No accessory muscle use. ABDOMEN/GI: Abdomen soft, non-tender, distended with moderate ascites, hepatomegaly noted. Bowel sounds present, no rebound, no guarding BACK: Nontender without obvious deformity. No CVA tenderness. NEUROLOGICAL: Awake and alert. Motor and sensory grossly within normal limits. Normal speech. <Siva BrownRosalieJulee - 02/27/18 17:39> Assessment and Plan - Assessment (1) Cirrhosis Code(s): K74.60 - Unspecified cirrhosis of liver Status: Acute (2) Ascites Code(s): R18.8 - Other ascites Status: Acute (3) Anemia Code(s): D64.9 - Anemia, unspecified Status: Acute (4) ETOH abuse Code(s): F10.10 - Alcohol abuse, uncomplicated Status: Chronic (5) Hypokalemia Code(s): E87.6 - Hypokalemia Status: Acute (6) Acute kidney injury Code(s): N17.9 - Acute kidney failure, unspecified Status: Acute (7) Hypothyroidism Code(s): E03.9 - Hypothyroidism, unspecified Status: Chronic (8) Nutrition, metabolism, and development symptoms Code(s): R63.8 - Other symptoms and signs concerning food and fluid intake Status: Acute <Ana Haines R - 02/28/18 15:13> (1) Cirrhosis Code(s): K74.60 - Unspecified cirrhosis of liver Status: Acute Plan: 32 year old female with history of severe steatosis presenting with diffuse abdominal pain without peritonitis. No fevers since admission. 02/27/18 am labs WBC 10.2 hemoglobin 11.5 hematocrit 32.5 platelet count 176 most recent INR 1.3, GFR 43 total bilirubin 36.5 AST 85 ALT 14 alk phos 314 ammonia level on 02/25/2018- 55. MELD SCORE-26 - MRCP 02/26 showing 1.7 cm gallstone. No filling defects in the common bile duct and no dilation of the intra or extrahepatic biliary system.Severe hepatomegaly and scattered areas of fatty change - GI on board, appreciate recommendations - HIDA scan cancelled per general surgery. No surgery indicated at this time. - Lactulose switched to sorbitol. - Morphine 2 mg IV q4h prn pain - Hepatitis panel negative - Avoid hepatotoxic agents - Increased furosemide to 40mg q day and added Spirolactone 100mg q day - Continue to discuss seriousness of illness and need for alcohol cessation, refer for counseling/rehab after discharge - CMP and ammonia level in am Prior work-up: MRCP 04/2017 showing hepatomegaly with scattered fatty infiltration; probable 1 cm cyst left hepatic lobe, possible hemangioma right hepatic lobe. 1.6 cm gallstone in the gallbladder neck. No choledocholithiasis. CBD upper limits of normal. Hepatitis profile negative, RAJAT neg, AMA < 20.0, ASMA neg, Liver biopsy (10/04/15): benign liver tissue with marked steatosis Repeat liver biopsy (10/07/15): marked steatohepatitis and cirrhosis Gallbladder ultrasound (04/16/17): hepatic steatosis, hepatomegaly, cholelithiasis with mild thickening of the gallbladder wall; mildly dilated common bile duct at 8mm. (2) Ascites Code(s): R18.8 - Other ascites Status: Acute Plan: Significant ascites on exam - Added spironolactone for low potassium and ascites (see plan above) - Low threshold for paracentesis and coverage for SBP if pain worsening, fevers , etc. - Might consider IR therapeutic paracentesis and liver biopsy tomorrow (3) ETOH abuse Code(s): F10.10 - Alcohol abuse, uncomplicated Status: Chronic Plan: [facility] protocol thiamine, folic acid, multivitamin Consult CM-etoh abuse dc plan prior to discharge Continue open discussions about alcohol abuse (4) Hypokalemia Code(s): E87.6 - Hypokalemia Status: Acute Plan: K+ 2.1 on admission, this morning 2.7 - Replaced with 40mEq this morning, repeat 3.4 - Added spironolactone for ascites and hypokalemia - Will repeat CMP in morning (5) Acute kidney injury Code(s): N17.9 - Acute kidney failure, unspecified Status: Acute Plan: Cr 1.38 on admission, baseline 0.56, this morning 1.39 Likely due to low renal perfusion pressure due to liver disease Overall hypervolemic state Continue to monitor Avoid nephrotoxic agents (6) Hypothyroidism Code(s): E03.9 - Hypothyroidism, unspecified Status: Chronic Plan: Continue home levothyroxine (7) Nutrition, metabolism, and development symptoms Code(s): R63.8 - Other symptoms and signs concerning food and fluid intake Status: Acute Plan: Fluids: per PO Electrolytes: continue to monitor and replace as needed Nutrition: regular diet <Rosalie Murphy V - 02/27/18 17:15> - Attending Attestation The exam, history, and the medical decision-making described in the above note were completed with the assistance of the resident physician. I reviewed and agree with the findings presented. I attest that I had a [id number] encounter with the patient on the same day, and personally performed and documented my assessment and findings in the medical record. <Ana Haines - 02/28/18 15:13> <Rosalie Murphy V - Last Filed: 02/27/18 17:15> (1) Cirrhosis Qualifiers: Hepatic cirrhosis type: alcoholic cirrhosis (2) Ascites Qualifiers: Ascites type: due to alcoholic cirrhosis Qualified Code(s): K70.31 - Alcoholic cirrhosis of liver with ascites (6) Hypothyroidism Qualifiers: Hypothyroidism type: acquired Qualified Code(s): E03.9 - Hypothyroidism, unspecified <Ana Haines R - Last Filed: 02/28/18 15:13> (1) Cirrhosis Qualifiers: Hepatic cirrhosis type: alcoholic cirrhosis (2) Ascites Qualifiers: Ascites type: due to alcoholic cirrhosis Qualified Code(s): K70.31 - Alcoholic cirrhosis of liver with ascites (7) Hypothyroidism Qualifiers: Hypothyroidism type: acquired Qualified Code(s): E03.9 - Hypothyroidism, unspecified <Rosalie Murphy V - Last Filed: 02/27/18 17:15> (1) Cirrhosis Qualifiers: Hepatic cirrhosis type: alcoholic cirrhosis (2) Ascites Qualifiers: Ascites type: due to alcoholic cirrhosis Qualified Code(s): K70.31 - Alcoholic cirrhosis of liver with ascites (6) Hypothyroidism Qualifiers: Hypothyroidism type: acquired Qualified Code(s): E03.9 - Hypothyroidism, unspecified <Ana Haines R - Last Filed: 02/28/18 15:13> (1) Cirrhosis Qualifiers: Hepatic cirrhosis type: alcoholic cirrhosis (2) Ascites Qualifiers: Ascites type: due to alcoholic cirrhosis Qualified Code(s): K70.31 - Alcoholic cirrhosis of liver with ascites (7) Hypothyroidism Qualifiers: Hypothyroidism type: acquired Qualified Code(s): E03.9 - Hypothyroidism, unspecified
[2018-02-27] MEDS ORDERED: Sorbitol 70% Liq 30 ML UDC PO SCH (21:00)
[2018-02-28 04:03] LABS: Hematocrit 31.4 % (35.0-46.0); Mean Corpuscular HGB Conc 34.9 % (32.0-36.0); Mean Corpuscular Hemoglobin 38.8 pg (27.0-34.0); Mean Corpuscular Volume 111.4 fL (80.0-100.0); Mean Platelet Volume 8.1 fL (7.0-11.0); Platelet Count 167 th/mm3 (150-450); Red Blood Count 2.82 mil/mm3 (4.00-5.30); Red Cell Distribution Width 17.5 % (11.6-17.2)
[2018-02-28 04:44] LABS: Alanine Aminotransferase 14 U/L (10-53); Albumin 2.1 g/dL (3.4-5.0); Alkaline Phosphatase 309 U/L (45-117); Anion Gap 11 meq/L (5-15); Aspartate Aminotransferase 80 U/L (15-37); Blood Urea Nitrogen 14 mg/dL (7-18); Calcium 8.6 mg/dL (8.5-10.1); Carbon Dioxide 25.9 meq/L (21.0-32.0); Chloride 102 meq/L (98-107); Glomerular Filtration Rate 43 mL/min (>89); Glucose,Random 106 mg/dL (74-106); Sodium 139 meq/L (136-145); Total Protein 5.2 g/dL (6.4-8.2)
[2018-02-28 04:48] LABS: Potassium 2.8 meq/L (3.5-5.1)
[2018-02-28] MEDS: Levothyroxine 50 MCG Tablet PO SCH (06:23)
[2018-02-28] MEDS: Gabapentin 400 MG Capsule PO SCH ×2 (08:00→21:39)
[2018-02-28] MEDS: clonazePAM 1 MG Tablet PO SCH (08:00)
[2018-02-28] MEDS: predniSONE 20 MG Tablet PO SCH (08:00)
[2018-02-28] MEDS: Senna/Docusate Sodium 8.6/50 MG Tablet PO SCH ×2 (08:00→21:40)
[2018-02-28] MEDS: Citalopram 20 MG Tablet PO SCH (08:00)
[2018-02-28] MEDS: Sodium Chloride 0.9% 2 ML Flush BID IV.FLUSH SCH ×2 (08:02→21:41)
[2018-02-28] MEDS ORDERED: Furosemide 20 MG Tablet PO SCH (09:00)
--- NOTE | 2018-02-28 09:43 | P.PNGI ---
Subjective Interval history: Patient resting in bed post breakfast meal. Denies any nausea or vomiting, states soft bowel movement this morning. She denies any noted bleeding. Endorses generalized abdominal soreness aggravated by meal. States alleviated somewhat by rest. <Dulce Santos - Last Filed: 02/28/18 09:51> Physical Exam Vital signs: Vital Signs 02/27/18 11:59 02/27/18 16:00 02/27/18 19:10 Temperature 98.3 F 98.1 F 96.8 F L Pulse Rate 100 H 94 H 91 H Respiratory Rate 18 16 18 Blood Pressure 93/54 L 99/62 L 94/52 L Pulse Oximetry 92 L 95 96 02/27/18 20:00 02/28/18 00:00 02/28/18 03:16 Temperature 98.2 F Pulse Rate 96 H Respiratory Rate 18 18 18 Blood Pressure 96/60 L Pulse Oximetry 95 02/28/18 08:00 Temperature 98.6 F Pulse Rate 93 H Respiratory Rate 18 Blood Pressure 99/60 L Pulse Oximetry 97 Intake & Output 02/27/18 02/28/18 02/28/18 18:59 06:59 18:59 Intake Total 480 / 480 360 / 360 Output Total 2 / 2 Balance 478 / 478 360 / 360 Weight 69.7 kg Intake: Oral 480 / 480 360 / 360 Output: Urine 2 / 2 Other: # Voids 1 Date of Last Bowel Movement 02/26/18 02/26/18 02/27/18 # Bowel Movements 2 0 - Constitutional no acute distress - Routine HEENT Exam Head: Present: normocephalic Eye: Present: conjunctival icterus - Routine Neck Exam Present: supple - Routine Respiratory Exam Present: accessory muscle use - Routine Cardiovascular Exam Present: RRR - Routine Abdominal Exam Present: soft, normoactive bowel sounds, tenderness. Absent: guarding, firm, rigid - Routine Extremities Exam Present: pulses intact. Absent: cyanosis, clubbing, edema - Routine Skin Exam Present: dry, warm, jaundice - Routine Neurological Exam Present: alert, oriented X3 - Detailed Neurological Exam: Coma Scale Eye Opening: Spontaneous Verbal Response: Oriented Motor Response: Obey commands [place] Coma Scale Total: 15 - Routine Psychiatric Exam Present: normal affect, cooperative <Dulce Santos - Last Filed: 02/28/18 09:51> Vital signs: Vital Signs 02/27/18 16:00 02/27/18 19:10 02/27/18 20:00 Temperature 98.1 F 96.8 F L Pulse Rate 94 H 91 H Respiratory Rate 16 18 18 Blood Pressure 99/62 L 94/52 L Pulse Oximetry 95 96 02/28/18 00:00 02/28/18 03:16 02/28/18 08:00 Temperature 98.2 F 98.6 F Pulse Rate 96 H 93 H Respiratory Rate 18 18 18 Blood Pressure 96/60 L 99/60 L Pulse Oximetry 95 97 02/28/18 12:00 Temperature 98.1 F Pulse Rate 90 Respiratory Rate 16 Blood Pressure 107/66 Pulse Oximetry 92 L Intake & Output 02/27/18 02/28/18 02/28/18 18:59 06:59 18:59 Intake Total 480 / 480 360 / 360 Output Total 2 / 2 Balance 478 / 478 360 / 360 Weight 69.7 kg Intake: Oral 480 / 480 360 / 360 Output: Urine 2 / 2 Other: # Voids 1 Date of Last Bowel Movement 02/26/18 02/26/18 02/27/18 # Bowel Movements 2 0 <Galen Cabral - Last Filed: 02/28/18 15:10> Results - Labs CBC & Chem 7: 02/28/18 03:51 02/28/18 03:51 Laboratory Results - last 24 hr 02/27/18 02/28/18 02/28/18 12:30 03:51 03:51 WBC 9.0 RBC 2.82 L Hgb 11.0 L Hct 31.4 L MCV 111.4 H MCH 38.8 H MCHC 34.9 RDW 17.5 H Plt Count 167 MPV 8.1 Sodium Potassium 3.4 L Chloride Carbon Dioxide Anion Gap BUN Creatinine Estimated GFR Random Glucose Calcium Total Bilirubin AST ALT Alkaline Phosphatase Ammonia 64 H Total Protein Albumin 02/28/18 03:51 WBC RBC Hgb Hct MCV MCH MCHC RDW Plt Count MPV Sodium 139 Potassium 2.8 L* Chloride 102 Carbon Dioxide 25.9 Anion Gap 11 BUN 14 Creatinine 1.39 H Estimated GFR 43 L Random Glucose 106 Calcium 8.6 Total Bilirubin 36.4 H AST 80 H ALT 14 Alkaline Phosphatase 309 H Ammonia Total Protein 5.2 L Albumin 2.1 L <Santos,Dulce - Last Filed: 02/28/18 09:51> - Labs CBC & Chem 7: 02/28/18 03:51 02/28/18 03:51 Laboratory Results - last 24 hr 02/28/18 02/28/18 02/28/18 03:51 03:51 03:51 WBC 9.0 RBC 2.82 L Hgb 11.0 L Hct 31.4 L MCV 111.4 H MCH 38.8 H MCHC 34.9 RDW 17.5 H Plt Count 167 MPV 8.1 Sodium 139 Potassium 2.8 L* Chloride 102 Carbon Dioxide 25.9 Anion Gap 11 BUN 14 Creatinine 1.39 H Estimated GFR 43 L Random Glucose 106 Calcium 8.6 Total Bilirubin 36.4 H AST 80 H ALT 14 Alkaline Phosphatase 309 H Ammonia 64 H Total Protein 5.2 L Albumin 2.1 L Microbiology 02/28/18 09:45 Stool Stool Occult Blood ([facility]) - Final Hemoccult negative <Galen Cabral - Last Filed: 02/28/18 15:10> Assessment and Plan - Plan 02/27/18- Patient sitting up in bed eating breakfast meal.Awake alert and oriented x 3. Denies nausea or vomiting. Denies diarrhea or constipation and any noted bleeding. Abstinence from ETOH discussed with patient who agrees to attempt such and verbalizes understanding of the health effects. General surgery consult noted. Stating patient not a candidate for cholecystectomy at this time due to liver failure. Spoke with Dr. Castañeda regarding adding Spironolactone as patient is hypokalemic. MRCP done 02/26/18 revealed--> Liver: Hepatomegaly with craniocaudal dimension 25.5 cm. There is heterogeneous density in the liver characteristic of fatty change with multiple focal areas of sparing. In the left lobe lateral segment, there is a 1.3 cm simple cyst. Intrahepatic Bile Ducts: There is no intrahepatic biliary ductal dilatation. Common Bile Duct: The common bile duct is normal in caliber No filling defects or obstructing lesions are identified. Gallbladder: Solitary filling defect in the gallbladder lumen correlates with the peripherally calcified stone seen on CT and measures 1.7 cm. Pancreas:The pancreas appears normal in signal with no focal parenchymal abnormalities. The pancreatic duct is normal in caliber with no filling defects , or obstructing lesions identified. CONCLUSION: 1.7 cm gallstone. No filling defects in the common bile duct and no dilation of the intra or extrahepatic biliary system.Severe hepatomegaly and scattered areas of fatty change 02/27/18 am labs WBC 10.2 hemoglobin 11.5 hematocrit 32.5 platelet count 176 most recent INR 1.3, GFR 43 total bilirubin 36.5 AST 85 ALT 14 alk phos 314 ammonia level on 02/25/2018- 55. MELD SCORE-26 02/28/18-a.m. labs reviewed WBC 9.0 hemoglobin 11.0 hematocrit 31.4 platelet count 167 total bilirubin 36.4 AST 80 ALT 14 alk phos 309 ammonia level 64 albumin 2.1. Acute alcoholic hepatitis-patient currently on prednisone 20 mg p.o. daily for same. Plan: -Regular diet as tolerated -Monitor for encephalopathy- will add Xifaxin for increasing Ammonia level -Continue prednisone 20 mg p.o. daily ( Acute Alcoholic Hepatitis ) -Continue to monitor labs -Monitor for bleeding -Supportive care -Further recommendations to follow This patient has been seen by myself and Dr. Cabral and this note is written on his behalf <Dulce Santos - Last Filed: 02/28/18 09:51> - Plan Seen and examined with [employer], still deeply icteric. On prednisone for etoh hepatitis. Monitor labs. Rifaximin/lactulose. <Galen Cabral - Last Filed: 02/28/18 15:10>
--- NOTE | 2018-02-28 11:05 | P.PNFP ---
Subjective Interval history: No acute events overnight. Patient seen and examined this AM. Remains afebrile, BPs ranging 90s/50-60s past 24 hours. Patient denies visible blood in stools. States she has been having bowel movements. Denies fevers, chills, dyspnea. <Mandeep Byrd - 02/28/18 12:33> Results - Labs Result diagrams: 02/28/18 03:51 02/28/18 14:00 <Ana Haines - 02/28/18 15:24> Abnormal lab results 02/28/18 02/28/18 02/28/18 Range/Units 03:51 03:51 03:51 RBC 2.82 L (4.00-5.30) mil/mm3 Hgb 11.0 L (11.6-15.3) gm/dL Hct 31.4 L (35.0-46.0) % MCV 111.4 H (80.0-100.0) fL MCH 38.8 H (27.0-34.0) pg RDW 17.5 H (11.6-17.2) % Potassium 2.8 L* (3.5-5.1) meq/L Creatinine 1.39 H (0.50-1.00) mg/dL Estimated GFR 43 L (>89) mL/min Random Glucose (74-106) mg/dL Total Bilirubin 36.4 H (0.2-1.0) mg/dL AST 80 H (15-37) U/L Alkaline Phosphatase 309 H (45-117) U/L Ammonia 64 H (11-32) mcmol/L Total Protein 5.2 L (6.4-8.2) g/dL Albumin 2.1 L (3.4-5.0) g/dL 02/28/18 Range/Units 14:00 RBC (4.00-5.30) mil/mm3 Hgb (11.6-15.3) gm/dL Hct (35.0-46.0) % MCV (80.0-100.0) fL MCH (27.0-34.0) pg RDW (11.6-17.2) % Potassium 2.9 L* (3.5-5.1) meq/L Creatinine 1.58 H (0.50-1.00) mg/dL Estimated GFR 37 L (>89) mL/min Random Glucose 166 H (74-106) mg/dL Total Bilirubin (0.2-1.0) mg/dL AST (15-37) U/L Alkaline Phosphatase (45-117) U/L Ammonia (11-32) mcmol/L Total Protein (6.4-8.2) g/dL Albumin (3.4-5.0) g/dL Short CBC 02/28/18 Range/Units 03:51 WBC 9.0 (4.0-11.0) th/mm3 Hgb 11.0 L (11.6-15.3) gm/dL Hct 31.4 L (35.0-46.0) % Plt Count 167 (150-450) th/mm3 BMP 02/28/18 02/28/18 03:51 14:00 Sodium 139 138 Potassium 2.8 L* 2.9 L* Chloride 102 100 Carbon Dioxide 25.9 26.1 BUN 14 14 Creatinine 1.39 H 1.58 H Calcium 8.6 9.1 Liver Function 02/28/18 Range/Units 03:51 Total Bilirubin 36.4 H (0.2-1.0) mg/dL AST 80 H (15-37) U/L ALT 14 (10-53) U/L Alkaline Phosphatase 309 H (45-117) U/L Albumin 2.1 L (3.4-5.0) g/dL <YancyAna R - 02/28/18 15:24> Abnormal lab results 02/27/18 02/28/18 02/28/18 Range/Units 12:30 03:51 03:51 RBC 2.82 L (4.00-5.30) mil/mm3 Hgb 11.0 L (11.6-15.3) gm/dL Hct 31.4 L (35.0-46.0) % MCV 111.4 H (80.0-100.0) fL MCH 38.8 H (27.0-34.0) pg RDW 17.5 H (11.6-17.2) % Potassium 3.4 L (3.5-5.1) meq/L Creatinine (0.50-1.00) mg/dL Estimated GFR (>89) mL/min Total Bilirubin (0.2-1.0) mg/dL AST (15-37) U/L Alkaline Phosphatase (45-117) U/L Ammonia 64 H (11-32) mcmol/L Total Protein (6.4-8.2) g/dL Albumin (3.4-5.0) g/dL 02/28/18 Range/Units 03:51 RBC (4.00-5.30) mil/mm3 Hgb (11.6-15.3) gm/dL Hct (35.0-46.0) % MCV (80.0-100.0) fL MCH (27.0-34.0) pg RDW (11.6-17.2) % Potassium 2.8 L* (3.5-5.1) meq/L Creatinine 1.39 H (0.50-1.00) mg/dL Estimated GFR 43 L (>89) mL/min Total Bilirubin 36.4 H (0.2-1.0) mg/dL AST 80 H (15-37) U/L Alkaline Phosphatase 309 H (45-117) U/L Ammonia (11-32) mcmol/L Total Protein 5.2 L (6.4-8.2) g/dL Albumin 2.1 L (3.4-5.0) g/dL Short CBC 02/28/18 Range/Units 03:51 WBC 9.0 (4.0-11.0) th/mm3 Hgb 11.0 L (11.6-15.3) gm/dL Hct 31.4 L (35.0-46.0) % Plt Count 167 (150-450) th/mm3 BMP 02/27/18 02/28/18 12:30 03:51 Sodium 139 Potassium 3.4 L 2.8 L* Chloride 102 Carbon Dioxide 25.9 BUN 14 Creatinine 1.39 H Calcium 8.6 Liver Function 02/28/18 Range/Units 03:51 Total Bilirubin 36.4 H (0.2-1.0) mg/dL AST 80 H (15-37) U/L ALT 14 (10-53) U/L Alkaline Phosphatase 309 H (45-117) U/L Albumin 2.1 L (3.4-5.0) g/dL <Mandeep Byrd - 02/28/18 11:05> Physical Exam Vital signs: Vital Signs 02/27/18 16:00 02/27/18 19:10 02/27/18 20:00 Temperature 98.1 F 96.8 F L Pulse Rate 94 H 91 H Respiratory Rate 16 18 18 Blood Pressure 99/62 L 94/52 L Pulse Oximetry 95 96 02/28/18 00:00 02/28/18 03:16 02/28/18 08:00 Temperature 98.2 F 98.6 F Pulse Rate 96 H 93 H Respiratory Rate 18 18 18 Blood Pressure 96/60 L 99/60 L Pulse Oximetry 95 97 02/28/18 12:00 Temperature 98.1 F Pulse Rate 90 Respiratory Rate 16 Blood Pressure 107/66 Pulse Oximetry 92 L Intake & Output 02/27/18 02/28/18 02/28/18 18:59 06:59 18:59 Intake Total 480 / 480 360 / 360 Output Total 2 / 2 Balance 478 / 478 360 / 360 Weight 69.7 kg Intake: Oral 480 / 480 360 / 360 Output: Urine 2 / 2 Other: # Voids 1 Date of Last Bowel Movement 02/26/18 02/26/18 02/27/18 # Bowel Movements 2 0 <ShaunnacarakimAna melendez R - 02/28/18 15:24> Vital Signs 02/27/18 11:59 02/27/18 16:00 02/27/18 19:10 Temperature 98.3 F 98.1 F 96.8 F L Pulse Rate 100 H 94 H 91 H Respiratory Rate 18 16 18 Blood Pressure 93/54 L 99/62 L 94/52 L Pulse Oximetry 92 L 95 96 02/27/18 20:00 02/28/18 00:00 02/28/18 03:16 Temperature 98.2 F Pulse Rate 96 H Respiratory Rate 18 18 18 Blood Pressure 96/60 L Pulse Oximetry 95 02/28/18 08:00 Temperature 98.6 F Pulse Rate 93 H Respiratory Rate 18 Blood Pressure 99/60 L Pulse Oximetry 97 Intake & Output 02/27/18 02/28/18 02/28/18 18:59 06:59 18:59 Intake Total 480 / 480 360 / 360 Output Total 2 / 2 Balance 478 / 478 360 / 360 Weight 69.7 kg Intake: Oral 480 / 480 360 / 360 Output: Urine 2 / 2 Other: # Voids 1 Date of Last Bowel Movement 02/26/18 02/26/18 02/27/18 # Bowel Movements 2 0 <Mandeep Byrd - 02/28/18 11:05> Narrative: GENERAL: severely jaundiced pt, in NAD. SKIN: Warm and dry. Jaundiced noted down to abdomen. Spider angiomata noted on chest. HEAD: Normocephalic and atraumatic. EYES: Severe scleral icterus. No injection or drainage. CARDIOVASCULAR: Regular rate and rhythm without murmurs, gallops, or rubs. RESPIRATORY: Breath sounds equal bilaterally. No accessory muscle use. ABDOMEN/GI: Abdomen soft, non-tender, distended with moderate ascites, hepatomegaly noted BACK: Nontender without obvious deformity. No CVA tenderness. NEUROLOGICAL: Awake and alert. Motor and sensory grossly within normal limits. Normal speech. <Mandeep Byrd - 02/28/18 12:33> Assessment and Plan - Assessment (1) Cirrhosis Code(s): K74.60 - Unspecified cirrhosis of liver Status: Acute (2) Ascites Code(s): R18.8 - Other ascites Status: Acute (3) Anemia Code(s): D64.9 - Anemia, unspecified Status: Acute (4) ETOH abuse Code(s): F10.10 - Alcohol abuse, uncomplicated Status: Chronic (5) Hypokalemia Code(s): E87.6 - Hypokalemia Status: Acute (6) Acute kidney injury Code(s): N17.9 - Acute kidney failure, unspecified Status: Acute (7) Hypothyroidism Code(s): E03.9 - Hypothyroidism, unspecified Status: Chronic (8) Nutrition, metabolism, and development symptoms Code(s): R63.8 - Other symptoms and signs concerning food and fluid intake Status: Acute <Ana Haines Kim - 02/28/18 15:24> (1) Cirrhosis Code(s): K74.60 - Unspecified cirrhosis of liver Status: Acute Plan: 32 year old female with history of severe steatosis presenting with diffuse abdominal pain without peritonitis. No fevers since admission. - MRCP 02/26 showing 1.7 cm gallstone. No filling defects in the common bile duct and no dilation of the intra or extrahepatic biliary system.Severe hepatomegaly and scattered areas of fatty change - GI on board, appreciate recommendations. Patient started on oral prednisone 20 mg daily - Continue lactulose 30 mL po bid and xifaxan q12h - Continue furosemide to 40 mg daily and Spirolactone 100 mg daily - Oxycodone 5 mg po q4h prn pain - HIDA scan cancelled per general surgery. No surgery indicated at this time. - Hepatitis panel negative - Avoid hepatotoxic agents - Continue to discuss seriousness of illness and need for alcohol cessation, refer for counseling/rehab after discharge Prior work-up: MRCP 04/2017 showing hepatomegaly with scattered fatty infiltration; probable 1 cm cyst left hepatic lobe, possible hemangioma right hepatic lobe. 1.6 cm gallstone in the gallbladder neck. No choledocholithiasis. CBD upper limits of normal. Hepatitis profile negative, RAJAT neg, AMA < 20.0, ASMA neg, Liver biopsy (10/04/15): benign liver tissue with marked steatosis Repeat liver biopsy (10/07/15): marked steatohepatitis and cirrhosis Gallbladder ultrasound (04/16/17): hepatic steatosis, hepatomegaly, cholelithiasis with mild thickening of the gallbladder wall; mildly dilated common bile duct at 8mm. (2) Ascites Code(s): R18.8 - Other ascites Status: Acute Plan: Significant ascites on exam - Added spironolactone for low potassium and ascites (see plan above) - Low threshold for paracentesis and coverage for SBP if pain worsening, fevers , etc. - May consider IR therapeutic paracentesis and liver biopsy although patient has had prior liver biopsy and known to have heavy etoh abuse causing cirrhosis (3) Anemia Code(s): D64.9 - Anemia, unspecified Status: Acute Plan: Hgb 11.0 this AM, from 13.2 on admission Hemoccult negative Possibly related to hemoconcentration from admission, all cell lines appear decreased this AM Will continue to monitor H/H (4) ETOH abuse Code(s): F10.10 - Alcohol abuse, uncomplicated Status: Chronic Plan: [facility] protocol thiamine, folic acid, multivitamin Consult CM-etoh abuse dc plan prior to discharge Continue open discussions about alcohol abuse (5) Hypokalemia Code(s): E87.6 - Hypokalemia Status: Acute Plan: Continues to be hypokalemic at 2.8 this AM - Replaced with 40mEq this morning, will repeat BMP at 13:00 today - Added spironolactone for ascites and hypokalemia - Mg 2.1 from 02/26 (6) Acute kidney injury Code(s): N17.9 - Acute kidney failure, unspecified Status: Acute Plan: Cr 1.38 on admission, baseline 0.56, this morning 1.39 Likely due to low renal perfusion pressure due to liver disease Overall hypervolemic state Continue to monitor Avoid nephrotoxic agents (7) Hypothyroidism Code(s): E03.9 - Hypothyroidism, unspecified Status: Chronic Plan: Continue home levothyroxine (8) Nutrition, metabolism, and development symptoms Code(s): R63.8 - Other symptoms and signs concerning food and fluid intake Status: Acute Plan: Fluids: per PO Electrolytes: continue to monitor and replace as needed Nutrition: regular diet <Mandeep Byrd - 02/28/18 12:06> - Assessment and Plan 32 year old female with history of etoh abuse and cirrhosis, admitted due to RUQ abdominal pain, severe jaundice, ROMI, and hypokalemia with K+ at 2.1. Gastroenterology and surgery have been consulted. Patient is being monitored for encephalopathy and fulminant liver failure due to acute alcoholic hepatitis , and electrolytes being monitored and repleted. Awaiting discharge pending stabilization of serum electrolytes and liver function <Mandeep Byrd - 02/28/18 12:33> - Attending Attestation The exam, history, and the medical decision-making described in the above note were completed with the assistance of the resident physician. I reviewed and agree with the findings presented. I attest that I had a [id number] encounter with the patient on the same day, and personally performed and documented my assessment and findings in the medical record. Patient with continued poor understanding of her illness, her liver disease, the relation to alcohol and her overall prognosis. Will attempt to meet with the rest of the family with the patient to see if we can improve patients understanding and acceptance which will hopefully lead to abstinence from alcohol. <Ana Haines R - 02/28/18 15:24> <RochelleMandeep - Last Filed: 02/28/18 12:06> (1) Cirrhosis Qualifiers: Hepatic cirrhosis type: alcoholic cirrhosis (2) Ascites Qualifiers: Ascites type: due to alcoholic cirrhosis Qualified Code(s): K70.31 - Alcoholic cirrhosis of liver with ascites (7) Hypothyroidism Qualifiers: Hypothyroidism type: acquired Qualified Code(s): E03.9 - Hypothyroidism, unspecified <Ana Haines - Last Filed: 02/28/18 15:24> (1) Cirrhosis Qualifiers: Hepatic cirrhosis type: alcoholic cirrhosis (2) Ascites Qualifiers: Ascites type: due to alcoholic cirrhosis Qualified Code(s): K70.31 - Alcoholic cirrhosis of liver with ascites (7) Hypothyroidism Qualifiers: Hypothyroidism type: acquired Qualified Code(s): E03.9 - Hypothyroidism, unspecified <NupurKinsey osoriosh - Last Filed: 02/28/18 12:06> (1) Cirrhosis Qualifiers: Hepatic cirrhosis type: alcoholic cirrhosis (2) Ascites Qualifiers: Ascites type: due to alcoholic cirrhosis Qualified Code(s): K70.31 - Alcoholic cirrhosis of liver with ascites (7) Hypothyroidism Qualifiers: Hypothyroidism type: acquired Qualified Code(s): E03.9 - Hypothyroidism, unspecified <Ana Haines - Last Filed: 09/27/18 15:24> (1) Cirrhosis Qualifiers: Hepatic cirrhosis type: alcoholic cirrhosis (2) Ascites Qualifiers: Ascites type: due to alcoholic cirrhosis Qualified Code(s): K70.31 - Alcoholic cirrhosis of liver with ascites (7) Hypothyroidism Qualifiers: Hypothyroidism type: acquired Qualified Code(s): E03.9 - Hypothyroidism, unspecified
--- NOTE | 2018-02-28 14:40 | P.PNGS ---
Subjective Interval history: Resting in bed eating lunch Mother at bedside Feeling full after eating even small amount Physical Exam Vital signs: Vital Signs 02/27/18 16:00 02/27/18 19:10 02/27/18 20:00 Temperature 98.1 F 96.8 F L Pulse Rate 94 H 91 H Respiratory Rate 16 18 18 Blood Pressure 99/62 L 94/52 L Pulse Oximetry 95 96 02/28/18 00:00 02/28/18 03:16 02/28/18 08:00 Temperature 98.2 F 98.6 F Pulse Rate 96 H 93 H Respiratory Rate 18 18 18 Blood Pressure 96/60 L 99/60 L Pulse Oximetry 95 97 02/28/18 12:00 Temperature 98.1 F Pulse Rate 90 Respiratory Rate 16 Blood Pressure 107/66 Pulse Oximetry 92 L Intake & Output 02/27/18 02/28/18 02/28/18 18:59 06:59 18:59 Intake Total 480 / 480 360 / 360 Output Total 2 / 2 Balance 478 / 478 360 / 360 Weight 69.7 kg Intake: Oral 480 / 480 360 / 360 Output: Urine 2 / 2 Other: # Voids 1 Date of Last Bowel Movement 02/26/18 02/26/18 02/27/18 # Bowel Movements 2 0 Narrative: Alert and awake Abd: slightly distended although soft; RUQ tenderness better today Results - Labs 03/02/18 04:27 03/02/18 04:27 Laboratory Results - last 24 hr 02/28/18 02/28/18 02/28/18 03:51 03:51 03:51 WBC 9.0 RBC 2.82 L Hgb 11.0 L Hct 31.4 L MCV 111.4 H MCH 38.8 H MCHC 34.9 RDW 17.5 H Plt Count 167 MPV 8.1 Sodium 139 Potassium 2.8 L* Chloride 102 Carbon Dioxide 25.9 Anion Gap 11 BUN 14 Creatinine 1.39 H Estimated GFR 43 L Random Glucose 106 Calcium 8.6 Total Bilirubin 36.4 H AST 80 H ALT 14 Alkaline Phosphatase 309 H Ammonia 64 H Total Protein 5.2 L Albumin 2.1 L - Imaging Imaging: ITS Impressions Abdomen/Pelvis CT 02/25/18 18:56 CONCLUSION: 1. Severe hepatomegaly, similar in severity, but with a lesser degree of steatosis than on prior examination. No intrahepatic ductal dilatation. 2. 1.7 cm peripherally calcified gallstone. Common hepatic duct measures 9 mm and is more prominent than on the prior examination. Chest X-Ray 02/25/18 18:56 CONCLUSION: The lungs are clear. Head CT 02/25/18 18:56 CONCLUSION: 1. No acute findings in the brain. . Cholangiopancreatography MRI 02/26/18 00:00 CONCLUSION: 1. 1.7 cm gallstone. 2. No filling defects in the common bile duct and no dilation of the intra or extrahepatic biliary system. 3. Severe hepatomegaly and scattered areas of fatty change Assessment and Plan - Assessment (1) Liver failure Code(s): K72.90 - Hepatic failure, unspecified without coma Status: Acute Plan: 32 year old female with abdominal pain; T bilirubin 43.9 -Regular diet as tolerated -Hepatitis panel nonreactive -Avoid hepatotoxic medications -Avoid ETOH -GI following -FM resident mention possible therapeutic paracentesis -Patient not a candidate for cholecystectomy at this due to liver failure --- will sign off; please call with questions As above; nothing further to add Clinically stable Discussed situation with patient and that no surgery indicated at this time; she vocalizes understanding. The exam, history, and the medical decision-making described in the above note were completed with the assistance of the mid-level provider. I reviewed and agree with the findings presented. I attest that I had a [id number] encounter with the patient on the same day, and personally performed and documented my assessment and findings in the medical record.
[2018-02-28 14:58] LABS: Calcium 9.1 mg/dL (8.5-10.1); Carbon Dioxide 26.1 meq/L (21.0-32.0)
[2018-02-28 15:12] LABS: Potassium 2.9 meq/L (3.5-5.1)
[2018-02-28] MEDS: rifAXIMin 550 MG Tablet PO SCH (21:40)
[2018-03-01] MEDS: clonazePAM 1 MG Tablet PO SCH ×4 (02:39→20:47)
[2018-03-01 04:16] LABS: Hematocrit 33.3 % (35.0-46.0); Hemoglobin 11.5 gm/dL (11.6-15.3); Mean Corpuscular HGB Conc 34.5 % (32.0-36.0); Mean Corpuscular Hemoglobin 38.3 pg (27.0-34.0); Mean Platelet Volume 8.2 fL (7.0-11.0); Platelet Count 208 th/mm3 (150-450); Red Cell Distribution Width 16.9 % (11.6-17.2); White Blood Count 11.3 th/mm3 (4.0-11.0)
[2018-03-01 04:54] LABS: Alanine Aminotransferase 14 U/L (10-53); Albumin 2.1 g/dL (3.4-5.0); Alkaline Phosphatase 331 U/L (45-117); Anion Gap 12 meq/L (5-15); Aspartate Aminotransferase 69 U/L (15-37); Blood Urea Nitrogen 18 mg/dL (7-18); Calcium 8.4 mg/dL (8.5-10.1); Carbon Dioxide 25.1 meq/L (21.0-32.0); Chloride 101 meq/L (98-107); Glomerular Filtration Rate 36 mL/min (>89); Glucose,Random 125 mg/dL (74-106); Potassium 3.2 meq/L (3.5-5.1); Sodium 138 meq/L (136-145)
[2018-03-01 05:17] LABS: Total Protein 5.6 g/dL (6.4-8.2)
[2018-03-01] MEDS: Levothyroxine 50 MCG Tablet PO SCH (06:50)
[2018-03-01] MEDS: rifAXIMin 550 MG Tablet PO SCH ×2 (09:03→20:46)
[2018-03-01] MEDS: Gabapentin 400 MG Capsule PO SCH ×2 (09:03→20:47)
[2018-03-01] MEDS: Senna/Docusate Sodium 8.6/50 MG Tablet PO SCH ×2 (09:05→20:46)
[2018-03-01] MEDS: predniSONE 20 MG Tablet PO SCH (09:06)
[2018-03-01] MEDS: Citalopram 20 MG Tablet PO SCH (09:06)
[2018-03-01] MEDS: Furosemide 20 MG Tablet PO SCH (09:06)
[2018-03-01] MEDS: Spironolactone 50 MG Tablet PO SCH (09:07)
[2018-03-01] MEDS: Sodium Chloride 0.9% 2 ML Flush BID IV.FLUSH SCH (09:07)
--- NOTE | 2018-03-01 09:35 | US ---
EXAM DATE: 03/01/2018 12:00 AM EDT AGE/SEX: 32 years / Female INDICATIONS: Distended abdomen. CLINICAL DATA: This is the patient's initial encounter. Patient reports that signs and symptoms have been present for 1 day and indicates a pain score of 2/10. MEDICAL/SURGICAL HISTORY: . 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 Tonsillectomy. Liver biopsy. COMPARISON: [facility] [place]ELVIS W [place]AST, 02/25/2018. . FINDINGS: Masses: None Fluid Collections: None Other: Visualized portions of the liver demonstrate diffusely increased hepatic echogenicity. CONCLUSION: 1. No ascites. 2. Echogenic liver consistent with hepatic steatosis versus medical liver disease. Electronically signed by: Chet Doyle MD 03/01/2018 9:33 AM EDT
--- NOTE | 2018-03-01 10:33 | P.PN ---
Subjective Interval history: Pt seen and evaluated this morning. She is doing "the same", still complains of itching. Discussed one more time her disease process and the likelihood all her symptoms will not resolve while in the hospital, like jaundice, pain, etc. Pt continues to have poor insight despite extensive conversations about her prognosis. She states she had too many BMs yesterday, but none since last night. She received a dose of Rifaximin at 9 pm, which help her symptoms. She agrees to continue taking lactulose if needed. She denies N/V, fever, chills, chest pain, shortness of breath, or cough. We discussed her lower oxygen saturations overnight (someone told her she needed to be in oxygen), and her lack of respiratory symptoms. Physical Exam Vital signs: Vital Signs 02/28/18 12:00 02/28/18 20:00 03/01/18 00:00 Temperature 98.1 F 97.3 F L 97.6 F Pulse Rate 90 98 H 82 Respiratory Rate 16 17 16 Blood Pressure 107/66 109/68 94/53 L Pulse Oximetry 92 L 93 L 94 L 03/01/18 04:00 03/01/18 08:00 Temperature 97.7 F Pulse Rate 92 H Respiratory Rate 16 Blood Pressure 100/65 107/61 Pulse Oximetry 92 L Intake & Output 02/28/18 03/01/18 03/01/18 18:59 06:59 18:59 Intake Total 240 / 240 Balance 240 / 240 Weight 69.6 kg Intake: Oral 240 / 240 Other: # Voids 1 9 Date of Last Bowel Movement 02/27/18 02/28/18 Narrative: GENERAL: severely jaundiced pt, eating breakfast, in NAD. SKIN: Warm and dry. Jaundiced noted down to abdomen. Spider angiomata noted on chest. HEAD: Normocephalic and atraumatic. EYES: Severe scleral icterus. No injection or drainage. CARDIOVASCULAR: Regular rate and rhythm without murmurs, gallops, or rubs. RESPIRATORY: Breath sounds equal bilaterally. No accessory muscle use. ABDOMEN/GI: Abdomen soft, non-tender, distended with marked hepatomegaly. Bowel sounds present, no rebound, no guarding BACK: Nontender without obvious deformity. No CVA tenderness. NEUROLOGICAL: Awake and alert. Motor and sensory grossly within normal limits. Normal speech. Results - Labs CBC & Chem 7: 03/02/18 04:27 03/02/18 04:27 Laboratory Results - last 24 hr 02/28/18 02/28/18 03/01/18 14:00 21:13 03:34 WBC 11.3 H RBC 3.00 L Hgb 11.5 L Hct 33.3 L MCV 111.0 H MCH 38.3 H MCHC 34.5 RDW 16.9 Plt Count 208 MPV 8.2 Sodium 138 Potassium 2.9 L* 3.0 L Chloride 100 Carbon Dioxide 26.1 Anion Gap 12 BUN 14 Creatinine 1.58 H Estimated GFR 37 L Random Glucose 166 H Calcium 9.1 Total Bilirubin AST ALT Alkaline Phosphatase Total Protein Albumin 03/01/18 03:34 WBC RBC Hgb Hct MCV MCH MCHC RDW Plt Count MPV Sodium 138 Potassium 3.2 L Chloride 101 Carbon Dioxide 25.1 Anion Gap 12 BUN 18 Creatinine 1.65 H Estimated GFR 36 L Random Glucose 125 H Calcium 8.4 L Total Bilirubin 39.7 H AST 69 H ALT 14 Alkaline Phosphatase 331 H Total Protein 5.6 L Albumin 2.1 L Microbiology 02/28/18 09:45 Stool Stool Occult Blood (CRAMEN) - Final Hemoccult negative - Imaging Impressions Abdomen Ultrasound 03/01/18 00:00 CONCLUSION: 1. No ascites. 2. Echogenic liver consistent with hepatic steatosis versus medical liver disease. Assessment and Plan - Assessment (1) Cirrhosis Code(s): K74.60 - Unspecified cirrhosis of liver Status: Acute (2) Ascites Code(s): R18.8 - Other ascites Status: Acute (3) Anemia Code(s): D64.9 - Anemia, unspecified Status: Acute (4) ETOH abuse Code(s): F10.10 - Alcohol abuse, uncomplicated Status: Chronic (5) Hypokalemia Code(s): E87.6 - Hypokalemia Status: Acute (6) Acute kidney injury Code(s): N17.9 - Acute kidney failure, unspecified Status: Acute (7) Hypothyroidism Code(s): E03.9 - Hypothyroidism, unspecified Status: Chronic (8) Nutrition, metabolism, and development symptoms Code(s): R63.8 - Other symptoms and signs concerning food and fluid intake Status: Acute - Plan 32 yr old female w/ history EtOH abuse and cirrhosis admitted with severe jaundice secondary to liver failure, ROMI, hypokalemia, and abdominal pain. Presenting labs show hemoglobin 11.7, PT/INR 1.3, initial bilirubin 43.9, AST 103, ALT 17, alkaline phosphatase [address] and ammonia level [address]. CT scan performed on 02/25/2018 showed severe hepatomegaly, similar in severity with a lesser degree of steatosis than prior CT w/ no intrahepatic ductal dilatation. 1.7 cm calcified gallstone. General surgery consulted and recommended no surgical intervention at this time. GI following and managing her liver disease symptoms related to encephalopathy and fulminant liver failure. Pt has remained stable thorough hospitalization, but having persistent hypokalemia needing continuos potassium replacement. Pt has poor insight on severity of her illness and poor prognosis if she continues to abuse alcohol. We had discussed with her several times her prognosis and likely need of Liver transplant. At this point, we anticipate discharge home tomorrow or Sunday pending GI clearance and potassium stabilization. Plan: - US ordered to evaluate possible paracentesis. Results show no Ascites at this moment. - Potassium today 3.2 after 20mEq overnight. Extra 20 mEq given this morning, repeat K 3.1 Will schedule 20mEq of potassium BID and continue to monitor. - Due to an increase in Cr yesterday, Spironolactone and Furosemide were decreased to 50mg/20mg respectively. Cr today 1.65 - Continue CIWA protocol (last score 0) - Continue to discuss seriousness of illness and need for alcohol cessation, refer for counseling/rehab after discharge. - Chronic diseases are stable. Continue current regimen. - Continue regular diet, PO hydration, SCDs for DVT and add Heparin 5000 mg SQ q 2 hr to enhance prevention. - Continue to follow GI recommendation. Pt seen and discussed with Dr. Zhang and Dr. Medrano - Attending Attestation The exam, history, and the medical decision-making described in the above note were completed with the assistance of the resident physician. I reviewed and agree with the findings presented. I attest that I had a [id number] encounter with the patient on the same day, and personally performed and documented my assessment and findings in the medical record. (1) Cirrhosis Qualifiers: Hepatic cirrhosis type: alcoholic cirrhosis (2) Ascites Qualifiers: Ascites type: due to alcoholic cirrhosis Qualified Code(s): K70.31 - Alcoholic cirrhosis of liver with ascites (7) Hypothyroidism Qualifiers: Hypothyroidism type: acquired Qualified Code(s): E03.9 - Hypothyroidism, unspecified
--- NOTE | 2018-03-01 13:01 | P.PNGI ---
Subjective Interval history: Pt is resting in bed, mother at bedside. Pt states that she never receives any good news. She reports she is not feeling well, very tired. Feels worse than she did before she came in. Tolerating PO, some nausea after meals but no emesis. Has been having BMs. <FermínPrudence - Last Filed: 03/01/18 12:51> Physical Exam Vital signs: Vital Signs 02/28/18 20:00 03/01/18 00:00 03/01/18 04:00 Temperature 97.3 F L 97.6 F Pulse Rate 98 H 82 Respiratory Rate 17 16 Blood Pressure 109/68 94/53 L 100/65 Pulse Oximetry 93 L 94 L 03/01/18 08:00 03/01/18 12:00 Temperature 97.7 F 97.4 F L Pulse Rate 92 H 87 Respiratory Rate 16 16 Blood Pressure 107/61 109/64 Pulse Oximetry 92 L 94 L Intake & Output 02/28/18 03/01/18 03/01/18 18:59 06:59 18:59 Intake Total 240 / 240 Balance 240 / 240 Weight 69.6 kg Intake: Oral 240 / 240 Other: # Voids 1 9 Date of Last Bowel Movement 02/27/18 02/28/18 - Constitutional no acute distress - Routine HEENT Exam Head: Present: normocephalic, atraumatic Eye: Present: conjunctival icterus - Routine Respiratory Exam Absent: accessory muscle use - Routine Cardiovascular Exam Present: RRR - Routine Abdominal Exam Present: soft, normoactive bowel sounds, distended. Absent: tenderness - Routine Skin Exam Present: dry, warm, jaundice - Routine Neurological Exam Present: alert, oriented X3 <Prudence Kovacs - Last Filed: 03/01/18 12:51> Vital signs: Vital Signs 02/28/18 20:00 03/01/18 00:00 03/01/18 04:00 Temperature 97.3 F L 97.6 F Pulse Rate 98 H 82 Respiratory Rate 17 16 Blood Pressure 109/68 94/53 L 100/65 Pulse Oximetry 93 L 94 L 03/01/18 08:00 03/01/18 12:00 Temperature 97.7 F 97.4 F L Pulse Rate 92 H 87 Respiratory Rate 16 16 Blood Pressure 107/61 109/64 Pulse Oximetry 92 L 94 L Intake & Output 02/28/18 03/01/18 03/01/18 18:59 06:59 18:59 Intake Total 240 / 240 Balance 240 / 240 Weight 69.6 kg Intake: Oral 240 / 240 Other: # Voids 1 9 Date of Last Bowel Movement 02/27/18 02/28/18 02/28/18 <Galen Cabral - Last Filed: 03/01/18 15:53> Results - Labs CBC & Chem 7: 03/01/18 03:34 03/01/18 03:34 Laboratory Results - last 24 hr 02/28/18 02/28/18 03/01/18 14:00 21:13 03:34 WBC 11.3 H RBC 3.00 L Hgb 11.5 L Hct 33.3 L MCV 111.0 H MCH 38.3 H MCHC 34.5 RDW 16.9 Plt Count 208 MPV 8.2 Sodium 138 Potassium 2.9 L* 3.0 L Chloride 100 Carbon Dioxide 26.1 Anion Gap 12 BUN 14 Creatinine 1.58 H Estimated GFR 37 L Random Glucose 166 H Calcium 9.1 Total Bilirubin AST ALT Alkaline Phosphatase Total Protein Albumin 03/01/18 03:34 WBC RBC Hgb Hct MCV MCH MCHC RDW Plt Count MPV Sodium 138 Potassium 3.2 L Chloride 101 Carbon Dioxide 25.1 Anion Gap 12 BUN 18 Creatinine 1.65 H Estimated GFR 36 L Random Glucose 125 H Calcium 8.4 L Total Bilirubin 39.7 H AST 69 H ALT 14 Alkaline Phosphatase 331 H Total Protein 5.6 L Albumin 2.1 L Microbiology 02/28/18 09:45 Stool Stool Occult Blood ([facility]) - Final Hemoccult negative - Imaging Impressions Abdomen Ultrasound 03/01/18 00:00 CONCLUSION: 1. No ascites. 2. Echogenic liver consistent with hepatic steatosis versus medical liver disease. <Prudence Kovacs - Last Filed: 03/01/18 12:51> - Labs CBC & Chem 7: 03/01/18 03:34 03/01/18 12:05 Laboratory Results - last 24 hr 02/28/18 03/01/18 03/01/18 21:13 03:34 03:34 WBC 11.3 H RBC 3.00 L Hgb 11.5 L Hct 33.3 L MCV 111.0 H MCH 38.3 H MCHC 34.5 RDW 16.9 Plt Count 208 MPV 8.2 Sodium 138 Potassium 3.0 L 3.2 L Chloride 101 Carbon Dioxide 25.1 Anion Gap 12 BUN 18 Creatinine 1.65 H Estimated GFR 36 L Random Glucose 125 H Calcium 8.4 L Total Bilirubin 39.7 H AST 69 H ALT 14 Alkaline Phosphatase 331 H Total Protein 5.6 L Albumin 2.1 L 03/01/18 12:05 WBC RBC Hgb Hct MCV MCH MCHC RDW Plt Count MPV Sodium Potassium 3.1 L Chloride Carbon Dioxide Anion Gap BUN Creatinine Estimated GFR Random Glucose Calcium Total Bilirubin AST ALT Alkaline Phosphatase Total Protein Albumin Microbiology 02/28/18 09:45 Stool Stool Occult Blood ([facility]) - Final Hemoccult negative - Imaging Impressions Abdomen Ultrasound 03/01/18 00:00 CONCLUSION: 1. No ascites. 2. Echogenic liver consistent with hepatic steatosis versus medical liver disease. <Galen Cabral - Last Filed: 03/01/18 15:53> Assessment and Plan - Plan ASSESSMENT: - Elevated LFTs, Jaundice in patient with liver cirrhosis, steatohepatitis, and ongoing ETOH use. Pt with extensive workup in past for elevated LFTs October/May of 2016. Previous Liver workup Hepatitis profile negative, RAJAT neg, AMA < 20.0, ASMA neg, Ceruloplasmin 18, Alpha 1 antitrypsin 118. Iron saturation was elevated at 91.9%. 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 Rpt Ferritin 2364, Iron saturation 70.2%. She also underwent liver biopsy (10/04/15) revealed benign liver tissue with marked steatosis. She then had a repeat liver biopsy (10/07/15)----> revealed liver liver tissue with marked steatohepatitis and cirrhosis. MRCP (02/26/18) --> 1.7 cm gallstone. No filling defects in the common bile duct and no dilation of the intra and extrahepatic biliary system. Severe hepatomegaly and scattered areas of fatty change - Ascites, none on current imaging- Pt on Furosemide and Spironolactone yesterday - Nausea, GERD, Early Satiety. PPI - Anemia, macrocytic. Hx B12 Deficiency, B12 > 2,000. HH stable. - Coagulopathy. Stable. (03/01) Pt has been seen by our service during multiple hospitalization. She was advised to stop drinking ETOH, however she reports she continued to drink alcohol earlier this month. Pt is very frustrated today saying that no one has any good news for her. Discussed labs with her. Again stressed the importance of ETOH cessation. Pt currently on Prednisone for elevated DF, T bili continues to elevated. Lasix and Spironolactone, US abdomen did not show any ascites. Minimal amount of swelling in BLE. Lactulose and Xifaxan for elevated ammonia level. Plan: Continue to monitor LFTs Avoid hepatotoxins Continue current regimen: Lasix Spironolactone Lactulose Xifaxan Prednisone Add Pentoxifylline Electrolyte replacement per primary team Again stressed ETOH cessation Guarded prognosis Continue with supportive care Pt has been seen and examined by myself and Dr. Cabral and this note is written on his behalf <Prudence Kovacs - Last Filed: 03/01/18 12:51> - Plan Alcohol liver disease. On prednisone. Needs to quit drinking alcohol. Pt advised very clearly that if she doesnot quit alcohol she will from liver failure. GI fu upon dc. Monitor labs. Will sign off. thank you <Galen Cabral - Last Filed: 03/01/18 15:53>
[2018-03-01] MEDS: Pentoxifylline 400 MG Controlled Release Tablet PO SCH (17:54)
[2018-03-01] MEDS: Heparin - SQ 10,000 UNITS/ML Vial SQ SCH (20:48)
[2018-03-02] MEDS: Sodium Chloride 0.9% 2 ML Flush BID IV.FLUSH SCH ×2 (00:14→09:48)
[2018-03-02 06:03] LABS: Hematocrit 35.4 % (35.0-46.0); Hemoglobin 12.2 gm/dL (11.6-15.3); Mean Corpuscular HGB Conc 34.5 % (32.0-36.0); Mean Corpuscular Hemoglobin 38.7 pg (27.0-34.0); Mean Corpuscular Volume 112.3 fL (80.0-100.0); Mean Platelet Volume 7.9 fL (7.0-11.0); Platelet Count 230 th/mm3 (150-450); Red Blood Count 3.15 mil/mm3 (4.00-5.30); Red Cell Distribution Width 17.1 % (11.6-17.2); White Blood Count 13.5 th/mm3 (4.0-11.0)
[2018-03-02] MEDS: Levothyroxine 50 MCG Tablet PO SCH (06:12)
[2018-03-02 06:33] LABS: Alanine Aminotransferase 16 U/L (10-53); Albumin 2.3 g/dL (3.4-5.0); Anion Gap 15 meq/L (5-15); Aspartate Aminotransferase 57 U/L (15-37); Blood Urea Nitrogen 21 mg/dL (7-18); Calcium 8.6 mg/dL (8.5-10.1); Carbon Dioxide 21.9 meq/L (21.0-32.0); Chloride 101 meq/L (98-107); Glomerular Filtration Rate 37 mL/min (>89); Glucose,Random 104 mg/dL (74-106); Potassium 3.2 meq/L (3.5-5.1); Sodium 138 meq/L (136-145)
[2018-03-02 06:50] LABS: Alkaline Phosphatase 313 U/L (45-117)
[2018-03-02 07:03] LABS: Total Protein 5.7 g/dL (6.4-8.2)
[2018-03-02] MEDS: Spironolactone 50 MG Tablet PO SCH (08:08)
[2018-03-02] MEDS: predniSONE 20 MG Tablet PO SCH (08:08)
[2018-03-02] MEDS: Citalopram 20 MG Tablet PO SCH (08:08)
[2018-03-02] MEDS: rifAXIMin 550 MG Tablet PO SCH (08:09)
[2018-03-02] MEDS: Gabapentin 400 MG Capsule PO SCH (08:09)
[2018-03-02] MEDS: Furosemide 20 MG Tablet PO SCH (08:09)
[2018-03-02] MEDS: Heparin - SQ 10,000 UNITS/ML Vial SQ SCH (08:09)
[2018-03-02] MEDS: Pentoxifylline 400 MG Controlled Release Tablet PO SCH ×2 (08:09→13:57)
[2018-03-02] MEDS: clonazePAM 1 MG Tablet PO SCH (08:09)
[2018-03-02] MEDS: Senna/Docusate Sodium 8.6/50 MG Tablet PO SCH (09:48)
[2018-03-02 11:30] LABS: Lymphocytes 6 % (9-44); Monocytes 12 % (0-8); Platelet Estimate Normal (Normal); Platelet Morphology Normal (Normal); Target Cells 1+
--- NOTE | 2018-03-02 12:14 | P.PNFP ---
Subjective Interval history: Patient had no new issues overnight. She states she is eating ok, moving her bowels with the lactulose. Denies fevers/chills/Cough, urinary complaints. SHe states she is ready to go home with her mom. She declines Home health assistance. Results - Labs Result diagrams: 03/02/18 04:27 03/02/18 04:27 Abnormal lab results 03/01/18 03/02/18 03/02/18 Range/Units 12:05 04:27 04:27 WBC 13.5 H (4.0-11.0) th/mm3 RBC 3.15 L (4.00-5.30) mil/mm3 MCV 112.3 H (80.0-100.0) fL MCH 38.7 H (27.0-34.0) pg Seg Neuts % (Manual) 79 H (16-70) % Lymphocytes % (Manual) 6 L (9-44) % Monocytes % (Manual) 12 H (0-8) % Abs Neuts (Manual) 11.1 H (1.8-7.7) th/mm3 Target Cells 1+ H (None) Potassium 3.1 L 3.2 L (3.5-5.1) meq/L BUN 21 H (7-18) mg/dL Creatinine 1.59 H (0.50-1.00) mg/dL Estimated GFR 37 L (>89) mL/min Total Bilirubin 39.8 H (0.2-1.0) mg/dL AST 57 H (15-37) U/L Alkaline Phosphatase 313 H (45-117) U/L Total Protein 5.7 L (6.4-8.2) g/dL Albumin 2.3 L (3.4-5.0) g/dL Short CBC 03/02/18 Range/Units 04:27 WBC 13.5 H (4.0-11.0) th/mm3 Hgb 12.2 (11.6-15.3) gm/dL Hct 35.4 (35.0-46.0) % Plt Count 230 (150-450) th/mm3 BMP 03/01/18 03/02/18 12:05 04:27 Sodium 138 Potassium 3.1 L 3.2 L Chloride 101 Carbon Dioxide 21.9 BUN 21 H Creatinine 1.59 H Calcium 8.6 Liver Function 03/02/18 Range/Units 04:27 Total Bilirubin 39.8 H (0.2-1.0) mg/dL AST 57 H (15-37) U/L ALT 16 (10-53) U/L Alkaline Phosphatase 313 H (45-117) U/L Albumin 2.3 L (3.4-5.0) g/dL Physical Exam Vital signs: Vital Signs 03/01/18 12:00 03/01/18 16:00 03/01/18 20:00 Temperature 97.4 F L 97.4 F L 97.5 F L Pulse Rate 87 80 82 Respiratory Rate 16 16 16 Blood Pressure 109/64 101/67 111/80 Pulse Oximetry 94 L 92 L 95 03/02/18 00:00 03/02/18 01:52 03/02/18 04:00 Temperature 97.8 F 98.1 F Pulse Rate 83 75 Respiratory Rate 16 14 16 Blood Pressure 111/76 110/72 Pulse Oximetry 94 L 96 03/02/18 08:00 Temperature 97.3 F L Pulse Rate 91 H Respiratory Rate 16 Blood Pressure 104/64 Pulse Oximetry 94 L Intake & Output 03/01/18 03/02/18 03/02/18 18:59 06:59 18:59 Intake Total 600 / 600 Output Total 7 / 7 Balance 600 / 600 -7 / -7 Weight 69.5 kg Intake: Oral 600 / 600 Output: Urine Other: # Voids 3 Date of Last Bowel Movement 03/01/18 03/02/18 # Bowel Movements 2 1 Narrative: GENERAL: severely jaundiced pt, eating breakfast, in NAD. SKIN: Warm and dry. Jaundiced noted down to abdomen. Spider angiomata noted on chest. HEAD: Normocephalic and atraumatic. EYES: Severe scleral icterus. No injection or drainage. CARDIOVASCULAR: Regular rate and rhythm without murmurs, gallops, or rubs. RESPIRATORY: Breath sounds equal bilaterally. No accessory muscle use. ABDOMEN/GI: Abdomen soft, non-tender, distended with marked hepatomegaly. Bowel sounds present, no rebound, no guarding BACK: Nontender without obvious deformity. No CVA tenderness. NEUROLOGICAL: Awake and alert. Motor and sensory grossly within normal limits. Normal speech. Assessment and Plan - Assessment (1) Cirrhosis Code(s): K74.60 - Unspecified cirrhosis of liver Status: Acute Plan: 32 year old female with history of severe steatosis presenting with diffuse abdominal pain without peritonitis. No fevers since admission. She is tolerating PO well. She has some continued pain that is likely chronic. Patient with 1.7cm gallstone but not surgical candidate at this time. Had extensive workup in the past for causes of her cirrhosis outside of alcohol. This workup was negative. Continue the prednisone, lactulose, furosemide, spironolactone and xifaximn DWPT in detail daily about the cause of her cirrhosis, how this is caused by alcohol and her only hope of survival is to stop alcohol forever, take her medication, followup closely with her physicians and GI, etc. Patient voices understanding of all of this. She is not interested in counseling/rehab Will not send home with pain medication as she has been very comfortable during her hospital stay. Prior work-up: MRCP 04/2017 showing hepatomegaly with scattered fatty infiltration; probable 1 cm cyst left hepatic lobe, possible hemangioma right hepatic lobe. 1.6 cm gallstone in the gallbladder neck. No choledocholithiasis. CBD upper limits of normal. Hepatitis profile negative, RAJAT neg, AMA < 20.0, ASMA neg, Liver biopsy (10/04/15): benign liver tissue with marked steatosis Repeat liver biopsy (10/07/15): marked steatohepatitis and cirrhosis Gallbladder ultrasound (04/16/17): hepatic steatosis, hepatomegaly, cholelithiasis with mild thickening of the gallbladder wall; mildly dilated common bile duct at 8mm. (2) Ascites Code(s): R18.8 - Other ascites Status: Resolved Plan: Ascites has resolved clinically and on the [facility] US yesterday. LIkely from the diuretics. No further workup or treatment needed (3) Anemia Code(s): D64.9 - Anemia, unspecified Status: Acute Plan: Stable - likely due to chronic disease. No evidence for acute bleed (4) ETOH abuse Code(s): F10.10 - Alcohol abuse, uncomplicated Status: Chronic Plan: [facility] protocol - no withdrawal during this hospitalization thiamine, folic acid, multivitamin Consult CM-etoh abuse dc plan prior to discharge Continue open discussions about alcohol abuse (5) Hypokalemia Code(s): E87.6 - Hypokalemia Status: Acute Plan: This has normalized with scheduled Potassium and the spironolactone added to the lasix. Continue this regimen. Repeat labs in a few days to make sure this is staying stable once patient transitions to the outpatient setting (6) Acute kidney injury Code(s): N17.9 - Acute kidney failure, unspecified Status: Acute Plan: Resolved (7) Hypothyroidism Code(s): E03.9 - Hypothyroidism, unspecified Status: Chronic Plan: Continue home levothyroxine (8) Nutrition, metabolism, and development symptoms Code(s): R63.8 - Other symptoms and signs concerning food and fluid intake Status: Acute Plan: Fluids: per PO Electrolytes: continue to monitor and replace as needed Nutrition: regular diet (9) Leukocytosis Code(s): D72.829 - Elevated white blood cell count, unspecified Status: Acute Plan: Her WBC bumped a little today. The patient is afebrile. Her clinical picture is unchanged, she has no signs or symptoms of acute infection. Likely this is due to the prednisone she has been on. At this time there is no indication to pursue this lab value with further workup. Patient instructed to return to ED if develops fevers or any symptoms of illness. - Assessment and Plan 32 year old female with history of etoh abuse and cirrhosis, admitted due to RUQ abdominal pain, severe jaundice, ROMI, and hypokalemia with K+ at 2.1. Gastroenterology and surgery were consulted. Patient has stabilized at this time. She will need continued outpatient management with GI and primary care. Will also need abstinence from all alcohol. She declines home health, declines rehab/counseling. Plan for DC to home today with fu with GI and PCP Discussed Condition With: resident team -- Dr. Paniagua (1) Cirrhosis Qualifiers: Hepatic cirrhosis type: alcoholic cirrhosis Ascites presence: without ascites Qualified Code(s): K70.30 - Alcoholic cirrhosis of liver without ascites (2) Ascites Qualifiers: Ascites type: due to alcoholic cirrhosis Qualified Code(s): K70.31 - Alcoholic cirrhosis of liver with ascites (7) Hypothyroidism Qualifiers: Hypothyroidism type: acquired Qualified Code(s): E03.9 - Hypothyroidism, unspecified (9) Leukocytosis Qualifiers: Leukocytosis type: unspecified Qualified Code(s): D72.829 - Elevated white blood cell count, unspecified
[2018-03-02 13:34] VITALS: BP 105/55; PULSE 99; RESP 14; TEMP 97.6; O2SAT 91
--- NOTE | 2018-03-15 16:40 | P.DS ---
Date of admission: 02/25/18 23:13 Primary care physician: Se Cervantes MD Attending physician on discharge: Ana Haines Brief History from admission: The patient is a 32 year old female with h/o hepatic steatosis, per chart review cirrhosis, hypothyroidism, multiple episodes of Guillain-Beaver syndrome, hypertension, anxiety and depression, B12 deficiency, and etoh abuse who presented to the ED with complaints of RUQ abdominal pain, abdominal distension , and jaundice. The patient reports she was at her sister's house visiting for the past month and a half and was drinking alcohol heavily. She reports drinking primarily Tequila but states she was drinking pretty much anything and everything. She arrived back to [facility] to live with her mother about two weeks ago and reports drinking less since getting back. She continued to drink intermittently. Reports her last drink was last night. She reports RUQ 8-9/10 abdominal pain, nonradiating, no significant alleviating or aggravating factors. Denies abnormal bowel habits. Does endorse some constipation, stating she sometimes passes small, hard stools. Denies pale stools. Reports stools are usually brown, but sometimes green. Endorses one episode of emesis about two days ago appearing color of food. Denies hematemesis. No bilious vomiting. Denies abdominal pain worsening or improved with meals or with bowel movements. Patient update on day of discharge: Patient is a 32 year old female with history of etoh abuse and cirrhosis, admitted due to RUQ abdominal pain, severe jaundice, ROMI, and hypokalemia with K + at 2.1. Gastroenterology and surgery were consulted. Patient has stabilized at this time. She will need continued outpatient management with GI and primary care. Will also need abstinence from all alcohol. She declines home health, declines rehab/counseling. Plan for DC to home with fu with GI and PCP. DS: Diagnosis - Discharge Diagnosis (1) RUQ abdominal pain Status: Acute (2) Cirrhosis Status: Chronic (3) Ascites Status: Chronic (4) Anemia Status: Chronic (5) Hypokalemia Status: Acute (6) ETOH abuse Status: Chronic (7) Hypothyroidism Status: Chronic (8) Acute kidney injury Status: Acute DS: Medications - Discharge Medications Prescriptions: hydroxyzine HCl 25 mg PO TID PRN #30 tab PRN Reason: Itching DS: Summary Hospital Course: Cirrhosis 32 year old female with history of severe steatosis presenting with diffuse abdominal pain without peritonitis. No fevers since admission. She is tolerating PO well. She has some continued pain that is likely chronic. Patient with 1.7cm gallstone but not surgical candidate at this time. Had extensive workup in the past for causes of her cirrhosis outside of alcohol. This workup was negative. Continue the prednisone, lactulose, furosemide, spironolactone and xifaximn. DWPT in detail daily about the cause of her cirrhosis, how this is caused by alcohol and her only hope of survival is to stop alcohol forever, take her medication, followup closely with her physicians and GI, etc. Patient voices understanding of all of this. She is not interested in counseling/rehab. Will not send home with pain medication as she has been very comfortable during her hospital stay. Prior work-up: MRCP 04/2017 showing hepatomegaly with scattered fatty infiltration; probable 1 cm cyst left hepatic lobe, possible hemangioma right hepatic lobe. 1.6 cm gallstone in the gallbladder neck. No choledocholithiasis. CBD upper limits of normal. Hepatitis profile negative, RAJAT neg, AMA < 20.0, ASMA neg, Liver biopsy (10/04/15): benign liver tissue with marked steatosis Repeat liver biopsy (10/07/15): marked steatohepatitis and cirrhosis Gallbladder ultrasound (04/16/17): hepatic steatosis, hepatomegaly, cholelithiasis with mild thickening of the gallbladder wall; mildly dilated common bile duct at 8mm. Ascites Ascites has resolved clinically and on the Abd US. Likely from the diuretics. No further workup or treatment needed. Anemia Stable - likely due to chronic disease. No evidence for acute bleed. ETOH abuse [facility] protocol - no withdrawal during this hospitalization. Thiamine, folic acid, multivitamin. Consult CM-etoh abuse dc plan prior to discharge. Continue open discussions about alcohol abuse. Hypokalemia This has normalized with scheduled potassium and the spironolactone added to the lasix. Continue this regimen. Repeat labs in a few days to make sure this is staying stable once patient transitions to the outpatient setting. Acute kidney injury Resolved. Hypothyroidism Continue home levothyroxine. Nutrition, metabolism, and development symptoms Fluids: Per PO. Electrolytes: Continue to monitor and replace as needed. Nutrition: Regular diet. - Time Spent with Patient Total time spent providing and/or coordinating discharge services: Greater than 30 minutes - Quality: VTE Deep Vein Thrombosis/Pulmonary Embolism Present on Admission: No Exam Narrative: GENERAL: Severely jaundiced pt, eating breakfast, in NAD. SKIN: Warm and dry. Jaundiced noted down to abdomen. Spider angiomata noted on chest. HEAD: Normocephalic and atraumatic. EYES: Severe scleral icterus. No injection or drainage. CARDIOVASCULAR: Regular rate and rhythm without murmurs, gallops, or rubs. RESPIRATORY: Breath sounds equal bilaterally. No accessory muscle use. ABDOMEN/GI: Abdomen soft, non-tender, distended with marked hepatomegaly. Bowel sounds present, no rebound, no guarding BACK: Nontender without obvious deformity. No CVA tenderness. NEUROLOGICAL: Awake and alert. Motor and sensory grossly within normal limits. Normal speech. Results Procedures completed during hospitalization: None. - Impressions ITS Impressions Abdomen/Pelvis CT 02/25/18 18:56 CONCLUSION: 1. Severe hepatomegaly, similar in severity, but with a lesser degree of steatosis than on prior examination. No intrahepatic ductal dilatation. 2. 1.7 cm peripherally calcified gallstone. Common hepatic duct measures 9 mm and is more prominent than on the prior examination. Chest X-Ray 02/25/18 18:56 CONCLUSION: The lungs are clear. Head CT 02/25/18 18:56 CONCLUSION: 1. No acute findings in the brain. . Cholangiopancreatography MRI 02/26/18 00:00 CONCLUSION: 1. 1.7 cm gallstone. 2. No filling defects in the common bile duct and no dilation of the intra or extrahepatic biliary system. 3. Severe hepatomegaly and scattered areas of fatty change Abdomen Ultrasound 03/01/18 00:00 CONCLUSION: 1. No ascites. 2. Echogenic liver consistent with hepatic steatosis versus medical liver disease. Discharge Plan - Discharge Disposition Patient Disposition: Discharge Home - Discharge Condition Condition: Fair - Discharge Order Discharge Orders: Discharge Order (Routine); Ordered 03/02/18 Ordered By: Rosalie Brown - Physicians Team Primary Care Provider: Se Cervantes Attending Provider: Ana Haines Other Providers: Galen Cabral MD ; Kristopher Liao MD
== END 2018-03-02 14:58 | disposition home or self-care (01) ==
LOC: NEPE 14:55 → NEDA 23:13 → N06 02-26 01:15
PROVIDERS: ADMIT Family Medicine; ATTEND Family Medicine